=== PATIENT | female | born 1945 | race Caucasian/White ===

== ENCOUNTER 2022-08-30 04:02 | Inpatient (IN) | payer MEDICARE, OTHER ==
[~2022-08-30] VITALS: Ht 162 cm; Wt 100.2 kg
[2022-08-30] MEDS ORDERED: MELATONIN 3 MG TABLET PO PRN (12:30)
[2022-08-30] MEDS ORDERED: ALPRAZolam 0.25 MG (XANAX) TAB PO PRN (12:30)
[2022-08-30] MEDS ORDERED: FLEET ENEMA ADULT 1 EA BTL PR PRN (12:30)
[2022-08-30] MEDS ORDERED: DOCUSATE SODIUM 100 MG (COLACE) CAP PO PRN (12:30)
[2022-08-30] MEDS ORDERED: CALCIUM CARBONATE 500 MG (TUMS) TAB.CHEW PO PRN (12:30)
[2022-08-30] MEDS ORDERED: LOPERAMIDE 2 MG (IMODIUM) TABLET PO PRN (12:30)
[2022-08-30] MEDS ORDERED: LACTULOSE SYRUP 10GM/15ML (ENULOSE) 30ML UDC PO PRN (12:30)
[2022-08-30] MEDS ORDERED: diphenhydrAMINE 25 MG TAB (BENADRYL) PO PRN (12:30)
[2022-08-30] MEDS ORDERED: BISACODYL 10 MG SUPP (DULCOLAX) PR PRN (12:30)
[2022-08-30] MEDS ORDERED: ONDANSETRON 4 MG (ZOFRAN) ORAL DISSOLVE TAB PO PRN (12:30)
[2022-08-30] MEDS ORDERED: ACETAMINOPHEN 325 MG TABLET PO PRN (12:30)
--- NOTE | 2022-08-30 12:33 | PM&R Post Admission Assessment ---
PM&R HP Date of Visit: Aug 30, 2022 Time of Visit: 13:00 History of Present Illness Chief complaint: Catastrophic CVA HPI: This is a 77-year-old female who presented from [facility] following transfer from [place] for possible neurological interventional radiology procedure after she presented with right-sided weakness dysphagia and aphasia found to have left MCA stroke. Loop recorder was recommended due to echo revealing dilated atrium highly suspicious for paroxysmal atrial fibrillation. She remains with nasogastric tube for medications and nutrition due to aspiration risk. Difficult to communicate due to aphasia.Blood sugars will be monitored considering her hemoglobin A1c was 13. Past Gwdoedq-Isvsuq-Jjlowf Hx Past Med/Social Hx: Reviewed Nursing Past Med/Soc Hx, Reviewed and Corrections made Patient Social History Marrital Status: single Employed/Student: retired Alcohol Use: Denies Use Smoking Status: Never a Smoker Past Medical History Cardiac: High Cholesterol, Hypertension Neurological: Stroke Endocrine: Diabetes, Insulin dep PM&R Allergy/Meds/Data Review Allergies Coded Allergies: codeine (Verified Allergy, Unknown, 08/30/22) erythromycin base (Verified Allergy, Unknown, 08/30/22) gentamicin (Verified Allergy, Unknown, 08/30/22) latex (Verified Allergy, Unknown, 08/30/22) paroxetine (Verified Allergy, Unknown, 08/30/22) telmisartan (Verified Allergy, Unknown, 08/30/22) Home Medications Scheduled Aspirin (Aspirin EC), 325 MG NG DAILY, (Reported) Atorvastatin Calcium (Atorvastatin Calcium), 40 MG PO HS, (Reported) Cholecalciferol (Vitamin D3) (Vitamin D3), 125 MCG PO DAILY, (Reported) Clonidine (Catapres-TTS 1 Patch), 1 EACH TD Q7D, (Reported) Insulin Lispro (Humalog), 0-7 UNIT SQ Q4H, (Reported) Levothyroxine Sodium (Levothyroxine Sodium), 100 MCG PO DAILY, (Reported) [Lansoprazole Cmpd], 30 MG PO DAILY, (Reported) Scheduled PRN Acetaminophen (Acetaminophen), 650 MG PO Q6H PRN for PAIN-MILD (1-4), (Reported) Tizanidine HCl (Tizanidine HCl), 4 MG NG Q6H PRN for SPASMS, (Reported) Current Medications Current Medications Reviewed Review of Systems ROS-Unable to Obtain: Difficult to communicate due to aphasia Constitutional: see HPI Physical Exam Physical Exam Vital Signs Capillary Refill : Height, Weight, BMI Height: '" Weight: lbs. oz. kg; BMI Method: General Appearance: No Apparent Distress, WD/WN, Chronically ill, Obese Eyes: Bilateral Eye Normal Inspection, Bilateral Eye PERRL HEENT: PERRL/EOMI, Normal ENT Inspection, Pharynx Normal, Other (Nasogastric tube in place) Neck: Full Range of Motion, Normal Inspection, Non Tender, Supple, Carotid Bruit Respiratory: Chest Non Tender, Lungs Clear, Normal Breath Sounds, No Accessory Muscle Use, No Respiratory Distress Cardiovascular: Regular Rate, Rhythm, No Edema, No Gallop, No JVD, No Murmur, Normal Peripheral Pulses Gastrointestinal: Normal Bowel Sounds, No Organomegaly, No Pulsatile Mass, Non Tender, Soft Back: Normal Inspection, No CVA Tenderness, No Vertebral Tenderness Extremity: Normal Capillary Refill, Normal Inspection, Normal Range of Motion, Non Tender, No Calf Tenderness, No Pedal Edema Neurologic/Psychiatric: Alert, Aphasia, Depressed Affect, Motor Weakness (Right-sided placidity) Skin: Normal Color, Warm/Dry Lymphatic: No Adenopathy PM&R Medical Assessment & Plan REHAB/MEDICAL ASSESSMENT AND PLAN: REHAB IMPAIRMENT GROUP: CVA ETIOLOGIC DIAGNOSIS: CVA The comorbidities that impact the patients function and/or functional outcome by: Catastrophic deficit from CVA with right-sided placidity, aphasia, dysphagia, nasogastric tube in place, gao-ol-hpqmgsj diabetes REHAB PLAN: The patient is being admitted to our comprehensive inpatient rehabilitation faci lit and can tolerate the intensity of service consisting of at least: 180 minutes of therapy a day, 5 out of 7 days a week Rehab treatment will consist of: PT and OT will focus on regaining some function with use of assistive device in order to decrease caretaking burden to help increase independence in ADLs The patient/family has a good understanding of our discharge process and will benefit from an interdisciplinary inpatient rehabilitation program. The patient has potential to make improvement and is in need of at least two of the following multidisciplinary therapies including but not limited to physical, occupational, speech, and prosthetics and orthotics. Additionally the patient will need services from respiratory, nutritional services, wound care, psychology, etc. (Customize this to each patient). Given the patients complex condition and risk of further medical complications, rehabilitation services cannot be safely or effectively provided at a lower level of care such as a halfway facility. BARRIERS TO DISCHARGE: Catastrophic CVA with right-sided weakness and aphasia and dysphagia ESTIMATED LOS: 14 days DISPOSITION: Home with family RELEVANT CHANGES SINCE PREADMISSION SCREENING: I have compared the patients medical and functional status at the time of the preadmission screening and there are: No changes PROGNOSIS: Fair REHABILITATION GOALS: 1. PT and OT will focus on regaining some function with use of assistive device in order to decrease caretaking burden to help increase independence in ADLs All the above goals were reviewed with the patient and he/she is in agreement. By signing this document, I acknowledge that I have personally performed a full physical examination on this patient within 24 hours of admission to this inpatient rehabilitation facility and have determined the patient to be able to tolerate the above course of treatment at an intensive level for a reasonable period of time. I will be completing a detailed individualized Plan of Care for this patient by day #4 of the patients stay based upon the Preadmission Screen, the Post-Admission Evaluation, and the therapy evaluations. Admission Dx/Comorbidities: (1) CVA (cerebral vascular accident) ICD Codes: I63.9 - Cerebral infarction, unspecified Assessment/Plan Assessment and Plan Assess & Plan/Chief Complaint Assessment: 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 Aspiration risk needs modified barium swallow with speech therapy eval diabetes insulin-dependent hemoglobin A1c 13 Obesity Hypertension Hyperlipidemia Suspected cardiac source of CVA Plan: Aggressive PT and OT Speech therapy May need a PEG tube Monitor closely BETHANY HERMOSILLO DO Aug 30, 2022 12:33
[2022-08-30 12:45] VITALS: BP 180/93
[2022-08-30] MEDS ORDERED: CHOL500050 PO (13:07)
[2022-08-30] MEDS ORDERED: CLON1PAT TD (13:07)
[2022-08-30] MEDS ORDERED: ATOR40TA70 PO (13:07)
[2022-08-30] MEDS ORDERED: LEVO100T7 PO (13:07)
[2022-08-30] MEDS ORDERED: LANSOPRAZOLE PO (13:07)
[2022-08-30] MEDS ORDERED: ACET325O6 PO (13:07)
[2022-08-30] MEDS ORDERED: INSU100V SQ (13:07)
[2022-08-30] MEDS ORDERED: TIZA-186 NG (13:07)
[2022-08-30] MEDS ORDERED: ASPI325T32 NG (13:07)
--- NOTE | 2022-08-30 13:42 | Occupational Therapy Eval ---
OT Evaluation-General/PLF Medical Diagnosis Admission Date Aug 30, 2022 at 12:39 Medical Diagnosis: CVA Onset Date: August 25, 2022 Therapy Diagnosis Therapy Diagnosis: decreased ADL status, impaired functional use LUE Precautions Precautions/Isolations: Aspiration, Fall Prevention, Standard Precautions, Pressure Ulcer Referral Physician: Rupesh Crisostomo Reason: Evaluation/Treatment Medical History Additional Medical History diabetes, HTN, HLD Current History EMS to [facility] 08/25/22 with slurred speech and R side weakness. Transfer to [facility] same day with L MCA CVA and for possible endovascular intervention. 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 08/27/22 c/o abdominal pain. 08/28/22 found to have GB sludge with (+) Monteiro's sign. Pt transferred to [facility] 08/30/22 Social History Home: Single Level Current Living Status: Children (daughter) Steps Into Home: 1 Information provided by chart review from other hospital as pt is unable to answer questions at this time due to aphasia. ADL-Prior Level of Function SCALE: Activities may be completed with or without assistive devices. 5-Hmdvtwfyta-zdkbznc completes the activity by him/herself with no assistance from a helper. 5-Set-up or Clean-up Assistance-helper sets up or cleans up; patient completes activity. [place] assists only prior to or following the activity. 4-Supervision or Touching Assistance-helper provides verbal cues and/or touching/steadying and/or contact guard assistance as patient completes activity. Assistance may be provided throughout the activity or intermittently. 3-Partial/Moderate Assistance-helper does LESS THAN HALF the effort. [place] lifts, holds or supports trunk or limbs, but provides less than half the effort. 2-Substantial/Maximal Assistance-helper does MORE THAN HALF the effort. [place] lifts or holds trunk or limbs and provides more than half the effort. 7-Entiytifi-xuzybr does ALL the effort. Patient does none of the effort to complete the activity. Or, the assistance of 2 or more helpers is required for the patient to complete the activity. If activity was not attempted, code reason: 7-Patient Refused. 9-Not Applicable-not attempted and the patient did not perform the activity before the current illness, exacerbation or injury. 10-Not Attempted due to Environmental Limitations-(lack of equipment, weather restraints, etc.). 88-Not Attempted due to Medical Conditions or Safety Concerns. ADL PLOF Comments Chart review from OSH indicates pt was independent with ADLs and functional mobility at [facility]. She used a walker within the house and SPC in community. Pt has a tub/shower and SC with GBs. Pt lives with her daughter in [place], [place]. Another daughter lives close by and can assist PRN. Between the 2 daughters, 22/10 support is available. Pt unable to provide further information due to aphasia. Self Care: Independent Functional Cognition: Independent OT Current Status Subjective When asked if she is in pain, pt indicates yes. She indicates yes to burning and tingling along R side of body, agreeing to being in " a lot " of pain. Mental Status/Objective Patient Orientation: Person, Non-Verbal/Aphasic Current Glasses/Contacts: Yes Dentures/Partials: No Upper Extremity ROM LUE WFL, shoulder flexion to approx 150 degrees. RUE paresis, WFL PRO. Trace movement noted at shoulder and elbow with increased effort and concentration from pt. Upper Extremity Coordination decreased RUE Upper Extremity Sensation Decreased RUE Upper Extremity Strength LUE grossly 3+/5, RUE 1/5 ADL-Treatment Eating (QC): 88 (tube feeding) Oral Hygiene (QC): 3 (Min A with oral swab) Shower/Bathe Self (QC): 88 (Not safe to attempt on initial evaluation.) Upper Body Dressing (QC): 2 Lower Body Dressing (QC): 88 (Not safe to attempt on initial evaluation) On/Off Footwear (QC): 1 Toileting Hygiene (QC): 1 (total assist per RN report at bed level.) Other Treatments [id number] OT evaluation. Pt attempted to provide information about PLOF and home set up. Pt able to answer simple yes/no questions by nodding/shaking her head [phone] OT/PT cotreat due to skill of 2 clinicians required which a hemodialysis lab technician could not perform in order to coordinate UE/LEs, decrease fall risk, and due to pt's limitations in strength, mobility, transfers, R side hemiparesis, expressive aphasia. OT focused on UE placement, cues for sequencing and safety and ADLs, PT focused on LE placement, gross overall movement, transfers/mobility. Pt performed functional mobility including rolling in bed, transferring supine to sit EOB, SPT to w/c. Pt taken to therapy gym via w/c, stood in // x3 times, assist of 2-3 required for standing and RUE placement on b ar for weightbearing. Pt propelled w/c using LUE/LE around [facility] common area, encouragement required. During w/c mobility, pt started vomiting, basin given to pt and RN notified. Pt assisted the rest of the way back to her room via w/c, then SPT from w/c to EOB. Pt assisted supine and assisted to comfort. Pt completed face washing with SBA, and oral care using oral swab with min A using LUE. Post tx, pt in bed, call light in reach and all needs met. mod-max A x2 with mobility including supine to/from sit, sit to/from stand, SPT. Education OT Patient Education: Correct positioning, Energy conservation, Modified ADL techniques, Progress toward Goal/Update tx plan, Purpose of tx/functional activities, Rehab process, Safety issues, Transfer techniques Teaching Recipient: Patient Teaching Methods: Discussion Response to Teaching: Reinforcement Needed BIMS CAM BIMS Expression of Ideas and Wants: Frequently (expressive aphasia) Understanding Verbal Content: Usually Understands Brief Interview/Mental Status: Yes IRF INES BIMS: IRF INES BIMS Response (Comments) Value Repitition of Three Words None 0 Recalls Socks No, Could Not Recall 0 Recalls Blue No, Could Not Recall 0 Recalls Bed No, Could Not Recall 0 Year Missed by 5 Yrs/No Answer 0 Month Missed by 1 Mo/No Answer 0 Day Incorrect or No Answer 0 Total 0 [address] Asses[address] Mental St.: No CAM Mental Status Change/Baseline: 1 Inattention: 1 Disorganized thinkin Altered level of consciousness: 0 OT Short Term Goals Short Term Goals Time Frame: Sep 14, 2022 Shower/bathe self: 2 Upper body dressin Lower body dressin Putting on/taking off footwear: 2 OT Senior Care Goals Senior Care Goals Time Frame: Sep 28, 2022 Eating (QC): 5 (goal of set up assist if pt able to progress from tube feedings.) Oral Hygiene (QC): 5 Toileting Hygiene (QC): 3 Shower/Bathe Self (QC): 3 Upper Body Dressing (QC): 4 Lower Body Dressing (QC): 3 On/Off Footwear (QC): 3 Additional Goals: 1-Demonstrate ADL Tasks, 2-Verbalize Understanding, 3- ImproveStrength/Emil 1=Demonstrate adherence to instructed precautions during ADL tasks. 2=Patient will verbalize/demonstrate understanding of assistive devices/modifications for ADL. 3=Patient will improve strength/tolerance for activity to enable patient to perform ADL's. OT Education/Plan Problem List/Assessment Assessment: Decreased Activ Tolerance, Decreased Safety Aware, Decreased UE Strength, Dependent Transfers, Impaired Bed Mobility, Impaired Cognition, Impaired Coordination, Impaired Funct Balance, Impaired I ADL's, Impaired Self- Care Skills, Restricted Funct UE ROM Discharge Recommendations Plan/Recommendations: Continue POC Comment DME and AE recommendations to be determined based on pt's progress with therapy. Treatment Plan/Plan of Care Patient would benefit from OT for education, treatment and training to promote independence in ADL's, mobility, safety and/or upper extremity function for ADL's. Plan of Care: ADL Retraining, Functional Mobility, Group Exercise/Act as Ind, UE Funct Exercise/Act, UE Neuromus Re-Ed/Coord, W/C Management Training Treatment Duration: Sep 28, 2022 Frequency: At least 5 of 7 days/Wk (IRF) Estimated Hrs Per Day: 1.5 hours per day Agreement: Yes Rehab Potential: Fair Time Start Time: 13:15 ([id number] OT evaluation) Stop Time: 15:00 ([id number] Cotreat) DATE: Aug 30, 2022 Total Time Billed (hr/min): 90 Billed Treatment Time OT evaluation [id number], PT eval [id number] (not billed), Cotreat [id number] 1, EVH (15'), FA 4 (60'), ADL (15') JAMEY RAMOS OT Aug 30, 2022 13:42
[2022-08-30] MEDS ORDERED: MELATONIN 3 MG TABLET NG PRN (14:45)
[2022-08-30] MEDS ORDERED: LACTULOSE SYRUP 10GM/15ML (ENULOSE) 30ML UDC NG PRN (14:45)
[2022-08-30] MEDS ORDERED: CALCIUM CARBONATE 500 MG (TUMS) TAB.CHEW NG PRN (14:45)
[2022-08-30] MEDS ORDERED: LOPERAMIDE 2 MG (IMODIUM) TABLET NG PRN (14:45)
[2022-08-30] MEDS ORDERED: diphenhydrAMINE 12.5 MG/5 ML UDC (BENADRYL) NG PRN (15:30)
[2022-08-30] MEDS ORDERED: DOCUSATE SODIUM 10 MG/ML 10 ML UDC (COLACE) NG PRN (15:30)
--- NOTE | 2022-08-30 16:13 | Physical Therapy Evaluation ---
PT Evaluation-General Medical Diagnosis Admission Date Aug 30, 2022 at 12:39 Medical Diagnosis: CVA Onset Date: August 25, 2022 Therapy Diagnosis Therapy Diagnosis: Decreased functional mobility, decreased R LE strength Precautions Precautions/Isolations: Aspiration, Fall Prevention, Standard Precautions, Pressure Ulcer Weight Bear Status Right Lower Extremity: Right Full Weight Bearing Left Lower Extremity: Left Full Weight Bearing Referral Physician: Rupesh Reason for Referral: Evaluation/Treatment Medical History Additional Medical History DM, HTN, HLD Current History EMS to [facility] 08/25/22 with slurred speech and R side weakness. Transfer to [facility] same day with L MCA CVA and for possible endovascular intervention. 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 08/27/22 c/o abdominal pain. 08/28/22 found to have GB sludge with (+) Monteiro's sign. Pt transferred to [facility] 08/30/22 Reviewed History: Yes Social History Home: Single Level Current Living Status: Children (daughter) PT Steps Into Home: 1 Information provided by chart review from other hospital as pt is unable to answer questions at this time due to aphasia. Prior Prior Level of Function SCALE: Activities may be completed with or without assistive devices. 9-Asjkuvzzzv-xtvywny completes the activity by him/herself with no assistance from a helper. 5-Set-up or Clean-up Assistance-helper sets up or cleans up; patient completes activity. [place] assists only prior to or following the activity. 4-Supervision or Touching Assistance-helper provides verbal cues and/or to uching/steadying and/or contact guard assistance as patient completes activity. Assistance may be provided throughout the activity or intermittently. 3-Partial/Moderate Assistance-helper does LESS THAN HALF the effort. [place] lifts, holds or supports trunk or limbs, but provides less than half the effort. 2-Substantial/Maximal Assistance-helper does MORE THAN HALF the effort. [place] lifts or holds trunk or limbs and provides more than half the effort. 0-Ngcsgizel-vxgdli does ALL the effort. Patient does none of the effort to complete the activity. Or, the assistance of 2 or more helpers is required for the patient to complete the activity. If activity was not attempted, code reason: 7-Patient Refused. 9-Not Applicable-not attempted and the patient did not perform the activity before the current illness, exacerbation or injury. 10-Not Attempted due to Environmental Limitations-(lack of equipment, weather restraints, etc.). 88-Not Attempted due to Medical Conditions or Safety Concerns. Bed Mobility: 6 Transfers (B,C,W/C): 6 Gait: 6 Stairs: 6 Wheelchair Mobility: 9 Indoor Mobility (Ambulation): Independent Stairs: Independent Prior Devices Use: Walker Prior Device Use: FWW; SPC Chart review from OSH indicates pt was Ind with ADLs and functional mobility at [facility]. She used a FWW within the house and SPC in community. Pt has a tub/shower and SC with GBs. Pt lives with her daughter in [place], [place]. Another daughter lives close by and can assist PRN. Between the 2 daughters, 22/10 support is available. Pt unable to provide further information due to aphasia. PT Evaluation-Current Subjective Pt stated R sided pain, but was unable to rate. When asked if it was a little or a lot, the pt reported 'a lot'. Pain Section J - Health Conditions 1. Rarely or not at all 2. Occasionally 3. Frequently 4. Almost constantly 8. Unable to answer Pain Effect on Sleep: 3 Pain Interference with Therapy: 3 Pain Interference w/Day-to-Day: 3 Pt/Family Goals Return home with daughters who together, can provided 22/10 care Objective Patient Orientation: Person, Non-Verbal/Aphasic Attachments: NG Tube ROM/Strength ROM Upper Extremities L UE - WFL R UE - flaccid ROM Lower Extremities L LE - WFL R LE - decreased due to weakness Strength Upper Extremities L UE - WFL R UE - flaccid Strength Lower Extremities L LE MMT - 3+/5 grossly R LE MMT - 2+/5 grossly Integumentary/Posture Bowel Incontinence: Yes Bladder Incontinence: Yes Sensory Vision: Functional Hearing: Functional Hand Dominance: Left Sensation Right Upper Extremit: Impaired Sensation Left Upper Extremity: Intact Sensation Right Lower Extremit: Impaired Sensation Left Lower Extremity: Intact Transfers Roll Left & Right (QC): 1 (Mod/Max A x 2) Sit to Lying (QC): 1 (Mod/Max A x 2) Lying to Sitting/Side of Bed(Q: 1 (Mod/Max A x 2) Sit to Stand (QC): 1 (Mod/Max A x 2) Chair/Jkp-hw-Ufxgb Xfer(QC): 1 (Mod/Max A x 2) Toilet Transfer (QC): 88 Car Transfer (QC): 88 Gait Does the Patient Walk?: No and Walking Goal IS indicated Mode of Locomotion: Both Anticipated Mode of Locomotion: Wheelchair Walk 10 feet (QC): 88 Walk 50 ft with 2 Turns(QC): 88 Walk 150 ft (QC): 88 Walking 10ft/uneven surface-QC: 88 Wheelchair Training Does the Pt Use a Wheelchair?: Yes Distance: 5ft Wheel 50 ft with 2 turns (QC): 88 Wheel 150 ft (QC): 88 Type of Wheelchair: Manual Stairs 1 Step (curb) (QC): 88 4 Steps (QC): 88 12 Steps (QC): 88 Balance Sitting Static: Fair Sitting Dynamic: Fair Standing Static: Poor Standing Dynamic: Poor Picking up an Object (QC): 88 Special Test Comments KU sitting balance scale = 1+/5; Goal = 4/5 Treatment [id number] PT EVH [id number] PT/OT co-tx due to skill of 2 clinicians required which a director of cardiac rehabilitation could not perform in order to coordinate UE/LEs, decrease fall risk, and due to pt's limitations in strength, mobility, transfers, R side hemiparesis, and expressive aphasia. PT focused on LE placement, gross overall movement, transfers/mobility, LE strength, and standing. OT focused on UE placement, cues for sequencing and safety, and ADLs. Pt completed bed mobility tasks and functional transfers with Mod/Max A x 2. Pt taken to therapy gym via w/c with Dep. Pt stood in // bars x 3 with Mod/Max A and Dep for positioning R UE/LE. Pt propelled w/c using L UE/LE around [facility] common area, encouragement required for approximately 5-10ft with Min A. During w/c mobility, pt started vomiting, basin given to pt and RN notified. Pt pushed back to room in w/c. SPT completed from w/c to bed with Max A x 2. Pt completed sit to supine with Max A x 2. Pt completed face washing with SBA, and oral care using oral swab with Min A using L UE. Post tx, pt in bed, call light in reach, and all needs met. Assessment/Needs Pt tolerated PT well and showed good effort Rehab Potential: Fair Post Rehab Potential-Barriers: R hemiparesis Equipment Needs w/c PT Water Fabricator Operator Goals Water Fabricator Operator Goals PT Fdc Goals Time Frame: Sep 13, 2022 Roll Left to Right (QC): 3 (Pt will complete bed mobility with Min A. ) Sit to Lying (QC): 3 (Pt will complete bed mobility with Min A. ) Lying-Sitting on Side/Bed(QC): 3 (Pt will complete bed mobility with Min A. ) Sit to Stand (QC): 3 (Pt will complete transfer with Min/Mod A. ) Chair/Jes-bw-Pcmru Xfer(QC): 3 (Pt will complete transfer with Min/Mod A. ) Toilet/Commode Transfer (QC): 3 (Pt will complete transfer with Min/Mod A. ) Car Transfer (QC): 3 (Pt will complete transfer with Min/Mod A. ) Does the Patient Walk: No and Walking Goal IS indicated Walk 10 feet (QC): 3 (Min/Mod A for walking with the chau-walker ) Walk 10ft-Uneven Surface(QC): 88 Walk 50ft with 2 Turns (QC): 3 (Min/Mod A for walking with the chau-walker ) Walk 150 ft (QC): 88 Does the Pt use WC or Scooter?: Yes Wheel 50 feet with 2 turns (QC: 3 (Min A for w/c mobility ) Type: Manual Wheel 150 feet: 3 (Min A for w/c mobility ) Type: Manual 1 Step (curb) (QC): 3 (Min/Mod A for a curb/step ) 4 Steps (QC): 88 12 Steps (QC): 88 Picking up an Object (QC): 3 (Min A with cash manager ) KU standing goal = 4/5 PT Plan Problem List Problem List: Activity Tolerance, Functional Strength, Safety, Balance, Gait, Transfer, Bed Mobility, ROM Treatment/Plan Treatment Plan: Continue Plan of Care Treatment Plan: Bed Mobility, Concurrent Therapy, Education, Functional Activity Emil, Functional Strength, Group Therapy, Gait, Safety, Therapeutic Exercise, Transfers Treatment Duration: Sep 13, 2022 Frequency: At least 5 of 7 days/Wk (IRF) Estimated Hrs Per Day: 1.5 hours per day Patient and/or Family Agrees t: Yes Safety Risks/Education Patient Education: Transfer Techniques, Issued Written HEP, Correct Positioning, W/C Management, Safety Issues Teaching Recipient: Patient Teaching Methods: Demonstration, Discussion Response to Teaching: Unable to Return Demonstration, Return Demonstration, Unable to Comprehend, Reinforcement Needed Discharge Recommendations Therapy Discharge Recommendati: 24 Hour Supervision Equpiment Recommendations-D/C: Manual Wheelchair, Other, Please Explain (chau- walker ) Discharge Status/Home Program Cont per POC Barriers to Progress R sided weakness Target Placement home with her 2 daughters Time Time In: 1330 Time Out: 1500 DATE: Aug 30, 2022 Total Billed Treatment Time: 90 Total Billed Treatment 90 min [id number] PT [facility] [id number] co-tx EX x 1 FA x 4 KATELIN YAO PT Aug 30, 2022 16:13
[2022-08-30] MEDS: inSUlin ASPART (NovoLOG) 1 UNIT/0.01 ML (CHARGE PER UNIT) SC SCH ×2 (17:40→21:14)
[2022-08-30] MEDS: ACETAMINOPHEN 325 MG TABLET NG PRN (17:42)
[2022-08-30] MEDS ORDERED: ONDANSETRON 4 MG (ZOFRAN) ORAL DISSOLVE TAB SL PRN (18:30)
[2022-08-30 21:00] VITALS: BP 144/85
[2022-08-30] MEDS ORDERED: SENNA W/DOCUSATE (SENOKOT S) TABLET PO SCH (21:00)
[2022-08-30] MEDS ORDERED: DOCUSATE SODIUM 100 MG (COLACE) CAP PO SCH (21:00)
[2022-08-30] MEDS ORDERED: polyethylene glycoL POWDER 17 GM (MIRALAX) PACK PO SCH (21:00)
[2022-08-30] MEDS: DOCUSATE SODIUM 10 MG/ML 10 ML UDC (COLACE) NG SCH (21:10)
[2022-08-30] MEDS: polyethylene glycoL POWDER 17 GM (MIRALAX) PACK NG SCH (21:10)
[2022-08-30] MEDS: SENNA W/DOCUSATE (SENOKOT S) TABLET NG SCH (21:10)
[2022-08-30] MEDS: CATHETER FLUSH 10 ML SYR IVP SCH (22:15)
[2022-08-31] MEDS: inSUlin ASPART (NovoLOG) 1 UNIT/0.01 ML (CHARGE PER UNIT) SC SCH ×6 (00:34→20:12)
[2022-08-31] MEDS: LEVOTHYROXINE 100 MCG (LEVOTHROID) TAB PO SCH (05:48)
[2022-08-31] MEDS: CATHETER FLUSH 10 ML SYR IVP SCH ×3 (05:49→21:11)
[2022-08-31 05:50] LABS: BASOPHILS % (AUTO) 0 % (0-10); EOSINOPHILS # (AUTO) 0.3 10^3/uL (0.0-0.3); EOSINOPHILS % (AUTO) 2 % (0-10); HEMATOCRIT 40 % (35-52); HEMOGLOBIN 13.3 g/dL (11.5-16.0); LYMPHOCYTES # (AUTO) 1.7 10^3/uL (1.0-4.0); LYMPHOCYTES % (AUTO) 16 % (12-44); MEAN CORPUSCULAR HEMOGLOBIN 29 pg (25-34); MEAN CORPUSCULAR HGB CONC 33 g/dL (32-36); MEAN CORPUSCULAR VOLUME 88 fL (80-99); MEAN PLATELET VOLUME 9.3 fL (9.0-12.2); MONOCYTES % (AUTO) 9 % (0-12); NEUTROPHILS # (AUTO) 7.6 10^3/uL (1.8-7.8); NEUTROPHILS % (AUTO) 72 % (42-75); PLATELET COUNT 281 10^3/uL (130-400); WHITE BLOOD COUNT 10.6 10^3/uL (4.3-11.0)
[2022-08-31 06:08] LABS: ALBUMIN 3.5 GM/DL (3.2-4.5)
[2022-08-31 06:09] LABS: POTASSIUM 3.4 MMOL/L (3.6-5.0)
[2022-08-31 06:10] LABS: CALCIUM 9.6 MG/DL (8.5-10.1)
[2022-08-31 06:13] LABS: BILIRUBIN,TOTAL 0.4 MG/DL (0.1-1.0)
[2022-08-31 06:15] LABS: CREATININE SERUM 0.84 MG/DL (0.60-1.30)
[2022-08-31 07:02] VITALS: BP 145/72
[2022-08-31] MEDS: PANTOPRAZOLE 40 MG (PROTONIX) TAB PO SCH (08:40)
[2022-08-31] MEDS: VITAMIN D3 125 MCG (5,000 UNITS) CAPSULE PO SCH (08:40)
[2022-08-31] MEDS: ASPIRIN 325 MG (5 GR) TABLET NG SCH (08:40)
--- NOTE | 2022-08-31 08:49 | PM&R Progress Note ---
Subjective HPI/CC On Admission Date Seen by Provider: Aug 31, 2022 Time Seen by Provider: 12:00 Subjective/Events-last exam 08/31/2022: No major changes Ice chips are approved to consume slowly NGT is place No falls No pain Fall risk Severe deficits Sugars are good BP a bit elevated Review of Systems General: Fatigue, Malaise Objective Exam Vital Signs Vital Signs Date Time Temp Pulse Resp B/P (MAP) Pulse Ox O2 Delivery O2 Flow Rate FiO2 08/31/22 19:49 36.6 77 20 151/77 (101) 96 Room Air Capillary Refill : General Appearance: No Apparent Distress, WD/WN, Chronically ill, Obese HEENT: PERRL/EOMI, Normal ENT Inspection, Pharynx Normal, Other (Nasogastric tube in place) Neck: Full Range of Motion, Normal Inspection, Non Tender, Supple, Carotid Bruit Respiratory: Chest Non Tender, Lungs Clear, Normal Breath Sounds, No Accessory Muscle Use, No Respiratory Distress Cardiovascular: Regular Rate, Rhythm, No Edema, No Gallop, No JVD, No Murmur, Normal Peripheral Pulses Gastrointestinal: Normal Bowel Sounds, No Organomegaly, No Pulsatile Mass, Non Tender, Soft Back: Normal Inspection, No CVA Tenderness, No Vertebral Tenderness Extremity: Normal Capillary Refill, Normal Inspection, Normal Range of Motion, Non Tender, No Calf Tenderness, No Pedal Edema Neurologic/Psychiatric: Alert, Aphasia, Depressed Affect, Motor Weakness (Right-sided placidity) Skin: Normal Color, Warm/Dry Lymphatic: No Adenopathy Results/Procedures Lab Patient resulted labs reviewed. FIM Transfers Therapy Code Descriptions/Definitions Functional [place] Measure: 0=Not Assessed/NA 4=Minimal Assistance 1=Total Assistance 5=Supervision or Setup 2=Maximal Assistance 6=Modified [place] 3=Moderate Assistance 7=Complete IndependenceSCALE: Activities may be completed with or without assistive devices. 9-Pqkalajctq-pzxunwu completes the activity by him/herself with no assistance from a helper. 5-Set-up or Clean-up Assistance-helper sets up or cleans up; patient completes activity. [place] assists only prior to or following the activity. 4-Supervision or Touching Assistance-helper provides verbal cues and/or touching/steadying and/or contact guard assistance as patient completes activity. Assistance may be provided throughout the activity or intermittently. 3-Partial/Moderate Assistance-helper does LESS THAN HALF the effort. [place] lifts, holds or supports trunk or limbs, but provides less than half the effort. 2-Substantial/Maximal Assistance-helper does MORE THAN HALF the effort. [place] lifts or holds trunk or limbs and provides more than half the effort. 7-Augwqghzc-xasjdr does ALL the effort. Patient does none of the effort to complete the activity. Or, the assistance of 2 or more helpers is required for the patient to complete the activity. If activity was not attempted, code reason: 7-Patient Refused. 9-Not Applicable-not attempted and the patient did not perform the activity before the current illness, exacerbation or injury. 10-Not Attempted due to Environmental Limitations-(lack of equipment, weather restraints, etc.). 88-Not Attempted due to Medical Conditions or Safety Concerns. Roll Left to Right (QC): 1 (Mod/Max A x 2) Sit to Lying (QC): 1 (Mod/Max A x 2) Sit to Stand (QC): 1 (Mod/Max A x 2) Chair/Vvv-sx-Fckgh Xfer(QC): 1 (Mod/Max A x 2) Car Transfer (QC): 88 Gait Training Does the Patient Walk?: No and Walking Goal IS indicated Walk 10 feet (QC): 88 Walk 50 ft with 2 Turns(QC): 88 Walk 150 ft (QC): 88 Walking 10ft/uneven surface-QC: 88 Wheelchair Training Does the Pt Use a Wheelchair?: Yes Distance: 5ft Wheel 50 ft with 2 turns (QC): 88 Wheel 150 ft (QC): 88 Type of Wheelchair: Manual Stair Training 1 Step (curb) (QC): 88 4 Steps (QC): 88 12 Steps (QC): 88 Balance Picking up an Object (QC): 88 ADL-Treatment Eating (QC): 88 (tube feeding) Oral Hygiene (QC): 3 (Min A with oral swab) Shower/Bathe Self (QC): 88 (Not safe to attempt on initial evaluation.) Upper Body Dressing (QC): 2 Lower Body Dressing (QC): 88 (Not safe to attempt on initial evaluation) On/Off Footwear (QC): 1 Toileting Hygiene (QC): 1 (total assist per RN report at bed level.) Assessment/Plan Assessment and Plan Assess & Plan/Chief Complaint Assessment: 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
--- NOTE | 2022-08-31 08:49 | Individualized Plan of Care ---
Individualized Plan of Care Rehab Nursing IPOC Order Admission Date Aug 30, 2022 at 12:39 Current Orders Orders Admission Order(Inpt,Obs,Sdc) (08/30/22 12:29) Vital Signs: Per Unit Policy ( 08,16,00 (08/30/22 12:29) Beto Greenberg ,21 (08/30/22 12:29) Sequential Compression Device (08/30/22 12:29) Dial Buffer-Inpt Rehab Con (08/30/22 12:29) Rehab Nursing Orders-Ipoc (08/30/22 12:29) Physical Therapy Rehab Orders (08/30/22 12:29) Occupational Therapy Rehab Ord (08/30/22 12:29) Speech Therapy Rehab Orders (08/30/22 12:29) Cbc With Automated Diff (08/31/22 06:00) Comprehensive Metabolic Panel (08/31/22 06:00) Precautions (Aru) (08/30/22 12:29) Weekly Weight WEEK (08/30/22 12:29) Rehab-Intensity Of Therapy (08/30/22 12:29) Initiate Admission Nursing Pro .admission (08/30/22 12:29) Alprazolam Tablet (Xanax Tablet) (08/30/22 12:30) Calcium Carbonate Chew Tablet (Antacid C (08/30/22 12:30) Diphenhydramine Tablet (Benadryl Tablet) (08/30/22 12:30) Docusate Sodium Capsule (Colace Capsule) (08/30/22 21:00) Docusate Sodium Capsule (Colace Capsule) (08/30/22 12:30) Bisacodyl Suppository (Dulcolax Supposit (08/30/22 12:30) Lactulose Oral Solution (Enulose Oral So (08/30/22 12:30) Na Phos/Na Biphos Enema (Fleet Enema Reyes (08/30/22 12:30) Loperamide Tablet (Imodium Tablet) (08/30/22 12:30) Melatonin Tablet (Melatonin Tablet) (08/30/22 12:30) Polyethylene Glycol Powder Pkt (Miralax (08/30/22 21:00) Ondansetron Oral Dissolve Tab (Zofran (08/30/22 12:30) Senna S Tablet (Senokot S Tablet) (08/30/22 21:00) Acetaminophen Tablet/Caplet (Tylenol T (08/30/22 12:30) Code/Resuscitation (08/30/22 12:29) Initiate Admission Nursing Pro .admission (08/30/22 12:29) Admission Arrival Bed Request (08/30/22 12:39) Nothing By Mouth (08/30/22 Lunch) Accucheck Q4hr Q4HR (08/30/22 12:53) Insulin Aspart (Novolog) (Novolog (Charg (08/30/22 16:00) Insulin Determir (Per Unit) (Levemir (Pe (08/30/22 21:00) Tube Feeding (Diet) (08/30/22 13:14) Feeding Tube Connector Cleanin Q8H (08/30/22 13:14) Tube Feeding Assessment Q6H (08/30/22 13:14) Acetaminophen Tablet/Caplet (Tylenol T (08/30/22 18:30) Alprazolam Tablet (Xanax Tablet) (08/30/22 20:30) Calcium Carbonate Chew Tablet (Antacid C (08/30/22 14:45) Lactulose Oral Solution (Enulose Oral So (08/30/22 14:45) Loperamide Tablet (Imodium Tablet) (08/30/22 14:45) Melatonin Tablet (Melatonin Tablet) (08/30/22 14:45) Polyethylene Glycol Powder Pkt (Miralax (08/30/22 21:00) Senna S Tablet (Senokot S Tablet) (08/30/22 21:00) Docusate Sodium Oral Solution (Colace Or (08/30/22 21:00) Docusate Sodium Oral Solution (Colace Or (08/30/22 15:30) Diphenhydramine Oral Soln (Benadryl Oral (08/30/22 15:30) Ondansetron Oral Dissolve Tab (Zofran (08/30/22 18:30) Sodium Chloride Flush (Catheter Flush Sy (08/30/22 22:00) Atorvastatin Tablet (Lipitor Tablet) (08/30/22 21:00) Levothyroxine Tablet (Synthroid Tablet) (08/31/22 06:30) Tizanidine Tablet (Zanaflex Tablet) (08/30/22 16:45) Acetaminophen Tablet/Caplet (Tylenol T (08/30/22 17:00) Aspirin Tablet (Aspirin Tablet) (08/31/22 09:00) Cholecalciferol Capsule/Tablet (Vitamin (08/31/22 09:00) Pantoprazole Tablet (Protonix Tablet) (08/31/22 09:00) Clonidine Patch (Catapres Patch) (09/03/22 09:00) Patch Removal (Patch Removal) (09/03/22 08:59) Patient Visit (08/30/22 ) Pt Eval High Complexity (08/30/22 ) Exercise Therap, Ea 15 Min (08/30/22 ) Functional Activities, Ea 15 (08/30/22 ) Modified Barium Swallow (09/03/22 08:00) Potassium Bicarbonate/Cit Ac (Effer-K 20 (08/31/22 12:30) Patient Visit (08/31/22 ) Dysphagia Evaluation Std (08/31/22 ) Dysphagia Therapy (08/31/22 ) Patient Visit (08/31/22 ) Functional Activities, Ea 15 (08/31/22 ) Exercise Therap, Ea 15 Min (08/31/22 ) Oxycodone 5 Mg/5ml Oral Soln (Roxicodone (09/01/22 06:00) Amlodipine Tablet (Norvasc Tablet) (09/01/22 09:00) Rehab Nursing Orders: Ongoing Assess. of Cognitive Status, Ongoing Assess. of Function Status, Bladder Management, Bladder Scan, Bladder Training, Bowel Management, Bowel Training, Disease Management & Educaiton, DVT Prophylaxis, Fall Prevention, Fluid/Electrolyte/Nutrition Mgmt, Infection Prevention, Medication Management & Education, Management of Risks & Complications, Management of Skin Intergrity, Nutrition Management, Pain Management, Patient/Family Support, Safety Management, Swallow Precautions, Wound Management Intensity of Therapy to be met Patient to be seen: Min.3h per day/5 of 7d PT IPOC Problem List: Activity Tolerance, Functional Strength, Safety, Balance, Gait, Transfer, Bed Mobility, ROM Treatment Plan: Continue Plan of Care Bed Mobility, Concurrent Therapy, Education, Functional Activity Emil, Functional Strength, Group Therapy, Gait, Safety, Therapeutic Exercise, Transfers Treatment Duration: Sep 13, 2022 Frequency: At least 5 of 7 days/Wk (IRF) Estimated Hrs Per Day: 1.5 hours per day OT IPOC Problems: Decreased Activ Tolerance, Decreased Safety Aware, Decreased UE Strength, Dependent Transfers, Impaired Bed Mobility, Impaired Cognition, Impaired Coordination, Impaired Funct Balance, Impaired I ADL's, Impaired Self- Care Skills, Restricted Funct UE ROM OT Treatment, Training and Edu: Yes Plan of Care: ADL Retraining, Functional Mobility, Group Exercise/Act as Ind, UE Funct Exercise/Act, UE Neuromus Re-Ed/Coord, W/C Management Training Treatment Duration: Sep 28, 2022 Frequency: At least 5 of 7 days/Wk (IRF) Estimated Hrs Per Day: 1.[address] IPOC Speech Therapy Treatment Plan: Continue Plan of Care Treatment Duration: Aug 31, 2022 Frequency: Modified Program (IRF) Estimated Hrs Per Day: Other Dial Buffer/Case Mgmt Dial Buffer/Case Managemen: Discharge Planning Dietitian/Profiler Dietitian/Profiler to monitor nutritional status and make changes and/or recommendations as needed and work with speech pathology on dietary upgrades as the occur. Physician IPOC Medical Issues being managed closely and that require the 24 hour availability of a physician: Recent catastrophic CVA with severe deficits will require close monitoring of clinical status since high risk for decompensation including aspiration risk Medical Issues: Bowel/Bladder Function, DVT Prophylaxis, Falls Precautions, Fluid/Electrolyte/Nutrition Balance, Infection Protection, Pain Management, Swallowing Precautions Brief Synthesis of Preadmission Screen, Post-Admission Evaluation, and Therapy Evaluations: PT OT will focus on regaining function in order to return to home and decrease project engineer chemicals burden and improve quality of life with more independent ADL's Medical Prognosis: Fair Anticipated Length of Stay: 14 days BETHANY HERMOSILLO DO Aug 31, 2022 08:49
[2022-08-31] MEDS: ALPRAZolam 0.25 MG (XANAX) TAB NG PRN (09:36)
[2022-08-31] MEDS: ACETAMINOPHEN 325 MG TABLET NG PRN ×3 (09:36→21:04)
--- NOTE | 2022-08-31 09:47 | Occupational Ther Daily Note ---
OT Current Status-Daily Note Subjective Pt alert, lying in bed. Pt agrees to therapy. Pt has leg spasm throughout session which has increased pain, nrsg aware. Co-treat with PT [id number], skills of 2 clinicians require to decrease fall risk, increase awareness of R UE/LE during functional tasks/mobility, increase functional mobility. PT focusing on transfers, standing and B LE strengthening while OT focusing on functional mobility/transfers and R UE function. Mental Status/Objective Patient Orientation: Person, Place, Time, Situation Attachments: IV, NG Tube ADL-Treatment Pt declines completing bed bath stating that nrsg had completed prior to OT session. Pt washed face and hands, pt demonstrates ability to wash chest and abdomen then assist for all other areas. Supervision/set up for safety for oral care, pt needed mirror to place oral sponge in mouth, requested oral suction from nrsg. Max A for UBD. Dependent for lower body dressing and footwear. Therapy Code Descriptions/Definitions Functional [place] Measure: 0=Not Assessed/NA 4=Minimal Assistance 1=Total Assistance 5=Supervision or Setup 2=Maximal Assistance 6=Modified [place] 3=Moderate Assistance 7=Complete IndependenceSCALE: Activities may be completed with or without assistive devices. 6-Ewkivpfsls-ebsdrfe completes the activity by him/herself with no assistance from a helper. 5-Set-up or Clean-up Assistance-helper sets up or cleans up; patient completes activity. [place] assists only prior to or following the activity. 4-Supervision or Touching Assistance-helper provides verbal cues and/or touching/steadying and/or contact guard assistance as patient completes activity. Assistance may be provided throughout the activity or intermittently. 3-Partial/Moderate Assistance-helper does LESS THAN HALF the effort. [place] lif ts, holds or supports trunk or limbs, but provides less than half the effort. 2-Substantial/Maximal Assistance-helper does MORE THAN HALF the effort. [place] lifts or holds trunk or limbs and provides more than half the effort. 4-Cgnaydgkr-iqjwok does ALL the effort. Patient does none of the effort to complete the activity. Or, the assistance of 2 or more helpers is required for the patient to complete the activity. If activity was not attempted, code reason: 7-Patient Refused. 9-Not Applicable-not attempted and the patient did not perform the activity before the current illness, exacerbation or injury. 10-Not Attempted due to Environmental Limitations-(lack of equipment, weather restraints, etc.). 88-Not Attempted due to Medical Conditions or Safety Concerns. Oral Hygiene (QC): 4 Shower/Bathe Self (QC): 1 Upper Body Dressing (QC): 2 Lower Body Dressing (QC): 1 On/Off Footwear: 1 Toileting Hygiene (QC): 1 Other Treatment See PT notes for standing progress. Pt stood with Mod A to CGA from OT to boost while PT lift from front to work on standing, 5x's, rehabilitation caseworker placed and monitor R UE during standing for wt bearing. OT assessing R shldr, pt stated that it hurts around clavicle area and upper humerus. When asked if it had been x-rayed, pt stated us and said broke then touched area. Reported this to nrsg. Pt is max A x2 for SPT from surface to surface. After session, pt in bed which is placed in chair position. Call light/phone in reach. All needs met. OT Short Term Goals Short Term Goals Time Frame: Sep 14, 2022 Shower/bathe self: 2 Upper body dressin Lower body dressin Putting on/taking off footwear: 2 OT Construction Producer Goals Snf Goals Time Frame: Sep 28, 2022 Acute change in mental status: 1 Inattention: 1 Disorganized thinkin Altered level of consciousness: 0 Eating (QC): 5 (goal of set up assist if pt able to progress from tube feedings.) Oral Hygiene (QC): 5 Toileting Hygiene (QC): 3 Shower/Bathe Self (QC): 3 Upper Body Dressing (QC): 4 Lower Body Dressing (QC): 3 On/Off Footwear (QC): 3 Additional Goals: 1-Demonstrate ADL Tasks, 2-Verbalize Understanding, 3- ImproveStrength/Emil 1=Demonstrate adherence to instructed precautions during ADL tasks. 2=Patient will verbalize/demonstrate understanding of assistive devices/modifications for ADL. 3=Patient will improve strength/tolerance for activity to enable patient to perform ADL's. OT Education/Plan Problem List/Assessment Assessment: Decreased Activ Tolerance, Decreased UE Strength, Dependent Transfers, Impaired Bed Mobility, Impaired Coordination, Impaired Funct Balance, Impaired I ADL's, Impaired Self-Care Skills, Restricted Funct UE ROM (RUE), Visual-Perceptual Deficit Discharge Recommendations Plan/Recommendations: Continue POC Treatment Plan/Plan of Care Patient would benefit from OT for education, treatment and training to promote independence in ADL's, mobility, safety and/or upper extremity function for ADL's. Plan of Care: ADL Retraining, Functional Mobility, Group Exercise/Act as Ind, UE Funct Exercise/Act, UE Neuromus Re-Ed/Coord, W/C Management Training Treatment Duration: Sep 28, 2022 Frequency: At least 5 of 7 days/Wk (IRF) Estimated Hrs Per Day: 1.5 hours per day Agreement: Yes Rehab Potential: Fair Time Start Time: 07:45 Stop Time: 09:00 DATE: Aug 31, 2022 Total Time Billed (hr/min): 75 Billed Treatment Time 1 visit-ADL 2 (30 min) NM 3 (45 min) individual [id number], co-treat with PT [id number] NICHO GU Aug 31, 2022 09:47
--- NOTE | 2022-08-31 10:11 | Physical Therapy Daily Note ---
PT Daily Note-Current Subjective Pt is agreeable to PT. Reports 'lots' of pain on the R side. Unable to rate. Co-tx with OT [id number], skills of 2 clinicians required to decrease fall risk, increase awareness of R UE/LE during functional tasks/mobility, increase functional mobility. PT focusing on transfers, standing and B LE strengthening while OT focusing on functional mobility/transfers and R UE function. Pain Section J - Health Conditions 1. Rarely or not at all 2. Occasionally 3. Frequently 4. Almost constantly 8. Unable to answer Pain Effect on Sleep: 3 Pain Interference with Therapy: 3 Pain Interference w/Day-to-Day: 3 Mental Status Attachments: NG Tube Transfers SCALE: Activities may be completed with or without assistive devices. 4-Fraxfxeyoa-yozbaes completes the activity by him/herself with no assistance from a helper. 5-Set-up or Clean-up Assistance-helper sets up or cleans up; patient completes activity. [place] assists only prior to or following the activity. 4-Supervision or Touching Assistance-helper provides verbal cues and/or touching/steadying and/or contact guard assistance as patient completes activity. Assistance may be provided throughout the activity or intermittently. 3-Partial/Moderate Assistance-helper does LESS THAN HALF the effort. [place] lifts, holds or supports trunk or limbs, but provides less than half the effort. 2-Substantial/Maximal Assistance-helper does MORE THAN HALF the effort. [place] l ifts or holds trunk or limbs and provides more than half the effort. 9-Cgzljkcbo-pzlygg does ALL the effort. Patient does none of the effort to complete the activity. Or, the assistance of 2 or more helpers is required for the patient to complete the activity. If activity was not attempted, code reason: 7-Patient Refused. 9-Not Applicable-not attempted and the patient did not perform the activity before the current illness, exacerbation or injury. 10-Not Attempted due to Environmental Limitations-(lack of equipment, weather restraints, etc.). 88-Not Attempted due to Medical Conditions or Safety Concerns. Roll Left & Right (QC): 2 (Mod/Max A) Sit to Lying (QC): 2 (Max A) Lying to Sitting/Side of Bed(Q: 2 (Max A) Sit to Stand (QC): 1 (Mod/Max A x 2) Chair/Iqd-lw-Iaole Xfer(QC): 1 (Mod/Max A x 2) Weight Bearing Right Lower Extremity: Right Full Weight Bearing Left Lower Extremity: Left Full Weight Bearing Gait Training Does the Patient Walk?: No and Walking Goal IS indicated Wheelchair Training Does the Pt Use a Wheelchair?: Yes Wheel 50 ft with 2 turns (QC): 2 (Max A) Wheel 150 ft (QC): 2 (Max A) Treatments Co-tx with OT [id number], skills of 2 clinicians required to decrease fall risk, increase awareness of R UE/LE during functional tasks/mobility, increase functional mobility. PT focusing on transfers, standing and B LE strengthening while OT focusing on functional mobility/transfers and R UE function. Pt completed bed mobility tasks with Mod/Max A. SPT x 2 bed <> w/c with Max/Mod A x 2. Pt is Max A/Dep for w/c maintenance and mobility. Pt completed sit to stand x 5 in the // bars with Mod/Max A x 2 and aid assist for R UE on the // bar. Pt demo good effort with transfers. Pt completed supine and seated B LE T her Ex throughout treatment session. AAROM on the R LE. Assessment Current Status: Good Progress Pt tolerated PT well with good effort. PT Apparatus Engineering Technologist Goals Jail Goals PT Jail Goals Time Frame: Sep 13, 2022 Roll Left & Right (QC): 3 (Pt will complete bed mobility with Min A. ) Sit to Lying (QC): 3 (Pt will complete bed mobility with Min A. ) Lying-Sitting on Side/Bed(QC): 3 (Pt will complete bed mobility with Min A. ) Sit to Stand (QC): 3 (Pt will complete transfer with Min/Mod A. ) Chair/Csh-xe-Wledz Xfer(QC): 3 (Pt will complete transfer with Min/Mod A. ) Toilet Transfer (QC): 3 (Pt will complete transfer with Min/Mod A. ) Car Transfer (QC): 3 (Pt will complete transfer with Min/Mod A. ) Does the Patient Walk: No and Walking Goal IS indicated Walk 10 feet (QC): 3 (Min/Mod A for walking with the chau-walker ) Walk 50ft with 2 Turns (QC): 3 (Min/Mod A for walking with the chau-walker ) Walk 150 ft (QC): 88 Walking 10ft on Uneven Surface: 88 1 Step (curb) (QC): 3 (Min/Mod A for a curb/step ) 4 Steps (QC): 88 12 Steps (QC): 88 Picking up an Object (QC): 3 (Min A with president financial institution ) Does the Pt use WC or Scooter?: Yes Wheel 50 feet with 2 turns (QC: 3 (Min A for w/c mobility ) Type: Manual Wheel 150 feet: 3 (Min A for w/c mobility ) Type: Manual PT Plan Problem List Problem List: Activity Tolerance, Functional Strength, Safety, Balance, Gait, Transfer, Bed Mobility Treatment/Plan Treatment Plan: Continue Plan of Care Treatment Plan: Bed Mobility, Concurrent Therapy, Education, Functional Activity Emil, Functional Strength, Group Therapy, Gait, Safety, Therapeutic Exercise, Transfers Treatment Duration: Sep 13, 2022 Frequency: At least 5 of 7 days/Wk (IRF) Estimated Hrs Per Day: 1.5 hours per day Patient and/or Family Agrees t: Yes Safety Risks/Education Patient Education: Transfer Techniques, Correct Positioning, W/C Management, Safety Issues Teaching Recipient: Patient Teaching Methods: Demonstration, Discussion Response to Teaching: Reinforcement Needed Discharge Recommendations Therapy Discharge Recommendati: Home & Family Equpiment Recommendations-D/C: 3 in 1 Commode, Wheelchair Cushion, Front Wheeled Walker, Wheelchair Ramp, Railings, Shower Chair, Manual Wheelchair Discharge Status/Home Program Cont per POC Barriers to Progress R sided weakness Target Placement home with daughters Time Time In: 800 Time Out: 900 DATE: Aug 31, 2022 Total Billed Treatment Time: 60 Total Billed Treatment 60 min (co-tx for 60 min from [id number]) 1 visit EX x 1 FA x 3 KATELIN YAO PT Aug 31, 2022 10:11
--- NOTE | 2022-08-31 10:58 | ST Dysphagia Evaluation ---
Speech Evaluation-General Medical Diagnosis CVA Onset Date: August 25, 2022 Therapy Diagnosis Therapy Diagnosis: Moderate Oropharyngeal Dysphagia Precautions Precautions: Fall, Pressure Ulcer, Aspiration Precautions/Isolations: Aspiration, Fall Prevention, Standard Precautions, Pressure Ulcer Referral Referring Physician: Dr. Addie Goddard Reason for Referral: Evaluation/Treatment Medical History Reviewed History: Yes Social History Current Living Status: Children (daughter) Speech PLF/Current-Dysphagia Prior Level of Function Per chart review, the patient consumed a regular consistency diet with thin liquids prior to her recent stroke on 08/25/2022. 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 Subjective The patient was reclined in her bed, awake and alert, upon entrance to her room by the clinician. The patient recently completed physical therapy and occupational therapy and is experiencing severe leg cramps at this time. The p resence of the leg cramps cause the patient to scream out in pain and discomfort. The RN is present and provides medication as appropriate. The leg cramps do serve as a large barrier towards carrizales oropharyngeal swallowing assessment on this date. The patient was agreeable to participation in the oropharyngeal swallowing assessment and was seated upright in bed by the clinician for safe swallowing position. The patient has an NG tube present in the left nares. Cognitive Status Patient Orientation: Person, Place, Situation - Expressive aphasia, dysarthria, apraxia of speech. Oral Motor Skills Dentition: Natural (Sparse upper dentition. ) Ability to Follow Directions: Good Oral Expression Ability: Severe Impairment Voice Voice Phonatory-Based Quality: Normal Voice Pitch: Normal Voice Loudness: Normal Face Facial Symmetry: Asymmetrical (Right facial droop.) Oral-Facial Assessment Oral-Facial Dentition: Normal Labial Seal Description: Droops Right, Weak, Poor Coordination Smile: Reduced ROM, Droops Right, Poor Coordination Puff Cheeks: Reduced Strength (Right.) Lingual Protrusion: Abnormal (Right deviation upon protrusion.) Lingual ROM: Abnormal (Decreased bilateral range of motion (R>L)) Lingual Strength: Abnormal Volitional Dry Swallow: No Voluntary Cough: No Can Clear Throat Volitionally: No Productive Cough: Yes Productive Throat Clear: Yes Dysphagia Evaluation Consistencies Presented: Thin Liquid (Via ice chip, teaspoon, and straw.), Bier Thick Liquid (Mildly thick via teaspoon. ), Pureed (Four ounces of puree.) Oral Phase: Anterior Spillage (Right labial side.) The patient was able to appropriately and adequately draw bolus material from a teaspoon and straw from the left labial side. Minimal anterior spillage was present from the right labial side. Complete bolus formation and transfer was appreciated of all consistencies. Oral pocketing was not present. Laryngeal elevation was present to palpation. A slight delay was suspected of the pharyngeal swallow onset, as a rocking motion was observed. The patient is unable to complete a voluntary pharyngeal swallow, however, does display an appropriate pharyngeal swallow involuntarily to bolus stimuli. The patient does not display s/s of suspected aspiration with ice chips (five), 9/10 teaspoons of thin liquid, or four ounces of puree. The patient did display a delayed throat clear with 1/10 teaspoons of thin liquid, a small straw sip of thin liquid, and a teaspoon of mildly thick liquid. Dietary Recommendations: NPO Liquid Recommendations: NPO Recommendations: - The patient should remain N.P.O. with nutrition and hydration goals met through the present NG tube. - Frequent and excellent oral care to reduce the transfer of oral bacteria to the lungs should aspiration of secretions occur. - Following excellent oral care, ice chips trials (sparingly) to improve oral moisture, initiate rehabilitation practices, and reduce risks of disuse atrophy. - Crush medication and place in puree for administration. - Cease P.O. trials of ice chips or crushed medication if s/s of suspected aspiration are elicited. - The patient will complete a modified barium swallow on 09/03/2022 at 1015 (as appropriate). - Speech pathology to provide skilled dysphagia therapy five times per week, as appropriate. - Post acute ST therapy is recommended. The results, recommendations, and swallowing education were provided to the patient. The recommendations were placed on the patient's wall by the clinician and discussed with the RN. At this time, all questions were addressed within the clinician's scope of practice. Dysphagia Evaluation Summary The patient demonstrated moderate oropharyngeal dysphagia characterized by decreased right labial and lingual strength, range of motion, and coordination, a suspected delay in the pharyngeal swallow onset, and poor airway protection in the presence of bolus material. Speech Short Term Goals Short Term Goals Short Term Goals 1. The patient will participate in a modified barium swallow assessment to evaluate for the presence of aspiration and best guide therapeutic interventions. 2. The patient will display 80% accuracy with oral motor exercises with mild clinician verbal and visual cueing. 3. The patient will display 80% accuracy with dysphagia exercises with mild clinician verbal and visual cueing. Speech Nylon Operator Goals Skilled Nursing Goals 1. The patient will tolerate the least restrictive diet consistency without s/s of suspected aspiration. Time Frame: Three Weeks. Speech-Plan Treatment Plan Speech Therapy Treatment Plan: Continue Plan of Care Treatment Duration: Sep 21, 2022 Frequency: Modified Program (IRF) (Four to five times per week.) Estimated Hrs Per Day: Other (.5 to 1 hour per day.) Rehab Potential: Fair Pt/Family Agrees to Plan: Yes Safety Risks/Education Teaching Recipient: Patient Teaching Methods: Discussion Response to Teaching: Verbalize Understanding, Return Demonstration Education Topics Provided: Results, Plan of Care, Anatomy and Physiology of the Oropharyngeal Swallow Function, Safe Swallowing Precautions Time Speech Therapy Time In: 09:30 Speech Therapy Time Out: 10:20 DATE: Aug 31, 2022 Total Billed Time: 50 Billed Treatment Time 1, MOD, DELL ARAYA Aug 31, 2022 10:58
[2022-08-31] MEDS: polyethylene glycoL POWDER 17 GM (MIRALAX) PACK NG SCH ×2 (11:21→20:13)
[2022-08-31] MEDS: DOCUSATE SODIUM 10 MG/ML 10 ML UDC (COLACE) NG SCH ×2 (11:22→20:12)
[2022-08-31] MEDS: SENNA W/DOCUSATE (SENOKOT S) TABLET NG SCH ×2 (11:29→20:13)
--- NOTE | 2022-08-31 12:10 | ST Dysphagia Evaluation ---
Speech Evaluation-General Medical Diagnosis CVA Onset Date: August 25, 2022 Medical History Reviewed History: Yes Social History Current Living Status: Children (daughter) Speech PLF/Current-Dysphagia Oral Motor Skills Dentition: Natural Oral Expression Ability: Severe Impairment Speech-Plan Treatment Plan Treatment Duration: Sep 21, 2022 Frequency: Modified Program (IRF) (Four to five times per week.) Estimated Hrs Per Day: Other (.5 to 1 hour per day.) Rehab Potential: DELL Verdugo Aug 31, 2022 12:10
[2022-08-31] MEDS: POTASSIUM BICARB 20 MEQ (EFFER-K) TABLET PO SCH (14:06)
[2022-08-31 19:49] VITALS: BP 151/77
[2022-09-01] MEDS: inSUlin ASPART (NovoLOG) 1 UNIT/0.01 ML (CHARGE PER UNIT) SC SCH ×6 (00:44→20:25)
[2022-09-01] MEDS: ACETAMINOPHEN 325 MG TABLET NG PRN (03:45)
[2022-09-01] MEDS: oxyCODONE 5 MG/5 ML ORAL SOLN (roxiCODONE) 5 ML UDC NG PRN ×3 (06:25→20:09)
[2022-09-01] MEDS: CATHETER FLUSH 10 ML SYR IVP SCH ×3 (06:25→20:10)
[2022-09-01] MEDS: LEVOTHYROXINE 100 MCG (LEVOTHROID) TAB PO SCH (06:25)
[2022-09-01] MEDS: POTASSIUM BICARB 20 MEQ (EFFER-K) TABLET PO SCH (06:25)
--- NOTE | 2022-09-01 06:35 | PM&R Progress Note ---
Subjective HPI/CC On Admission Date Seen by Provider: Sep 01, 2022 Time Seen by Provider: 12:00 Subjective/Events-last exam 09/01/2022: Patient doing well Added pain pill NG tube maintained No falls 08/31/2022: No major changes Ice chips are approved to consume slowly NGT is place No falls No pain Fall risk Severe deficits Sugars are good BP a bit elevated Review of Systems General: Fatigue, Malaise Objective Exam Vital Signs Vital Signs Date Time Temp Pulse Resp B/P (MAP) Pulse Ox O2 Delivery O2 Flow Rate FiO2 09/01/22 13:01 68 154/67 (96) 09/01/22 07:38 36.3 18 95 Room Air Capillary Refill : General Appearance: No Apparent Distress, WD/WN, Chronically ill, Obese HEENT: PERRL/EOMI, Normal ENT Inspection, Pharynx Normal, Other (Nasogastric tube in place) Neck: Full Range of Motion, Normal Inspection, Non Tender, Supple, Carotid Bruit Respiratory: Chest Non Tender, Lungs Clear, Normal Breath Sounds, No Accessory Muscle Use, No Respiratory Distress Cardiovascular: Regular Rate, Rhythm, No Edema, No Gallop, No JVD, No Murmur, Normal Peripheral Pulses Gastrointestinal: Normal Bowel Sounds, No Organomegaly, No Pulsatile Mass, Non Tender, Soft Back: Normal Inspection, No CVA Tenderness, No Vertebral Tenderness Extremity: Normal Capillary Refill, Normal Inspection, Normal Range of Motion, Non Tender, No Calf Tenderness, No Pedal Edema Neurologic/Psychiatric: Alert, Aphasia, Depressed Affect, Motor Weakness (Right-sided placidity) Skin: Normal Color, Warm/Dry Lymphatic: No Adenopathy Results/Procedures Lab Patient resulted labs reviewed. FIM Transfers Therapy Code Descriptions/Definitions Functional [place] Measure: 0=Not Assessed/NA 4=Minimal Assistance 1=Total Assistance 5=Supervision or Setup 2=Maximal Assistance 6=Modified [place] 3=Moderate Assistance 7=Complete IndependenceSCALE: Activities may be completed with or without assistive devices. 0-Qogbbwbzlg-vejhwkm completes the activity by him/herself with no assistance from a helper. 5-Set-up or Clean-up Assistance-helper sets up or cleans up; patient completes activity. [place] assists only prior to or following the activity. 4-Supervision or Touching Assistance-helper provides verbal cues and/or touching/steadying and/or contact guard assistance as patient completes activity. Assistance may be provided throughout the activity or intermittently. 3-Partial/Moderate Assistance-helper does LESS THAN HALF the effort. [place] lifts, holds or supports trunk or limbs, but provides less than half the effort. 2-Substantial/Maximal Assistance-helper does MORE THAN HALF the effort. [place] lifts or holds trunk or limbs and provides more than half the effort. 0-Jvovnyepe-wvwgml does ALL the effort. Patient does none of the effort to complete the activity. Or, the assistance of 2 or more helpers is required for the patient to complete the activity. If activity was not attempted, code reason: 7-Patient Refused. 9-Not Applicable-not attempted and the patient did not perform the activity before the current illness, exacerbation or injury. 10-Not Attempted due to Environmental Limitations-(lack of equipment, weather restraints, etc.). 88-Not Attempted due to Medical Conditions or Safety Concerns. Roll Left to Right (QC): 2 (Mod/Max A) Sit to Lying (QC): 2 (Max A) Sit to Stand (QC): 1 (Mod/Max A x 2) Chair/Hor-yx-Koilr Xfer(QC): 1 (Mod/Max A x 2) Car Transfer (QC): 88 Gait Training Does the Patient Walk?: No and Walking Goal IS indicated Walk 10 feet (QC): 88 Walk 50 ft with 2 Turns(QC): 88 Walk 150 ft (QC): 88 Walking 10ft/uneven surface-QC: 88 Wheelchair Training Does the Pt Use a Wheelchair?: Yes Distance: 5ft Wheel 50 ft with 2 turns (QC): 2 (Max A) Wheel 150 ft (QC): 2 (Max A) Type of Wheelchair: Manual Stair Training 1 Step (curb) (QC): 88 4 Steps (QC): 88 12 Steps (QC): 88 Balance Picking up an Object (QC): 88 ADL-Treatment Eating (QC): 88 (tube feeding) Oral Hygiene (QC): 4 Shower/Bathe Self (QC): 1 Upper Body Dressing (QC): 2 Lower Body Dressing (QC): 1 On/Off Footwear (QC): 1 Toileting Hygiene (QC): 1 Assessment/Plan Assessment and Plan Assess & Plan/Chief Complaint Assessment: 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
[2022-09-01 07:38] VITALS: BP 142/79
[2022-09-01] MEDS: ENOXAPARIN 40 MG/0.4 ML (LOVENOX) SYR SC SCH (08:20)
[2022-09-01] MEDS: ASPIRIN 325 MG (5 GR) TABLET NG SCH (08:20)
[2022-09-01] MEDS: VITAMIN D3 125 MCG (5,000 UNITS) CAPSULE PO SCH (08:20)
[2022-09-01] MEDS: PANTOPRAZOLE 40 MG (PROTONIX) TAB PO SCH (08:20)
[2022-09-01] MEDS: amLODIPine 5 MG (NORVASC) TAB NG SCH (08:20)
[2022-09-01] MEDS: DOCUSATE SODIUM 10 MG/ML 10 ML UDC (COLACE) NG SCH ×2 (08:30→19:58)
[2022-09-01] MEDS: polyethylene glycoL POWDER 17 GM (MIRALAX) PACK NG SCH ×2 (08:30→19:58)
[2022-09-01] MEDS: SENNA W/DOCUSATE (SENOKOT S) TABLET NG SCH ×2 (08:30→19:58)
[2022-09-01 13:01] VITALS: BP 154/67
[2022-09-01 20:03] VITALS: BP_SYST 177; BP_SYST 98; BP_DIAS 58; BP_DIAS 86
[2022-09-01] MEDS: ALPRAZolam 0.25 MG (XANAX) TAB NG PRN (20:10)
[2022-09-02] MEDS: inSUlin ASPART (NovoLOG) 1 UNIT/0.01 ML (CHARGE PER UNIT) SC SCH ×6 (00:01→21:27)
[2022-09-02] MEDS: oxyCODONE 5 MG/5 ML ORAL SOLN (roxiCODONE) 5 ML UDC NG PRN ×4 (03:06→21:12)
[2022-09-02] MEDS: POTASSIUM BICARB 20 MEQ (EFFER-K) TABLET PO SCH (05:44)
[2022-09-02] MEDS: LEVOTHYROXINE 100 MCG (LEVOTHROID) TAB PO SCH (05:44)
[2022-09-02] MEDS: ACETAMINOPHEN 325 MG TABLET NG PRN ×2 (05:44→13:29)
[2022-09-02] MEDS: CATHETER FLUSH 10 ML SYR IVP SCH ×3 (05:45→21:27)
--- NOTE | 2022-09-02 06:20 | PM&R Progress Note ---
Subjective HPI/CC On Admission Date Seen by Provider: Sep 02, 2022 Time Seen by Provider: 12:00 Subjective/Events-last exam 09/02/2022: About the same Talking more and more each day MBS tomorrow and maintained on NGT in place 09/01/2022: Patient doing well Added pain pill NG tube maintained No falls 08/31/2022: No major changes Ice chips are approved to consume slowly NGT is place No falls No pain Fall risk Severe deficits Sugars are good BP a bit elevated Review of Systems General: Fatigue, Malaise Neurological: Weakness, Incoordination, Change in speech Objective Exam Vital Signs Vital Signs Date Time Temp Pulse Resp B/P (MAP) Pulse Ox O2 Delivery O2 Flow Rate FiO2 09/02/22 08:22 36.6 63 18 135/67 (89) 95 Room Air Capillary Refill : General Appearance: No Apparent Distress, WD/WN, Chronically ill, Obese HEENT: PERRL/EOMI, Normal ENT Inspection, Pharynx Normal, Other (Nasogastric tube in place) Neck: Full Range of Motion, Normal Inspection, Non Tender, Supple, Carotid Bruit Respiratory: Chest Non Tender, Lungs Clear, Normal Breath Sounds, No Accessory Muscle Use, No Respiratory Distress Cardiovascular: Regular Rate, Rhythm, No Edema, No Gallop, No JVD, No Murmur, Normal Peripheral Pulses Gastrointestinal: Normal Bowel Sounds, No Organomegaly, No Pulsatile Mass, Non Tender, Soft Back: Normal Inspection, No CVA Tenderness, No Vertebral Tenderness Extremity: Normal Capillary Refill, Normal Inspection, Normal Range of Motion, Non Tender, No Calf Tenderness, No Pedal Edema Neurologic/Psychiatric: Alert, Aphasia, Depressed Affect, Motor Weakness (Right-sided placidity) Skin: Normal Color, Warm/Dry Lymphatic: No Adenopathy Results/Procedures Lab Patient resulted labs reviewed. FIM Transfers Therapy Code Descriptions/Definitions Functional [place] Measure: 0=Not Assessed/NA 4=Minimal Assistance 1=Total Assistance 5=Supervision or Setup 2=Maximal Assistance 6=Modified [place] 3=Moderate Assistance 7=Complete IndependenceSCALE: Activities may be completed with or without assistive devices. 0-Ysqiishoqo-zruuvtq completes the activity by him/herself with no assistance from a helper. 5-Set-up or Clean-up Assistance-helper sets up or cleans up; patient completes activity. [place] assists only prior to or following the activity. 4-Supervision or Touching Assistance-helper provides verbal cues and/or touching/steadying and/or contact guard assistance as patient completes activity. Assistance may be provided throughout the activity or intermittently. 3-Partial/Moderate Assistance-helper does LESS THAN HALF the effort. [place] lifts, holds or supports trunk or limbs, but provides less than half the effort. 2-Substantial/Maximal Assistance-helper does MORE THAN HALF the effort. [place] lifts or holds trunk or limbs and provides more than half the effort. 0-Echmypmcp-bapyka does ALL the effort. Patient does none of the effort to complete the activity. Or, the assistance of 2 or more helpers is required for the patient to complete the activity. If activity was not attempted, code reason: 7-Patient Refused. 9-Not Applicable-not attempted and the patient did not perform the activity before the current illness, exacerbation or injury. 10-Not Attempted due to Environmental Limitations-(lack of equipment, weather restraints, etc.). 88-Not Attempted due to Medical Conditions or Safety Concerns. Roll Left to Right (QC): 2 (Mod/Max A) Sit to Lying (QC): 2 (Max A) Sit to Stand (QC): 1 (Mod/Max A x 2) Chair/Cpx-vn-Tkeif Xfer(QC): 1 (Mod/Max A x 2) Car Transfer (QC): 88 Gait Training Does the Patient Walk?: No and Walking Goal IS indicated Walk 10 feet (QC): 88 Walk 50 ft with 2 Turns(QC): 88 Walk 150 ft (QC): 88 Walking 10ft/uneven surface-QC: 88 Wheelchair Training Does the Pt Use a Wheelchair?: Yes Distance: 5ft Wheel 50 ft with 2 turns (QC): 2 (Max A) Wheel 150 ft (QC): 2 (Max A) Type of Wheelchair: Manual Stair Training 1 Step (curb) (QC): 88 4 Steps (QC): 88 12 Steps (QC): 88 Balance Picking up an Object (QC): 88 ADL-Treatment Eating (QC): 88 (tube feeding) Oral Hygiene (QC): 4 Shower/Bathe Self (QC): 1 Upper Body Dressing (QC): 2 Lower Body Dressing (QC): 1 On/Off Footwear (QC): 1 Toileting Hygiene (QC): 1 Assessment/Plan Assessment and Plan Assess & Plan/Chief Complaint Assessment: 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
[2022-09-02 08:22] VITALS: BP 135/67
[2022-09-02] MEDS: ENOXAPARIN 40 MG/0.4 ML (LOVENOX) SYR SC SCH (08:25)
[2022-09-02] MEDS: DOCUSATE SODIUM 10 MG/ML 10 ML UDC (COLACE) NG SCH ×2 (08:32→21:12)
[2022-09-02] MEDS: PANTOPRAZOLE 40 MG (PROTONIX) TAB PO SCH (08:32)
[2022-09-02] MEDS: amLODIPine 5 MG (NORVASC) TAB NG SCH (08:32)
[2022-09-02] MEDS: ASPIRIN 325 MG (5 GR) TABLET NG SCH (08:32)
[2022-09-02] MEDS: VITAMIN D3 125 MCG (5,000 UNITS) CAPSULE PO SCH (08:32)
[2022-09-02] MEDS: SENNA W/DOCUSATE (SENOKOT S) TABLET NG SCH ×2 (08:32→21:11)
[2022-09-02] MEDS: polyethylene glycoL POWDER 17 GM (MIRALAX) PACK NG SCH ×2 (08:46→19:40)
[2022-09-02 20:27] VITALS: BP 143/72
[2022-09-02] MEDS: ALPRAZolam 0.25 MG (XANAX) TAB NG PRN (21:11)
[2022-09-03] MEDS: ACETAMINOPHEN 325 MG TABLET NG PRN ×2 (00:31→06:34)
[2022-09-03] MEDS: inSUlin ASPART (NovoLOG) 1 UNIT/0.01 ML (CHARGE PER UNIT) SC SCH ×6 (00:31→21:25)
[2022-09-03] MEDS: oxyCODONE 5 MG/5 ML ORAL SOLN (roxiCODONE) 5 ML UDC NG PRN ×2 (03:43→10:00)
[2022-09-03] MEDS: CATHETER FLUSH 10 ML SYR IVP SCH ×3 (06:34→22:05)
[2022-09-03] MEDS: POTASSIUM BICARB 20 MEQ (EFFER-K) TABLET PO SCH (06:34)
[2022-09-03] MEDS: LEVOTHYROXINE 100 MCG (LEVOTHROID) TAB PO SCH (06:34)
--- NOTE | 2022-09-03 06:34 | PM&R Progress Note ---
Subjective HPI/CC On Admission Date Seen by Provider: Sep 03, 2022 Time Seen by Provider: 09:00 Subjective/Events-last exam 09/03/2022: Patient much improved Barium swallow enables her to eat and so we will discontinue the NG tube Blood pressure labile Blood sugars reviewed 09/02/2022: About the same Talking more and more each day MBS tomorrow and maintained on NGT in place 09/01/2022: Patient doing well Added pain pill NG tube maintained No falls 08/31/2022: No major changes Ice chips are approved to consume slowly NGT is place No falls No pain Fall risk Severe deficits Sugars are good BP a bit elevated Review of Systems General: Fatigue, Malaise Objective Exam Vital Signs Vital Signs Date Time Temp Pulse Resp B/P (MAP) Pulse Ox O2 Delivery O2 Flow Rate FiO2 09/03/22 13:15 63 18 158/72 (100) 98 Room Air 09/03/22 07:25 36.1 Capillary Refill : General Appearance: No Apparent Distress, WD/WN, Chronically ill, Obese HEENT: PERRL/EOMI, Normal ENT Inspection, Pharynx Normal, Other (Nasogastric tube in place) Neck: Full Range of Motion, Normal Inspection, Non Tender, Supple, Carotid Bruit Respiratory: Chest Non Tender, Lungs Clear, Normal Breath Sounds, No Accessory Muscle Use, No Respiratory Distress Cardiovascular: Regular Rate, Rhythm, No Edema, No Gallop, No JVD, No Murmur, Normal Peripheral Pulses Gastrointestinal: Normal Bowel Sounds, No Organomegaly, No Pulsatile Mass, Non Tender, Soft Back: Normal Inspection, No CVA Tenderness, No Vertebral Tenderness Extremity: Normal Capillary Refill, Normal Inspection, Normal Range of Motion, Non Tender, No Calf Tenderness, No Pedal Edema Neurologic/Psychiatric: Alert, Aphasia, Depressed Affect, Motor Weakness (Right-sided placidity) Skin: Normal Color, Warm/Dry Lymphatic: No Adenopathy Results/Procedures Lab Laboratory Tests 09/03/22 06:40 Patient resulted labs reviewed. FIM Transfers Therapy Code Descriptions/Definitions Functional [place] Measure: 0=Not Assessed/NA 4=Minimal Assistance 1=Total Assistance 5=Supervision or Setup 2=Maximal Assistance 6=Modified [place] 3=Moderate Assistance 7=Complete IndependenceSCALE: Activities may be completed with or without assistive devices. 4-Thrwalcuow-nhehoxe completes the activity by him/herself with no assistance from a helper. 5-Set-up or Clean-up Assistance-helper sets up or cleans up; patient completes activity. [place] assists only prior to or following the activity. 4-Supervision or Touching Assistance-helper provides verbal cues and/or touching/steadying and/or contact guard assistance as patient completes activity. Assistance may be provided throughout the activity or intermittently. 3-Partial/Moderate Assistance-helper does LESS THAN HALF the effort. [place] lifts, holds or supports trunk or limbs, but provides less than half the effort. 2-Substantial/Maximal Assistance-helper does MORE THAN HALF the effort. [place] lifts or holds trunk or limbs and provides more than half the effort. 7-Dfoquzspx-pgbtpc does ALL the effort. Patient does none of the effort to complete the activity. Or, the assistance of 2 or more helpers is required for the patient to complete the activity. If activity was not attempted, code reason: 7-Patient Refused. 9-Not Applicable-not attempted and the patient did not perform the activity before the current illness, exacerbation or injury. 10-Not Attempted due to Environmental Limitations-(lack of equipment, weather restraints, etc.). 88-Not Attempted due to Medical Conditions or Safety Concerns. Roll Left to Right (QC): 2 (Mod/Max A) Sit to Lying (QC): 2 (Max A) Sit to Stand (QC): 1 (Mod/Max A x 2) Chair/Ysd-uv-Ydlth Xfer(QC): 1 (Mod/Max A x 2) Car Transfer (QC): 88 Gait Training Does the Patient Walk?: No and Walking Goal IS indicated Walk 10 feet (QC): 88 Walk 50 ft with 2 Turns(QC): 88 Walk 150 ft (QC): 88 Walking 10ft/uneven surface-QC: 88 Wheelchair Training Does the Pt Use a Wheelchair?: Yes Distance: 5ft Wheel 50 ft with 2 turns (QC): 2 (Max A) Wheel 150 ft (QC): 2 (Max A) Type of Wheelchair: Manual Stair Training 1 Step (curb) (QC): 88 4 Steps (QC): 88 12 Steps (QC): 88 Balance Picking up an Object (QC): 88 ADL-Treatment Eating (QC): 88 (tube feeding) Oral Hygiene (QC): 4 Shower/Bathe Self (QC): 1 Upper Body Dressing (QC): 2 Lower Body Dressing (QC): 1 On/Off Footwear (QC): 1 Toileting Hygiene (QC): 1 Assessment/Plan Assessment and Plan Assess & Plan/Chief Complaint Assessment: 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
[2022-09-03 06:49] LABS: BASOPHILS % (AUTO) 1 % (0-10); EOSINOPHILS # (AUTO) 0.3 10^3/uL (0.0-0.3); EOSINOPHILS % (AUTO) 4 % (0-10); HEMATOCRIT 38 % (35-52); HEMOGLOBIN 12.4 g/dL (11.5-16.0); LYMPHOCYTES # (AUTO) 1.6 10^3/uL (1.0-4.0); LYMPHOCYTES % (AUTO) 18 % (12-44); MEAN CORPUSCULAR HEMOGLOBIN 30 pg (25-34); MEAN CORPUSCULAR HGB CONC 33 g/dL (32-36); MEAN CORPUSCULAR VOLUME 92 fL (80-99); MEAN PLATELET VOLUME 9.1 fL (9.0-12.2); MONOCYTES # (AUTO) 0.9 10^3/uL (0.0-1.0); MONOCYTES % (AUTO) 10 % (0-12); NEUTROPHILS # (AUTO) 5.9 10^3/uL (1.8-7.8); NEUTROPHILS % (AUTO) 67 % (42-75); PLATELET COUNT 266 10^3/uL (130-400); WHITE BLOOD COUNT 8.8 10^3/uL (4.3-11.0)
[2022-09-03 07:02] LABS: ALBUMIN 3.4 GM/DL (3.2-4.5); POTASSIUM 4.3 MMOL/L (3.6-5.0)
[2022-09-03 07:03] LABS: CALCIUM 9.7 MG/DL (8.5-10.1)
[2022-09-03 07:04] LABS: TOTAL PROTEIN 6.8 GM/DL (6.4-8.2)
[2022-09-03 07:06] LABS: BILIRUBIN,TOTAL 0.3 MG/DL (0.1-1.0)
[2022-09-03 07:08] LABS: CREATININE SERUM 0.91 MG/DL (0.60-1.30)
[2022-09-03 07:25] VITALS: BP 117/62
[2022-09-03 08:41] VITALS: BP 189/82
[2022-09-03] MEDS: PANTOPRAZOLE 40 MG (PROTONIX) TAB PO SCH (08:41)
[2022-09-03] MEDS: VITAMIN D3 125 MCG (5,000 UNITS) CAPSULE PO SCH (08:41)
[2022-09-03] MEDS: ASPIRIN 325 MG (5 GR) TABLET NG SCH (08:41)
[2022-09-03] MEDS: ENOXAPARIN 40 MG/0.4 ML (LOVENOX) SYR SC SCH (08:42)
[2022-09-03] MEDS: amLODIPine 5 MG (NORVASC) TAB NG SCH (09:48)
[2022-09-03] MEDS: cloNIDine 0.1 MG PATCH (CATAPRES TTS) TDSY TD SCH (10:06)
--- NOTE | 2022-09-03 10:56 | Occupational Ther Daily Note ---
OT Current Status-Daily Note Subjective Pt alert, lying in bed. Pt agrees to therapy. Pt has leg spasm throughout session which has increased pain, nrsg aware. Co-treat with PT [id number], skills of 2 clinicians require to decrease fall risk, increase awareness of R UE/LE during functional tasks/mobility, increase functional mobility. PT focusing on transfers and B LE strengthening while OT focusing on functional mobility/transfers and R UE function. Mental Status/Objective Patient Orientation: Person, Place, Non-Verbal/Aphasic, Time, Situation Attachments: IV, NG Tube ADL-Treatment Pt max A to dependent to complete bathing and LBD in supine, pt assist to roll side to side. Mod A with HOB raised to go from supine to sitting EOB. Assist for sitting balance while assist for UBD. Dependent for footwear. Assist x2 for SPT from surface to surface. Therapy Code Descriptions/Definitions Functional [place] Measure: 0=Not Assessed/NA 4=Minimal Assistance 1=Total Assistance 5=Supervision or Setup 2=Maximal Assistance 6=Modified [place] 3=Moderate Assistance 7=Complete IndependenceSCALE: Activities may be completed with or without assistive devices. 2-Wosbxqqmdx-xlginkb completes the activity by him/herself with no assistance from a helper. 5-Set-up or Clean-up Assistance-helper sets up or cleans up; patient completes activity. [place] assists only prior to or following the activity. 4-Supervision or Touching Assistance-helper provides verbal cues and/or touching/steadying and/or contact guard assistance as patient completes activity. Assistance may be provided throughout the activity or intermittently. 3-Partial/Moderate Assistance-helper does LESS THAN HALF the effort. [place] lifts, holds or supports trunk or limbs, but provides less than half the effort. 2-Substantial/Maximal Assistance-helper does MORE THAN HALF the effort. [place] lifts or holds trunk or limbs and provides more than half the effort. 9-Lwomtmlmd-eoicnz does ALL the effort. Patient does none of the effort to complete the activity. Or, the assistance of 2 or more helpers is required for the patient to complete the activity. If activity was not attempted, code reason: 7-Patient Refused. 9-Not Applicable-not attempted and the patient did not perform the activity before the current illness, exacerbation or injury. 10-Not Attempted due to Environmental Limitations-(lack of equipment, weather restraints, etc.). 88-Not Attempted due to Medical Conditions or Safety Concerns. Upper Body Dressing (QC): 1 Lower Body Dressing (QC): 1 On/Off Footwear: 1 Other Treatment Due to increased pain with R LE and nrsg reported that pain increased over weekend, working on pt's sitting balance and core strength for session. Pt is demonstrating less motivation with participation during therapy session. Pt working on holding upright posture without external support, 1 set 10 reps holding correct posture 3sec, requires physical cues to reach position. Working on core rotation for strengthening, pt required cues physical/verbal/visual. After therapy, pt lying in bed with call light/phone in reach. All needs met in room. OT Short Term Goals Short Term Goals Time Frame: Sep 14, 2022 Shower/bathe self: 2 Upper body dressin Lower body dressin Putting on/taking off footwear: 2 OT Assisted Goals Universal Winding Machine Operator Goals Time Frame: Sep 28, 2022 Acute change in mental status: 1 Inattention: 1 Disorganized thinkin Altered level of consciousness: 0 Eating (QC): 5 (goal of set up assist if pt able to progress from tube feedings.) Oral Hygiene (QC): 5 Toileting Hygiene (QC): 3 Shower/Bathe Self (QC): 3 Upper Body Dressing (QC): 4 Lower Body Dressing (QC): 3 On/Off Footwear (QC): 3 Additional Goals: 1-Demonstrate ADL Tasks, 2-Verbalize Understanding, 3- ImproveStrength/Emil 1=Demonstrate adherence to instructed precautions during ADL tasks. 2=Patient will verbalize/demonstrate understanding of assistive devices/modifications for ADL. 3=Patient will improve strength/tolerance for activity to enable patient to perform ADL's. OT Education/Plan Problem List/Assessment Assessment: Decreased Activ Tolerance, Decreased UE Strength, Dependent Transfers, Impaired Bed Mobility, Impaired Coordination, Impaired Funct Balance, Impaired Self-Care Skills, Restricted Funct UE ROM Discharge Recommendations Plan/Recommendations: Continue POC Treatment Plan/Plan of Care Patient would benefit from OT for education, treatment and training to promote independence in ADL's, mobility, safety and/or upper extremity function for ADL's. Plan of Care: ADL Retraining, Functional Mobility, Group Exercise/Act as Ind, UE Funct Exercise/Act, UE Neuromus Re-Ed/Coord, W/C Management Training Treatment Duration: Sep 28, 2022 Frequency: At least 5 of 7 days/Wk (IRF) Estimated Hrs Per Day: 1.5 hours per day Agreement: Yes Rehab Potential: Fair Time Start Time: 07:30 Stop Time: 09:00 DATE: Sep 03, 2022 Total Time Billed (hr/min): 90 Billed Treatment Time 1 visit-ADL 3 (45 min) NM 3 (45 min) co-treat with PT [id number], [id number] NICHO GU Sep 03, 2022 10:56
--- NOTE | 2022-09-03 11:13 | Diagnostic Imaging Report ---
INDICATION: Dysphagia. TECHNIQUE: Procedure was performed in conjunction with speech pathology. Videofluoroscopy was performed during the swallowing of barium in multiple consistencies. A total of 1.6 minutes of fluoroscopic time was utilized. FINDINGS: Patient ingested thin barium by spoon. There was immediate penetration and aspiration. There was also an episode of penetration during the swallowing of nectar consistency. Solid cracker consistency did show moderate amount of vallecular residue which did clear with washing with thin barium. Honey consistency is unremarkable. There is normal epiglottic tilt and laryngeal elevation. Patient did have a Dobbhoff catheter in place. There are postop changes of ACDF from the C5 through C7 levels. IMPRESSION: There was a single episode of penetration and aspiration during the swallowing of thin barium. There was also an episode of penetration during the swallowing of nectar consistency. Moderate residue was noted with solid consistencies, however this did appear to clear with washings. Dictated by: Dictated on workstation # [id number]
[2022-09-03] MEDS: CLONIDINE PATCH REMOVAL TP SCH (11:17)
[2022-09-03] MEDS: SENNA W/DOCUSATE (SENOKOT S) TABLET NG SCH ×2 (11:28→21:25)
[2022-09-03] MEDS: DOCUSATE SODIUM 10 MG/ML 10 ML UDC (COLACE) NG SCH ×2 (11:28→21:25)
[2022-09-03] MEDS: polyethylene glycoL POWDER 17 GM (MIRALAX) PACK NG SCH ×2 (11:29→21:25)
[2022-09-03 11:48] VITALS: BP 178/84
[2022-09-03] MEDS: ALPRAZolam 0.25 MG (XANAX) TAB NG PRN (12:26)
[2022-09-03 12:34] VITALS: BP 182/75
[2022-09-03 13:15] VITALS: BP 158/72
--- NOTE | 2022-09-03 13:18 | ST Mod Barium Swallow ---
Speech Evaluation-General Medical Diagnosis CVA Onset Date: August 25, 2022 Therapy Diagnosis Therapy Diagnosis: Moderate Oropharyngeal Dysphagia Precautions Precautions: Fall, Pressure Ulcer, Aspiration Precautions/Isolations: Aspiration, Fall Prevention, Standard Precautions, Pressure Ulcer Referral Referring Physician: Dr. Addie Goddard Reason for Referral: Evaluation/Treatment Medical History Reviewed History: Yes Social History Current Living Status: Children (daughter) Speech Mod Barium Swallow Prior Level of Function Please refer to the patient's prior clinical bedside swallowing evaluation (08/31/2022) and history/physical for prior level of function details and information. At this time, the patient is receiving total nutrition, hydration, and medication via NG tube. Oral Motor Skills Lingual Protrusion: Abnormal (Right sided deviation upon protrusion.) Lingual ROM: Abnormal Lingual Strength: Abnormal (R>L) Volitional Dry Swallow: No Voluntary Cough: No Can Clear Throat Volitionally: No Textures-Lateral View Lateral View Food Presentation: Thin Liquid via Spoon, [place] Liquid via Spoon, [place] Liquid via Straw (Mildly.), Honey Liquid via Spoon (Mildly.), Honey L iquid via Straw (Moderately.), Pureed Solids, Regular Solids Oral Phase Labial Closure: Mild Impairment (Right.) Bolus Formation Placement: Mild Impairment Mastication Rotary Chew: Mild Impairment A/P Lingual Propulsion: Mild Impairment Lingual Movement: Mild Impairment The patient displayed an appropriate ability to draw bolus material from a teaspoon and straw. Cup sips were not utilized due to the presence of the NG tube. Anterior spillage was not observed throughout the study with any consistency tested. Prolonged mastication of the solid consistency was appreciated, with a mashing-type behavior. Consistent premature spillage of all bolus consistency to the level of valleculae was visualized. Premature spillage of thin liquid (teaspoon) resulted in deep laryngeal penetration (to the level of the true vocal cords) prior to the swallow. Pharyngeal Phase Swallow Response: Mild Impairment Base of Tongue: Mild Impairment Epiglottic Movement: No Impairment (WFL) Laryngeal Elevation: No Impairment (WFL) Vallecular Residue: Moderate Pharyngeal Wall Residue: Mild Piriform Sinus Residue: Mild Laryngeal Penetration: Mild (mildly thick, moderately thick.) Aspiration Observations: Mild (Thin liquid.) The patient demonstrated a delayed onset of the pharyngeal swallow, with the bolus head reaching (and pooling) in the valleculae prior to the onset of the pharyngel trigger. Mildly decreased hyo-laryngeal excursion was visualized with adequate laryngeal elevation and complete epiglottic inversion. Trace silent aspiration was visualized with thin liquids during the swallow secondary to the premature spillage and laryngeal penetration prior to the swallow. Mild penetration of mildly thick liquids and trace penetration of moderately thick liquids occurred during the swallow and appeared secondary to the delayed onset of the swallow trigger. Intact pharyngeal contractions were observed, with mildly decreased base of tongue retraction visualized which resulted in vallecular residue of all consistencies tested. Vallecular residue increased as bolus viscosity increased. Timely and complete clearance of bolus material was visualized through the cricopharyngeal region. Summary/Impressions The patient demonstrated a moderately impaired oropharyngeal swallow function characterized by reduced lingual coordination (premature spillage), a delayed onset of the pharyngeal swallow, decreased hyo-laryngeal excursion, reduced laryngeal sensation in the presence of bolus material (silent aspiration), and decreased base of tongue retraction (vallecular residue). The impairments resulted in deep laryngeal penetration of thin liquid prior to the swallow, silent aspiration of thin liquids during the swallow, and laryngeal penetration of mildly thick (mild) and moderately-thick (trace) liquids during the swallow. Compensatory strategies were attempted (throat clearing or coughing following the swallow, verbal prompting to reduce bolus size), however, the patient was unable to consistently complete the strategies effectively. Recommendations: - MM5 with moderately thick (honey-thick) liquids, as tolerated. - Fully upright and alert for P.O. intake. - Small, single bites and sips, only. - Present food and liquid to the strong, left side. - Assess for pocketing during and following P.O. intake. - Crush medication and place in puree for administration. - Monitor for s/s of suspected aspiration with P.O. intake. If demonstrated, place the patient N.P.O. and contact speech pathology. The results, recommendations, and safe swallowing precautions were provided to the patient following completion of the study. The video swallow was shown and discussed in the patient's room and the patient was observed consuming the recommended diet consistency without the presence of s/s of suspected aspiration. The patient requested the RN contact her two daughters and provide an update on her progress. The clinician provided the PCT with the patient's request. The clinician answered all questions within speech pathology's scope of practice. Speech Short Term Goals Short Term Goals Short Term Goals 1. The patient will participate in a modified barium swallow assessment to evaluate for the presence of aspiration and best guide therapeutic interventions. MET 09/03/2022 2. The patient will display 80% accuracy with oral motor exercises with mild clinician verbal and visual cueing. 3. The patient will display 80% accuracy with dysphagia exercises with mild clinician verbal and visual cueing. Speech Half-Way Goals Half-Way Goals 1. The patient will tolerate the least restrictive diet consistency without s/s of suspected aspiration. Time Frame: Three Weeks. Speech-Plan Treatment Plan Speech Therapy Treatment Plan: Continue Plan of Care Treatment Duration: Sep 14, 2022 Frequency: Modified Program (IRF) Estimated Hrs Per Day: Other Rehab Potential: Fair Pt/Family Agrees to Plan: Yes Safety Risks/Education Teaching Recipient: Patient Teaching Methods: Discussion, Audiovisual Response to Teaching: Reinforcement Needed Education Topics Provided: Results, Recommendations, Plan of Care, Safe Swallowing Precautions Time Speech Therapy Time In: 10:00 Speech Therapy Time Out: 10:30 DATE: Sep 04, 2022 Total Billed Time: 45 Billed Treatment Time 1, MOD, DYST The above billed treatment time includes a dysphagia treatment session with the following times: 1300 to 1315 DELL PLATA Sep 03, 2022 13:18
--- NOTE | 2022-09-03 13:58 | Physical Therapy Daily Note ---
PT Daily Note-Current Subjective Pt sitting EOB upon arrival with PARK. Pt reports lots of pain in the R LE, but unable to rate. Co-tx with OT [id number], skills of 2 clinicians require to decrease fall risk, increase awareness of R UE/LE during functional tasks/mobility, increase functional mobility. PT focusing on transfers and B LE strengthening while OT focusing on functional mobility/transfers and R UE function. Pain Section J - Health Conditions 1. Rarely or not at all 2. Occasionally 3. Frequently 4. Almost constantly 8. Unable to answer Pain Effect on Sleep: 3 Pain Interference with Therapy: 3 Pain Interference w/Day-to-Day: 3 Transfers SCALE: Activities may be completed with or without assistive devices. 1-Napovipzzj-alxdezn completes the activity by him/herself with no assistance from a helper. 5-Set-up or Clean-up Assistance-helper sets up or cleans up; patient completes activity. [place] assists only prior to or following the activity. 4-Supervision or Touching Assistance-helper provides verbal cues and/or touching/steadying and/or contact guard assistance as patient completes ac tivity. Assistance may be provided throughout the activity or intermittently. 3-Partial/Moderate Assistance-helper does LESS THAN HALF the effort. [place] lifts, holds or supports trunk or limbs, but provides less than half the effort. 2-Substantial/Maximal Assistance-helper does MORE THAN HALF the effort. [place] lifts or holds trunk or limbs and provides more than half the effort. 1-Nshfhxbvo-edpiqz does ALL the effort. Patient does none of the effort to complete the activity. Or, the assistance of 2 or more helpers is required for the patient to complete the activity. If activity was not attempted, code reason: 7-Patient Refused. 9-Not Applicable-not attempted and the patient did not perform the activity before the current illness, exacerbation or injury. 10-Not Attempted due to Environmental Limitations-(lack of equipment, weather restraints, etc.). 88-Not Attempted due to Medical Conditions or Safety Concerns. Chair/Aau-tx-Bqsfd Xfer(QC): 1 (Max A x 2 for SBT) Weight Bearing Right Lower Extremity: Right Full Weight Bearing Left Lower Extremity: Left Full Weight Bearing Treatments Pt completed SPT x 2 with Max A x 2 and Mod v/c for assistance. Pt completed seated core strengthening exercises on this date, secondary to increased R LE pain. Pt completed postural exercises x 10 reps each with Mod v/c and Max encouragement on this date. Pt completed sit to supine with Mod-Max A x 2. Pt left in bed with all needs met. Assessment Current Status: Fair Progress Fair, secondary to increased R LE pain and lack of participation PT Assisted Goals Form Stripper Goals PT Form Stripper Goals Time Frame: Sep 13, 2022 Roll Left & Right (QC): 3 (Pt will complete bed mobility with Min A. ) Sit to Lying (QC): 3 (Pt will complete bed mobility with Min A. ) Lying-Sitting on Side/Bed(QC): 3 (Pt will complete bed mobility with Min A. ) Sit to Stand (QC): 3 (Pt will complete transfer with Min/Mod A. ) Chair/Hfy-jh-Teijo Xfer(QC): 3 (Pt will complete transfer with Min/Mod A. ) Toilet Transfer (QC): 3 (Pt will complete transfer with Min/Mod A. ) Car Transfer (QC): 3 (Pt will complete transfer with Min/Mod A. ) Does the Patient Walk: No and Walking Goal IS indicated Walk 10 feet (QC): 3 (Min/Mod A for walking with the chau-walker ) Walk 50ft with 2 Turns (QC): 3 (Min/Mod A for walking with the chau-walker ) Walk 150 ft (QC): 88 Walking 10ft on Uneven Surface: 88 1 Step (curb) (QC): 3 (Min/Mod A for a curb/step ) 4 Steps (QC): 88 12 Steps (QC): 88 Picking up an Object (QC): 3 (Min A with hair designer ) Does the Pt use WC or Scooter?: Yes Wheel 50 feet with 2 turns (QC: 3 (Min A for w/c mobility ) Type: Manual Wheel 150 feet: 3 (Min A for w/c mobility ) Type: Manual PT Plan Problem List Problem List: Activity Tolerance, Functional Strength, Safety, Balance, Gait, Transfer, Bed Mobility Treatment/Plan Treatment Plan: Continue Plan of Care Treatment Plan: Bed Mobility, Concurrent Therapy, Education, Functional Activity Emil, Functional Strength, Group Therapy, Gait, Safety, Therapeutic Exercise, Transfers Treatment Duration: Sep 13, 2022 Frequency: At least 5 of 7 days/Wk (IRF) Estimated Hrs Per Day: 1.5 hours per day Patient and/or Family Agrees t: Yes Safety Risks/Education Patient Education: Transfer Techniques Teaching Recipient: Patient Teaching Methods: Demonstration, Discussion Response to Teaching: Reinforcement Needed Discharge Recommendations Therapy Discharge Recommendati: 24 Hour Supervision Equpiment Recommendations-D/C: 3 in 1 Commode, Wheelchair Cushion, Front Wheeled Walker, Wheelchair Ramp, Railings, Shower Chair, Manual Wheelchair Discharge Status/Home Program cont POC Barriers to Progress R sided weakness; lack of motivation Target Placement SNF Time Time In: 800 Time Out: 900 DATE: Sep 03, 2022 Total Billed Treatment Time: 60 Total Billed Treatment 60 min (co-tx for 60 min from [id number]) 1 visit FA x 4 KATELIN YAO PT Sep 03, 2022 13:58
[2022-09-03] MEDS: ACETAMINOPHEN 325 MG TABLET PO PRN (14:20)
[2022-09-03 20:35] VITALS: BP 158/77
[2022-09-04] MEDS: inSUlin ASPART (NovoLOG) 1 UNIT/0.01 ML (CHARGE PER UNIT) SC SCH ×7 (00:10→23:58)
[2022-09-04] MEDS: ACETAMINOPHEN 325 MG TABLET NG PRN ×2 (00:24→15:52)
--- NOTE | 2022-09-04 05:49 | PM&R Progress Note ---
Subjective HPI/CC On Admission Date Seen by Provider: Sep 04, 2022 Time Seen by Provider: 09:30 Subjective/Events-last exam 09/04/2022: Patient much improved Slowly eating meals by mouth since NG tube removed Cardiology consulted medication modified 09/03/2022: Patient much improved Barium swallow enables her to eat and so we will discontinue the NG tube Blood pressure labile Blood sugars reviewed 09/02/2022: About the same Talking more and more each day MBS tomorrow and maintained on NGT in place 09/01/2022: Patient doing well Added pain pill NG tube maintained No falls 08/31/2022: No major changes Ice chips are approved to consume slowly NGT is place No falls No pain Fall risk Severe deficits Sugars are good BP a bit elevated Review of Systems General: Fatigue, Malaise Neurological: Weakness, Incoordination, Change in speech Objective Exam Vital Signs Vital Signs Date Time Temp Pulse Resp B/P (MAP) Pulse Ox O2 Delivery O2 Flow Rate FiO2 09/04/22 20:43 36.5 76 18 143/68 (93) 97 Room Air Capillary Refill : General Appearance: No Apparent Distress, WD/WN, Chronically ill, Obese HEENT: PERRL/EOMI, Normal ENT Inspection, Pharynx Normal, Other Neck: Full Range of Motion, Normal Inspection, Non Tender, Supple, Carotid Bruit Respiratory: Chest Non Tender, Lungs Clear, Normal Breath Sounds, No Accessory Muscle Use, No Respiratory Distress Cardiovascular: Regular Rate, Rhythm, No Edema, No Gallop, No JVD, No Murmur, Normal Peripheral Pulses Gastrointestinal: Normal Bowel Sounds, No Organomegaly, No Pulsatile Mass, Non Tender, Soft Back: Normal Inspection, No CVA Tenderness, No Vertebral Tenderness Extremity: Normal Capillary Refill, Normal Inspection, Normal Range of Motion, Non Tender, No Calf Tenderness, No Pedal Edema Neurologic/Psychiatric: Alert, Aphasia, Depressed Affect, Motor Weakness Skin: Normal Color, Warm/Dry Lymphatic: No Adenopathy Results/Procedures Lab Patient resulted labs reviewed. FIM Transfers Therapy Code Descriptions/Definitions Functional [place] Measure: 0=Not Assessed/NA 4=Minimal Assistance 1=Total Assistance 5=Supervision or Setup 2=Maximal Assistance 6=Modified [place] 3=Moderate Assistance 7=Complete IndependenceSCALE: Activities may be completed with or without assistive devices. 8-Rtcyljcvst-ikyqlma completes the activity by him/herself with no assistance from a helper. 5-Set-up or Clean-up Assistance-helper sets up or cleans up; patient completes activity. [place] assists only prior to or following the activity. 4-Supervision or Touching Assistance-helper provides verbal cues and/or touching/steadying and/or contact guard assistance as patient completes activity. Assistance may be provided throughout the activity or intermittently. 3-Partial/Moderate Assistance-helper does LESS THAN HALF the effort. [place] lifts, holds or supports trunk or limbs, but provides less than half the effort. 2-Substantial/Maximal Assistance-helper does MORE THAN HALF the effort. [place] lifts or holds trunk or limbs and provides more than half the effort. 5-Nqrrqrggg-xxkgmx does ALL the effort. Patient does none of the effort to complete the activity. Or, the assistance of 2 or more helpers is required for the patient to complete the activity. If activity was not attempted, code reason: 7-Patient Refused. 9-Not Applicable-not attempted and the patient did not perform the activity before the current illness, exacerbation or injury. 10-Not Attempted due to Environmental Limitations-(lack of equipment, weather restraints, etc.). 88-Not Attempted due to Medical Conditions or Safety Concerns. Roll Left to Right (QC): 2 (Mod/Max A) Sit to Lying (QC): 2 (Max A) Sit to Stand (QC): 1 (Mod/Max A x 2) Chair/Avi-kd-Micvw Xfer(QC): 1 (Max A x 2 for SBT) Car Transfer (QC): 88 Gait Training Does the Patient Walk?: No and Walking Goal IS indicated Walk 10 feet (QC): 88 Walk 50 ft with 2 Turns(QC): 88 Walk 150 ft (QC): 88 Walking 10ft/uneven surface-QC: 88 Wheelchair Training Does the Pt Use a Wheelchair?: Yes Distance: 5ft Wheel 50 ft with 2 turns (QC): 2 (Max A) Wheel 150 ft (QC): 2 (Max A) Type of Wheelchair: Manual Stair Training 1 Step (curb) (QC): 88 4 Steps (QC): 88 12 Steps (QC): 88 Balance Picking up an Object (QC): 88 ADL-Treatment Eating (QC): 88 (tube feeding) Oral Hygiene (QC): 4 Shower/Bathe Self (QC): 1 Upper Body Dressing (QC): 1 Lower Body Dressing (QC): 1 On/Off Footwear (QC): 1 Toileting Hygiene (QC): 1 Assessment/Plan Assessment and Plan Assess & Plan/Chief Complaint Assessment: 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
[2022-09-04] MEDS: CATHETER FLUSH 10 ML SYR IVP SCH ×3 (06:30→21:34)
[2022-09-04] MEDS: POTASSIUM BICARB 20 MEQ (EFFER-K) TABLET PO SCH (06:30)
[2022-09-04] MEDS: LEVOTHYROXINE 100 MCG (LEVOTHROID) TAB PO SCH (06:30)
[2022-09-04] MEDS: oxyCODONE 5 MG/5 ML ORAL SOLN (roxiCODONE) 5 ML UDC NG PRN ×3 (07:48→21:32)
[2022-09-04] MEDS: amLODIPine 5 MG (NORVASC) TAB NG SCH (07:57)
[2022-09-04] MEDS: VITAMIN D3 125 MCG (5,000 UNITS) CAPSULE PO SCH (07:57)
[2022-09-04] MEDS: DOCUSATE SODIUM 10 MG/ML 10 ML UDC (COLACE) NG SCH ×2 (07:57→21:32)
[2022-09-04] MEDS: ASPIRIN 325 MG (5 GR) TABLET NG SCH (07:57)
[2022-09-04] MEDS: PANTOPRAZOLE 40 MG (PROTONIX) TAB PO SCH (07:57)
[2022-09-04] MEDS: SENNA W/DOCUSATE (SENOKOT S) TABLET NG SCH ×2 (07:57→21:33)
[2022-09-04] MEDS: polyethylene glycoL POWDER 17 GM (MIRALAX) PACK NG SCH ×2 (07:58→21:35)
[2022-09-04] MEDS: ENOXAPARIN 40 MG/0.4 ML (LOVENOX) SYR SC SCH (07:58)
[2022-09-04 08:01] VITALS: BP 182/74
--- NOTE | 2022-09-04 08:37 | Consultation-Cardiology ---
HPI-Cardiology Cardiology Consultation Date of Consultation 09/04/22 Date of Admission Time Seen by Provider: 09:30 Indication: CVA HPI Patient is a 73 y/o female with history of HTN, DM, hypothyroidism. Presented to the ER on 08/25/22 with CVA with right sided weakness, aphagia, dysphagia. She was outside the window for TPA. W/u done showed occluded Left ICA/MCA, was transferred to [facility] and attempted mechanical thrombectomy with no change. Upon interviewing the patient she continues to have garbled speech and right sided placidity. Home Medications & Allergies Allergies: Coded Allergies: codeine (Verified Allergy, Unknown, 08/30/22) erythromycin base (Verified Allergy, Unknown, 08/30/22) gentamicin (Verified Allergy, Unknown, 08/30/22) latex (Verified Allergy, Unknown, 08/30/22) paroxetine (Verified Allergy, Unknown, 08/30/22) telmisartan (Verified Allergy, Unknown, 08/30/22) Home Medication List Reviewed: Yes SWH-Doqrmf-Tdijph Hx Patient Social History Marital Status: single Employed/Student: retired Smoking Status: Never a Smoker Have you traveled recently?: No Alcohol Use?: No Past Medical History HTN, DM, Obesity, hypothyroidism Review of Systems-General Review of Systems ROS-Unable to Obtain: Unable to obtain full ROS d/t patient with aphasia Constitutional: see HPI EENTM: see HPI Respiratory: see HPI; No dyspnea on exertion Cardiovascular: see HPI; No chest pain Reviewed Test Results Reviewed Test Results Lab Laboratory Tests 09/03/22 11:26: Glucometer 129H 09/03/22 17:13: Glucometer 176H 09/03/22 20:54: Glucometer 141H 09/04/22 00:16: Glucometer 118H 09/04/22 04:23: Glucometer 129H Physical Exam Physical Exam Vital Signs Vital Signs - First Documented 08/30/22 12:45 Temp 36.3 Pulse 90 Resp 20 B/P (MAP) 180/93 (122) Pulse Ox 96 O2 Delivery Room Air Capillary Refill : Height, Weight, BMI Height: '" Weight: lbs. oz. kg; 40.00 BMI Method: General Appearance: No Apparent Distress, WD/WN, Chronically ill, Obese Eyes: Bilateral Eye Normal Inspection, Bilateral Eye PERRL HEENT: PERRL/EOMI, Normal ENT Inspection, Pharynx Normal, Other Neck: Full Range of Motion, Normal Inspection, Non Tender, Supple, Carotid Bruit Respiratory: Chest Non Tender, Lungs Clear, Normal Breath Sounds, No Accessory Muscle Use, No Respiratory Distress Cardiovascular: Regular Rate, Rhythm, No Edema, No Gallop, No JVD, No Murmur, Normal Peripheral Pulses Gastrointestinal: Normal Bowel Sounds, No Organomegaly, No Pulsatile Mass, Non Tender, Soft Back: Normal Inspection, No CVA Tenderness, No Vertebral Tenderness Extremity: Normal Capillary Refill, Normal Inspection, Normal Range of Motion, Non Tender, No Calf Tenderness, No Pedal Edema Neurologic/Psychiatric: Alert, Aphasia, Depressed Affect, Motor Weakness Skin: Normal Color, Warm/Dry Lymphatic: No Adenopathy A/P-Cardiology Admission Diagnosis CVA Left ICA/MCA occlusion HTN HLP DM Assessment/Plan Acute CVA with right sided weakness, aphasia, dysphagia. CTA showed occlueded left ICA/MCA. Patient was transferred to [facility] where she underwent attempt at mechanical thrombectomy with no change. Currently maintained on ASA. 2D Echo done at [facility] on showed mild LVH, grade 2 diastolic dysfunction, mildly dilated LA. No PFO or ASD appreciated. Will place on telemetry and continue to monitor. Consider event monitor as outpatient. HTN, elevated today. Currently on Clonidine patch and amlodipine. Allergy to ARB. I will add hydralazine 25mg TID, continue to monitor. HLP, started on statin DM, management per PCP Hypothyroidism Obesity. Thank you for allowing us to participate in the management of Ms. Monreal. THis is Luiza Leal PA-C, for a scribe for Dr. Sherman. Patient was seen and evaluated with Luiza, I interviewed and examined the patient, discussed the management plan and agree with the current scribed note Patient is unable to provide full history due to the aphasia, history was obtained by reviewing her record and examining her Patient has dense hemiplegia and aphasia. Had occluded left ICA/MCA, has a thrombus noted with angiogram in [place] There was dilatation of the left atrium suggestive of possible cardiac source of embolization We will place patient on telemetry Starting hydralazine in addition to her amlodipine and clonidine Allergy to telmisartan Monitor lipids LUIZA AYALA Sep 04, 2022 08:37 VONDA SHERMAN MD Sep 04, 2022 08:46
[2022-09-04] MEDS: ALPRAZolam 0.25 MG (XANAX) TAB NG PRN ×2 (08:50→21:33)
[2022-09-04] MEDS: hydrALAZINE (APRESOLINE) 25 MG TAB PO SCH ×3 (08:51→21:33)
--- NOTE | 2022-09-04 09:00 | Occupational Ther Daily Note ---
OT Current Status-Daily Note Subjective Pt alert, lying in bed. Pt c/o pain head, neck and R LE then numbness at L cheek area(rate 9/10). Nrsg brought meds. Pt agrees to therapy and attempts to complete mobility tasks, pain increases with movement and pt requests to transfer back to bed. Pt extends body and thrashes side to side in pain while reaching with L UE to neck/face and grimacing/vocalizing in pain. Nrsg continues to monitor. PT/OT co-treat([id number]), skills of 2 clinicians required to decrease fall risk, increase mobility, monitor pt's pain and position pt to decrease pain as much as possible. PT focusing on transfers, bed mobility while OT focusing on ADLs, bed mobility and assisting with dependent transfers. Mental Status/Objective Patient Orientation: Person, Place, Time, Situation Attachments: IV ADL-Treatment Pt requested to change from regular clothing to hospital gown,max A. Assist x2 for LBD and cleansing after incontinence while in supine. Setup then supervision for eating, safety concerns for aspirations. Pt assisting with turning side to side using bed rails to assist with positioning, bathing and cleansing after voiding. Therapy Code Descriptions/Definitions Functional [place] Measure: 0=Not Assessed/NA 4=Minimal Assistance 1=Total Assistance 5=Supervision or Setup 2=Maximal Assistance 6=Modified [place] 3=Moderate Assistance 7=Complete IndependenceSCALE: Activities may be completed with or without assistive devices. 9-Dlutuqmqgh-qukigny completes the activity by him/herself with no assistance from a helper. 5-Set-up or Clean-up Assistance-helper sets up or cleans up; patient completes activity. [place] assists only prior to or following the activity. 4-Supervision or Touching Assistance-helper provides verbal cues and/or touching/steadying and/or contact guard assistance as patient completes activity. Assistance may be provided throughout the activity or intermittently. 3-Partial/Moderate Assistance-helper does LESS THAN HALF the effort. [place] lifts, holds or supports trunk or limbs, but provides less than half the effort. 2-Substantial/Maximal Assistance-helper does MORE THAN HALF the effort. [place] lifts or holds trunk or limbs and provides more than half the effort. 8-Dhpcznqkr-fhzenb does ALL the effort. Patient does none of the effort to complete the activity. Or, the assistance of 2 or more helpers is required for the patient to complete the activity. If activity was not attempted, code reason: 7-Patient Refused. 9-Not Applicable-not attempted and the patient did not perform the activity before the current illness, exacerbation or injury. 10-Not Attempted due to Environmental Limitations-(lack of equipment, weather restraints, etc.). 88-Not Attempted due to Medical Conditions or Safety Concerns. Eating (QC): 4 Upper Body Dressing (QC): 2 Lower Body Dressing (QC): 1 On/Off Footwear: 1 Toileting Hygiene (QC): 1 Other Treatment Mod A x2 for supine to EOB. Assist x1 for sitting EOB. Max A x2 for SPT from bed <--> w/c. Pt's pain more intense with sitting in w/c. Placed pt back in bed and adjusted position until pt was comfortable. See above note for details. After session, pt lying in bed with call light/phone in reach. All needs met in room. OT Short Term Goals Short Term Goals Time Frame: Sep 14, 2022 Shower/bathe self: 2 Upper body dressin Lower body dressin Putting on/taking off footwear: 2 OT Penitentiary Goals Penitentiary Goals Time Frame: Sep 28, 2022 Acute change in mental status: 1 Inattention: 1 Disorganized thinkin Altered level of consciousness: 0 Eating (QC): 5 (goal of set up assist if pt able to progress from tube feedings.) Oral Hygiene (QC): 5 Toileting Hygiene (QC): 3 Shower/Bathe Self (QC): 3 Upper Body Dressing (QC): 4 Lower Body Dressing (QC): 3 On/Off Footwear (QC): 3 Additional Goals: 1-Demonstrate ADL Tasks, 2-Verbalize Understanding, 3- ImproveStrength/Emil 1=Demonstrate adherence to instructed precautions during ADL tasks. 2=Patient will verbalize/demonstrate understanding of assistive devices/modifications for ADL. 3=Patient will improve strength/tolerance for activity to enable patient to perform ADL's. OT Education/Plan Problem List/Assessment Assessment: Decreased Activ Tolerance, Decreased UE Strength, Dependent Transfers, Impaired Bed Mobility, Impaired I ADL's, Impaired Self-Care Skills, Restricted Funct UE ROM Discharge Recommendations Plan/Recommendations: Continue POC Treatment Plan/Plan of Care Patient would benefit from OT for education, treatment and training to promote independence in ADL's, mobility, safety and/or upper extremity function for ADL's. Plan of Care: ADL Retraining, Functional Mobility, Group Exercise/Act as Ind, UE Funct Exercise/Act, UE Neuromus Re-Ed/Coord, W/C Management Training Treatment Duration: Sep 28, 2022 Frequency: At least 5 of 7 days/Wk (IRF) Estimated Hrs Per Day: 1.5 hours per day Agreement: Yes Rehab Potential: Fair Time Start Time: 07:00 Stop Time: 09:00 DATE: Sep 04, 2022 Total Time Billed (hr/min): 120 Billed Treatment Time 1 visit-ADL 4 (60 min) FA 3 (50 min) NM 1 (10 min) co-treat with PT 0800- 0900, individual [id number] NICHO GU Sep 04, 2022 09:00
--- NOTE | 2022-09-04 10:27 | ST Cognitive Linguistic Eval ---
Speech Evaluation-General Medical Diagnosis CVA Onset Date: August 25, 2022 Therapy Diagnosis Therapy Diagnosis: Aphasia/Dysarthria Precautions Precautions: Fall, Aspiration Precautions/Isolations: Aspiration, Fall Prevention, Standard Precautions, Pressure Ulcer Referral Referring Physician: Dr. Goddard Medical History Pertinent Medical History: DM, HTN DM, HTN, HLD Current History Pt transferred to [facility] by EMS on 08/25/22 with slurred speech and right sided weakness. Pt was then transferred to [facility] in [place] same day with left MCA-CVA and possible endovascular intervention. Pt was found to have total L ICA occlusion. On 08/27/22 c/o abdominal pain. 08/28/22 pt found to have GB sludge with (+) Monteiro's sign. Pt was transferred to [facility] on 08/30/22. Reviewed History: Yes Social History Home: Single Level Current Living Status: Children (daughter) Speech PLF-Current Status Prior Level of Function Pt was living at home with daughter. Subjective Pt laying in bed when therapist enters her room. Pt is grabbing the back of her head/neck. When asked if she has a headache, pt shakes her head yes. Pt also shakes her head yes, when asked if nursing staff is aware and if she has been given medication. Pt is able to communicate with MACHINE SHORTHAND TEACHER, medication was given approximately an hour ago. Nurse enters into room during session and is notified of ongoing headache. Nurse brings pt muscle relaxer at the end of the session. Pain Numeric Pain Scale: 9 Location Body Site: Head (Pt having headache, also grabbing back of neck, and reports R arm pain during session. Pt uses a number line to identify level of pain.) Language Eval: Auditory Comprehends Simple Yes/No Ques: Functional Indent/Objects Multiple Huff: Severe Ident/Pics in Multiple Huff: Mild Follows 1-Step Commands: Mild Follows Complex Directions: Severe Follows General Conversations: Severe Pt is unintelligible majority of the time, making it difficult to know when she is able to correctly identify objects or answer questions. Language Eval: Verbal Language Completes Spontaneous Greeting: Mild Produces Auto, Serial Info: Mild Imitates Simple Words/Phrases: Moderate Requests Basic Needs: Moderate States Basic Personal Info: Moderate Expresses Complex Ideas: Severe Pt is able to wave high to greet. She demonstrated ability to complete rote tasks of counting to 5 and stating the days of the week, however without context, MACHINE SHORTHAND TEACHER would not have known she was stating the days of the week. Pt able to repeat simple 1 and 2 syllable words. She was able to follow basic one step directions. Once the directions became more complex, pt was unable to follow the directions and would just say "yes" and would wave her hand when asked to show the therapist. Language Evaluation: Reading Comprehends Single Nouns: Mild Comprehends Multiple Sentences: Severe Pt able to point to basic common pictures when they are stated by the MACHINE SHORTHAND TEACHER, however she does occasionally demonstrate errors. Pt has difficulty comprehending more complex information - such as asked what she would sit on if tired - pt was unable to point to the chair. Objective Formal/Standardized Tests Western Aphasia Battery - Bedside Results Pt receives a Bedside Aphasia Score of 40.8. Per this screen, pt demonstrates Broca's aphasia Oral Motor/Speech Production Pt demonstrates slurred speech potentially from weakness. This is likely significantly impacting intelligibility. It was noted, the more the patient tried to consecutively verbalize information, the less intelligible her speech became. She did well with repeating and stating some basic one syllable words. Impression Pt presents with SEVERE Broca's aphasia and SEVERE dystharia secondary to MCA- CVA. Pt demonstrates significant difficulty with her expressive communication and her ability to communicate with hospital staff wants and needs. Pt primarily uses gestures to help with communicating thoughts. Pt demonstrates high accuracy with answering yes/no questions. Pt's speech is often unintelligible except for occasional basic one syllable words such as "no" or "bed". Pt was able to repeat basic words such as "bed" and "window" and then began demonstrating phonemic errors on longer words/utterances. Pt was able to complete rote naming tasks of counting to 5 and stating the days of the week. Pt is able to follow basic directions, but has difficulty with following more complex directions. At this time, Pt would benefit from yes/no questions, using visuals of pictures to help answer questions, basic one step direction, basic questions/statements when conversing. Speech Short Term Goals Short Term Goals Short Term Goals 1. The patient will participate in a modified barium swallow assessment to evaluate for the presence of aspiration and best guide therapeutic interventions. MET 09/03/2022 2. The patient will display 80% accuracy with oral motor exercises with mild clinician verbal and visual cueing. 3. The patient will display 80% accuracy with dysphagia exercises with mild clinician verbal and visual cueing. Language: 1. Pt will complete verbal imitation of basic one syllable words with 80% accuracy with min clinician verbal and visual cuing. 2. Pt will expressively and receptively identify common everyday objects with 80% accuracy with min clinician verbal and visual cuing. 3. Pt will follow basic 1 step and 2 step directions with 80% accuracy with min clinician verbal and visual cuing. Speech Scheduling Assistant Goals Scheduling Assistant Goals 1. The patient will tolerate the least restrictive diet consistency without s/s of suspected aspiration. Language: 1. Pt will communicate basic wants/needs with staff or family members either verbally or with use of pictures in 4/5 opportunities. Time Frame: Three Weeks. Speech-Plan Patient/Family Goals Patient/Family Goals: Pending progress in ARU Treatment Plan Speech Therapy Treatment Plan: Continue Plan of Care Treatment Duration: Sep 14, 2022 Frequency: Modified Program (IRF) Estimated Hrs Per Day: .5 hour per day Rehab Potential: Fair Pt/Family Agrees to Plan: Yes Safety Risks/Education Teaching Recipient: Patient Teaching Methods: Discussion Response to Teaching: Verbalize Understanding Education Topics Provided: Pt educated on role of MACHINE SHORTHAND TEACHER, purpose of evaluation, results, and recommendations including therapy plan. Time Speech Therapy Time In: 09:45 Speech Therapy Time Out: 10:17 DATE: Sep 04, 2022 Total Billed Time: 32 Billed Treatment Time Sebas/Sebas Callahan 32 mins Kaleigh Nelson Speech Therapy Sep 04, 2022 10:27
--- NOTE | 2022-09-04 11:07 | Physical Therapy Daily Note ---
PT Daily Note-Current Subjective Pt lying in bed with PARK present, upon arrival. Pt c/o pain in her head, neck and R LE then numbness at L cheek area(rated 9/10). Nursing brought meds. Pain Numeric Pain Scale: 9 Location: Left Location Body Site: Neck Section J - Health Conditions 1. Rarely or not at all 2. Occasionally 3. Frequently 4. Almost constantly 8. Unable to answer Pain Effect on Sleep: 3 Pain Interference with Therapy: 3 Pain Interference w/Day-to-Day: 3 Transfers SCALE: Activities may be completed with or without assistive devices. 1-Ferbedkciz-njeqvda completes the activity by him/herself with no assistance from a helper. 5-Set-up or Clean-up Assistance-helper sets up or cleans up; patient completes activity. Skipwith assists only prior to or following the activity. 4-Supervision or Touching Assistance-helper provides verbal cues and/or touching/steadying and/or contact guard assistance as patient completes activity. Assistance may be provided throughout the activity or intermittently. 3-Partial/Moderate Assistance-helper does LESS THAN HALF the effort. Skipwith lifts, holds or supports trunk or limbs, but provides less than half the effort. 2-Substantial/Maximal Assistance-helper does MORE THAN HALF the effort. Skipwith lifts or holds trunk or limbs and provides more than half the effort. 1-Ntezwxniz-hxwwym does ALL the effort. Patient does none of the effort to complete the activity. Or, the assistance of 2 or more helpers is required for the patient to complete the activity. If activity was not attempted, code reason: 7-Patient Refused. 9-Not Applicable-not attempted and the patient did not perform the activity before the current illness, exacerbation or injury. 10-Not Attempted due to Environmental Limitations-(lack of equipment, weather restraints, etc.). 88-Not Attempted due to Medical Conditions or Safety Concerns. Roll Left & Right (QC): 2 Sit to Lying (QC): 2 Lying to Sitting/Side of Bed(Q: 2 Chair/Hmy-rq-Nnbvh Xfer(QC): 1 Weight Bearing Right Lower Extremity: Right Full Weight Bearing Left Lower Extremity: Left Full Weight Bearing Treatments Pt agrees to therapy and attempts to complete mobility tasks, pain increases with movement and pt requests to transfer back to bed. Pt extends body and thrashes side to side in pain while reaching with L UE to neck/face and grimacing/vocalizing in pain. Nursing continues to monitor. PT/OT co-treat ([id number]), skills of 2 clinicians required to decrease fall risk, increase mobility, monitor pt's pain and position pt to decrease pain as much as possible. PT focusing on transfers, bed mobility while OT focusing on ADLs, bed mobility and assisting with dependent transfers. Pt completed B rolling with Max A for cleaning up and positioning. Pt completed supine > sit EOB with Mod A. Pt completed SPT x 2 with Max A x 2 (bed <> w/c). Pt unable to tolerate sitting up in the w/c, secondary to increased pain and spasms. Pt transferred back to bed. Sit > supine with Max A x 2. Pt left in bed as comfortable as could be with pillows, call light, and all needs met. Nursing and rehab staff notified. Assessment Poor tolerance, secondary to increased pain and inability to stay sitting up in the w/c. PT Surgical Oncologist Goals Surgical Oncologist Goals PT Shelter Goals Time Frame: Sep 13, 2022 Roll Left & Right (QC): 3 (Pt will complete bed mobility with Min A. ) Sit to Lying (QC): 3 (Pt will complete bed mobility with Min A. ) Lying-Sitting on Side/Bed(QC): 3 (Pt will complete bed mobility with Min A. ) Sit to Stand (QC): 3 (Pt will complete transfer with Min/Mod A. ) Chair/Zxg-kt-Lizyz Xfer(QC): 3 (Pt will complete transfer with Min/Mod A. ) Toilet Transfer (QC): 3 (Pt will complete transfer with Min/Mod A. ) Car Transfer (QC): 3 (Pt will complete transfer with Min/Mod A. ) Does the Patient Walk: No and Walking Goal IS indicated Walk 10 feet (QC): 3 (Min/Mod A for walking with the chau-walker ) Walk 50ft with 2 Turns (QC): 3 (Min/Mod A for walking with the chau-walker ) Walk 150 ft (QC): 88 Walking 10ft on Uneven Surface: 88 1 Step (curb) (QC): 3 (Min/Mod A for a curb/step ) 4 Steps (QC): 88 12 Steps (QC): 88 Picking up an Object (QC): 3 (Min A with pond scaler ) Does the Pt use WC or Scooter?: Yes Wheel 50 feet with 2 turns (QC: 3 (Min A for w/c mobility ) Type: Manual Wheel 150 feet: 3 (Min A for w/c mobility ) Type: Manual PT Plan Problem List Problem List: Activity Tolerance, Functional Strength, Safety, Balance, Gait, Transfer, Bed Mobility, ROM Treatment/Plan Treatment Plan: Continue Plan of Care Treatment Plan: Bed Mobility, Concurrent Therapy, Education, Functional A ctivity Emil, Functional Strength, Group Therapy, Gait, Safety, Therapeutic Exercise, Transfers Treatment Duration: Sep 13, 2022 Frequency: At least 5 of 7 days/Wk (IRF) Estimated Hrs Per Day: 1.5 hours per day Patient and/or Family Agrees t: Yes Safety Risks/Education Patient Education: Transfer Techniques, Safety Issues Teaching Recipient: Patient Teaching Methods: Demonstration, Discussion Response to Teaching: Reinforcement Needed Discharge Recommendations Therapy Discharge Recommendati: 24 Hour Supervision Discharge Status/Home Program Cont per POC Barriers to Progress pain; R hemiparesis Target Placement SNF vs home with family Time Time In: 800 Time Out: 900 DATE: Sep 04, 2022 Total Billed Treatment Time: 60 Total Billed Treatment 60 Min co-tx from [id number] 1 FA x 4 KATELIN YAO PT Sep 04, 2022 11:07
[2022-09-04 11:55] VITALS: BP 132/65
[2022-09-04] MEDS: DICLOFENAC 1% GEL 100 GM (VOLTAREN) TUBE TOP SCH ×3 (13:12→21:34)
--- NOTE | 2022-09-04 14:05 | Speech Therapy Daily Note ---
Speech Daily Progress Note Subjective Date Seen by Provider: Sep 04, 2022 Time Seen by Provider: 13:30 Pt laying in bed when SEPTIC CLEANER arrives. Pt tries to communicate wants/needs throughout session. Pt contiues to report headache. Nursing staff notified and stated they just used voltaren gel but she has had all the meds she can have at this time. Pt frequently closes eyes between tasks, SEPTIC CLEANER is unsure if she was falling asleep. Pain Numeric Pain Scale: 9 Location Body Site: Head Objective Pt completes basic swallowing exercises: Pucker: x10 - slight decrease right ROM Smile: x10 - decrease right ROM Effortful swallow: x4 Tongue protrusion: x10 Assessment Pt maintains at this time. Pt demonstrates difficulty with completing exercises, often requiring verbal cues, model, and visual cues (including the ability to see herself in a mirror). Pt does demonstrate right side facial movement on the smile and pucker exercises. Pt demonstrates decreased ROM with the smile compared to the right. Pt with increased difficulty following directions for tongue protrusion, but is able to complete the repetitions. Pt completes effortful swallow without drinks of liquid this date. Pt demonstrates increased frustration throughout session and says "everyone out". After 25 minutes, pt refused to continue therapy at this time. Treatment Plan Continue Plan of Care Speech Short Term Goals Short Term Goals Short Term Goals 1. The patient will participate in a modified barium swallow assessment to evaluate for the presence of aspiration and best guide therapeutic interventions. MET 09/03/2022 2. The patient will display 80% accuracy with oral motor exercises with mild clinician verbal and visual cueing. 3. The patient will display 80% accuracy with dysphagia exercises with mild clinician verbal and visual cueing. Language: 1. Pt will complete verbal imitation of basic one syllable words with 80% accuracy with min clinician verbal and visual cuing. 2. Pt will expressively and receptively identify common everyday objects with 80% accuracy with min clinician verbal and visual cuing. 3. Pt will follow basic 1 step and 2 step directions with 80% accuracy with min clinician verbal and visual cuing. Speech Shelter Goals Shelter Goals 1. The patient will tolerate the least restrictive diet consistency without s/s of suspected aspiration. Language: 1. Pt will communicate basic wants/needs with staff or family members either verbally or with use of pictures in 4/5 opportunities. Time Frame: Three Weeks. Speech-Plan Patient/Family Goals Patient/Family Goals: Pending per progress Treatment Plan Speech Therapy Treatment Plan: Continue Plan of Care Treatment Duration: Sep 14, 2022 Frequency: Modified Program (IRF) Estimated Hrs Per Day: .5 hour per day Rehab Potential: Fair Barriers to Learning: Difficulty with following directions for swallowing exercises, endurance to complete multiple/repetitive exercises Pt/Family Agrees to Plan: Yes Safety Risks/Education Teaching Recipient: Patient Teaching Methods: Discussion Response to Teaching: Reinforcement Needed Education Topics Provided: Pt educated on swallowing exercises and purpose of exercises. Pt nods head in agreement but will likely need continued education. Time Speech Therapy Time In: 13:30 Speech Therapy Time Out: 13:55 DATE: Sep 04, 2022 Total Billed Time: 25 Billed Treatment Time DYSPHAGIA THERAPY Kaleigh Nelson Speech Therapy Sep 04, 2022 14:05
[2022-09-04 15:38] VITALS: BP 138/72
[2022-09-04 20:43] VITALS: BP 143/68
[2022-09-05] MEDS: ACETAMINOPHEN 325 MG TABLET PO PRN (01:48)
[2022-09-05] MEDS: inSUlin ASPART (NovoLOG) 1 UNIT/0.01 ML (CHARGE PER UNIT) SC SCH ×5 (04:55→20:40)
--- NOTE | 2022-09-05 05:38 | PM&R Progress Note ---
Subjective HPI/CC On Admission Date Seen by Provider: Sep 05, 2022 Time Seen by Provider: 12:00 Subjective/Events-last exam 09/05/2022: Much improved Dysphagia is improved Slow recovery Participation is good 09/04/2022: Patient much improved Slowly eating meals by mouth since NG tube removed Cardiology consulted medication modified 09/03/2022: Patient much improved Barium swallow enables her to eat and so we will discontinue the NG tube Blood pressure labile Blood sugars reviewed 09/02/2022: About the same Talking more and more each day MBS tomorrow and maintained on NGT in place 09/01/2022: Patient doing well Added pain pill NG tube maintained No falls 08/31/2022: No major changes Ice chips are approved to consume slowly NGT is place No falls No pain Fall risk Severe deficits Sugars are good BP a bit elevated Review of Systems General: Fatigue, Malaise Objective Exam Vital Signs Vital Signs Date Time Temp Pulse Resp B/P (MAP) Pulse Ox O2 Delivery O2 Flow Rate FiO2 09/06/22 01:00 63 09/05/22 20:40 Room Air 09/05/22 19:57 144/64 (90) 09/05/22 19:14 36.7 16 96 Capillary Refill : General Appearance: No Apparent Distress, WD/WN, Chronically ill, Obese HEENT: PERRL/EOMI, Normal ENT Inspection, Pharynx Normal, Other Neck: Full Range of Motion, Normal Inspection, Non Tender, Supple, Carotid Bruit Respiratory: Chest Non Tender, Lungs Clear, Normal Breath Sounds, No Accessory Muscle Use, No Respiratory Distress Cardiovascular: Regular Rate, Rhythm, No Edema, No Gallop, No JVD, No Murmur, Normal Peripheral Pulses Gastrointestinal: Normal Bowel Sounds, No Organomegaly, No Pulsatile Mass, Non Tender, Soft Back: Normal Inspection, No CVA Tenderness, No Vertebral Tenderness Extremity: Normal Capillary Refill, Normal Inspection, Normal Range of Motion, Non Tender, No Calf Tenderness, No Pedal Edema Neurologic/Psychiatric: Alert, Aphasia, Depressed Affect, Motor Weakness Skin: Normal Color, Warm/Dry Lymphatic: No Adenopathy Results/Procedures Lab Patient resulted labs reviewed. FIM Transfers Therapy Code Descriptions/Definitions Functional [place] Measure: 0=Not Assessed/NA 4=Minimal Assistance 1=Total Assistance 5=Supervision or Setup 2=Maximal Assistance 6=Modified [place] 3=Moderate Assistance 7=Complete IndependenceSCALE: Activities may be completed with or without assistive devices. 3-Uaqncuwpit-pgsmmgb completes the activity by him/herself with no assistance from a helper. 5-Set-up or Clean-up Assistance-helper sets up or cleans up; patient completes activity. [place] assists only prior to or following the activity. 4-Supervision or Touching Assistance-helper provides verbal cues and/or touching/steadying and/or contact guard assistance as patient completes activit y. Assistance may be provided throughout the activity or intermittently. 3-Partial/Moderate Assistance-helper does LESS THAN HALF the effort. [place] lifts, holds or supports trunk or limbs, but provides less than half the effort. 2-Substantial/Maximal Assistance-helper does MORE THAN HALF the effort. [place] lifts or holds trunk or limbs and provides more than half the effort. 8-Upjmnwocw-mqvpnp does ALL the effort. Patient does none of the effort to complete the activity. Or, the assistance of 2 or more helpers is required for the patient to complete the activity. If activity was not attempted, code reason: 7-Patient Refused. 9-Not Applicable-not attempted and the patient did not perform the activity before the current illness, exacerbation or injury. 10-Not Attempted due to Environmental Limitations-(lack of equipment, weather restraints, etc.). 88-Not Attempted due to Medical Conditions or Safety Concerns. Roll Left to Right (QC): 2 Sit to Lying (QC): 2 Sit to Stand (QC): 1 (Mod/Max A x 2) Chair/Xzd-xr-Zzdes Xfer(QC): 1 Car Transfer (QC): 88 Gait Training Does the Patient Walk?: No and Walking Goal IS indicated Walk 10 feet (QC): 88 Walk 50 ft with 2 Turns(QC): 88 Walk 150 ft (QC): 88 Walking 10ft/uneven surface-QC: 88 Wheelchair Training Does the Pt Use a Wheelchair?: Yes Distance: 5ft Wheel 50 ft with 2 turns (QC): 2 (Max A) Wheel 150 ft (QC): 2 (Max A) Type of Wheelchair: Manual Stair Training 1 Step (curb) (QC): 88 4 Steps (QC): 88 12 Steps (QC): 88 Balance Picking up an Object (QC): 88 ADL-Treatment Eating (QC): 4 Oral Hygiene (QC): 4 Shower/Bathe Self (QC): 1 Upper Body Dressing (QC): 2 Lower Body Dressing (QC): 1 On/Off Footwear (QC): 1 Toileting Hygiene (QC): 1 Assessment/Plan Assessment and Plan Assess & Plan/Chief Complaint Assessment: 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 Aspiration risk needs modified barium swallow with speech therapy eval diabetes insulin-dependent hemoglobin A1c 13 Obesity Hypertension Hyperlipidemia Suspected cardiac source of CVA DM insulin dependent since hga1c 13 Plan: Aggressive PT and OT Speech therapy May need a PEG tube Monitor closely 08/31/2022: Sugars reviewed Add BP med 09/01/2022: Supportive care Monitor closely 09/02/2022: MBS tomorrow Continue therapy 09/03/2022: Supportive care Advance diet Discontinue NG tube 09/04/2022: Advance diet 09/05/2022: Supportive care (1) CVA (cerebral vascular accident) BETHANY HERMOSILLO DO Sep 05, 2022 05:38
[2022-09-05 06:10] VITALS: BP 140/66
[2022-09-05] MEDS: LEVOTHYROXINE 100 MCG (LEVOTHROID) TAB PO SCH (06:12)
[2022-09-05] MEDS: POTASSIUM BICARB 20 MEQ (EFFER-K) TABLET PO SCH (06:12)
[2022-09-05] MEDS: hydrALAZINE (APRESOLINE) 25 MG TAB PO SCH ×3 (06:12→21:58)
[2022-09-05] MEDS: CATHETER FLUSH 10 ML SYR IVP SCH ×3 (06:12→21:58)
[2022-09-05] MEDS: oxyCODONE 5 MG/5 ML ORAL SOLN (roxiCODONE) 5 ML UDC NG PRN (06:22)
--- NOTE | 2022-09-05 07:15 | Occupational Ther Daily Note ---
OT Current Status-Daily Note Subjective Pt alert, lying in bed. Pt makes known she feel much better than yesterday. Pt agrees to therapy. Mental Status/Objective Patient Orientation: Person, Place, Time, Situation Attachments: IV, Telemetry ADL-Treatment Assist to position for safe eating and swallowing. Set up for meal, pt able to point to where she wants items to place and items that she wants used. Supervision only for safety with swallow precautions and if pt is unable to reach wanted items. Pt would take one bite place utensil down to safely swallow. Pt did not have any coughing episodes during breakfast. Pt utilized straw with tea then wanted to take small sips of milk. Pt has difficulties seeing items on R side and feeling food or liquid at R corner of mouth. Nrsg took over care of pt while eating due to pt taking increased time to complete task for safe eating/swallowing. All needs met in room. Therapy Code Descriptions/Definitions Functional [place] Measure: 0=Not Assessed/NA 4=Minimal Assistance 1=Total Assistance 5=Supervision or Setup 2=Maximal Assistance 6=Modified [place] 3=Moderate Assistance 7=Complete IndependenceSCALE: Activities may be completed with or without assistive devices. 4-Jrneuftxcz-kvgwlvj completes the activity by him/herself with no assistance from a helper. 5-Set-up or Clean-up Assistance-helper sets up or cleans up; patient completes activity. [place] assists only prior to or following the activity. 4-Supervision or Touching Assistance-helper provides verbal cues and/or touching/steadying and/or contact guard assistance as patient completes activity. Assistance may be provided throughout the activity or intermittently. 3-Partial/Moderate Assistance-helper does LESS THAN HALF the effort. [place] lifts, holds or supports trunk or limbs, but provides less than half the effort. 2-Substantial/Maximal Assistance-helper does MORE THAN HALF the effort. [place] lifts or holds trunk or limbs and provides more than half the effort. 7-Ozajdtomw-rsjuww does ALL the effort. Patient does none of the effort to complete the activity. Or, the assistance of 2 or more helpers is required for the patient to complete the activity. If activity was not attempted, code reason: 7-Patient Refused. 9-Not Applicable-not attempted and the patient did not perform the activity before the current illness, exacerbation or injury. 10-Not Attempted due to Environmental Limitations-(lack of equipment, weather restraints, etc.). 88-Not Attempted due to Medical Conditions or Safety Concerns. Eating (QC): 4 OT Short Term Goals Short Term Goals Time Frame: Sep 14, 2022 Shower/bathe self: 2 Upper body dressin Lower body dressin Putting on/taking off footwear: 2 OT Slab Inspector Goals Fdc Goals Time Frame: Sep 28, 2022 Acute change in mental status: 1 Inattention: 1 Disorganized thinkin Altered level of consciousness: 0 Eating (QC): 5 (goal of set up assist if pt able to progress from tube feedings.) Oral Hygiene (QC): 5 Toileting Hygiene (QC): 3 Shower/Bathe Self (QC): 3 Upper Body Dressing (QC): 4 Lower Body Dressing (QC): 3 On/Off Footwear (QC): 3 Additional Goals: 1-Demonstrate ADL Tasks, 2-Verbalize Understanding, 3- ImproveStrength/Emil 1=Demonstrate adherence to instructed precautions during ADL tasks. 2=Patient will verbalize/demonstrate understanding of assistive devices/modifications for ADL. 3=Patient will improve strength/tolerance for activity to enable patient to perform ADL's. OT Education/Plan Problem List/Assessment Assessment: Decreased Activ Tolerance, Decreased UE Strength, Dependent Transfers, Impaired Bed Mobility, Impaired Self-Care Skills, Restricted Funct UE ROM (R UE), Visual-Perceptual Deficit (R side) Discharge Recommendations Plan/Recommendations: Continue POC Treatment Plan/Plan of Care Patient would benefit from OT for education, treatment and training to promote independence in ADL's, mobility, safety and/or upper extremity function for ADL's. Plan of Care: ADL Retraining, Functional Mobility, Group Exercise/Act as Ind, UE Funct Exercise/Act, UE Neuromus Re-Ed/Coord, W/C Management Training Treatment Duration: Sep 28, 2022 Frequency: At least 5 of 7 days/Wk (IRF) Estimated Hrs Per Day: 1.5 hours per day Agreement: Yes Rehab Potential: Fair Time Start Time: 07:00 Stop Time: 07:30 DATE: Sep 05, 2022 Total Time Billed (hr/min): 30 Billed Treatment Time 1 visit-ADL 2 (30 min) NICHO GU Sep 05, 2022 07:15
[2022-09-05] MEDS: amLODIPine 5 MG (NORVASC) TAB NG SCH (07:52)
[2022-09-05] MEDS: ENOXAPARIN 40 MG/0.4 ML (LOVENOX) SYR SC SCH (07:52)
[2022-09-05] MEDS: VITAMIN D3 125 MCG (5,000 UNITS) CAPSULE PO SCH (07:52)
[2022-09-05] MEDS: ASPIRIN 325 MG (5 GR) TABLET NG SCH (07:52)
[2022-09-05] MEDS: PANTOPRAZOLE 40 MG (PROTONIX) TAB PO SCH (07:52)
[2022-09-05] MEDS: SENNA W/DOCUSATE (SENOKOT S) TABLET NG SCH ×2 (07:52→20:40)
[2022-09-05] MEDS: DICLOFENAC 1% GEL 100 GM (VOLTAREN) TUBE TOP SCH ×4 (07:53→20:41)
[2022-09-05 07:54] VITALS: BP 132/60
[2022-09-05] MEDS: DOCUSATE SODIUM 10 MG/ML 10 ML UDC (COLACE) NG SCH ×2 (07:57→20:02)
[2022-09-05] MEDS: polyethylene glycoL POWDER 17 GM (MIRALAX) PACK NG SCH ×2 (07:57→20:00)
--- NOTE | 2022-09-05 09:13 | Cardiology Progress Note ---
Subjective Date Seen by Provider: Sep 05, 2022 Time Seen by Provider: 09:11 Subjective/Events-last exam Patient was seen at bedside, sitting up, no new complaint Objective-Cardiology Exam Last Set of Vital Signs Vital Signs 09/05/22 09/05/22 07:54 08:48 Temp 36.1 Pulse 60 Resp 16 B/P (MAP) 132/60 (84) Pulse Ox 97 O2 Delivery Room Air I&O Intake and Output 09/05/22 00:00 Intake Total 980 ml Balance 980 ml Intake Oral 980 ml # Voids 5 # Urine Diapers 5 General: Alert, Cooperative HEENT: Atraumatic Neck: Supple, No JVD, No Thyromegaly Lungs: Clear to Auscultation, Normal Air Movement Heart: Regular Rate, Normal S1, Normal S2, No Murmurs Abdomen: Normal Bowel Sounds, Soft, No Tenderness, No Hepatosplenomegaly, No Masses Extremities: No Clubbing, No Cyanosis, No Edema, Normal Pulses, No Tenderness/Swelling Skin: No Rashes, No Breakdown, No Significant Lesion Neuro: Other (Aphasia and hemiaplasia) Psych/Mental Status: Mood NL Results Lab Laboratory Tests Test 09/04/22 11:50 09/04/22 15:47 09/04/22 20:45 09/04/22 23:27 Range/Units Glucometer 163 H 103 182 H 105 70-110 MG/DL Test 09/05/22 04:56 09/05/22 07:48 Range/Units Glucometer 121 H 140 H 70-110 MG/DL A/P-Cardiology Admission Diagnosis CVA Left ICA/MCA occlusion HTN HLP DM Assessment/Plan Acute CVA with right sided weakness, aphasia, dysphagia. CTA showed occlueded left ICA/MCA. Patient was transferred to [facility] where she underwent attempt at mechanical thrombectomy with no change. Currently maintained on ASA. Continue to monitor telemetry. 2D Echo done at [facility] on showed mild LVH, grade 2 diastolic dy sfunction, mildly dilated LA. No PFO or ASD appreciated. Hypertension, better control at this time. Maintained on clonidine patch and amlodipine, hydralazine was added on September 04, 2022. Continue to monitor Intolerance/allergy to angiotensin receptor vazquez Hyperlipidemia, maintained on statin, monitor lipids Diabetes mellitus, managed by primary care physician Hypothyroidism, managed by primary care physician. Obesity. VONDA TOMAS MD Sep 05, 2022 09:13
[2022-09-05] MEDS: ACETAMINOPHEN 325 MG TABLET NG PRN (10:23)
--- NOTE | 2022-09-05 10:38 | Occupational Ther Daily Note ---
OT Current Status-Daily Note Subjective Pt alert, lying in bed. Pt agrees to therapy. Pt c/o pain, did not rate and continued to participate in skilled therapy. OT/PT co-treat ([id number]), skills of 2 clinicians required to decrease fall risk, increase mobility with transfer/standing, working on R UE/LE to regain movement while completing wt bearing tasks. PT focusing on transfers, B LE strengthening and OT focusing on ADLs, functional mobility and B UE strengthening. Mental Status/Objective Patient Orientation: Person, Place, Non-Verbal/Aphasic, Time, Situation Attachments: IV, Telemetry ADL-Treatment Pt dependent for footwear and LBD while in supine. Max A for UBD while sitting EOB. Therapy Code Descriptions/Definitions Functional [place] Measure: 0=Not Assessed/NA 4=Minimal Assistance 1=Total Assistance 5=Supervision or Setup 2=Maximal Assistance 6=Modified [place] 3=Moderate Assistance 7=Complete IndependenceSCALE: Activities may be completed with or without assistive devices. 6-Imnszzidhh-uytcsvq completes the activity by him/herself with no assistance from a helper. 5-Set-up or Clean-up Assistance-helper sets up or cleans up; patient completes activity. [place] assists only prior to or following the activity. 4-Supervision or Touching Assistance-helper provides verbal cues and/or touching/steadying and/or contact guard assistance as patient completes activity. Assistance may be provided throughout the activity or intermittently. 3-Partial/Moderate Assistance-helper does LESS THAN HALF the effort. [place] lifts, holds or supports trunk or limbs, but provides less than half the effort. 2-Substantial/Maximal Assistance-helper does MORE THAN HALF the effort. [place] lifts or holds trunk or limbs and provides more than half the effort. 5-Nioidohmf-uhzfmy does ALL the effort. Patient does none of the effort to complete the activity. Or, the assistance of 2 or more helpers is required for the patient to complete the activity. If activity was not attempted, code reason: 7-Patient Refused. 9-Not Applicable-not attempted and the patient did not perform the activity before the current illness, exacerbation or injury. 10-Not Attempted due to Environmental Limitations-(lack of equipment, weather restraints, etc.). 88-Not Attempted due to Medical Conditions or Safety Concerns. Other Treatment Pt completed B rolling with Mod/Max A. Pt completed supine > sit with Mod A and sit > supine with Max A for B LE. SPT x 2 from bed <> w/c with Max A x 2. Sit to financial planning adviser the // bars x 5 with Mod/Max A x 2 (blocking R knee). Pt stood for approximately 30 sec with each financial planning adviser the // bars with Mod/Max A. Pt completed 10 sit up to strengthen core while sitting in adjustable back w/c, encouragement required. After session, pt sitting up in bed with call light/phone in reach. All needs met in room. OT Short Term Goals Short Term Goals Time Frame: Sep 14, 2022 Shower/bathe self: 2 Upper body dressin Lower body dressin Putting on/taking off footwear: 2 OT Fpc Goals Rewinder Operator Helper Goals Time Frame: Sep 28, 2022 Acute change in mental status: 1 Inattention: 1 Disorganized thinkin Altered level of consciousness: 0 Eating (QC): 5 (goal of set up assist if pt able to progress from tube feedings.) Oral Hygiene (QC): 5 Toileting Hygiene (QC): 3 Shower/Bathe Self (QC): 3 Upper Body Dressing (QC): 4 Lower Body Dressing (QC): 3 On/Off Footwear (QC): 3 Additional Goals: 1-Demonstrate ADL Tasks, 2-Verbalize Understanding, 3- ImproveStrength/Emil 1=Demonstrate adherence to instructed precautions during ADL tasks. 2=Patient will verbalize/demonstrate understanding of assistive devices/modifications for ADL. 3=Patient will improve strength/tolerance for activity to enable patient to perform ADL's. OT Education/Plan Problem List/Assessment Assessment: Decreased Activ Tolerance, Decreased UE Strength, Dependent Transfers, Impaired Bed Mobility, Impaired Coordination, Impaired Funct Balance, Impaired Self-Care Skills, Restricted Funct UE ROM, Visual-Perceptual Deficit (R visual field cut) Discharge Recommendations Plan/Recommendations: Continue POC Treatment Plan/Plan of Care Patient would benefit from OT for education, treatment and training to promote independence in ADL's, mobility, safety and/or upper extremity function for ADL's. Plan of Care: ADL Retraining, Functional Mobility, Group Exercise/Act as Ind, UE Funct Exercise/Act, UE Neuromus Re-Ed/Coord, W/C Management Training Treatment Duration: Sep 28, 2022 Frequency: At least 5 of 7 days/Wk (IRF) Estimated Hrs Per Day: 1.5 hours per day Agreement: Yes Rehab Potential: Fair Time Start Time: 09:00 Stop Time: 10:00 DATE: Sep 05, 2022 Total Time Billed (hr/min): 60 Billed Treatment Time 1 visit-ADL 1 (20 min) NM 3 (40 min) co-treat with PT [id number] NICHO GU Sep 05, 2022 10:38
--- NOTE | 2022-09-05 10:57 | Physical Therapy Daily Note ---
PT Daily Note-Current Subjective Pt in bed upon arrival. Pt reports pain is much better, but unable to rate. Pt is agreeable to therapy. PT/OT co-tx ([id number]), skills of 2 clinicians required to decrease fall risk, increase mobility with transfers/standing, working on R UE/LE to regain movement while completing wt bearing tasks. PT focusing on bed mobility, transfers, B LE/core strengthening and OT focusing on ADLs, functional mobility and B UE strengthening. Pain Section J - Health Conditions 1. Rarely or not at all 2. Occasionally 3. Frequently 4. Almost constantly 8. Unable to answer Pain Effect on Sleep: 3 Pain Interference with Therapy: 3 Pain Interference w/Day-to-Day: 3 Transfers SCALE: Activities may be completed with or without assistive devices. 4-Tlmquhsnbw-lnrofhm completes the activity by him/herself with no assistance from a helper. 5-Set-up or Clean-up Assistance-helper sets up or cleans up; patient completes activity. [place] assists only prior to or following the activity. 4-Supervision or Touching Assistance-helper provides verbal cues and/or touching/steadying and/or contact guard assistance as patient completes activity. Assistance may be provided throughout the activity or intermittently. 3-Partial/Moderate Assistance-helper does LESS THAN HALF the effort. [place] lifts, holds or supports trunk or limbs, but provides less than half the effort. 2-Substantial/Maximal Assistance-helper does MORE THAN HALF the effort. [place] lifts or holds trunk or limbs and provides more than half the effort. 4-Stnyuemgb-xfltog does ALL the effort. Patient does none of the effort to complete the activity. Or, the assistance of 2 or more helpers is required for the patient to complete the activity. If activity was not attempted, code reason: 7-Patient Refused. 9-Not Applicable-not attempted and the patient did not perform the activity before the current illness, exacerbation or injury. 10-Not Attempted due to Environmental Limitations-(lack of equipment, weather restraints, etc.). 88-Not Attempted due to Medical Conditions or Safety Concerns. Roll Left & Right (QC): 2 Sit to Lying (QC): 2 Lying to Sitting/Side of Bed(Q: 2 Sit to Stand (QC): 2 Chair/Twm-cs-Mqyxh Xfer(QC): 2 Weight Bearing Right Lower Extremity: Right Full Weight Bearing Left Lower Extremity: Left Full Weight Bearing Gait Training Does the Patient Walk?: No and Walking Goal IS indicated Wheelchair Training Does the Pt Use a Wheelchair?: Yes Wheel 50 ft with 2 turns (QC): 2 Wheel 150 ft (QC): 2 Type of Wheelchair: Manual Treatments PT/OT co-tx ([id number]), skills of 2 clinicians required to decrease fall risk, increase mobility with transfers/standing, working on R UE/LE to regain movement while completing wt bearing tasks. PT focusing on bed mobility, transfers, B LE/core strengthening and OT focusing on ADLs, functional mobility and B UE strengthening. Pt completed B rolling with Mod/Max A. Pt completed supine > sit with Mod A and sit > supine with Max A for B LE. SPT x 2 from bed <> w/c with Max A x 2. Sit to adhesive bandage making operator the // bars x 5 with Mod/Max A x 2 (blocking R knee). Pt stood for approximately 30 sec with each adhesive bandage making operator the // bars with Mod/Max A. Pt left in bed with all needs met and call light in reach. Assessment Current Status: Fair Progress Pt tolerated PT well with good effort PT Camera Repairer Goals Halfway Goals PT Camera Repairer Goals Time Frame: Sep 13, 2022 Roll Left & Right (QC): 3 (Pt will complete bed mobility with Min A. ) Sit to Lying (QC): 3 (Pt will complete bed mobility with Min A. ) Lying-Sitting on Side/Bed(QC): 3 (Pt will complete bed mobility with Min A. ) Sit to Stand (QC): 3 (Pt will complete transfer with Min/Mod A. ) Chair/Ovt-ll-Lwvce Xfer(QC): 3 (Pt will complete transfer with Min/Mod A. ) Toilet Transfer (QC): 3 (Pt will complete transfer with Min/Mod A. ) Car Transfer (QC): 3 (Pt will complete transfer with Min/Mod A. ) Does the Patient Walk: No and Walking Goal IS indicated Walk 10 feet (QC): 3 (Min/Mod A for walking with the chau-walker ) Walk 50ft with 2 Turns (QC): 3 (Min/Mod A for walking with the chau-walker ) Walk 150 ft (QC): 88 Walking 10ft on Uneven Surface: 88 1 Step (curb) (QC): 3 (Min/Mod A for a curb/step ) 4 Steps (QC): 88 12 Steps (QC): 88 Picking up an Object (QC): 3 (Min A with supervisor continuous weld pipe mill ) Does the Pt use WC or Scooter?: Yes Wheel 50 feet with 2 turns (QC: 3 (Min A for w/c mobility ) Type: Manual Wheel 150 feet: 3 (Min A for w/c mobility ) Type: Manual PT Plan Problem List Problem List: Activity Tolerance, Functional Strength, Safety, Balance, Gait, Transfer, Bed Mobility, ROM Treatment/Plan Treatment Plan: Continue Plan of Care Treatment Plan: Bed Mobility, Concurrent Therapy, Education, Functional Activity Emil, Functional Strength, Group Therapy, Gait, Safety, Therapeutic Exercise, Transfers Treatment Duration: Sep 13, 2022 Frequency: At least 5 of 7 days/Wk (IRF) Estimated Hrs Per Day: 1.5 hours per day Patient and/or Family Agrees t: Yes Safety Risks/Education Patient Education: Transfer Techniques, Correct Positioning, W/C Management, Safety Issues Teaching Recipient: Patient Teaching Methods: Demonstration, Discussion Response to Teaching: Reinforcement Needed Discharge Recommendations Therapy Discharge Recommendati: 24 Hour Supervision Discharge Status/Home Program cont per POC Barriers to Progress R sided weakness Target Placement SNF Time Time In: 900 Time Out: 1000 DATE: Sep 05, 2022 Total Billed Treatment Time: 60 Total Billed Treatment 60 min (co-tx from [id number]) 1 visit FA x 4 KATELIN YAO PT Sep 05, 2022 10:57
--- NOTE | 2022-09-05 11:15 | Speech Therapy Daily Note ---
Speech Daily Progress Note Subjective Date Seen by Provider: Sep 05, 2022 Time Seen by Provider: 10:00 The patient was seated upright in bed, awake, upon entrance to her room by the clinician. The patient does appear fatigued, closing her eyes frequently, however is agreeable to participation in the skilled treatment session. Objective Due to a prior report of pain, the patient was provided medication crushed and in applesauce by her RN. Overt s/s of suspected aspiration were not displayed with the two teaspoons of applesauce. Following the swallow, the patient completed a digital sweep of the buccal cavities, independently. The patient denied s/s of suspected aspiration with her current P.O intake and safe swallowing precautions were discussed and reviewed by the clinician. Oral motor exercises were introduced by the clinician on this date. Labial retraction and protrusion were demonstrated with a direct model and use of a mirror. The patient was able to complete each exercise with 40% accuracy, displaying the inability to consistently perform the oral exercise. The clinician is suspects a possible oral apraxia component, as groping was displayed in attempts to complete bilabial phonemes during repetition of single words. Images of common items and needs/wants were provided to the patient to utilize for improved communication. The patient identified the accurate image with 80% accuracy and moderate clinician verbal cueing. The patient does display right neglect, requiring increased verbal cueing and direct modeling to identify images in the right visual field. The images were left in the patient's room for use and practice outside of skilled therapy time. The patient does require consistent verbal encouragement for continued participation, displaying appropriate frustration during periods of reduced intelligibility. Assessment Assessment Current Status: Fair Progress Treatment Plan Continue Plan of Care Speech Short Term Goals Short Term Goals Short Term Goals 1. The patient will participate in a modified barium swallow assessment to evaluate for the presence of aspiration and best guide therapeutic interventions. MET 09/03/2022 2. The patient will display 80% accuracy with oral motor exercises with mild clinician verbal and visual cueing. 3. The patient will display 80% accuracy with dysphagia exercises with mild clinician verbal and visual cueing. Language: 1. Pt will complete verbal imitation of basic one syllable words with 80% accuracy with min clinician verbal and visual cuing. 2. Pt will expressively and receptively identify common everyday objects with 80% accuracy with min clinician verbal and visual cuing. 3. Pt will follow basic 1 step and 2 step directions with 80% accuracy with min clinician verbal and visual cuing. Speech Tank Car Repairer Goals Assisted Goals 1. The patient will tolerate the least restrictive diet consistency without s/s of suspected aspiration. Language: 1. Pt will communicate basic wants/needs with staff or family members either verbally or with use of pictures in 4/5 opportunities. Time Frame: Three Weeks. Speech-Plan Treatment Plan Speech Therapy Treatment Plan: Continue Plan of Care Treatment Duration: Sep 14, 2022 Frequency: Modified Program (IRF) Estimated Hrs Per Day: .5 hour per day Rehab Potential: Fair Safety Risks/Education Teaching Recipient: Patient Teaching Methods: Demonstration, Handout, Discussion Response to Teaching: Return Demonstration, Reinforcement Needed Education Topics Provided: Oral Motor Exercises, Communication Images, Safe Swallowing Strategies Time Speech Therapy Time In: 10:00 Speech Therapy Time Out: 10:30 DATE: Sep 05, 2022 Total Billed Time: 30 Billed Treatment Time 1, RAULITO GALINDO [facility] Sep 05, 2022 11:15
[2022-09-05 13:17] VITALS: BP 142/67
[2022-09-05 19:14] VITALS: BP 192/84
[2022-09-05 19:57] VITALS: BP 144/64
[2022-09-06] MEDS: ACETAMINOPHEN 325 MG TABLET NG PRN ×2 (00:24→20:39)
[2022-09-06] MEDS: hydrALAZINE (APRESOLINE) 25 MG TAB PO SCH ×3 (05:22→20:38)
[2022-09-06] MEDS: LEVOTHYROXINE 100 MCG (LEVOTHROID) TAB PO SCH (05:22)
[2022-09-06] MEDS: POTASSIUM BICARB 20 MEQ (EFFER-K) TABLET PO SCH (05:22)
[2022-09-06] MEDS: CATHETER FLUSH 10 ML SYR IVP SCH ×3 (05:23→20:40)
--- NOTE | 2022-09-06 05:32 | PM&R Progress Note ---
Subjective HPI/CC On Admission Date Seen by Provider: Sep 06, 2022 Time Seen by Provider: 12:00 Subjective/Events-last exam 09/06/2022: Patient doing much better Eating better Duration at this point Reviewed blood pressure trend 09/05/2022: Much improved Dysphagia is improved Slow recovery Participation is good 09/04/2022: Patient much improved Slowly eating meals by mouth since NG tube removed Cardiology consulted medication modified 09/03/2022: Patient much improved Barium swallow enables her to eat and so we will discontinue the NG tube Blood pressure labile Blood sugars reviewed 09/02/2022: About the same Talking more and more each day MBS tomorrow and maintained on NGT in place 09/01/2022: Patient doing well Added pain pill NG tube maintained No falls 08/31/2022: No major changes Ice chips are approved to consume slowly NGT is place No falls No pain Fall risk Severe deficits Sugars are good BP a bit elevated Review of Systems General: Fatigue, Malaise Objective Exam Vital Signs Vital Signs Date Time Temp Pulse Resp B/P (MAP) Pulse Ox O2 Delivery O2 Flow Rate FiO2 09/07/22 01:00 60 09/06/22 20:40 94 Room Air 09/06/22 19:52 36.4 20 168/80 (109) Capillary Refill : General Appearance: No Apparent Distress, WD/WN, Chronically ill, Obese HEENT: PERRL/EOMI, Normal ENT Inspection, Pharynx Normal, Other Neck: Full Range of Motion, Normal Inspection, Non Tender, Supple, Carotid B ruit Respiratory: Chest Non Tender, Lungs Clear, Normal Breath Sounds, No Accessory Muscle Use, No Respiratory Distress Cardiovascular: Regular Rate, Rhythm, No Edema, No Gallop, No JVD, No Murmur, Normal Peripheral Pulses Gastrointestinal: Normal Bowel Sounds, No Organomegaly, No Pulsatile Mass, Non Tender, Soft Back: Normal Inspection, No CVA Tenderness, No Vertebral Tenderness Extremity: Normal Capillary Refill, Normal Inspection, Normal Range of Motion, Non Tender, No Calf Tenderness, No Pedal Edema Neurologic/Psychiatric: Alert, Aphasia, Depressed Affect, Motor Weakness Skin: Normal Color, Warm/Dry Lymphatic: No Adenopathy Results/Procedures Lab Patient resulted labs reviewed. FIM Transfers Therapy Code Descriptions/Definitions Functional [place] Measure: 0=Not Assessed/NA 4=Minimal Assistance 1=Total Assistance 5=Supervision or Setup 2=Maximal Assistance 6=Modified [place] 3=Moderate Assistance 7=Complete IndependenceSCALE: Activities may be completed with or without assistive devices. 7-Hichjxoztc-jcytphx completes the activity by him/herself with no assistance from a helper. 5-Set-up or Clean-up Assistance-helper sets up or cleans up; patient completes activity. [place] assists only prior to or following the activity. 4-Supervision or Touching Assistance-helper provides verbal cues and/or touching/steadying and/or contact guard assistance as patient completes activity. Assistance may be provided throughout the activity or intermittently. 3-Partial/Moderate Assistance-helper does LESS THAN HALF the effort. [place] lifts, holds or supports trunk or limbs, but provides less than half the effort. 2-Substantial/Maximal Assistance-helper does MORE THAN HALF the effort. [place] lifts or holds trunk or limbs and provides more than half the effort. 8-Higyrrngg-ykkrqt does ALL the effort. Patient does none of the effort to complete the activity. Or, the assistance of 2 or more helpers is required for the patient to complete the activity. If activity was not attempted, code reason: 7-Patient Refused. 9-Not Applicable-not attempted and the patient did not perform the activity before the current illness, exacerbation or injury. 10-Not Attempted due to Environmental Limitations-(lack of equipment, weather restraints, etc.). 88-Not Attempted due to Medical Conditions or Safety Concerns. Roll Left to Right (QC): 2 Sit to Lying (QC): 2 Sit to Stand (QC): 2 Chair/Yrl-sl-Whhyn Xfer(QC): 2 Car Transfer (QC): 88 Gait Training Does the Patient Walk?: No and Walking Goal IS indicated Walk 10 feet (QC): 88 Walk 50 ft with 2 Turns(QC): 88 Walk 150 ft (QC): 88 Walking 10ft/uneven surface-QC: 88 Wheelchair Training Does the Pt Use a Wheelchair?: Yes Distance: 5ft Wheel 50 ft with 2 turns (QC): 2 Wheel 150 ft (QC): 2 Type of Wheelchair: Manual Stair Training 1 Step (curb) (QC): 88 4 Steps (QC): 88 12 Steps (QC): 88 Balance Picking up an Object (QC): 88 ADL-Treatment Eating (QC): 4 Oral Hygiene (QC): 4 Shower/Bathe Self (QC): 1 Upper Body Dressing (QC): 2 Lower Body Dressing (QC): 1 On/Off Footwear (QC): 1 Toileting Hygiene (QC): 1 Assessment/Plan Assessment and Plan Assess & Plan/Chief Complaint Assessment: 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 Aspiration risk needs modified barium swallow with speech therapy eval diabetes insulin-dependent hemoglobin A1c 13 Obesity Hypertension Hyperlipidemia Suspected cardiac source of CVA DM insulin dependent since hga1c 13 Plan: Aggressive PT and OT Speech therapy May need a PEG tube Monitor closely 08/31/2022: Sugars reviewed Add BP med 09/01/2022: Supportive care Monitor closely 09/02/2022: MBS tomorrow Continue therapy 09/03/2022: Supportive care Advance diet Discontinue NG tube 09/04/2022: Advance diet 09/05/2022: Supportive care 09/06/2022: Supportive care Slow recovery (1) CVA (cerebral vascular accident) BETHANY HERMOSILLO DO Sep 06, 2022 05:32
[2022-09-06] MEDS: inSUlin ASPART (NovoLOG) 1 UNIT/0.01 ML (CHARGE PER UNIT) SC SCH ×4 (05:33→20:19)
[2022-09-06 07:39] VITALS: BP 180/75
[2022-09-06 07:46] VITALS: BP 144/73
--- NOTE | 2022-09-06 08:01 | Speech Therapy Daily Note ---
Speech Daily Progress Note Subjective Date Seen by Provider: Sep 06, 2022 Time Seen by Provider: 07:10 Pt was sitting up in bed, breakfast had just been delivered. Pt was awake and attempted communicating with INVENTORY CONTROL ASSISTANT. When vitals were taken, she reported a pain level of 10 in her right leg. She was pleasant and cooperative throughout the session. Pain Numeric Pain Scale: 10-Worst Possible Pain Location: Right Comment: Pain in right leg Objective Pt was observed eating breakfast this morning. Pt's eggs were more small and bite size than minced and moist. No overt s/sx of aspiration were noted. It was noted occasional minimal oral residue, cleared with liquid wash. Pt was doing well with honey thick liquids. [place] thick liquids via spoon, cup, and straw were trialed. Pt demonstrated no overt s/sx of aspiration, voice quality remai shawn clear following trials. During lunch, a small and bite size tray with nectar thick liquids will be trialed. Assessment Assessment Current Status: Fair Progress Treatment Plan Continue Plan of Care Trial small bite size diet consisenty with nectar thick liquids during lunch this date. Speech Short Term Goals Short Term Goals Short Term Goals 1. The patient will participate in a modified barium swallow assessment to evaluate for the presence of aspiration and best guide therapeutic interventions. MET 09/03/2022 2. The patient will display 80% accuracy with oral motor exercises with mild clinician verbal and visual cueing. 3. The patient will display 80% accuracy with dysphagia exercises with mild clinician verbal and visual cueing. Language: 1. Pt will complete verbal imitation of basic one syllable words with 80% accuracy with min clinician verbal and visual cuing. 2. Pt will expressively and receptively identify common everyday objects with 80% accuracy with min clinician verbal and visual cuing. 3. Pt will follow basic 1 step and 2 step directions with 80% accuracy with min clinician verbal and visual cuing. Speech Clinical Quality Analyst Goals Clinical Quality Analyst Goals 1. The patient will tolerate the least restrictive diet consistency without s/s of suspected aspiration. Language: 1. Pt will communicate basic wants/needs with staff or family members either verbally or with use of pictures in 4/5 opportunities. Time Frame: Three Weeks. Speech-Plan Treatment Plan Speech Therapy Treatment Plan: Continue Plan of Care Treatment Duration: Sep 14, 2022 Frequency: Modified Program (IRF) Estimated Hrs Per Day: .5 hour per day Rehab Potential: Fair Pt/Family Agrees to Plan: Yes Safety Risks/Education Teaching Recipient: Patient Teaching Methods: Discussion Response to Teaching: Verbalize Understanding Education Topics Provided: Pt was educated on diet consistencies and the plan to trial a least restrictive diet over lunch this date. Time Speech Therapy Time In: 07:10 Speech Therapy Time Out: 07:40 DATE: Sep 06, 2022 Total Billed Time: 30 Billed Treatment Time [facility] [place] Kaleigh Nelson Speech Therapy Sep 06, 2022 08:01
[2022-09-06] MEDS: SENNA W/DOCUSATE (SENOKOT S) TABLET NG SCH ×2 (08:06→20:39)
[2022-09-06] MEDS: amLODIPine 5 MG (NORVASC) TAB NG SCH (08:06)
[2022-09-06] MEDS: VITAMIN D3 125 MCG (5,000 UNITS) CAPSULE PO SCH (08:06)
[2022-09-06] MEDS: PANTOPRAZOLE 40 MG (PROTONIX) TAB PO SCH (08:06)
[2022-09-06] MEDS: ASPIRIN 325 MG (5 GR) TABLET NG SCH (08:06)
[2022-09-06] MEDS: polyethylene glycoL POWDER 17 GM (MIRALAX) PACK NG SCH ×2 (08:06→20:39)
[2022-09-06] MEDS: ENOXAPARIN 40 MG/0.4 ML (LOVENOX) SYR SC SCH (08:07)
[2022-09-06] MEDS: DOCUSATE SODIUM 10 MG/ML 10 ML UDC (COLACE) NG SCH ×2 (08:13→20:39)
[2022-09-06] MEDS: DICLOFENAC 1% GEL 100 GM (VOLTAREN) TUBE TOP SCH ×4 (08:14→20:40)
--- NOTE | 2022-09-06 09:24 | Cardiology Progress Note ---
Subjective Date Seen by Provider: Sep 06, 2022 Time Seen by Provider: 08:15 Subjective/Events-last exam Patient in bed, no new complaints. Speech appears slightly improved. Denies any chest pain Objective-Cardiology Exam Last Set of Vital Signs Vital Signs 09/06/22 09/06/22 07:39 07:46 Temp 36.3 Pulse 78 Resp 14 B/P (MAP) 144/73 (96) Pulse Ox 90 O2 Delivery Room Air I&O Intake and Output 09/06/22 00:00 Intake Total 1370 ml Output Total 250 ml Balance 1120 ml Intake Oral 1370 ml Output Urine Total 250 ml # Urine Diapers 5 # Bowel Movements 1 General: Alert, Cooperative HEENT: Atraumatic Neck: Supple, No JVD, No Thyromegaly Lungs: Clear to Auscultation, Normal Air Movement Heart: Regular Rate, Normal S1, Normal S2, No Murmurs Abdomen: Normal Bowel Sounds, Soft, No Tenderness, No Hepatosplenomegaly, No Masses Extremities: No Clubbing, No Cyanosis, No Edema, Normal Pulses, No Tend erness/Swelling Skin: No Rashes, No Breakdown, No Significant Lesion Neuro: Other (Aphasia and hemiaplasia) Psych/Mental Status: Mood NL A/P-Cardiology Admission Diagnosis CVA Left ICA/MCA occlusion HTN HLP DM Assessment/Plan Acute CVA with right sided weakness, aphasia, dysphagia. CTA showed occlueded left ICA/MCA. Patient was transferred to [facility] where she underwent attempt at mechanical thrombectomy with no change. Currently maintained on ASA. Continue to monitor telemetry. 2D Echo done at [facility] on showed mild LVH, grade 2 diastolic dysfunction, mildly dilated LA. No PFO or ASD appreciated. Hypertension, better control at this time. Maintained on clonidine patch and amlodipine, hydralazine was added on September 04, 2022. Continue to monitor Intolerance/allergy to angiotensin receptor vazquez Hyperlipidemia, maintained on statin, monitor lipids Diabetes mellitus, managed by primary care physician Hypothyroidism, managed by primary care physician. Obesity. Supervisory-Addendum Brief Supervisory Addendum Participated in pt care: history, MDM, physical Personally performed: exam, history, MDM Care discussed with: ATA Results interpretation: Verified all documentation Notes: Patient was seen and evaluated with Luiza, examination performed, management plan was discussed, agree with the current scribed note, I made few changes to the note using Italic font Patient was seen at bedside, laying down comfortably. No new complaint. No change from cardiology standpoint, continue to monitor LUIZA AYALA Sep 06, 2022 09:24 VONDA TOMAS MD Sep 06, 2022 09:58
--- NOTE | 2022-09-06 10:25 | Occupational Ther Daily Note ---
OT Current Status-Daily Note Subjective Pt alert, lying in bed. Pt agrees to therapy. Pt c/o pain, did not rate and continued to participate in skilled therapy. OT/PT co-treat ([id number]), skills of 2 clinicians required to decrease fall risk, increase mobility with transfer/standing, working on R UE/LE to regain movement while completing wt bearing tasks. PT focusing on transfers, B LE strengthening and OT focusing on ADLs, functional mobility and B UE strengthening. Mental Status/Objective Patient Orientation: Person, Place, Time, Situation Attachments: IV, Telemetry ADL-Treatment Dependent for LBD and max A for UBD. Therapy Code Descriptions/Definitions Functional [place] Measure: 0=Not Assessed/NA 4=Minimal Assistance 1=Total Assistance 5=Supervision or Setup 2=Maximal Assistance 6=Modified [place] 3=Moderate Assistance 7=Complete IndependenceSCALE: Activities may be completed with or without assistive devices. 1-Tyfydzarmv-daejkic completes the activity by him/herself with no assistance from a helper. 5-Set-up or Clean-up Assistance-helper sets up or cleans up; patient completes activity. [place] assists only prior to or following the activity. 4-Supervision or Touching Assistance-helper provides verbal cues and/or touching/steadying and/or contact guard assistance as patient completes activity. Assistance may be provided throughout the activity or intermittently. 3-Partial/Moderate Assistance-helper does LESS THAN HALF the effort. [place] lifts, holds or supports trunk or limbs, but provides less than half the effort. 2-Substantial/Maximal Assistance-helper does MORE THAN HALF the effort. [place] lifts or holds trunk or limbs and provides more than half the effort. 2-Bnqrvnpzt-uxcqxw does ALL the effort. Patient does none of the effort to complete the activity. Or, the assistance of 2 or more helpers is required for the patient to complete the activity. If activity was not attempted, code reason: 7-Patient Refused. 9-Not Applicable-not attempted and the patient did not perform the activity before the current illness, exacerbation or injury. 10-Not Attempted due to Environmental Limitations-(lack of equipment, weather restraints, etc.). 88-Not Attempted due to Medical Conditions or Safety Concerns. Other Treatment Pt able to propel w/c ~14' with L hand and assist for steering. Pt stood in parallel bars 5x's. Pt is progressing with R LE muscle activation during exercises and standing. See PT notes for amount of assistance required for standing. R LE demonstrated trace movement 2x's for shldr elevation. After therapy, pt lying in bed with call light/phone in reach. All needs met in room. OT Short Term Goals Short Term Goals Time Frame: Sep 14, 2022 Shower/bathe self: 2 Upper body dressin Lower body dressin Putting on/taking off footwear: 2 OT [employer] Experience Strategy Goals [employer] Experience Strategy Goals Time Frame: Sep 28, 2022 Acute change in mental status: 1 Inattention: 1 Disorganized thinkin Altered level of consciousness: 0 Eating (QC): 5 (goal of set up assist if pt able to progress from tube feedings.) Oral Hygiene (QC): 5 Toileting Hygiene (QC): 3 Shower/Bathe Self (QC): 3 Upper Body Dressing (QC): 4 Lower Body Dressing (QC): 3 On/Off Footwear (QC): 3 Additional Goals: 1-Demonstrate ADL Tasks, 2-Verbalize Understanding, 3- ImproveStrength/Emil 1=Demonstrate adherence to instructed precautions during ADL tasks. 2=Patient will verbalize/demonstrate understanding of assistive devices/modifications for ADL. 3=Patient will improve strength/tolerance for activity to enable patient to perform ADL's. OT Education/Plan Problem List/Assessment Assessment: Decreased Activ Tolerance, Decreased UE Strength, Impaired Bed Mobility, Impaired Coordination, Impaired Funct Balance, Impaired Self-Care Skills, Restricted Funct UE ROM, Visual-Perceptual Deficit (R visual field cut) Discharge Recommendations Plan/Recommendations: Continue POC Treatment Plan/Plan of Care Patient would benefit from OT for education, treatment and training to promote independence in ADL's, mobility, safety and/or upper extremity function for ADL's. Plan of Care: ADL Retraining, Functional Mobility, Group Exercise/Act as Ind, UE Funct Exercise/Act, UE Neuromus Re-Ed/Coord, W/C Management Training Treatment Duration: Sep 28, 2022 Frequency: At least 5 of 7 days/Wk (IRF) Estimated Hrs Per Day: 1.5 hours per day Agreement: Yes Rehab Potential: Fair Time Start Time: 09:00 Stop Time: 10:00 DATE: Sep 06, 2022 Total Time Billed (hr/min): 60 Billed Treatment Time 1 visit-ADL 2 (30 min) NM 2 (30 min) co-treat with PT [id number] NICHO GU Sep 06, 2022 10:25
--- NOTE | 2022-09-06 10:55 | Speech Therapy Daily Note ---
Speech Daily Progress Note Subjective Date Seen by Provider: Sep 06, 2022 Time Seen by Provider: 10:00 Pt laying in bed when INFORMATION SECURITY CONSULTANT arrives. Pt pleasant and cooperative throughout session. She reports reduced pain. Pt appears tired and easily frustrated throughout the session. Pain Numeric Pain Scale: 3 Comment: Pt never identifies location of pain - she hits "leg" on the AAC. Objective Pt works on speech during session. INFORMATION SECURITY CONSULTANT has pt try to imitate single syllable basic words. Pt demonstrates significant difficulty with this. INFORMATION SECURITY CONSULTANT runs pt through lingual ROM. Pt is unable to put her tongue tip up on command. Pt was able to say "bed" once - however, pt demonstrates inconsistencies in her productions of the same word. An AAC option is introduced on an iPad ([employer]). Pt is shown some basic navigation and hits buttons. It is noted, she demonstrates difficulty with some of the fine motor aspects when trying to select buttons - this could potentially be due to her positioning in bed. Pt also states she is seeing double and appears exhausted after approximately 20 seconds of working on the iPad. She takes multiple short breaks during the session. When asked if she would be open to using a communication device to help her communicate, pt said yes. Pt answered basic questions with 80% accuracy. She was intelligible approximately 10% of verbalizations this session. Assessment Assessment Current Status: Poor Progress Treatment Plan Continue Plan of Care Continue to explore AAC options to increase ability to effectively and efficiently communicate. Speech Short Term Goals Short Term Goals Short Term Goals 1. The patient will participate in a modified barium swallow assessment to evaluate for the presence of aspiration and best guide therapeutic interventions. MET 09/03/2022 2. The patient will display 80% accuracy with oral motor exercises with mild clinician verbal and visual cueing. 3. The patient will display 80% accuracy with dysphagia exercises with mild clinician verbal and visual cueing. Language: 1. Pt will complete verbal imitation of basic one syllable words with 80% accuracy with min clinician verbal and visual cuing. 2. Pt will expressively and receptively identify common everyday objects with 80% accuracy with min clinician verbal and visual cuing. 3. Pt will follow basic 1 step and 2 step directions with 80% accuracy with min clinician verbal and visual cuing. Speech Jail Goals Power Regulator Goals 1. The patient will tolerate the least restrictive diet consistency without s/s of suspected aspiration. Language: 1. Pt will communicate basic wants/needs with staff or family members either verbally or with use of pictures in 4/5 opportunities. Time Frame: Three Weeks. 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 Treatment Plan Speech Therapy Treatment Plan: Continue Plan of Care Treatment Duration: Sep 14, 2022 Frequency: Modified Program (IRF) Estimated Hrs Per Day: .5 hour per day Rehab Potential: Fair Pt/Family Agrees to Plan: Yes Safety Risks/Education Teaching Recipient: Patient Teaching Methods: Demonstration, Discussion Response to Teaching: Verbalize Understanding, Reinforcement Needed Education Topics Provided: Pt educated on possibility of an AAC device to help her communicate and was allowed to explore TD Snap Lite on the therapist's iPad. Pt receptive to this idea. Time Speech Therapy Time In: 10:00 Speech Therapy Time Out: 10:30 DATE: Sep 06, 2022 Total Billed Time: 30 Billed Treatment Time Speech/Language Kaleigh Monaco Speech Therapy Sep 06, 2022 10:55
--- NOTE | 2022-09-06 11:50 | Occupational Ther Daily Note ---
OT Current Status-Daily Note Subjective Pt alert, lying in bed. Pt agrees to therapy. Pt c/o abdominal pain, nrsg aware. Mental Status/Objective Patient Orientation: Person, Place, Non-Verbal/Aphasic, Time, Situation Attachments: IV, Telemetry ADL-Treatment Therapy Code Descriptions/Definitions Functional [place] Measure: 0=Not Assessed/NA 4=Minimal Assistance 1=Total Assistance 5=Supervision or Setup 2=Maximal Assistance 6=Modified [place] 3=Moderate Assistance 7=Complete IndependenceSCALE: Activities may be completed with or without assistive devices. 6-Ffwslqeyuo-jsatvvq completes the activity by him/herself with no assistance from a helper. 5-Set-up or Clean-up Assistance-helper sets up or cleans up; patient completes activity. [place] assists only prior to or following the activity. 4-Supervision or Touching Assistance-helper provides verbal cues and/or touching/steadying and/or contact guard assistance as patient completes activity. Assistance may be provided throughout the activity or intermittently. 3-Partial/Moderate Assistance-helper does LESS THAN HALF the effort. [place] lifts, holds or supports trunk or limbs, but provides less than half the effort. 2-Substantial/Maximal Assistance-helper does MORE THAN HALF the effort. [place] lifts or holds trunk or limbs and provides more than half the effort. 1-Vwbauitfv-oeynbx does ALL the effort. Patient does none of the effort to complete the activity. Or, the assistance of 2 or more helpers is required for the patient to complete the activity. If activity was not attempted, code reason: 7-Patient Refused. 9-Not Applicable-not attempted and the patient did not perform the activity before the current illness, exacerbation or injury. 10-Not Attempted due to Environmental Limitations-(lack of equipment, weather restraints, etc.). 88-Not Attempted due to Medical Conditions or Safety Concerns. Other Treatment E-stim, manual muscle facilitation and stretch to promote awareness and active muscle movement for R UE. When pads placed on forearm to active wrist flex and finger extension, 4 hernandez to activate muscle contraction. Pt tolerated this well. Tapping muscle facilitation to R bicep activated muscle contraction for bicep flexion. Pt has spontaneous muscle contraction with shldr elevation. After session, pt lying in bed with call light/phone in reach. All needs met in room. OT Short Term Goals Short Term Goals Time Frame: Sep 14, 2022 Shower/bathe self: 2 Upper body dressin Lower body dressin Putting on/taking off footwear: 2 OT Halfway Goals Catering Manager Goals Time Frame: Sep 28, 2022 Acute change in mental status: 1 Inattention: 1 Disorganized thinkin Altered level of consciousness: 0 Eating (QC): 5 (goal of set up assist if pt able to progress from tube feedings.) Oral Hygiene (QC): 5 Toileting Hygiene (QC): 3 Shower/Bathe Self (QC): 3 Upper Body Dressing (QC): 4 Lower Body Dressing (QC): 3 On/Off Footwear (QC): 3 Additional Goals: 1-Demonstrate ADL Tasks, 2-Verbalize Understanding, 3-ImproveStrength/Emil 1=Demonstrate adherence to instructed precautions during ADL tasks. 2=Patient will verbalize/demonstrate understanding of assistive devices/modifications for ADL. 3=Patient will improve strength/tolerance for activity to enable patient to perform ADL's. OT Education/Plan Problem List/Assessment Assessment: Decreased Activ Tolerance, Decreased UE Strength, Restricted Funct UE ROM, Visual-Perceptual Deficit (R visual field cut) Discharge Recommendations Plan/Recommendations: Continue POC Treatment Plan/Plan of Care Patient would benefit from OT for education, treatment and training to promote independence in ADL's, mobility, safety and/or upper extremity function for ADL's. Plan of Care: ADL Retraining, Functional Mobility, Group Exercise/Act as Ind, UE Funct Exercise/Act, UE Neuromus Re-Ed/Coord, W/C Management Training Treatment Duration: Sep 28, 2022 Frequency: At least 5 of 7 days/Wk (IRF) Estimated Hrs Per Day: 1.5 hours per day Agreement: Yes Rehab Potential: Fair Time Start Time: 10:45 Stop Time: 11:30 DATE: Sep 06, 2022 Total Time Billed (hr/min): 45 Billed Treatment Time 1 visit-NM 3 (45 min) NICHO GU Sep 06, 2022 11:50
--- NOTE | 2022-09-06 12:38 | Speech Therapy Daily Note ---
Speech Daily Progress Note Subjective Date Seen by Provider: Sep 06, 2022 Time Seen by Provider: 12:05 Pt laying in bed when FIELD SERVICE CONSULTANT arrives. FIELD SERVICE CONSULTANT observing over lunch this date as pt was trialing a more advanced diet consistency. Pt was pleasant and cooperative throughout the session. Pain Comment: Nurse came in to administer medication. Pt stated pain was better. Objective Pt trialing soft and bite size consistency with nectar thick liquids during lunch this date. Pt does not demonstrate any overt s/sx of aspiration on 10 bites and 3 drinks via straw. Pt is reminded to take smaller bites and that it is okay to take breaks during the meal. Pt is also reminded to make sure she completely clears her mouth directly after the meal. Nursing staff asked to seema quently check in on pt for the remainder of lunch and dinner. Assessment Assessment Current Status: Good Progress Treatment Plan Continue Plan of Care Will continue with the soft and bite size consistency and nectar thick liquids with frequent observation/check-in by staff. Speech Short Term Goals Short Term Goals Short Term Goals 1. The patient will participate in a modified barium swallow assessment to kacie luate for the presence of aspiration and best guide therapeutic interventions. MET 09/03/2022 2. The patient will display 80% accuracy with oral motor exercises with mild clinician verbal and visual cueing. 3. The patient will display 80% accuracy with dysphagia exercises with mild clinician verbal and visual cueing. Language: 1. Pt will complete verbal imitation of basic one syllable words with 80% accuracy with min clinician verbal and visual cuing. 2. Pt will expressively and receptively identify common everyday objects with 80% accuracy with min clinician verbal and visual cuing. 3. Pt will follow basic 1 step and 2 step directions with 80% accuracy with min clinician verbal and visual cuing. Speech Automobiles Salesperson Goals Automobiles Salesperson Goals 1. The patient will tolerate the least restrictive diet consistency without s/s of suspected aspiration. Language: 1. Pt will communicate basic wants/needs with staff or family members either verbally or with use of pictures in 4/5 opportunities. Time Frame: Three Weeks. Speech-Plan Patient/Family Goals Patient/Family Goals: Pt's family goal is for pt to return home with assistance. Treatment Plan Speech Therapy Treatment Plan: Continue Plan of Care Treatment Duration: Sep 14, 2022 Frequency: Modified Program (IRF) Estimated Hrs Per Day: .5 hour per day Rehab Potential: Fair Pt/Family Agrees to Plan: Yes Safety Risks/Education Teaching Recipient: Patient Teaching Methods: Discussion Response to Teaching: Verbalize Understanding, Reinforcement Needed Education Topics Provided: Discussed the change in diet consistencies and reinforced safe swallow strategies. Pt nodded her head yes to demonstrate understanding. Time Speech Therapy Time In: 12:05 Speech Therapy Time Out: 12:20 DATE: Sep 06, 2022 Total Billed Time: 15 Billed Treatment Time Kaleigh Gallegos Speech Therapy Sep 06, 2022 12:38
--- NOTE | 2022-09-06 13:33 | Physical Therapy Daily Note ---
PT Daily Note-Current Subjective Pt alert, lying in bed. Pt agrees to therapy. Pt c/o pain, did not rate and continued to participate in skilled therapy. PT/OT co-tx ([id number]), skills of 2 clinicians required to decrease fall risk, increase mobility with transfer/standing, working on R LE/UE to regain movement while completing wt bearing tasks. PT focusing on bed mobility, transfers, B LE strengthening, standing, and w/c mobility, and OT focusing on ADLs, functional mobility and B UE strengthening. Pain Section J - Health Conditions 1. Rarely or not at all 2. Occasionally 3. Frequently 4. Almost constantly 8. Unable to answer Pain Effect on Sleep: 3 Pain Interference with Therapy: 3 Pain Interference w/Day-to-Day: 3 Transfers SCALE: Activities may be completed with or without assistive devices. 5-Acmmeqpvgr-plswhfn completes the activity by him/herself with no assistance from a helper. 5-Set-up or Clean-up Assistance-helper sets up or cleans up; patient completes activity. [place] assists only prior to or following the activity. 4-Supervision or Touching Assistance-helper provides verbal cues and/or touching/steadying and/or contact guard assistance as patient completes activity. Assistance may be provided throughout the activity or intermittently. 3-Partial/Moderate Assistance-helper does LESS THAN HALF the effort. [place] lifts, holds or supports trunk or limbs, but provides less than half the effort. 2-Substantial/Maximal Assistance-helper does MORE THAN HALF the effort. [place] lifts or holds trunk or limbs and provides more than half the effort. 1-Sslpuwuqa-qxptnr does ALL the effort. Patient does none of the effort to complete the activity. Or, the assistance of 2 or more helpers is required for the patient to complete the activity. If activity was not attempted, code reason: 7-Patient Refused. 9-Not Applicable-not attempted and the patient did not perform the activity before the current illness, exacerbation or injury. 10-Not Attempted due to Environmental Limitations-(lack of equipment, weather restraints, etc.). 88-Not Attempted due to Medical Conditions or Safety Concerns. Roll Left & Right (QC): 2 Sit to Lying (QC): 2 Lying to Sitting/Side of Bed(Q: 2 Sit to Stand (QC): 2 Chair/Ufr-qy-Zlxoi Xfer(QC): 2 Weight Bearing Right Lower Extremity: Right Full Weight Bearing Left Lower Extremity: Left Full Weight Bearing Wheelchair Training Does the Pt Use a Wheelchair?: Yes Type of Wheelchair: Manual Treatments Pt completed B rolling and supine <> sit with Mod/Max A. Pt completed SPT x 2 with Mod/Max A x 2. Pt completed sit to stand x 5 in the // bars with Mod/Max A x 2. Pt stood for 30 sec - 1 min in the // bars with each stand with Mod A and Mod v/c for erect posture, B hip ext, and R TKE. Pt was able to actively complete a partial LAQ on the R LE. Pt completed 3x10 reps on the R. Pt completed several R TKE when standing, after v/c. Pt able to propel w/c ~14' with L hand and assist for steering (Mod A). After therapy, pt lying in bed with call light/phone in reach. All needs met in room. Assessment Current Status: Good Progress Pt tolerated well with good effort. Pt is making progress PT Halfway Goals Halfway Goals PT Child Caregiver Private Home Goals Time Frame: Sep 13, 2022 Roll Left & Right (QC): 3 (Pt will complete bed mobility with Min A. ) Sit to Lying (QC): 3 (Pt will complete bed mobility with Min A. ) Lying-Sitting on Side/Bed(QC): 3 (Pt will complete bed mobility with Min A. ) Sit to Stand (QC): 3 (Pt will complete transfer with Min/Mod A. ) Chair/Kzj-qw-Cbsre Xfer(QC): 3 (Pt will complete transfer with Min/Mod A. ) Toilet Transfer (QC): 3 (Pt will complete transfer with Min/Mod A. ) Car Transfer (QC): 3 (Pt will complete transfer with Min/Mod A. ) Does the Patient Walk: No and Walking Goal IS indicated Walk 10 feet (QC): 3 (Min/Mod A for walking with the chau-walker ) Walk 50ft with 2 Turns (QC): 3 (Min/Mod A for walking with the chau-walker ) Walk 150 ft (QC): 88 Walking 10ft on Uneven Surface: 88 1 Step (curb) (QC): 3 (Min/Mod A for a curb/step ) 4 Steps (QC): 88 12 Steps (QC): 88 Picking up an Object (QC): 3 (Min A with rehabilitation specialist ) Does the Pt use WC or Scooter?: Yes Wheel 50 feet with 2 turns (QC: 3 (Min A for w/c mobility ) Type: Manual Wheel 150 feet: 3 (Min A for w/c mobility ) Type: Manual PT Plan Problem List Problem List: Activity Tolerance, Functional Strength, Safety, Balance, Gait, Transfer, Bed Mobility, ROM Treatment/Plan Treatment Plan: Continue Plan of Care Treatment Plan: Bed Mobility, Concurrent Therapy, Education, Functional Activity Emil, Functional Strength, Group Therapy, Gait, Safety, Therapeutic Exercise, Transfers Treatment Duration: Sep 13, 2022 Frequency: At least 5 of 7 days/Wk (IRF) Estimated Hrs Per Day: 1.5 hours per day Patient and/or Family Agrees t: Yes Safety Risks/Education Patient Education: Transfer Techniques, W/C Management, Safety Issues Teaching Recipient: Patient Teaching Methods: Demonstration, Discussion Response to Teaching: Verbalize Understanding, Return Demonstration, Reinforcement Needed Discharge Recommendations Therapy Discharge Recommendati: 24 Hour Supervision Discharge Status/Home Program cont per POC Barriers to Progress R sided weakness Target Placement SNF Time Time In: 900 Time Out: 1000 DATE: Sep 06, 2022 Total Billed Treatment Time: 60 Total Billed Treatment 60 min (co-tx from [id number]) 1 visit FA x 4 KATELIN YAO PT Sep 06, 2022 13:33
[2022-09-06] MEDS ORDERED: PROP40TA5 PO (16:03)
[2022-09-06] MEDS ORDERED: VALS1TAB79 PO (16:03)
[2022-09-06] MEDS ORDERED: OXYB-52 PO (16:03)
[2022-09-06] MEDS ORDERED: BUTA1TAB52 PO (16:03)
[2022-09-06] MEDS ORDERED: MELO15TA39 PO (16:03)
[2022-09-06] MEDS ORDERED: ALPR0.5T7 PO (16:03)
[2022-09-06] MEDS ORDERED: LEVO125T6 PO (16:03)
[2022-09-06] MEDS ORDERED: FLUO20CA48 PO (16:03)
[2022-09-06] MEDS ORDERED: DILT180C71 PO (16:03)
[2022-09-06 19:52] VITALS: BP 168/80
[2022-09-07] MEDS: ACETAMINOPHEN 325 MG TABLET NG PRN ×3 (02:30→16:32)
[2022-09-07] MEDS: inSUlin ASPART (NovoLOG) 1 UNIT/0.01 ML (CHARGE PER UNIT) SC SCH ×4 (05:11→20:16)
--- NOTE | 2022-09-07 05:38 | PM&R Progress Note ---
Subjective HPI/CC On Admission Date Seen by Provider: Sep 07, 2022 Time Seen by Provider: 12:00 Subjective/Events-last exam 09/07/2022: Patient just had shower Daughter at the bedside No pain is reported currently Eating and drinking better No aspiration at this point Participation is good 09/06/2022: Patient doing much better Eating better Duration at this point Reviewed blood pressure trend 09/05/2022: Much improved Dysphagia is improved Slow recovery Participation is good 09/04/2022: Patient much improved Slowly eating meals by mouth since NG tube removed Cardiology consulted medication modified 09/03/2022: Patient much improved Barium swallow enables her to eat and so we will discontinue the NG tube Blood pressure labile Blood sugars reviewed 09/02/2022: About the same Talking more and more each day MBS tomorrow and maintained on NGT in place 09/01/2022: Patient doing well Added pain pill NG tube maintained No falls 08/31/2022: No major changes Ice chips are approved to consume slowly NGT is place No falls No pain Fall risk Severe deficits Sugars are good BP a bit elevated Review of Systems General: Fatigue, Malaise Objective Exam Vital Signs Vital Signs Date Time Temp Pulse Resp B/P (MAP) Pulse Ox O2 Delivery O2 Flow Rate FiO2 09/08/22 01:00 63 09/07/22 20:28 Room Air 09/07/22 20:14 36.7 20 151/96 (114) 96 Capillary Refill : General Appearance: No Apparent Distress, WD/WN, Chronically ill, Obese HEENT: PERRL/EOMI, Normal ENT Inspection, Pharynx Normal, Other Neck: Full Range of Motion, Normal Inspection, Non Tender, Supple, Carotid Bruit Respiratory: Chest Non Tender, Lungs Clear, Normal Breath Sounds, No Accessory Muscle Use, No Respiratory Distress Cardiovascular: Regular Rate, Rhythm, No Edema, No Gallop, No JVD, No Murmur, Normal Peripheral Pulses Gastrointestinal: Normal Bowel Sounds, No Organomegaly, No Pulsatile Mass, Non Tender, Soft Back: Normal Inspection, No CVA Tenderness, No Vertebral Tenderness Extremity: Normal Capillary Refill, Normal Inspection, Normal Range of Motion, Non Tender, No Calf Tenderness, No Pedal Edema Neurologic/Psychiatric: Alert, Aphasia, Depressed Affect, Motor Weakness Skin: Normal Color, Warm/Dry Lymphatic: No Adenopathy Results/Procedures Lab Patient resulted labs reviewed. FIM Transfers Therapy Code Descriptions/Definitions Functional [place] Measure: 0=Not Assessed/NA 4=Minimal Assistance 1=Total Assistance 5=Supervision or Setup 2=Maximal Assistance 6=Modified [place] 3=Moderate Assistance 7=Complete IndependenceSCALE: Activities may be completed with or without assistive devices. 4-Azviryahvq-snvubpt completes the activity by him/herself with no assistance from a helper. 5-Set-up or Clean-up Assistance-helper sets up or cleans up; patient completes activity. [place] assists only prior to or following the activity. 4-Supervision or Touching Assistance-helper provides verbal cues and/or touching/steadying and/or contact guard assistance as patient completes activity. Assistance may be provided throughout the activity or intermittently. 3-Partial/Moderate Assistance-helper does LESS THAN HALF the effort. [place] lifts, holds or supports trunk or limbs, but provides less than half the effort. 2-Substantial/Maximal Assistance-helper does MORE THAN HALF the effort. [place] lifts or holds trunk or limbs and provides more than half the effort. 2-Kpoooejha-rudmlp does ALL the effort. Patient does none of the effort to complete the activity. Or, the assistance of 2 or more helpers is required for the patient to complete the activity. If activity was not attempted, code reason: 7-Patient Refused. 9-Not Applicable-not attempted and the patient did not perform the activity before the current illness, exacerbation or injury. 10-Not Attempted due to Environmental Limitations-(lack of equipment, weather restraints, etc.). 88-Not Attempted due to Medical Conditions or Safety Concerns. Roll Left to Right (QC): 2 Sit to Lying (QC): 2 Sit to Stand (QC): 2 Chair/Zfm-cm-Uncic Xfer(QC): 2 Car Transfer (QC): 88 Gait Training Does the Patient Walk?: No and Walking Goal IS indicated Walk 10 feet (QC): 88 Walk 50 ft with 2 Turns(QC): 88 Walk 150 ft (QC): 88 Walking 10ft/uneven surface-QC: 88 Wheelchair Training Does the Pt Use a Wheelchair?: Yes Distance: 5ft Wheel 50 ft with 2 turns (QC): 2 Wheel 150 ft (QC): 2 Type of Wheelchair: Manual Stair Training 1 Step (curb) (QC): 88 4 Steps (QC): 88 12 Steps (QC): 88 Balance Picking up an Object (QC): 88 ADL-Treatment Eating (QC): 4 Oral Hygiene (QC): 4 Shower/Bathe Self (QC): 1 Upper Body Dressing (QC): 2 Lower Body Dressing (QC): 1 On/Off Footwear (QC): 1 Toileting Hygiene (QC): 1 Assessment/Plan Assessment and Plan Assess & Plan/Chief Complaint Assessment: 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 Aspiration risk needs modified barium swallow with speech therapy eval diabetes insulin-dependent hemoglobin A1c 13 Obesity Hypertension Hyperlipidemia Suspected cardiac source of CVA DM insulin dependent since hga1c 13 Plan: Aggressive PT and OT Speech therapy May need a PEG tube Monitor closely 08/31/2022: Sugars reviewed Add BP med 09/01/2022: Supportive care Monitor closely 09/02/2022: MBS tomorrow Continue therapy 09/03/2022: Supportive care Advance diet Discontinue NG tube 09/04/2022: Advance diet 09/05/2022: Supportive care 09/06/2022: Supportive care Slow recovery 09/07/2022: Monitor sugar (1) CVA (cerebral vascular accident) BETHANY HERMOSILLO DO Sep 07, 2022 05:38
[2022-09-07 06:23] VITALS: BP 151/67
[2022-09-07] MEDS: POTASSIUM BICARB 20 MEQ (EFFER-K) TABLET PO SCH (06:30)
[2022-09-07] MEDS: hydrALAZINE (APRESOLINE) 25 MG TAB PO SCH ×3 (06:31→21:15)
[2022-09-07] MEDS: LEVOTHYROXINE 100 MCG (LEVOTHROID) TAB PO SCH (06:31)
[2022-09-07] MEDS: CATHETER FLUSH 10 ML SYR IVP SCH ×3 (06:31→19:29)
[2022-09-07 07:11] VITALS: BP 149/70
[2022-09-07] MEDS: SENNA W/DOCUSATE (SENOKOT S) TABLET NG SCH ×2 (07:41→19:26)
[2022-09-07] MEDS: polyethylene glycoL POWDER 17 GM (MIRALAX) PACK NG SCH ×2 (07:41→19:26)
[2022-09-07] MEDS: DOCUSATE SODIUM 10 MG/ML 10 ML UDC (COLACE) NG SCH ×2 (07:41→19:26)
[2022-09-07] MEDS: VITAMIN D3 125 MCG (5,000 UNITS) CAPSULE PO SCH (07:41)
[2022-09-07] MEDS: PANTOPRAZOLE 40 MG (PROTONIX) TAB PO SCH (07:41)
[2022-09-07] MEDS: amLODIPine 5 MG (NORVASC) TAB NG SCH (07:41)
[2022-09-07] MEDS: ASPIRIN 325 MG (5 GR) TABLET NG SCH (07:41)
[2022-09-07] MEDS: DICLOFENAC 1% GEL 100 GM (VOLTAREN) TUBE TOP SCH ×4 (07:42→19:29)
[2022-09-07] MEDS: ENOXAPARIN 40 MG/0.4 ML (LOVENOX) SYR SC SCH (08:02)
--- NOTE | 2022-09-07 08:03 | Speech Therapy Daily Note ---
Speech Daily Progress Note Subjective Date Seen by Provider: Sep 07, 2022 Time Seen by Provider: 07:10 Pt laying in bed when PAPER CONE DRYING MACHINE OPERATOR enters room. Pt says she is not ready and does not want breakfast. Breakfast is delivered and pt is then willing to eat breakfast. Pt pleasant and cooperative throughout session. Pain Numeric Pain Scale: 5-Moderate Pain Location: Right Comment: Pt states pain in right arm and leg Objective PAPER [employer] DRYING MACHINE OPERATOR and staff are able to get pt positioned and sat up in bed for breakfast this date. Pt continues with soft and bite size consistency and nectar thick liquids. Pt demonstrates one overt s/sx of aspiration during breakfast, coughing after a bite of scrambled egg. Pt coughs for a while. Pt shakes head in agreement when asked if the eggs "went down the wrong pipe". No other overt s/sx of aspiration noted. Pt continues to do well with nectar thick liquids. Intermittent supervision by staff to be continued to continue to reinforce safe swallowing strategies such as small bites. Assessment Assessment Current Status: Fair Progress Treatment Plan Continue Plan of Care Speech Short Term Goals Short Term Goals Short Term Goals 1. The patient will participate in a modified barium swallow assessment to evaluate for the presence of aspiration and best guide therapeutic interventions. MET 09/03/2022 2. The patient will display 80% accuracy with oral motor exercises with mild clinician verbal and visual cueing. 3. The patient will display 80% accuracy with dysphagia exercises with mild clinician verbal and visual cueing. Language: 1. Pt will complete verbal imitation of basic one syllable words with 80% ac curacy with min clinician verbal and visual cuing. 2. Pt will expressively and receptively identify common everyday objects with 80% accuracy with min clinician verbal and visual cuing. 3. Pt will follow basic 1 step and 2 step directions with 80% accuracy with min clinician verbal and visual cuing. Speech [facility] Goals Director Motion Picture Goals 1. The patient will tolerate the least restrictive diet consistency without s/s of suspected aspiration. Language: 1. Pt will communicate basic wants/needs with staff or family members either verbally or with use of pictures in 4/5 opportunities. Time Frame: Three Weeks. Speech-Plan Patient/Family Goals Patient/Family Goals: Family's goal at this time is for pt to return home with 24/7 assistance. Treatment Plan Speech Therapy Treatment Plan: Continue Plan of Care Treatment Duration: Sep 14, 2022 Frequency: Modified Program (IRF) Estimated Hrs Per Day: .5 hour per day Rehab Potential: Fair Pt/Family Agrees to Plan: Yes Safety Risks/Education Teaching Recipient: Patient Teaching Methods: Discussion Response to Teaching: Verbalize Understanding, Reinforcement Needed Education Topics Provided: Pt continues to require education on safe swallow strategies such as making sure she is sitting up and taking smaller bites. Pt receptive and nods head to show understanding. Time Speech Therapy Time In: 07:10 Speech Therapy Time Out: 07:45 DATE: Sep 07, 2022 Total Billed Time: 35 Billed Treatment Time Kaleigh Gallegos Speech Therapy Sep 07, 2022 08:03
--- NOTE | 2022-09-07 10:21 | Occupational Ther Daily Note ---
OT Current Status-Daily Note Subjective Pt agreeable to therapy tx, rates pain 6/10 by pointing on visual pain scale. ADL-Treatment Therapy Code Descriptions/Definitions Functional [place] Measure: 0=Not Assessed/NA 4=Minimal Assistance 1=Total Assistance 5=Supervision or Setup 2=Maximal Assistance 6=Modified [place] 3=Moderate Assistance 7=Complete IndependenceSCALE: Activities may be completed with or without assistive devices. 9-Cyfqaqjnki-rttwjjt completes the activity by him/herself with no assistance from a helper. 5-Set-up or Clean-up Assistance-helper sets up or cleans up; patient completes activity. [place] assists only prior to or following the activity. 4-Supervision or Touching Assistance-helper provides verbal cues and/or touching/steadying and/or contact guard assistance as patient completes activity. Assistance may be provided throughout the activity or intermittently. 3-Partial/Moderate Assistance-helper does LESS THAN HALF the effort. [place] lifts, holds or supports trunk or limbs, but provides less than half the effort. 2-Substantial/Maximal Assistance-helper does MORE THAN HALF the effort. [place] lifts or holds trunk or limbs and provides more than half the effort. 5-Roflrrgbl-stwzwr does ALL the effort. Patient does none of the effort to complete the activity. Or, the assistance of 2 or more helpers is required for the patient to complete the activity. If activity was not attempted, code reason: 7-Patient Refused. 9-Not Applicable-not attempted and the patient did not perform the activity before the current illness, exacerbation or injury. 10-Not Attempted due to Environmental Limitations-(lack of equipment, weather restraints, etc.). 88-Not Attempted due to Medical Conditions or Safety Concerns. Lower Body Dressing (QC): 1 (bed level) On/Off Footwear: 1 (bed level) Other Treatment OT/PT cotreat due to skill of 2 clinicians required which a wire technician could not perform in order to coordinate UE/LEs, decrease fall risk, and due to pt's limitations in strength, activity tolerance, mobility, R side hemiparesis. OT focused on UE placement, ADLs, cues for sequencing and safety and PT focused on LE placement, gross overall movement, transfers/mobility. Pt transferred supine to sit EOB, then transferred to w/c via SPT. Pt propelled w/c to therapy gym using LUE, 50' with mod A. Pt stood in parallel bars 5x's (15sec, 40 sec, [id number], 40sec, 1min). See PT note for amount of assistance required for standing. Pt taken back to her room via w/c, transferring to EOB and supine. Post tx, pt in bed, call light in reach and all needs met. Education OT Patient Education: Correct positioning, Energy conservation, Modified ADL techniques, Progress toward Goal/Update tx plan, Purpose of tx/functional activities, Rehab process Teaching Recipient: Patient Teaching Methods: Discussion Response to Teaching: Verbalize Understanding OT Short Term Goals Short Term Goals Time Frame: Sep 14, 2022 Shower/bathe self: 2 Upper body dressin Lower body dressin Putting on/taking off footwear: 2 OT [facility]ci Goals Fci Goals Time Frame: Sep 28, 2022 Acute change in mental status: 1 Inattention: 1 Disorganized thinkin Altered level of consciousness: 0 Eating (QC): 5 (goal of set up assist if pt able to progress from tube feedings.) Oral Hygiene (QC): 5 Toileting Hygiene (QC): 3 Shower/Bathe Self (QC): 3 Upper Body Dressing (QC): 4 Lower Body Dressing (QC): 3 On/Off Footwear (QC): 3 Additional Goals: 1-Demonstrate ADL Tasks, 2-Verbalize Understanding, 3- ImproveStrength/Emil 1=Demonstrate adherence to instructed precautions during ADL tasks. 2=Patient will verbalize/demonstrate understanding of assistive devices/modifications for ADL. 3=Patient will improve strength/tolerance for activity to enable patient to perform ADL's. OT Education/Plan Problem List/Assessment Assessment: Decreased Activ Tolerance, Decreased UE Strength, Dependent T ransfers, Impaired Bed Mobility, Impaired Coordination, Impaired Funct Balance, Impaired I ADL's, Impaired Self-Care Skills, Restricted Funct UE ROM Discharge Recommendations Plan/Recommendations: Continue POC Treatment Plan/Plan of Care Patient would benefit from OT for education, treatment and training to promote independence in ADL's, mobility, safety and/or upper extremity function for ADL's. Plan of Care: ADL Retraining, Functional Mobility, Group Exercise/Act as Ind, UE Funct Exercise/Act, UE Neuromus Re-Ed/Coord, W/C Management Training Treatment Duration: Sep 28, 2022 Frequency: At least 5 of 7 days/Wk (IRF) Estimated Hrs Per Day: 1.5 hours per day Agreement: Yes Rehab Potential: Fair Time Start Time: 08:55 Stop Time: 10:00 DATE: Sep 07, 2022 Total Time Billed (hr/min): 65 Billed Treatment Time 1, FA 4 JAMEY RAMOS OT Sep 07, 2022 10:21
--- NOTE | 2022-09-07 10:41 | Speech Therapy Daily Note ---
Speech Daily Progress Note Subjective Date Seen by Provider: Sep 07, 2022 Time Seen by Provider: 10:00 Pt laying in bed when KINDERGARTEN ASSISTANT enters room. Pt appears fatigued and reports she stood with physical and occupational therapy earlier this morning. Nurse is present and administers pain medication during session. Pt is pleasant and cooperative throughout session. Pain Numeric Pain Scale: 5-Moderate Pain Location: Right Comment: R arm and leg Objective Imitation of sounds is targeted again this date. Pt is unable to imitate pa-pa-pa with verbal and visual cues. AAC is used. The alexander WheresTheBuse is used as a trial on an iPad. The settings are changed so the swipe feature does not work and instead an up and down arrow have to be used to scroll between pages. Pt is able to navigate icons to select correct item, therapist describes with 60% accuracy with mod assist. Pt participates in basic social greeting with nurse, saying "hi" and "how are you?". Pt is also able to state tell nurse her pain level using AAC. Pt continues to want to push and hold on the buttons instead of tapping them, resulting in slight frustration when her selections are not accepted the first time. Assessment Assessment Current Status: Fair Progress Continue to work on using AAC to become more familiar with page sets. Treatment Plan Continue Plan of Care Speech Short Term Goals Short Term Goals Short Term Goals 1. The patient will participate in a modified barium swallow assessment to evaluate for the presence of aspiration and best guide therapeutic interventions. MET 09/03/2022 2. The patient will display 80% accuracy with oral motor exercises with mild clinician verbal and visual cueing. 3. The patient will display 80% accuracy with dysphagia exercises with mild clin ician verbal and visual cueing. Language: 1. Pt will complete verbal imitation of basic one syllable words with 80% accuracy with min clinician verbal and visual cuing. 2. Pt will expressively and receptively identify common everyday objects with 80% accuracy with min clinician verbal and visual cuing. 3. Pt will follow basic 1 step and 2 step directions with 80% accuracy with min clinician verbal and visual cuing. Speech Hotel Administrative Assistant Goals [facility] Goals 1. The patient will tolerate the least restrictive diet consistency without s/s of suspected aspiration. Language: 1. Pt will communicate basic wants/needs with staff or family members either verbally or with use of pictures in 4/5 opportunities. Time Frame: Three Weeks. Speech-Plan Patient/Family Goals Patient/Family Goals: Family's goal is for patient to return home with 24/7 care. Treatment Plan Speech Therapy Treatment Plan: Continue Plan of Care Treatment Duration: Sep 14, 2022 Frequency: Modified Program (IRF) Estimated Hrs Per Day: .5 hour per day Rehab Potential: Fair Pt/Family Agrees to Plan: Yes Safety Risks/Education Teaching Recipient: Patient Teaching Methods: Discussion Response to Teaching: Verbalize Understanding, Reinforcement Needed Education Topics Provided: Pt educated on using AAC and navigation. Patient encouraged during some down time to get on and just explore the different pages. Pt nodded her head to demonstrate understanding. Reinforcement of using AAC will continue to be needed. Time Speech Therapy Time In: 10:00 Speech Therapy Time Out: 10:30 DATE: Sep 07, 2022 Total Billed Time: 30 Billed Treatment Time Kaleigh Tapia Speech Therapy Sep 07, 2022 10:41
[2022-09-07] MEDS ORDERED: BISACODYL 10 MG SUPP (DULCOLAX) PR PRN (11:15)
[2022-09-07] MEDS ORDERED: BISACODYL 10 MG SUPP (DULCOLAX) PR NR (11:30)
[2022-09-07] MEDS: GABAPENTIN 100 MG (NEURONTIN) CAP PO SCH ×3 (12:25→19:26)
--- NOTE | 2022-09-07 14:11 | Physical Therapy Daily Note ---
PT Daily Note-Current Subjective Pt is agreeable to PT on this date. Pt rates R LE pain at 6/10 by pointing on visual pain scale. Pain Numeric Pain Scale: 6 Location: Right Location Body Site: Knee Section J - Health Conditions 1. Rarely or not at all 2. Occasionally 3. Frequently 4. Almost constantly 8. Unable to answer Pain Effect on Sleep: 3 Pain Interference with Therapy: 3 Pain Interference w/Day-to-Day: 3 Transfers SCALE: Activities may be completed with or without assistive devices. 0-Arztrlihdh-hszivpi completes the activity by him/herself with no assistance from a helper. 5-Set-up or Clean-up Assistance-helper sets up or cleans up; patient completes activity. [place] assists only prior to or following the activity. 4-Supervision or Touching Assistance-helper provides verbal cues and/or touching/steadying and/or contact guard assistance as patient completes activity. Assistance may be provided throughout the activity or intermittently. 3-Partial/Moderate Assistance-helper does LESS THAN HALF the effort. [place] l ifts, holds or supports trunk or limbs, but provides less than half the effort. 2-Substantial/Maximal Assistance-helper does MORE THAN HALF the effort. [place] lifts or holds trunk or limbs and provides more than half the effort. 1-Ufyrepeqs-ydvhcw does ALL the effort. Patient does none of the effort to complete the activity. Or, the assistance of 2 or more helpers is required for t he patient to complete the activity. If activity was not attempted, code reason: 7-Patient Refused. 9-Not Applicable-not attempted and the patient did not perform the activity before the current illness, exacerbation or injury. 10-Not Attempted due to Environmental Limitations-(lack of equipment, weather restraints, etc.). 88-Not Attempted due to Medical Conditions or Safety Concerns. Roll Left & Right (QC): 3 Sit to Lying (QC): 2 Lying to Sitting/Side of Bed(Q: 3 Sit to Stand (QC): 2 Chair/Otd-un-Bfmgh Xfer(QC): 2 Weight Bearing Right Lower Extremity: Right Full Weight Bearing Left Lower Extremity: Left Full Weight Bearing Gait Training Does the Patient Walk?: No and Walking Goal IS indicated Wheelchair Training Does the Pt Use a Wheelchair?: Yes Wheel 50 ft with 2 turns (QC): 2 Wheel 150 ft (QC): 88 Type of Wheelchair: Manual Treatments PT/OT co-tx from [id number] due to skill of 2 clinicians required which a rehabilitation technician could not perform in order to coordinate LE/UEs, decrease fall risk, and due to pt's limitations in strength, activity tolerance, mobility, R side hemiparesis. PT focused on LE placement, gross overall movement, R LE strength, bed mobility, transfers/mobility, standing, and w/c mobility. OT focused on UE placement, ADLs, cues for sequencing and safety. Pt completed R rolling in bed with Min A and L rolling with Mod/Max A. Pt completed supine > sit with Min/Mod A and sit > supine with Mod/Max A x 2. SPT completed x 2 from bed <> w/c with Mod/Max A x 2. Pt completed w/c mobility x 50ft with Mod A. Pt completed 5 sit to stand transfers in the // bars varying from Mod to Max A x 2. Pt stood for 15", 40", 1' 15", 40", and 1' with Mod/Max A to stand. Pt demo increased R LE pain on this date. Nurse notified. Pt required increased rest breaks throughout stands. Pt completed partial R LAQ 2 x 10 reps, as well as R heel slides and QS, while in bed. Pt was lying in bed, positioned with pillows, with call light in reach and all needs met after tx session. Assessment Pt tolerated well with good effort, but demo increased pain on this date PT Hospitalist Goals Hospitalist Goals PT [facility] Goals Time Frame: Sep 13, 2022 Roll Left & Right (QC): 3 (Pt will complete bed mobility with Min A. ) Sit to Lying (QC): 3 (Pt will complete bed mobility with Min A. ) Lying-Sitting on Side/Bed(QC): 3 (Pt will complete bed mobility with Min A. ) Sit to Stand (QC): 3 (Pt will complete transfer with Min/Mod A. ) Chair/Ffx-ov-Xxpio Xfer(QC): 3 (Pt will complete transfer with Min/Mod A. ) Toilet Transfer (QC): 3 (Pt will complete transfer with Min/Mod A. ) Car Transfer (QC): 3 (Pt will complete transfer with Min/Mod A. ) Does the Patient Walk: No and Walking Goal IS indicated Walk 10 feet (QC): 3 (Min/Mod A for walking with the chau-walker ) Walk 50ft with 2 Turns (QC): 3 (Min/Mod A for walking with the cahu-walker ) Walk 150 ft (QC): 88 Walking 10ft on Uneven Surface: 88 1 Step (curb) (QC): 3 (Min/Mod A for a curb/step ) 4 Steps (QC): 88 12 Steps (QC): 88 Picking up an Object (QC): 3 (Min A with clinical pharmacy coordinator ) Does the Pt use WC or Scooter?: Yes Wheel 50 feet with 2 turns (QC: 3 (Min A for w/c mobility ) Type: Manual Wheel 150 feet: 3 (Min A for w/c mobility ) Type: Manual PT Plan Problem List Problem List: Activity Tolerance, Functional Strength, Safety, Balance, Gait, Transfer, Bed Mobility, ROM Treatment/Plan Treatment Plan: Continue Plan of Care Treatment Plan: Bed Mobility, Concurrent Therapy, Education, Functional Activity Emil, Functional Strength, Group Therapy, Gait, Safety, Therapeutic Exercise, Transfers Treatment Duration: Sep 13, 2022 Frequency: At least 5 of 7 days/Wk (IRF) Estimated Hrs Per Day: 1.5 hours per day Patient and/or Family Agrees t: Yes Safety Risks/Education Patient Education: Transfer Techniques, Correct Positioning, W/C Management, Safety Issues Teaching Recipient: Patient Teaching Methods: Demonstration, Discussion Response to Teaching: Verbalize Understanding, Return Demonstration, Reinforcement Needed Discharge Recommendations Therapy Discharge Recommendati: 24 Hour Supervision Discharge Status/Home Program Cont per POC Barriers to Progress R sided weakness Target Placement SNF vs home with daughters Time Time In: 855 Time Out: 1000 DATE: Sep 07, 2022 Total Billed Treatment Time: 65 Total Billed Treatment 65 min co-tx from [id number] 1 visit FA x 4 KATELIN YAO PT Sep 07, 2022 14:11
[2022-09-07 14:40] VITALS: BP 181/80
[2022-09-07 20:14] VITALS: BP 151/96
[2022-09-08] MEDS: POTASSIUM BICARB 20 MEQ (EFFER-K) TABLET PO SCH (05:33)
[2022-09-08] MEDS: hydrALAZINE (APRESOLINE) 25 MG TAB PO SCH ×3 (05:33→22:12)
[2022-09-08] MEDS: LEVOTHYROXINE 100 MCG (LEVOTHROID) TAB PO SCH (05:33)
[2022-09-08] MEDS: CATHETER FLUSH 10 ML SYR IVP SCH ×3 (05:36→22:13)
[2022-09-08] MEDS: inSUlin ASPART (NovoLOG) 1 UNIT/0.01 ML (CHARGE PER UNIT) SC SCH ×5 (07:03→20:35)
--- NOTE | 2022-09-08 07:21 | PM&R Progress Note ---
Subjective HPI/CC On Admission Date Seen by Provider: Sep 08, 2022 Time Seen by Provider: 12:30 Subjective/Events-last exam 09/08/2022: Patient doing really well Talking more Tolerating eating mechanical soft diet 09/07/2022: Patient just had shower Daughter at the bedside No pain is reported currently Eating and drinking better No aspiration at this point Participation is good 09/06/2022: Patient doing much better Eating better Duration at this point Reviewed blood pressure trend 09/05/2022: Much improved Dysphagia is improved Slow recovery Participation is good 09/04/2022: Patient much improved Slowly eating meals by mouth since NG tube removed Cardiology consulted medication modified 09/03/2022: Patient much improved Barium swallow enables her to eat and so we will discontinue the NG tube Blood pressure labile Blood sugars reviewed 09/02/2022: About the same Talking more and more each day MBS tomorrow and maintained on NGT in place 09/01/2022: Patient doing well Added pain pill NG tube maintained No falls 08/31/2022: No major changes Ice chips are approved to consume slowly NGT is place No falls No pain Fall risk Severe deficits Sugars are good BP a bit elevated Review of Systems General: Fatigue, Malaise Objective Exam Vital Signs Vital Signs Date Time Temp Pulse Resp B/P (MAP) Pulse Ox O2 Delivery O2 Flow Rate FiO2 09/08/22 13:00 86 09/08/22 09:01 Room Air 09/08/22 07:33 36.4 20 112/71 (85) 93 Capillary Refill : General Appearance: No Apparent Distress, WD/WN, Chronically ill, Obese HEENT: PERRL/EOMI, Normal ENT Inspection, Pharynx Normal, Other Neck: Full Range of Motion, Normal Inspection, Non Tender, Supple, Carotid Bruit Respiratory: Chest Non Tender, Lungs Clear, Normal Breath Sounds, No Accessory Muscle Use, No Respiratory Distress Cardiovascular: Regular Rate, Rhythm, No Edema, No Gallop, No JVD, No Murmur, Normal Peripheral Pulses Gastrointestinal: Normal Bowel Sounds, No Organomegaly, No Pulsatile Mass, Non Tender, Soft Back: Normal Inspection, No CVA Tenderness, No Vertebral Tenderness Extremity: Normal Capillary Refill, Normal Inspection, Normal Range of Motion, Non Tender, No Calf Tenderness, No Pedal Edema Neurologic/Psychiatric: Alert, Aphasia, Depressed Affect, Motor Weakness Skin: Normal Color, Warm/Dry Lymphatic: No Adenopathy Results/Procedures Lab Patient resulted labs reviewed. FIM Transfers Therapy Code Descriptions/Definitions Functional [place] Measure: 0=Not Assessed/NA 4=Minimal Assistance 1=Total Assistance 5=Supervision or Setup 2=Maximal Assistance 6=Modified [place] 3=Moderate Assistance 7=Complete IndependenceSCALE: Activities may be completed with or without assistive devices. 0-Eivaalaijc-iuozqcq completes the activity by him/herself with no assistance from a helper. 5-Set-up or Clean-up Assistance-helper sets up or cleans up; patient completes activity. [place] assists only prior to or following the activity. 4-Supervision or Touching Assistance-helper provides verbal cues and/or touching/steadying and/or contact guard assistance as patient completes activity. Assistance may be provided throughout the activity or intermittently. 3-Partial/Moderate Assistance-helper does LESS THAN HALF the effort. [place] lifts, holds or supports trunk or limbs, but provides less than half the effort. 2-Substantial/Maximal Assistance-helper does MORE THAN HALF the effort. [place] lifts or holds trunk or limbs and provides more than half the effort. 2-Gajuotvwp-rokqnh does ALL the effort. Patient does none of the effort to complete the activity. Or, the assistance of 2 or more helpers is required for the patient to complete the activity. If activity was not attempted, code reason: 7-Patient Refused. 9-Not Applicable-not attempted and the patient did not perform the activity before the current illness, exacerbation or injury. 10-Not Attempted due to Environmental Limitations-(lack of equipment, weather restraints, etc.). 88-Not Attempted due to Medical Conditions or Safety Concerns. Roll Left to Right (QC): 3 Sit to Lying (QC): 2 Sit to Stand (QC): 2 Chair/Pxc-ev-Ccjja Xfer(QC): 2 Car Transfer (QC): 88 Gait Training Does the Patient Walk?: No and Walking Goal IS indicated Walk 10 feet (QC): 88 Walk 50 ft with 2 Turns(QC): 88 Walk 150 ft (QC): 88 Walking 10ft/uneven surface-QC: 88 Wheelchair Training Does the Pt Use a Wheelchair?: Yes Distance: 5ft Wheel 50 ft with 2 turns (QC): 2 Wheel 150 ft (QC): 88 Type of Wheelchair: Manual Stair Training 1 Step (curb) (QC): 88 4 Steps (QC): 88 12 Steps (QC): 88 Balance Picking up an Object (QC): 88 ADL-Treatment Eating (QC): 4 Oral Hygiene (QC): 4 Shower/Bathe Self (QC): 1 Upper Body Dressing (QC): 2 Lower Body Dressing (QC): 1 On/Off Footwear (QC): 1 Toileting Hygiene (QC): 1 Assessment/Plan Assessment and Plan Assess & Plan/Chief Complaint Assessment: 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 Aspiration risk needs modified barium swallow with speech therapy eval diabetes insulin-dependent hemoglobin A1c 13 Obesity Hypertension Hyperlipidemia Suspected cardiac source of CVA DM insulin dependent since hga1c 13 Plan: Aggressive PT and OT Speech therapy May need a PEG tube Monitor closely 08/31/2022: Sugars reviewed Add BP med 09/01/2022: Supportive care Monitor closely 09/02/2022: MBS tomorrow Continue therapy 09/03/2022: Supportive care Advance diet Discontinue NG tube 09/04/2022: Advance diet 09/05/2022: Supportive care 09/06/2022: Supportive care Slow recovery 09/07/2022: Monitor sugar 09/08/2022: Supportive care (1) CVA (cerebral vascular accident) BETHANY HERMOSILLO DO Sep 08, 2022 07:21
[2022-09-08 07:33] VITALS: BP 112/71
[2022-09-08] MEDS: ENOXAPARIN 40 MG/0.4 ML (LOVENOX) SYR SC SCH (09:12)
[2022-09-08] MEDS: DOCUSATE SODIUM 10 MG/ML 10 ML UDC (COLACE) NG SCH ×2 (09:12→20:33)
[2022-09-08] MEDS: DICLOFENAC 1% GEL 100 GM (VOLTAREN) TUBE TOP SCH ×4 (09:12→20:35)
[2022-09-08] MEDS: polyethylene glycoL POWDER 17 GM (MIRALAX) PACK NG SCH ×2 (09:12→20:35)
[2022-09-08] MEDS: VITAMIN D3 125 MCG (5,000 UNITS) CAPSULE PO SCH (09:12)
[2022-09-08] MEDS: ASPIRIN 325 MG (5 GR) TABLET NG SCH (09:12)
[2022-09-08] MEDS: GABAPENTIN 100 MG (NEURONTIN) CAP PO SCH ×3 (09:12→20:34)
[2022-09-08] MEDS: SENNA W/DOCUSATE (SENOKOT S) TABLET NG SCH ×2 (09:13→20:34)
[2022-09-08] MEDS: amLODIPine 5 MG (NORVASC) TAB NG SCH (09:13)
[2022-09-08] MEDS: PANTOPRAZOLE 40 MG (PROTONIX) TAB PO SCH (09:13)
--- NOTE | 2022-09-08 09:52 | Cardiology Progress Note ---
Subjective Date Seen by Provider: Sep 08, 2022 Time Seen by Provider: 09:51 Subjective/Events-last exam Patient was seen at bedside, laying down comfortably, no new complaint. Objective-Cardiology Exam Last Set of Vital Signs Vital Signs 09/08/22 09/08/22 07:33 09:01 Temp 36.4 Pulse 72 Resp 20 B/P (MAP) 112/71 (85) Pulse Ox 93 O2 Delivery Room Air I&O Intake and Output 09/08/22 00:00 Intake Total 850 ml Output Total 225 ml Balance 625 ml Intake Oral 850 ml Output Urine Total 225 ml # Voids 3 # Urine Diapers 2 # Bowel Movements 1 General: Alert, Cooperative HEENT: Atraumatic Neck: Supple, No JVD, No Thyromegaly Lungs: Clear to Auscultation, Normal Air Movement Heart: Regular Rate, Normal S1, Normal S2, No Murmurs Abdomen: Normal Bowel Sounds, Soft, No Tenderness, No Hepatosplenomegaly, No Masses Extremities: No Clubbing, No Cyanosis, No Edema, Normal Pulses, No Tenderness /Swelling Skin: No Rashes, No Breakdown, No Significant Lesion Neuro: Other (Aphasia and hemiaplasia) Psych/Mental Status: Mood NL A/P-Cardiology Admission Diagnosis CVA Left ICA/MCA occlusion HTN HLP DM Assessment/Plan Acute CVA with right sided weakness, aphasia, dysphagia. CTA showed occlueded left ICA/MCA. Patient was transferred to [facility] where she underwent attempt at mechanical thrombectomy with no change. Currently maintained on ASA. Continue to monitor telemetry. 2D Echo done at [facility] on showed mild LVH, grade 2 diastolic dysfunction, mildly dilated LA. No PFO or ASD appreciated. Hypertension, better control at this time. Maintained on clonidine patch and amlodipine, hydralazine was added on September 04, 2022. Continue to monitor Intolerance/allergy to angiotensin receptor vazquez Hyperlipidemia, maintained on statin, monitor lipids Diabetes mellitus, managed by primary care physician Hypothyroidism, managed by primary care physician. Obesity. VONDA TOMAS MD Sep 08, 2022 09:52
[2022-09-08] MEDS: ACETAMINOPHEN 325 MG TABLET NG PRN (10:19)
[2022-09-08 19:15] VITALS: BP 139/69
--- NOTE | 2022-09-09 06:20 | PM&R Progress Note ---
Subjective HPI/CC On Admission Date Seen by Provider: Sep 09, 2022 Time Seen by Provider: 09:00 Subjective/Events-last exam 09/09/2022: Patient doing well Has no specific new concerns Talking better Swallowing well 09/08/2022: Patient doing really well Talking more Tolerating eating mechanical soft diet 09/07/2022: Patient just had shower Daughter at the bedside No pain is reported currently Eating and drinking better No aspiration at this point Participation is good 09/06/2022: Patient doing much better Eating better Duration at this point Reviewed blood pressure trend 09/05/2022: Much improved Dysphagia is improved Slow recovery Participation is good 09/04/2022: Patient much improved Slowly eating meals by mouth since NG tube removed Cardiology consulted medication modified 09/03/2022: Patient much improved Barium swallow enables her to eat and so we will discontinue the NG tube Blood pressure labile Blood sugars reviewed 09/02/2022: About the same Talking more and more each day MBS tomorrow and maintained on NGT in place 09/01/2022: Patient doing well Added pain pill NG tube maintained No falls 08/31/2022: No major changes Ice chips are approved to consume slowly NGT is place No falls No pain Fall risk Severe deficits Sugars are good BP a bit elevated Review of Systems General: Fatigue, Malaise Objective Exam Vital Signs Vital Signs Date Time Temp Pulse Resp B/P (MAP) Pulse Ox O2 Delivery O2 Flow Rate FiO2 09/09/22 12:36 82 09/09/22 11:34 Room Air 09/09/22 08:20 36.8 18 173/76 (108) 95 Capillary Refill : General Appearance: No Apparent Distress, WD/WN, Chronically ill, Obese HEENT: PERRL/EOMI, Normal ENT Inspection, Pharynx Normal, Other Neck: Full Range of Motion, Normal Inspection, Non Tender, Supple, Carotid Bruit Respiratory: Chest Non Tender, Lungs Clear, Normal Breath Sounds, No Accessory Muscle Use, No Respiratory Distress Cardiovascular: Regular Rate, Rhythm, No Edema, No Gallop, No JVD, No Murmur, Normal Peripheral Pulses Gastrointestinal: Normal Bowel Sounds, No Organomegaly, No Pulsatile Mass, Non Tender, Soft Back: Normal Inspection, No CVA Tenderness, No Vertebral Tenderness Extremity: Normal Capillary Refill, Normal Inspection, Normal Range of Motion, Non Tender, No Calf Tenderness, No Pedal Edema Neurologic/Psychiatric: Alert, Aphasia, Depressed Affect, Motor Weakness Skin: Normal Color, Warm/Dry Lymphatic: No Adenopathy Results/Procedures Lab Patient resulted labs reviewed. FIM Transfers Therapy Code Descriptions/Definitions Functional [place] Measure: 0=Not Assessed/NA 4=Minimal Assistance 1=Total Assistance 5=Supervision or Setup 2=Maximal Assistance 6=Modified [place] 3=Moderate Assistance 7=Complete IndependenceSCALE: Activities may be completed with or without assistive devices. 0-Oyvstsvhtb-judmihs completes the activity by him/herself with no assistance from a helper. 5-Set-up or Clean-up Assistance-helper sets up or cleans up; patient completes activity. [place] assists only prior to or following the activity. 4-Supervision or Touching Assistance-helper provides verbal cues and/or touching/steadying and/or contact guard assistance as patient completes activity. Assistance may be provided throughout the activity or intermittently. 3-Partial/Moderate Assistance-helper does LESS THAN HALF the effort. [place] lifts, holds or supports trunk or limbs, but provides less than half the effort. 2-Substantial/Maximal Assistance-helper does MORE THAN HALF the effort. [place] lifts or holds trunk or limbs and provides more than half the effort. 6-Ejbygmpqw-njhwcp does ALL the effort. Patient does none of the effort to complete the activity. Or, the assistance of 2 or more helpers is required for the patient to complete the activity. If activity was not attempted, code reason: 7-Patient Refused. 9-Not Applicable-not attempted and the patient did not perform the activity before the current illness, exacerbation or injury. 10-Not Attempted due to Environmental Limitations-(lack of equipment, weather restraints, etc.). 88-Not Attempted due to Medical Conditions or Safety Concerns. Roll Left to Right (QC): 3 Sit to Lying (QC): 2 Sit to Stand (QC): 2 Chair/Haw-qx-Hmiox Xfer(QC): 2 Car Transfer (QC): 88 Gait Training Does the Patient Walk?: No and Walking Goal IS indicated Walk 10 feet (QC): 88 Walk 50 ft with 2 Turns(QC): 88 Walk 150 ft (QC): 88 Walking 10ft/uneven surface-QC: 88 Wheelchair Training Does the Pt Use a Wheelchair?: Yes Distance: 5ft Wheel 50 ft with 2 turns (QC): 2 Wheel 150 ft (QC): 88 Type of Wheelchair: Manual Stair Training 1 Step (curb) (QC): 88 4 Steps (QC): 88 12 Steps (QC): 88 Balance Picking up an Object (QC): 88 ADL-Treatment Eating (QC): 4 Oral Hygiene (QC): 4 Shower/Bathe Self (QC): 1 Upper Body Dressing (QC): 2 Lower Body Dressing (QC): 1 On/Off Footwear (QC): 1 Toileting Hygiene (QC): 1 Assessment/Plan Assessment and Plan Assess & Plan/Chief Complaint Assessment: 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 Aspiration risk needs modified barium swallow with speech therapy eval diabetes insulin-dependent hemoglobin A1c 13 Obesity Hypertension Hyperlipidemia Suspected cardiac source of CVA DM insulin dependent since hga1c 13 Plan: Aggressive PT and OT Speech therapy May need a PEG tube Monitor closely 08/31/2022: Sugars reviewed Add BP med 09/01/2022: Supportive care Monitor closely 09/02/2022: MBS tomorrow Continue therapy 09/03/2022: Supportive care Advance diet Discontinue NG tube 09/04/2022: Advance diet 09/05/2022: Supportive care 09/06/2022: Supportive care Slow recovery 09/07/2022: Monitor sugar 09/08/2022: Supportive care 09/09/2022: Monitor aspiration risk (1) CVA (cerebral vascular accident) BETHANY HERMOSILLO DO Sep 09, 2022 06:20
[2022-09-09] MEDS: POTASSIUM BICARB 20 MEQ (EFFER-K) TABLET PO SCH (06:36)
[2022-09-09] MEDS: LEVOTHYROXINE 100 MCG (LEVOTHROID) TAB PO SCH (06:36)
[2022-09-09] MEDS: hydrALAZINE (APRESOLINE) 25 MG TAB PO SCH ×3 (06:36→20:48)
[2022-09-09] MEDS: CATHETER FLUSH 10 ML SYR IVP SCH ×3 (06:36→20:06)
[2022-09-09] MEDS: inSUlin ASPART (NovoLOG) 1 UNIT/0.01 ML (CHARGE PER UNIT) SC SCH ×4 (06:37→20:05)
[2022-09-09 08:20] VITALS: BP 173/76
[2022-09-09] MEDS: PANTOPRAZOLE 40 MG (PROTONIX) TAB PO SCH (08:24)
[2022-09-09] MEDS: GABAPENTIN 100 MG (NEURONTIN) CAP PO SCH ×3 (08:24→20:02)
[2022-09-09] MEDS: ASPIRIN 325 MG (5 GR) TABLET NG SCH (08:24)
[2022-09-09] MEDS: VITAMIN D3 125 MCG (5,000 UNITS) CAPSULE PO SCH (08:24)
[2022-09-09] MEDS: amLODIPine 5 MG (NORVASC) TAB NG SCH (08:24)
[2022-09-09] MEDS: DOCUSATE SODIUM 10 MG/ML 10 ML UDC (COLACE) NG SCH ×2 (08:24→20:06)
[2022-09-09] MEDS: SENNA W/DOCUSATE (SENOKOT S) TABLET NG SCH ×2 (08:24→20:02)
[2022-09-09] MEDS: ENOXAPARIN 40 MG/0.4 ML (LOVENOX) SYR SC SCH (08:25)
[2022-09-09] MEDS: polyethylene glycoL POWDER 17 GM (MIRALAX) PACK NG SCH ×3 (08:28→20:02)
--- NOTE | 2022-09-09 10:43 | Cardiology Progress Note ---
Subjective Date Seen by Provider: Sep 09, 2022 Time Seen by Provider: 10:42 Subjective/Events-last exam Patient was seen at bedside, laying down comfortably. No new complain Objective-Cardiology Exam Last Set of Vital Signs Vital Signs 09/09/22 08:20 Temp 36.8 Pulse 82 Resp 18 B/P (MAP) 173/76 (108) Pulse Ox 95 O2 Delivery Room Air I&O Intake and Output 09/09/22 00:00 Intake Total 950 ml Output Total 725 ml Balance 225 ml Intake Oral 950 ml Output Urine Total 725 ml General: Alert, Cooperative HEENT: Atraumatic Neck: Supple, No JVD, No Thyromegaly Lungs: Clear to Auscultation, Normal Air Movement Heart: Regular Rate, Normal S1, Normal S2, No Murmurs Abdomen: Normal Bowel Sounds, Soft, No Tenderness, No Hepatosplenomegaly, No Masses Extremities: No Clubbing, No Cyanosis, No Edema, Normal Pulses, No Tenderness/Swelling Skin: No Rashes, No Breakdown, No Significant Lesion Neuro: Other (Aphasia and hemiaplasia) Psych/Mental Status: Mood NL A/P-Cardiology Admission Diagnosis CVA Left ICA/MCA occlusion HTN HLP DM Assessment/Plan Acute CVA with right sided weakness, aphasia, dysphagia. CTA showed occlueded left ICA/MCA. Patient was transferred to [facility] where she underwent attempt at mechanical thrombectomy with no change. Currently maintained on ASA. Continue to monitor telemetry. 2D Echo done at [facility] on showed mild LVH, grade 2 diastolic dysfunction, mildly dilated LA. No PFO or ASD appreciated. Hypertension, better control at this time. Maintained on clonidine patch and amlodipine, hydralazine was added on September 04, 2022. Continue to monitor Intolerance/allergy to angiotensin receptor vazquez Hyperlipidemia, maintained on statin, monitor lipids Diabetes mellitus, managed by primary care physician Hypothyroidism, managed by primary care physician. Obesity. VONDA TOMAS MD Sep 09, 2022 10:43
[2022-09-09] MEDS: DICLOFENAC 1% GEL 100 GM (VOLTAREN) TUBE TOP SCH ×4 (11:32→20:06)
[2022-09-09 19:44] VITALS: BP 163/72
[2022-09-09] MEDS: ACETAMINOPHEN 325 MG TABLET NG PRN (20:02)
[2022-09-09] MEDS: ALPRAZolam 0.25 MG (XANAX) TAB NG PRN (20:02)
--- NOTE | 2022-09-10 05:58 | PM&R Progress Note ---
Subjective HPI/CC On Admission Date Seen by Provider: Sep 10, 2022 Time Seen by Provider: 10:00 Subjective/Events-last exam 09/10/2022: No major issues Sensation of throat noted so change of diet is indicated No pain reported 09/09/2022: Patient doing well Has no specific new concerns Talking better Swallowing well 09/08/2022: Patient doing really well Talking more Tolerating eating mechanical soft diet 09/07/2022: Patient just had shower Daughter at the bedside No pain is reported currently Eating and drinking better No aspiration at this point Participation is good 09/06/2022: Patient doing much better Eating better Duration at this point Reviewed blood pressure trend 09/05/2022: Much improved Dysphagia is improved Slow recovery Participation is good 09/04/2022: Patient much improved Slowly eating meals by mouth since NG tube removed Cardiology consulted medication modified 09/03/2022: Patient much improved Barium swallow enables her to eat and so we will discontinue the NG tube Blood pressure labile Blood sugars reviewed 09/02/2022: About the same Talking more and more each day MBS tomorrow and maintained on NGT in place 09/01/2022: Patient doing well Added pain pill NG tube maintained No falls 08/31/2022: No major changes Ice chips are approved to consume slowly NGT is place No falls No pain Fall risk Severe deficits Sugars are good BP a bit elevated Review of Systems General: Fatigue, Malaise Objective Exam Vital Signs Vital Signs Date Time Temp Pulse Resp B/P (MAP) Pulse Ox O2 Delivery O2 Flow Rate FiO2 09/10/22 09:20 Room Air 09/10/22 07:27 36.3 70 18 146/68 (94) 93 Capillary Refill : General Appearance: No Apparent Distress, WD/WN, Chronically ill, Obese HEENT: PERRL/EOMI, Normal ENT Inspection, Pharynx Normal, Other Neck: Full Range of Motion, Normal Inspection, Non Tender, Supple, Carotid Bruit Respiratory: Chest Non Tender, Lungs Clear, Normal Breath Sounds, No Accessory Muscle Use, No Respiratory Distress Cardiovascular: Regular Rate, Rhythm, No Edema, No Gallop, No JVD, No Murmur, Normal Peripheral Pulses Gastrointestinal: Normal Bowel Sounds, No Organomegaly, No Pulsatile Mass, Non Tender, Soft Back: Normal Inspection, No CVA Tenderness, No Vertebral Tenderness Extremity: Normal Capillary Refill, Normal Inspection, Normal Range of Motion, Non Tender, No Calf Tenderness, No Pedal Edema Neurologic/Psychiatric: Alert, Aphasia, Depressed Affect, Motor Weakness Skin: Normal Color, Warm/Dry Lymphatic: No Adenopathy Results/Procedures Lab Laboratory Tests 09/10/22 06:00 Patient resulted labs reviewed. FIM Transfers Therapy Code Descriptions/Definitions Functional [place] Measure: 0=Not Assessed/NA 4=Minimal Assistance 1=Total Assistance 5=Supervision or Setup 2=Maximal Assistance 6=Modified [place] 3=Moderate Assistance 7=Complete IndependenceSCALE: Activities may be completed with or without assistive devices. 3-Gbhoyhmqrs-jfzzgbz completes the activity by him/herself with no assistance from a helper. 5-Set-up or Clean-up Assistance-helper sets up or cleans up; patient completes activity. [place] assists only prior to or following the activity. 4-Supervision or Touching Assistance-helper provides verbal cues and/or touching/steadying and/or contact guard assistance as patient completes activity. Assistance may be provided throughout the activity or intermittently. 3-Partial/Moderate Assistance-helper does LESS THAN HALF the effort. [place] lifts, holds or supports trunk or limbs, but provides less than half the effort. 2-Substantial/Maximal Assistance-helper does MORE THAN HALF the effort. [place] lifts or holds trunk or limbs and provides more than half the effort. 5-Woznowjcq-gendbw does ALL the effort. Patient does none of the effort to complete the activity. Or, the assistance of 2 or more helpers is required for the patient to complete the activity. If activity was not attempted, code reason: 7-Patient Refused. 9-Not Applicable-not attempted and the patient did not perform the activity before the current illness, exacerbation or injury. 10-Not Attempted due to Environmental Limitations-(lack of equipment, weather restraints, etc.). 88-Not Attempted due to Medical Conditions or Safety Concerns. Roll Left to Right (QC): 3 Sit to Lying (QC): 2 Sit to Stand (QC): 2 Chair/Tbk-qo-Yebip Xfer(QC): 2 Car Transfer (QC): 88 Gait Training Does the Patient Walk?: No and Walking Goal IS indicated Walk 10 feet (QC): 88 Walk 50 ft with 2 Turns(QC): 88 Walk 150 ft (QC): 88 Walking 10ft/uneven surface-QC: 88 Wheelchair Training Does the Pt Use a Wheelchair?: Yes Distance: 5ft Wheel 50 ft with 2 turns (QC): 2 Wheel 150 ft (QC): 88 Type of Wheelchair: Manual Stair Training 1 Step (curb) (QC): 88 4 Steps (QC): 88 12 Steps (QC): 88 Balance Picking up an Object (QC): 88 ADL-Treatment Eating (QC): 4 Oral Hygiene (QC): 4 Shower/Bathe Self (QC): 1 Upper Body Dressing (QC): 2 Lower Body Dressing (QC): 1 On/Off Footwear (QC): 1 Toileting Hygiene (QC): 1 Assessment/Plan Assessment and Plan Assess & Plan/Chief Complaint Assessment: 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 Aspiration risk s/p modified barium swallow with speech therapy eval Diabetes insulin-dependent hemoglobin A1c 13 Obesity Hypertension Hyperlipidemia Suspected cardiac source of CVA DM insulin dependent since hga1c 13 Thrush treating empirically Plan: Aggressive PT and OT Speech therapy May need a PEG tube Monitor closely 08/31/2022: Sugars reviewed Add BP med 09/01/2022: Supportive care Monitor closely 09/02/2022: MBS tomorrow Continue therapy 09/03/2022: Supportive care Advance diet Discontinue NG tube 09/04/2022: Advance diet 09/05/2022: Supportive care 09/06/2022: Supportive care Slow recovery 09/07/2022: Monitor sugar 09/08/2022: Supportive care 09/09/2022: Monitor aspiration risk 09/10/2022: Thrush treatment Change diet (1) CVA (cerebral vascular accident) BETHANY HERMOSILLO DO Sep 10, 2022 05:58
[2022-09-10 06:23] LABS: BASOPHILS % (AUTO) 0 % (0-10); EOSINOPHILS # (AUTO) 0.3 10^3/uL (0.0-0.3); EOSINOPHILS % (AUTO) 3 % (0-10); HEMATOCRIT 39 % (35-52); HEMOGLOBIN 12.8 g/dL (11.5-16.0); LYMPHOCYTES # (AUTO) 2.2 10^3/uL (1.0-4.0); LYMPHOCYTES % (AUTO) 24 % (12-44); MEAN CORPUSCULAR HEMOGLOBIN 30 pg (25-34); MEAN CORPUSCULAR HGB CONC 33 g/dL (32-36); MEAN CORPUSCULAR VOLUME 90 fL (80-99); MEAN PLATELET VOLUME 9.1 fL (9.0-12.2); MONOCYTES # (AUTO) 0.8 10^3/uL (0.0-1.0); MONOCYTES % (AUTO) 8 % (0-12); NEUTROPHILS # (AUTO) 5.7 10^3/uL (1.8-7.8); NEUTROPHILS % (AUTO) 64 % (42-75); PLATELET COUNT 302 10^3/uL (130-400)
[2022-09-10] MEDS: hydrALAZINE (APRESOLINE) 25 MG TAB PO SCH ×3 (06:28→20:39)
[2022-09-10] MEDS: CATHETER FLUSH 10 ML SYR IVP SCH ×3 (06:28→20:40)
[2022-09-10] MEDS: POTASSIUM BICARB 20 MEQ (EFFER-K) TABLET PO SCH (06:28)
[2022-09-10] MEDS: LEVOTHYROXINE 100 MCG (LEVOTHROID) TAB PO SCH (06:28)
[2022-09-10 06:45] LABS: ALBUMIN 3.5 GM/DL (3.2-4.5); BILIRUBIN,TOTAL 0.5 MG/DL (0.1-1.0); CALCIUM 9.9 MG/DL (8.5-10.1); CREATININE SERUM 1.07 MG/DL (0.60-1.30); POTASSIUM 4.2 MMOL/L (3.6-5.0)
[2022-09-10] MEDS: inSUlin ASPART (NovoLOG) 1 UNIT/0.01 ML (CHARGE PER UNIT) SC SCH ×4 (06:46→20:40)
[2022-09-10 07:17] VITALS: BP 146/68
[2022-09-10] MEDS: VITAMIN D3 125 MCG (5,000 UNITS) CAPSULE PO SCH (07:25)
[2022-09-10] MEDS: DOCUSATE SODIUM 10 MG/ML 10 ML UDC (COLACE) NG SCH ×2 (07:25→19:28)
[2022-09-10 07:27] VITALS: BP 146/68
[2022-09-10] MEDS: ASPIRIN 325 MG (5 GR) TABLET NG SCH (07:27)
[2022-09-10] MEDS: SENNA W/DOCUSATE (SENOKOT S) TABLET NG SCH ×2 (07:27→20:39)
[2022-09-10] MEDS: amLODIPine 5 MG (NORVASC) TAB NG SCH (07:27)
[2022-09-10] MEDS: PANTOPRAZOLE 40 MG (PROTONIX) TAB PO SCH (07:27)
[2022-09-10] MEDS: GABAPENTIN 100 MG (NEURONTIN) CAP PO SCH ×3 (07:27→20:39)
[2022-09-10] MEDS: polyethylene glycoL POWDER 17 GM (MIRALAX) PACK NG SCH ×2 (07:28→19:28)
[2022-09-10] MEDS: CLONIDINE PATCH REMOVAL TP SCH (07:35)
[2022-09-10] MEDS: cloNIDine 0.1 MG PATCH (CATAPRES TTS) TDSY TD SCH (07:35)
[2022-09-10] MEDS: DICLOFENAC 1% GEL 100 GM (VOLTAREN) TUBE TOP SCH ×4 (07:36→20:40)
--- NOTE | 2022-09-10 08:08 | Speech Therapy Daily Note ---
Speech Daily Progress Note Subjective Date Seen by Provider: Sep 10, 2022 Time Seen by Provider: 07:25 Pt sitting up in bed eating breakfast when COATER arrives. When asked about her swallowing, pt said she had difficulty over the week. Pt also reports mouth pain. Pt's speech appears to be more clear this date and she is more intelligible. Nurse is present at bedside administering medications. Pt is pleasant and cooperative. Pain Numeric Pain Scale: 5-Moderate Pain Location: Right Comment: arm and leg Objective Pt is eating soft and bite solids this date. No overt s/sx of aspiration noted, however pt states she has mouth pain making chewing the foods difficult and she stated she feels like the food is not going down well. Pt wants to transition back to pureed consistencies at this time. Pt continues to tolerate nectar thick liquids with no overt s/sx of aspiration. Pureed consistencies will be trialled again at lunch this date. Assessment Assessment Current Status: Poor Progress Maintains liquids, but returning to pureed diet consistency Treatment Plan Continue Plan of Care Speech Short Term Goals Short Term Goals Short Term Goals 1. The patient will participate in a modified barium swallow assessment to evaluate for the presence of aspiration and best guide therapeutic interventions. MET 09/03/2022 2. The patient will display 80% accuracy with oral motor exercises with mild clinician verbal and visual cueing. 3. The patient will display 80% accuracy with dysphagia exercises with mild clinician verbal and visual cueing. Language: 1. Pt will complete verbal imitation of basic one syllable words with 80% accu racy with min clinician verbal and visual cuing. 2. Pt will expressively and receptively identify common everyday objects with 80% accuracy with min clinician verbal and visual cuing. 3. Pt will follow basic 1 step and 2 step directions with 80% accuracy with min clinician verbal and visual cuing. Speech Utilization Review Coordinator Goals Utilization Review Coordinator Goals 1. The patient will tolerate the least restrictive diet consistency without s/s of suspected aspiration. Language: 1. Pt will communicate basic wants/needs with staff or family members either verbally or with use of pictures in 4/5 opportunities. Time Frame: Three Weeks. Speech-Plan Patient/Family Goals Patient/Family Goals: Pt's family goal is for pt to return home with 24/7 care. Treatment Plan Speech Therapy Treatment Plan: Continue Plan of Care Treatment Duration: Sep 14, 2022 Frequency: Modified Program (IRF) Estimated Hrs Per Day: .5 hour per day Rehab Potential: Fair Pt/Family Agrees to Plan: Yes Safety Risks/Education Teaching Recipient: Patient Teaching Methods: Discussion Response to Teaching: Verbalize Understanding Education Topics Provided: Pt educatd on diet consistency changes, pt verbalizes agreement with this plan. Time Speech Therapy Time In: 07:25 Speech Therapy Time Out: 07:55 DATE: Sep 10, 2022 Total Billed Time: 30 Billed Treatment Time Kaleigh Gallegos Speech Therapy Sep 10, 2022 08:08
[2022-09-10] MEDS: ENOXAPARIN 40 MG/0.4 ML (LOVENOX) SYR SC SCH (08:39)
[2022-09-10] MEDS: ACETAMINOPHEN 325 MG TABLET NG PRN (08:41)
--- NOTE | 2022-09-10 08:56 | Cardiology Progress Note ---
Subjective Date Seen by Provider: Sep 10, 2022 Time Seen by Provider: 08:20 Subjective/Events-last exam No new complaints, denies any chest pain Objective-Cardiology Exam Last Set of Vital Signs Vital Signs 09/10/22 07:27 Temp 36.3 Pulse 70 Resp 18 B/P (MAP) 146/68 (94) Pulse Ox 93 O2 Delivery Room Air I&O Intake and Output 09/10/22 00:00 Intake Total 620 ml Output Total 500 ml Balance 120 ml Intake Oral 620 ml Output Urine Total 500 ml # Urine Diapers 1 General: Alert, Cooperative HEENT: Atraumatic Neck: Supple, No JVD, No Thyromegaly Lungs: Clear to Auscultation, Normal Air Movement Heart: Regular Rate, Normal S1, Normal S2, No Murmurs Abdomen: Normal Bowel Sounds, Soft, No Tenderness, No Hepatosplenomegaly, No Masses Extremities: No Clubbing, No Cyanosis, No Edema, Normal Pulses, No Tenderness/Swelling Skin: No Rashes, No Breakdown, No Significant Lesion Neuro: Other (Aphasia and hemiaplasia) Psych/Mental Status: Mood NL Results Lab Laboratory Tests 09/10/22 06:00 A/P-Cardiology Admission Diagnosis CVA Left ICA/MCA occlusion HTN HLP DM Assessment/Plan Acute CVA with right sided weakness, aphasia, dysphagia. CTA showed occluded left ICA/MCA. Patient was transferred to [facility] where she underwent attempt at mechanical thrombectomy with no change. Currently maintained on ASA. Continue to monitor telemetry. 2D Echo done at [facility] on showed mild LVH, grade 2 diastolic dysfunction, mildly dilated LA. No PFO or ASD appreciated. Hypertension, better control at this time. Maintained on clonidine patch and amlodipine, hydralazine was added on September 04, 2022. Continue to monitor Intolerance/allergy to angiotensin receptor vazquez Hyperlipidemia, maintained on statin, monitor lipids Diabetes mellitus, managed by primary care physician Hypothyroidism, managed by primary care physician. Obesity. Supervisory-Addendum Brief Supervisory Addendum Participated in pt care: history, MDM, physical Personally performed: exam, history, MDM Care discussed with: ATA Results interpretation: Verified all documentation Notes: Patient was seen and evaluated with Luiza, examination performed, management plan was discussed, agree with the current scribed note, I made few changes to the note using Italic font Patient was seen at bedside, sitting in a wheelchair Feeling better. No new complaint. Improving slowly Continue to monitor LUIZA AYALA Sep 10, 2022 08:56 VONDA TOMAS MD Sep 10, 2022 09:36
--- NOTE | 2022-09-10 09:58 | Physical Therapy Daily Note ---
PT Daily Note-Current Subjective Pt in bed upon arrival and agreeable to treatment. Pt rates R UE/LE pain at 6/10 by pointing on visual pain scale. Pain Numeric Pain Scale: 6 Location: Right Location Body Site: Knee Section J - Health Conditions 1. Rarely or not at all 2. Occasionally 3. Frequently 4. Almost constantly 8. Unable to answer Pain Effect on Sleep: 3 Pain Interference with Therapy: 3 Pain Interference w/Day-to-Day: 3 Transfers SCALE: Activities may be completed with or without assistive devices. 4-Xuwxwmplva-jrejrkv completes the activity by him/herself with no assistance from a helper. 5-Set-up or Clean-up Assistance-helper sets up or cleans up; patient completes activity. [place] assists only prior to or following the activity. 4-Supervision or Touching Assistance-helper provides verbal cues and/or touching/steadying and/or contact guard assistance as patient completes activity . Assistance may be provided throughout the activity or intermittently. 3-Partial/Moderate Assistance-helper does LESS THAN HALF the effort. [place] lifts, holds or supports trunk or limbs, but provides less than half the effort. 2-Substantial/Maximal Assistance-helper does MORE THAN HALF the effort. [place] lifts or holds trunk or limbs and provides more than half the effort. 5-Wcdohdbll-inkukl does ALL the effort. Patient does none of the effort to complete the activity. Or, the assistance of 2 or more helpers is required for the patient to complete the activity. If activity was not attempted, code reason: 7-Patient Refused. 9-Not Applicable-not attempted and the patient did not perform the activity before the current illness, exacerbation or injury. 10-Not Attempted due to Environmental Limitations-(lack of equipment, weather restraints, etc.). 88-Not Attempted due to Medical Conditions or Safety Concerns. Roll Left & Right (QC): 3 Sit to Lying (QC): 2 Lying to Sitting/Side of Bed(Q: 3 Sit to Stand (QC): 2 Chair/Lcz-mj-[place] Xfer(QC): 2 Weight Bearing Right Lower Extremity: Right Full Weight Bearing Left Lower Extremity: Left Full Weight Bearing Gait Training Does the Patient Walk?: No and Walking Goal IS indicated Wheelchair Training Does the Pt Use a Wheelchair?: Yes Wheel 50 ft with 2 turns (QC): 2 Wheel 150 ft (QC): 88 Type of Wheelchair: Manual Treatments PT/OT co-tx from [id number] due to skill of 2 clinicians required which a wildlife rehabilitator could not perform in order to coordinate LE/UEs, decrease fall risk, and due to pt's limitations in strength, activity tolerance, mobility, and R side hemiparesis. PT focused on LE placement, gross overall movement, R LE strength, bed mobility, transfers, standing, and w/c mobility. OT focused on UE placement, ADLs, cues for sequencing and safety. Pt completed R rolling in bed with Min A and L rolling with Mod/Max A. Pt completed supine > sit with Min/Mod A and sit > supine with Mod/Max A x 2. SPT completed x 2 from bed <> w/c with Mod/Max A x 2. Pt completed w/c mobility x 50ft with Mod A and Mod v/c to participate. Pt completed 5 sit to stand transfers in the // bars with Mod/Max A x 2. Pt stood for approximately 15", 1', 1' 15", 1' 30", and 1' 30" with Mod/Max A to stand. Pt required Mod v/c and t/c for R TKE during standing. Pt required Mod/Max v/c for erect posture, as well as B hip ext, during stands. Pt completed partial R LAQ 2 x 10 reps, as well as R heel slides and QS x 10 each, while supine in bed. Pt tolerated PT well and was left with PARK. Assessment Current Status: Fair Progress Pt tolerated PT well with good effort PT Front Desk Team Member Goals Retirement Goals PT Front Desk Team Member Goals Time Frame: Sep 13, 2022 Roll Left & Right (QC): 3 (Pt will complete bed mobility with Min A. ) Sit to Lying (QC): 3 (Pt will complete bed mobility with Min A. ) Lying-Sitting on Side/Bed(QC): 3 (Pt will complete bed mobility with Min A. ) Sit to Stand (QC): 3 (Pt will complete transfer with Min/Mod A. ) Chair/Gwl-mw-Pxjeq Xfer(QC): 3 (Pt will complete transfer with Min/Mod A. ) Toilet Transfer (QC): 3 (Pt will complete transfer with Min/Mod A. ) Car Transfer (QC): 3 (Pt will complete transfer with Min/Mod A. ) Does the Patient Walk: No and Walking Goal IS indicated Walk 10 feet (QC): 3 (Min/Mod A for walking with the chau-walker ) Walk 50ft with 2 Turns (QC): 3 (Min/Mod A for walking with the chau-walker ) Walk 150 ft (QC): 88 Walking 10ft on Uneven Surface: 88 1 Step (curb) (QC): 3 (Min/Mod A for a curb/step ) 4 Steps (QC): 88 12 Steps (QC): 88 Picking up an Object (QC): 3 (Min A with child protective services specialist ) Does the Pt use WC or Scooter?: Yes Wheel 50 feet with 2 turns (QC: 3 (Min A for w/c mobility ) Type: Manual Wheel 150 feet: 3 (Min A for w/c mobility ) Type: Manual PT Plan Problem List Problem List: Activity Tolerance, Functional Strength, Safety, Balance, Gait, Transfer, Bed Mobility, ROM Treatment/Plan Treatment Plan: Continue Plan of Care Treatment Plan: Bed Mobility, Concurrent Therapy, Education, Functional Activity Emil, Functional Strength, Group Therapy, Gait, Safety, Therapeutic Exercise, Transfers Treatment Duration: Sep 13, 2022 Frequency: At least 5 of 7 days/Wk (IRF) Estimated Hrs Per Day: 1.5 hours per day Patient and/or Family Agrees t: Yes Safety Risks/Education Patient Education: Transfer Techniques, W/C Management, Safety Issues Teaching Recipient: Patient Teaching Methods: Demonstration, Discussion Response to Teaching: Return Demonstration, Reinforcement Needed Discharge Recommendations Therapy Discharge Recommendati: 24 Hour Supervision Discharge Status/Home Program Cont per POC Barriers to Progress R sided weakness Target Placement SNF vs home with daughters Time Time In: 830 Time Out: 930 DATE: Sep 10, 2022 Total Billed Treatment Time: 60 Total Billed Treatment 60 min co-tx from [id number] 1 visit FA x 3 EX x 1 KATELIN YAO PT Sep 10, 2022 09:58
--- NOTE | 2022-09-10 10:49 | Occupational Ther Daily Note ---
OT Current Status-Daily Note Subjective Pt lying in bed upon arrival, agreed to therapy. PT/OT co-treat (). Pt rated pain 6/10 by pointing to pain scale. ADL-Treatment OT/PT co-treat (), due to skills of 2 clinicians required which a rehab therapist could not perform to decrease fall risk, to coordinate LE/UEs, increase mobility with transfer/standing, working on R UE/LE to regain movement. Pt dependent for footwear and lower body dressing while lying supine in bed. Max A required for upper body dressing while sitting EOB. PT focusing on transfers, B LE strengthening. OT focusing on ADLs, UE placement, cues for sequencing, safety, functional mobility. Pt completed R rolling in bed with Min A and L rolling with Mod/Max A. Pt completed supine to sit with Min/Mod A and sit to supine with Mod/Max A x 2. SPT completed x 2 from bed <> w/c with Mod/Max A x 2. Pt completed w/c mobility approximately 50ft with Mod A and Mod verbal cues to participate. Pt completed 5 sit to stand transfers in the // bars with Mod/Max A x 2. Pt stood for approximately 15", 1', 1' 15", 1' 30", and 1' 30" with Mod/Max A to stand. Pt required Mod verbal cues and tactile cues for R TKE during standing. Pt required Mod/Max verbal cues for erect posture, as well as B hip ext, during stands. Pt was taken back to room via wheelchair. Pt transferred to EOB requiring Mod/Max A x2 to complete SPT. Therapy Code Descriptions/Definitions Functional Lander Measure: 0=Not Assessed/NA 4=Minimal Assistance 1=Total Assistance 5=Supervision or Setup 2=Maximal Assistance 6=Modified Lander 3=Moderate Assistance 7=Complete IndependenceSCALE: Activities may be completed with or without assistive devices. 2-Xdxwnfccdr-fczfvok completes the activity by him/herself with no assistance from a helper. 5-Set-up or Clean-up Assistance-helper sets up or cleans up; patient completes activity. [place] assists only prior to or following the activity. 4-Supervision or Touching Assistance-helper provides verbal cues and/or touching/steadying and/or contact guard assistance as patient completes activity. Assistance may be provided throughout the activity or intermittently. 3-Partial/Moderate Assistance-helper does LESS THAN HALF the effort. [place] lifts, holds or supports trunk or limbs, but provides less than half the effort. 2-Substantial/Maximal Assistance-helper does MORE THAN HALF the effort. [place] lifts or holds trunk or limbs and provides more than half the effort. 7-Mrzlrxvce-nyyutz does ALL the effort. Patient does none of the effort to complete the activity. Or, the assistance of 2 or more helpers is required for the patient to complete the activity. If activity was not attempted, code reason: 7-Patient Refused. 9-Not Applicable-not attempted and the patient did not perform the activity before the current illness, exacerbation or injury. 10-Not Attempted due to Environmental Limitations-(lack of equipment, weather restraints, etc.). 88-Not Attempted due to Medical Conditions or Safety Concerns. Upper Body Dressing (QC): 1 Lower Body Dressing (QC): 1 On/Off Footwear: 1 Other Treatment Pt worked on UE exercises L only due to R side hemiparesis. Pt completed 8 reps x2 sets with 1 lb wt. Increase time due to fatigue, being at the end of a cotx. Pt rated pain still at 6/10 at the end of session. These exercises worked on strengthening of L UE. Pt was left in room lying in bed with call light and phone within reach, all needs met. Education OT Patient Education: Correct positioning, Energy conservation, Modified ADL techniques, Purpose of tx/functional activities, Safety issues, Transfer techniques Teaching Recipient: Patient Teaching Methods: Demonstration Response to Teaching: Verbalize Understanding OT Short Term Goals Short Term Goals Time Frame: Sep 14, 2022 Shower/bathe self: 2 Upper body dressin Lower body dressin Putting on/taking off footwear: 2 OT Occupational Therapist Home Based Goals Skilled Nursing Goals Time Frame: Sep 28, 2022 Acute change in mental status: 1 Inattention: 1 Disorganized thinkin Altered level of consciousness: 0 Eating (QC): 5 (goal of set up assist if pt able to progress from tube feedings.) Oral Hygiene (QC): 5 Toileting Hygiene (QC): 3 Shower/Bathe Self (QC): 3 Upper Body Dressing (QC): 4 Lower Body Dressing (QC): 3 On/Off Footwear (QC): 3 Additional Goals: 1-Demonstrate ADL Tasks, 2-Verbalize Understanding, 3- ImproveStrength/Emil 1=Demonstrate adherence to instructed precautions during ADL tasks. 2=Patient will verbalize/demonstrate understanding of assistive devices/modifications for ADL. 3=Patient will improve strength/tolerance for activity to enable patient to perform ADL's. OT Education/Plan Problem List/Assessment Assessment: Decreased Activ Tolerance, Decreased Safety Aware, Decreased UE Strength, Dependent Transfers Discharge Recommendations Plan/Recommendations: Continue POC Treatment Plan/Plan of Care Patient would benefit from OT for education, treatment and training to promote independence in ADL's, mobility, safety and/or upper extremity function for ADL's. Plan of Care: ADL Retraining, Functional Mobility, Group Exercise/Act as Ind, UE Funct Exercise/Act, UE Neuromus Re-Ed/Coord, W/C Management Training Treatment Duration: Sep 28, 2022 Frequency: At least 5 of 7 days/Wk (IRF) Estimated Hrs Per Day: 1.5 hours per day Agreement: Yes Rehab Potential: Fair Time Start Time: 08:30 Stop Time: 09:45 DATE: Sep 10, 2022 Total Time Billed (hr/min): 75 Billed Treatment Time Co-treat PT/OT ([id number]) 1 visit ADL (20min) FA (40 min) Individual time Ex (15 min) Noelle Carroll COTA Sep 10, 2022 10:49
--- NOTE | 2022-09-10 11:15 | Speech Therapy Daily Note ---
Speech Daily Progress Note Subjective Date Seen by Provider: Sep 10, 2022 Time Seen by Provider: 10:26 Pt laying in bed watching TV when MARKET RESEARCH MANAGER enters. Pt appears fatigued but says she is ready to do therapy. Pt pleasant and cooperative throughout session. Pt does report globus sensation in throat, stating it is constant and points at the level of the superior sternum. Pt has a coughing episode during the session. MARKET RESEARCH MANAGER gets staff to boost pt up in bed so she is sitting more upright. Pain Numeric Pain Scale: 4 Location: Right Comment: leg Objective Pt is able to complete phrases intelligibly with 60% accuracy. She completes opposites with 75% accuracy. She follows 1 step directions with 88% accuracy. Pt continues to demonstrate difficulty with imitating words/sounds. After one or two words her utterances decrease in intelligibility. Pt appears to lack awareness when her utterances are unintelligible. Assessment Assessment Current Status: Good Progress Speech Short Term Goals Short Term Goals Short Term Goals 1. The patient will participate in a modified barium swallow assessment to evaluate for the presence of aspiration and best guide therapeutic interventions. MET 09/03/2022 2. The patient will display 80% accuracy with oral motor exercises with mild cli nician verbal and visual cueing. 3. The patient will display 80% accuracy with dysphagia exercises with mild clinician verbal and visual cueing. Language: 1. Pt will complete verbal imitation of basic one syllable words with 80% accuracy with min clinician verbal and visual cuing. 2. Pt will expressively and receptively identify common everyday objects with 80% accuracy with min clinician verbal and visual cuing. 3. Pt will follow basic 1 step and 2 step directions with 80% accuracy with min clinician verbal and visual cuing. Speech Automotive Alignment Specialist Goals Nursing Home Goals 1. The patient will tolerate the least restrictive diet consistency without s/s of suspected aspiration. Language: 1. Pt will communicate basic wants/needs with staff or family members either verbally or with use of pictures in 4/5 opportunities. Time Frame: Three Weeks. Speech-Plan Patient/Family Goals Patient/Family Goals: Pt's family's goal is for pt to return home with 24/7 care. Treatment Plan Speech Therapy Treatment Plan: Continue Plan of Care Treatment Duration: Sep 14, 2022 Frequency: Modified Program (IRF) Estimated Hrs Per Day: .5 hour per day Rehab Potential: Fair Safety Risks/Education Teaching Recipient: Patient Teaching Methods: Discussion Response to Teaching: Verbalize Understanding Education Topics Provided: Pt educated on the importance of practicing her speech as much as possible and using strategies such as slowing down and over emphasizing. The phrase completion page and opposites page were left in pt's room and added to her home program folder. Time Speech Therapy Time In: 10:26 Speech Therapy Time Out: 10:56 DATE: Sep 10, 2022 Total Billed Time: 30 Billed Treatment Time Kaleigh Tapia Speech Therapy Sep 10, 2022 11:15
[2022-09-10] MEDS: NYSTATIN ORAL SUSP 5 ML UDC PO SCH ×4 (11:28→20:39)
[2022-09-10] MEDS: ALPRAZolam 0.25 MG (XANAX) TAB NG PRN ×2 (11:30→20:39)
--- NOTE | 2022-09-10 11:33 | Occupational Ther Daily Note ---
OT Current Status-Daily Note Subjective Pt found lying supine in bed. Pt requested to change into hospital gown. ADL-Treatment Therapist assisted nursing in changing pts clothes, max A x2. Nurse and joey cerrato completed deonna care and changed pts brief max A x2. Therapist assisted in positioning for correct technique while cleaning pt up and changing clothes. Pt was left lying supine in bed with call light within reach, all needs met in room. Therapy Code Descriptions/Definitions Functional [place] Measure: 0=Not Assessed/NA 4=Minimal Assistance 1=Total Assistance 5=Supervision or Setup 2=Maximal Assistance 6=Modified [place] 3=Moderate Assistance 7=Complete IndependenceSCALE: Activities may be completed with or without assistive devices. 8-Tqxmqjlxxq-etfkssa completes the activity by him/herself with no assistance from a helper. 5-Set-up or Clean-up Assistance-helper sets up or cleans up; patient completes activity. [place] assists only prior to or following the activity. 4-Supervision or Touching Assistance-helper provides verbal cues and/or touching/steadying and/or contact guard assistance as patient completes activity. Assistance may be provided throughout the activity or intermittently. 3-Partial/Moderate Assistance-helper does LESS THAN HALF the effort. [place] lifts, holds or supports trunk or limbs, but provides less than half the effort. 2-Substantial/Maximal Assistance-helper does MORE THAN HALF the effort. [place] lifts or holds trunk or limbs and provides more than half the effort. 3-Mqooaongv-opmzgr does ALL the effort. Patient does none of the effort to complete the activity. Or, the assistance of 2 or more helpers is required for the patient to complete the activity. If activity was not attempted, code reason: 7-Patient Refused. 9-Not Applicable-not attempted and the patient did not perform the activity before the current illness, exacerbation or injury. 10-Not Attempted due to Environmental Limitations-(lack of equipment, weather restraints, etc.). 88-Not Attempted due to Medical Conditions or Safety Concerns. Toileting Hygiene (QC): 1 Education OT Patient Education: Correct positioning Teaching Recipient: Patient OT Short Term Goals Short Term Goals Time Frame: Sep 14, 2022 Shower/bathe self: 2 Upper body dressin Lower body dressin Putting on/taking off footwear: 2 OT Intermediate Goals Intermediate Goals Time Frame: Sep 28, 2022 Acute change in mental status: 1 Inattention: 1 Disorganized thinkin Altered level of consciousness: 0 Eating (QC): 5 (goal of set up assist if pt able to progress from tube feedings.) Oral Hygiene (QC): 5 Toileting Hygiene (QC): 3 Shower/Bathe Self (QC): 3 Upper Body Dressing (QC): 4 Lower Body Dressing (QC): 3 On/Off Footwear (QC): 3 Additional Goals: 1-Demonstrate ADL Tasks, 2-Verbalize Understanding, 3- ImproveStrength/Emil 1=Demonstrate adherence to instructed precautions during ADL tasks. 2=Patient will verbalize/demonstrate understanding of assistive devices/modifications for ADL. 3=Patient will improve strength/tolerance for activity to enable patient to perform ADL's. OT Education/Plan Problem List/Assessment Assessment: Decreased Safety Aware, Dependent Transfers Discharge Recommendations Plan/Recommendations: Continue POC Treatment Plan/Plan of Care Patient would benefit from OT for education, treatment and training to promote independence in ADL's, mobility, safety and/or upper extremity function for ADL's. Plan of Care: ADL Retraining, Functional Mobility, Group Exercise/Act as Ind, UE Funct Exercise/Act, UE Neuromus Re-Ed/Coord, W/C Management Training Treatment Duration: Sep 28, 2022 Frequency: At least 5 of 7 days/Wk (IRF) Estimated Hrs Per Day: 1.5 hours per day Agreement: Yes Rehab Potential: Fair Time Start Time: 10:05 Stop Time: 10:20 DATE: Sep 10, 2022 Total Time Billed (hr/min): 15 Billed Treatment Time 1 visit ADL 1 Noelle Carroll COTA Sep 10, 2022 11:33
[2022-09-10 13:35] VITALS: BP 141/65
[2022-09-10 20:30] VITALS: BP 149/68
[2022-09-11] MEDS: ACETAMINOPHEN 325 MG TABLET NG PRN (03:55)
--- NOTE | 2022-09-11 05:59 | PM&R Progress Note ---
Subjective HPI/CC On Admission Date Seen by Provider: Sep 11, 2022 Time Seen by Provider: 12:00 Subjective/Events-last exam 09/11/2022: Patient not doing as well today Patient coughing quite a bit and changed diet back to softer and less apt to aspirate Awaiting chest x-ray Dr. Sherman ordered 09/10/2022: No major issues Sensation of throat noted so change of diet is indicated No pain reported 09/09/2022: Patient doing well Has no specific new concerns Talking better Swallowing well 09/08/2022: Patient doing really well Talking more Tolerating eating mechanical soft diet 09/07/2022: Patient just had shower Daughter at the bedside No pain is reported currently Eating and drinking better No aspiration at this point Participation is good 09/06/2022: Patient doing much better Eating better Duration at this point Reviewed blood pressure trend 09/05/2022: Much improved Dysphagia is improved Slow recovery Participation is good 09/04/2022: Patient much improved Slowly eating meals by mouth since NG tube removed Cardiology consulted medication modified 09/03/2022: Patient much improved Barium swallow enables her to eat and so we will discontinue the NG tube Blood pressure labile Blood sugars reviewed 09/02/2022: About the same Talking more and more each day MBS tomorrow and maintained on NGT in place 09/01/2022: Patient doing well Added pain pill NG tube maintained No falls 08/31/2022: No major changes Ice chips are approved to consume slowly NGT is place No falls No pain Fall risk Severe deficits Sugars are good BP a bit elevated Review of Systems General: Fatigue, Malaise Pulmonary: Cough Neurological: Weakness, Incoordination Objective Exam Vital Signs Vital Signs Date Time Temp Pulse Resp B/P (MAP) Pulse Ox O2 Delivery O2 Flow Rate FiO2 09/11/22 13:37 94 Room Air 09/11/22 13:00 87 09/11/22 07:10 36.1 18 128/80 (96) Capillary Refill : General Appearance: No Apparent Distress, WD/WN, Chronically ill, Obese HEENT: PERRL/EOMI, Normal ENT Inspection, Pharynx Normal, Other Neck: Full Range of Motion, Normal Inspection, Non Tender, Supple, Carotid Bruit Respiratory: Chest Non Tender, Normal Breath Sounds, No Accessory Muscle Use, No Respiratory Distress, Crackles Cardiovascular: Regular Rate, Rhythm, No Edema, No Gallop, No JVD, No Murmur, Normal Peripheral Pulses Gastrointestinal: Normal Bowel Sounds, No Organomegaly, No Pulsatile Mass, Non Tender, Soft Back: Normal Inspection, No CVA Tenderness, No Vertebral Tenderness Extremity: Normal Capillary Refill, Normal Inspection, Normal Range of Motion, Non Tender, No Calf Tenderness, No Pedal Edema Neurologic/Psychiatric: Alert, Aphasia, Depressed Affect, Motor Weakness Skin: Normal Color, Warm/Dry Lymphatic: No Adenopathy Results/Procedures Lab Patient resulted labs reviewed. FIM Transfers Therapy Code Descriptions/Definitions Functional [place] Measure: 0=Not Assessed/NA 4=Minimal Assistance 1=Total Assistance 5=Supervision or Setup 2=Maximal Assistance 6=Modified [place] 3=Moderate Assistance 7=Complete IndependenceSCALE: Activities may be completed with or without assistive devices. 6-Jxhkopuset-nghnsyb completes the activity by him/herself with no assistance from a helper. 5-Set-up or Clean-up Assistance-helper sets up or cleans up; patient completes activity. [place] assists only prior to or following the activity. 4-Supervision or Touching Assistance-helper provides verbal cues and/or touching/steadying and/or contact guard assistance as patient completes activity. Assistance may be provided throughout the activity or intermittently. 3-Partial/Moderate Assistance-helper does LESS THAN HALF the effort. [place] lifts, holds or supports trunk or limbs, but provides less than half the effort. 2-Substantial/Maximal Assistance-helper does MORE THAN HALF the effort. [place] lifts or holds trunk or limbs and provides more than half the effort. 8-Ogiskjudt-ewslkv does ALL the effort. Patient does none of the effort to complete the activity. Or, the assistance of 2 or more helpers is required for the patient to complete the activity. If activity was not attempted, code reason: 7-Patient Refused. 9-Not Applicable-not attempted and the patient did not perform the activity before the current illness, exacerbation or injury. 10-Not Attempted due to Environmental Limitations-(lack of equipment, weather restraints, etc.). 88-Not Attempted due to Medical Conditions or Safety Concerns. Roll Left to Right (QC): 3 Sit to Lying (QC): 2 Sit to Stand (QC): 2 Chair/Crw-wz-Cxhwx Xfer(QC): 2 Car Transfer (QC): 88 Gait Training Does the Patient Walk?: No and Walking Goal IS indicated Walk 10 feet (QC): 88 Walk 50 ft with 2 Turns(QC): 88 Walk 150 ft (QC): 88 Walking 10ft/uneven surface-QC: 88 Wheelchair Training Does the Pt Use a Wheelchair?: Yes Distance: 5ft Wheel 50 ft with 2 turns (QC): 2 Wheel 150 ft (QC): 88 Type of Wheelchair: Manual Stair Training 1 Step (curb) (QC): 88 4 Steps (QC): 88 12 Steps (QC): 88 Balance Picking up an Object (QC): 88 ADL-Treatment Eating (QC): 4 Oral Hygiene (QC): 4 Shower/Bathe Self (QC): 1 Upper Body Dressing (QC): 1 Lower Body Dressing (QC): 1 On/Off Footwear (QC): 1 Toileting Hygiene (QC): 1 Assessment/Plan Assessment and Plan Assess & Plan/Chief Complaint Assessment: 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 Aspiration risk s/p modified barium swallow with speech therapy eval Diabetes insulin-dependent hemoglobin A1c 13 Obesity Hypertension Hyperlipidemia Suspected cardiac source of CVA DM insulin dependent since hga1c 13 Thrush treating empirically Cough suspicious for aspiration on 09/11/2022 checking chest x-ray ordered nebs Plan: Aggressive PT and OT Speech therapy May need a PEG tube Monitor closely 08/31/2022: Sugars reviewed Add BP med 09/01/2022: Supportive care Monitor closely 09/02/2022: MBS tomorrow Continue therapy 09/03/2022: Supportive care Advance diet Discontinue NG tube 09/04/2022: Advance diet 09/05/2022: Supportive care 09/06/2022: Supportive care Slow recovery 09/07/2022: Monitor sugar 09/08/2022: Supportive care 09/09/2022: Monitor aspiration risk 09/10/2022: Thrush treatment Change diet 09/11/2022: Change diet to less aspiration Check chest x-ray Nebulizers Incentive spirometer (1) CVA (cerebral vascular accident) BETHNAY HERMOSILLO DO Sep 11, 2022 05:58
[2022-09-11] MEDS: hydrALAZINE (APRESOLINE) 25 MG TAB PO SCH ×3 (06:08→20:35)
[2022-09-11] MEDS: CATHETER FLUSH 10 ML SYR IVP SCH ×4 (06:08→20:53)
[2022-09-11] MEDS: POTASSIUM BICARB 20 MEQ (EFFER-K) TABLET PO SCH (06:08)
[2022-09-11] MEDS: LEVOTHYROXINE 100 MCG (LEVOTHROID) TAB PO SCH (06:08)
[2022-09-11] MEDS: inSUlin ASPART (NovoLOG) 1 UNIT/0.01 ML (CHARGE PER UNIT) SC SCH ×4 (06:41→20:36)
[2022-09-11 07:10] VITALS: BP 128/80
[2022-09-11] MEDS: GABAPENTIN 100 MG (NEURONTIN) CAP PO SCH ×3 (08:10→20:35)
[2022-09-11] MEDS: DOCUSATE SODIUM 10 MG/ML 10 ML UDC (COLACE) NG SCH ×2 (08:10→19:38)
[2022-09-11] MEDS: amLODIPine 5 MG (NORVASC) TAB NG SCH (08:10)
[2022-09-11] MEDS: VITAMIN D3 125 MCG (5,000 UNITS) CAPSULE PO SCH (08:10)
[2022-09-11] MEDS: ENOXAPARIN 40 MG/0.4 ML (LOVENOX) SYR SC SCH (08:10)
[2022-09-11] MEDS: ASPIRIN 325 MG (5 GR) TABLET NG SCH (08:10)
[2022-09-11] MEDS: PANTOPRAZOLE 40 MG (PROTONIX) TAB PO SCH (08:10)
[2022-09-11] MEDS: NYSTATIN ORAL SUSP 5 ML UDC PO SCH ×4 (08:10→20:35)
[2022-09-11] MEDS: DICLOFENAC 1% GEL 100 GM (VOLTAREN) TUBE TOP SCH ×4 (08:11→20:51)
[2022-09-11] MEDS: SENNA W/DOCUSATE (SENOKOT S) TABLET NG SCH ×2 (08:15→20:35)
[2022-09-11] MEDS: polyethylene glycoL POWDER 17 GM (MIRALAX) PACK NG SCH ×2 (08:15→19:38)
--- NOTE | 2022-09-11 09:09 | Cardiology Progress Note ---
Subjective Date Seen by Provider: Sep 11, 2022 Time Seen by Provider: 08:05 Subjective/Events-last exam Patient sitting up in bed, complaining of sore throat and cough Objective-Cardiology Exam Last Set of Vital Signs Vital Signs 09/11/22 09/11/22 07:10 09:00 Temp 36.1 Pulse 66 Resp 18 B/P (MAP) 128/80 (96) Pulse Ox 96 O2 Delivery Room Air I&O Intake and Output 09/11/22 00:00 Intake Total 860 ml Output Total 350 ml Balance 510 ml Intake Oral 860 ml Output Urine Total 350 ml # Voids 5 # Bowel Movements 1 General: Alert, Cooperative HEENT: Atraumatic Neck: Supple, No JVD, No Thyromegaly Lungs: Clear to Auscultation, Normal Air Movement Heart: Regular Rate, Normal S1, Normal S2, No Murmurs Abdomen: Normal Bowel Sounds, Soft, No Tenderness, No Hepatosplenomegaly, No Masses Extremities: No Clubbing, No Cyanosis, No Edema, Normal Pulses, No Tenderness/Swelling Skin: No Rashes, No Breakdown, No Significant Lesion Neuro: Other (Aphasia and hemiaplasia) Psych/Mental Status: Mood NL A/P-Cardiology Admission Diagnosis CVA Left ICA/MCA occlusion HTN HLP DM Assessment/Plan Acute CVA with right sided weakness, aphasia, dysphagia. CTA showed occluded left ICA/MCA. Patient was transferred to [facility] where she underwent attempt at mechanical thrombectomy with no change. Currently maintained on ASA. Continue to monitor telemetry. 2D Echo done at [facility] on showed mild LVH, grade 2 diastolic dysfunction, mildly dilated LA. No PFO or ASD appreciated. Nonproductive cough, I will evaluate CXR Hypertension, better control at this time. Maintained on clonidine patch and amlodipine, hydralazine was added on September 04, 2022. Continue to monitor Intolerance/allergy to angiotensin receptor vazquez Hyperlipidemia, maintained on statin, monitor lipids Diabetes mellitus, managed by primary care physician Hypothyroidism, managed by primary care physician. Obesity. Supervisory-Addendum Brief Supervisory Addendum Participated in pt care: history, MDM, physical Personally performed: exam, history, MDM Care discussed with: ATA Results interpretation: Verified all documentation Notes: Patient was seen and evaluated with Luiza, examination performed, management plan was discussed, agree with the current scribed note, I made few changes to the note using Italic font Patient was seen at bedside, complained of sore throat. Mild rhonchi, no chest pain Plan to evaluate chest x-ray Monitor blood pressure Continue current medication LUIZA AYALA Sep 11, 2022 09:08 VONDA TOMAS MD Sep 11, 2022 12:40
--- NOTE | 2022-09-11 09:50 | Speech Therapy Daily Note ---
Speech Daily Progress Note Subjective Date Seen by Provider: Sep 11, 2022 Time Seen by Provider: 07:40 Pt sitting up in bed eating breakfast when POLICY CHANGE CLERK arrives. Nursing staff, pt coughed frequently last night and are concerned it is due to the nectar thick liquids. Pt appears fatigued during breakfast. Often taking a bite and then laying her head back against the pillow. Pt takes over an hour to complete her breakfast this morning. Pain Numeric Pain Scale: 3 Location: Right Comment: leg, right face Objective Pt continues to report globus sensation at superior sternum. Pt continues to grab at right side of her face/jaw. Pt also stretching her head as she feels like she has something stuck at her superior sternum. When asked if she feels like food/liquid is "going down the wrong pipe" pt says no and continues to report a constant globus sensation. Pt observed eating minced and moist and drinking nectar thick liquids this morning during breakfast. While POLICY CHANGE CLERK was observing, no s/sx of aspiration noted. After the session, POLICY CHANGE CLERK was at nurses station and pt started to cough. POLICY CHANGE CLERK stopped in and nurse said she was giving meds and pt tilted her head back with a drink and started coughing. Nurse reports pt is going down for a chest x-ray later this morning. Assessment Assessment Current Status: Poor Progress Treatment Plan Continue Plan of Care Depending results of chest x-ray, potentially repeat MBSS to assess swallow function and to check for aspiration. Speech Short Term Goals Short Term Goals Short Term Goals 1. The patient will participate in a modified barium swallow assessment to evaluate for the presence of aspiration and best guide therapeutic interventions. MET 09/03/2022 2. The patient will display 80% accuracy with oral motor exercises with mild clinician verbal and visual cueing. 3. The patient will display 80% accuracy with dysphagia exercises with mild cli nician verbal and visual cueing. Language: 1. Pt will complete verbal imitation of basic one syllable words with 80% accuracy with min clinician verbal and visual cuing. 2. Pt will expressively and receptively identify common everyday objects with 80% accuracy with min clinician verbal and visual cuing. 3. Pt will follow basic 1 step and 2 step directions with 80% accuracy with min clinician verbal and visual cuing. Speech Usp Goals Usp Goals 1. The patient will tolerate the least restrictive diet consistency without s/s of suspected aspiration. Language: 1. Pt will communicate basic wants/needs with staff or family members either verbally or with use of pictures in 4/5 opportunities. Time Frame: Three Weeks. Speech-Plan Patient/Family Goals Patient/Family Goals: Pt's family is unsure of whether pt will go home or go to a SNF. Treatment Plan Speech Therapy Treatment Plan: Continue Plan of Care Treatment Duration: Sep 14, 2022 Frequency: Modified Program (IRF) Estimated Hrs Per Day: .5 hour per day Rehab Potential: Fair Safety Risks/Education Teaching Recipient: Patient Teaching Methods: Discussion Response to Teaching: Verbalize Understanding, Reinforcement Needed Education Topics Provided: Pt reminded of safe swallow strategies and to make sure she does not tilt her head back when eating or drinking. Pt nods head to demonstrate understanding, but will likely continue to need reminders/reinforcement for strategies. Time Speech Therapy Time In: 07:40 Speech Therapy Time Out: 07:55 DATE: Sep 11, 2022 Total Billed Time: 15 Billed Treatment Time Kaleigh Gallegos Speech Therapy Sep 11, 2022 09:50
--- NOTE | 2022-09-11 10:21 | Physical Therapy Daily Note ---
PT Daily Note-Current Subjective Pt in bed upon arrival and agreeable to treatment. Pt rates R UE/LE pain at 6/10 by pointing on visual pain scale. Pt also reports increased throat pain on this date, secondary to coughing a lot throughout the night. Pt is scheduled for a chest x-ray later in the day. Pain Numeric Pain Scale: 6 Location: Right Location Body Site: Knee Section J - Health Conditions 1. Rarely or not at all 2. Occasionally 3. Frequently 4. Almost constantly 8. Unable to answer Pain Effect on Sleep: 3 Pain Interference with Therapy: 3 Pain Interference w/Day-to-Day: 3 Transfers SCALE: Activities may be completed with or without assistive devices. 7-Nrvbtwzhsm-bohijxs completes the activity by him/herself with no assistance from a helper. 5-Set-up or Clean-up Assistance-helper sets up or cleans up; patient completes activity. [place] assists only prior to or following the activity. 4-Supervision or Touching Assistance-helper provides verbal cues and/or touching/steadying and/or contact guard assistance as patient completes activity. Assistance may be provided throughout the activity or intermittently. 3-Partial/Moderate Assistance-helper does LESS THAN HALF the effort. [place] lifts, holds or supports trunk or limbs, but provides less than half the effort. 2-Substantial/Maximal Assistance-helper does MORE THAN HALF the effort. [place] lifts or holds trunk or limbs and provides more than half the effort. 6-Bycopcvnl-vmlqex does ALL the effort. Patient does none of the effort to complete the activity. Or, the assistance of 2 or more helpers is required for the patient to complete the activity. If activity was not attempted, code reason: 7-Patient Refused. 9-Not Applicable-not attempted and the patient did not perform the activity before the current illness, exacerbation or injury. 10-Not Attempted due to Environmental Limitations-(lack of equipment, weather restraints, etc.). 88-Not Attempted due to Medical Conditions or Safety Concerns. Roll Left & Right (QC): 3 Lying to Sitting/Side of Bed(Q: 3 Sit to Stand (QC): 2 Chair/Wmm-qs-Nndlw Xfer(QC): 2 Weight Bearing Right Lower Extremity: Right Full Weight Bearing Left Lower Extremity: Left Full Weight Bearing Gait Training Does the Patient Walk?: No and Walking Goal IS indicated Wheelchair Training Does the Pt Use a Wheelchair?: Yes Wheel 50 ft with 2 turns (QC): 3 Wheel 150 ft (QC): 88 Type of Wheelchair: Manual Treatments PT/OT co-tx from [id number] due to skill of 2 clinicians required which a air quality technician could not perform in order to coordinate LE/UEs, decrease fall risk, and due to pt's limitations in strength, activity tolerance, mobility, and R side hemiparesis. PT focused on LE placement, gross overall movement, R LE strength, bed mobility, transfers, standing, and w/c mobility. OT focused on UE placement, ADLs, cues for sequencing and safety. Pt completed R rolling in bed with Min A and L rolling with Mod A. Pt completed supine > sit with Min A. SPT completed from bed > w/c with Mod/Max A x 2. Pt completed w/c mobility x 50ft with Mod A and Mod v/c to participate. Pt completed 2 sit to stand transfers in the // bars with Mod/Max A x 2. Pt stood for approximately 15" for each stand with Mod/Max A to stand. Pt required Mod v/c and t/c for R TKE during standing. Pt required Mod/Max v/c for erect posture, as well as B hip ext, during stands. Pt completed supine B ankle pumps, QS, and GS x 10 reps each. Pt completed seated R LAQ 2x10 and modified wall squat in the w/c x 10 reps with the R LE. Pt left sitting up in w/c in room with nurse present. Assessment Current Status: Fair Progress Pt tolerated well with fair effort on this date, secondary to being tired from coughing all night. PT Fci Goals Fci Goals PT Firer Locomotive Crane Goals Time Frame: Sep 13, 2022 Roll Left & Right (QC): 3 (Pt will complete bed mobility with Min A. ) Sit to Lying (QC): 3 (Pt will complete bed mobility with Min A. ) Lying-Sitting on Side/Bed(QC): 3 (Pt will complete bed mobility with Min A. ) Sit to Stand (QC): 3 (Pt will complete transfer with Min/Mod A. ) Chair/Phz-fq-Uzuoh Xfer(QC): 3 (Pt will complete transfer with Min/Mod A. ) Toilet Transfer (QC): 3 (Pt will complete transfer with Min/Mod A. ) Car Transfer (QC): 3 (Pt will complete transfer with Min/Mod A. ) Does the Patient Walk: No and Walking Goal IS indicated Walk 10 feet (QC): 3 (Min/Mod A for walking with the chau-walker ) Walk 50ft with 2 Turns (QC): 3 (Min/Mod A for walking with the chau-walker ) Walk 150 ft (QC): 88 Walking 10ft on Uneven Surface: 88 1 Step (curb) (QC): 3 (Min/Mod A for a curb/step ) 4 Steps (QC): 88 12 Steps (QC): 88 Picking up an Object (QC): 3 (Min A with pulp plant supervisor ) Does the Pt use WC or Scooter?: Yes Wheel 50 feet with 2 turns (QC: 3 (Min A for w/c mobility ) Type: Manual Wheel 150 feet: 3 (Min A for w/c mobility ) Type: Manual PT Plan Problem List Problem List: Activity Tolerance, Functional Strength, Safety, Balance, Gait, Transfer, Bed Mobility, ROM Treatment/Plan Treatment Plan: Continue Plan of Care Treatment Plan: Bed Mobility, Concurrent Therapy, Education, Functional Activity Emil, Functional Strength, Group Therapy, Gait, Safety, Therapeutic Exercise, Transfers Treatment Duration: Sep 13, 2022 Frequency: At least 5 of 7 days/Wk (IRF) Estimated Hrs Per Day: 1.5 hours per day Patient and/or Family Agrees t: Yes Safety Risks/Education Patient Education: Transfer Techniques, Correct Positioning, W/C Management, Safety Issues Teaching Recipient: Patient Teaching Methods: Demonstration, Discussion Response to Teaching: Reinforcement Needed Discharge Recommendations Therapy Discharge Recommendati: 24 Hour Supervision Discharge Status/Home Program Cont per POC Barriers to Progress R sided weakness Target Placement SNF vs home with daughters Time Time In: 900 Time Out: 1000 DATE: Sep 11, 2022 Total Billed Treatment Time: 60 Total Billed Treatment 60 min co-tx from [id number] 1 visit FA x 3 EX x 1 KATELIN YAO PT Sep 11, 2022 10:21
--- NOTE | 2022-09-11 10:40 | Occupational Ther Daily Note ---
OT Current Status-Daily Note Subjective Pt alert, lying in bed. Pt agrees to therapy after encouragement. Pt c/o pain, did not rate and continued to participate in skilled therapy. OT/PT co-treat ([id number]), skills of 2 clinicians required to decrease fall risk, increase mobility with transfer/standing, working on R UE/LE to regain movement while completing wt bearing tasks. PT focusing on transfers, B LE strengthening and OT focusing on ADLs, functional mobility and B UE strengthening. Mental Status/Objective Patient Orientation: Person, Place, Non-Verbal/Aphasic, Time, Situation Attachments: IV, Telemetry ADL-Treatment Pt incontinent of bowel. Pt assisted with rolling side to side, pc to roll toward right and min A to roll toward left then was able to maintain sidelying using bed rail. Dependent with toileting. Dependent with LBD and footwear. Max A for UBD. Pt is progressing on sitting EOB with min A to CGA. Min A x1 to go from supine to EOB, pt able to move R LE to EOB by self. Max A x2 for sit to stand and transfer to w/c. Therapy Code Descriptions/Definitions Functional [place] Measure: 0=Not Assessed/NA 4=Minimal Assistance 1=Total Assistance 5=Supervision or Setup 2=Maximal Assistance 6=Modified [place] 3=Moderate Assistance 7=Complete IndependenceSCALE: Activities may be completed with or without assistive devices. 9-Aanegajege-ogmpeal completes the activity by him/herself with no assistance from a helper. 5-Set-up or Clean-up Assistance-helper sets up or cleans up; patient completes activity. [place] assists only prior to or following the activity. 4-Supervision or Touching Assistance-helper provides verbal cues and/or touching/steadying and/or contact guard assistance as patient completes activity. Assistance may be provided throughout the activity or intermittently. 3-Partial/Moderate Assistance-helper does LESS THAN HALF the effort. [place] lifts, holds or supports trunk or limbs, but provides less than half the effort. 2-Substantial/Maximal Assistance-helper does MORE THAN HALF the effort. [place] lifts or holds trunk or limbs and provides more than half the effort. 5-Gsexxkcty-evwsjy does ALL the effort. Patient does none of the effort to complete the activity. Or, the assistance of 2 or more helpers is required for the patient to complete the activity. If activity was not attempted, code reason: 7-Patient Refused. 9-Not Applicable-not attempted and the patient did not perform the activity before the current illness, exacerbation or injury. 10-Not Attempted due to Environmental Limitations-(lack of equipment, weather restraints, etc.). 88-Not Attempted due to Medical Conditions or Safety Concerns. Eating (QC): 4 (supervision) Upper Body Dressing (QC): 2 Lower Body Dressing (QC): 1 On/Off Footwear: 1 Toileting Hygiene (QC): 1 Other Treatment Pt attempted to stand at //bars 2x's then declined anymore attempts due to fatigue. Pt unable to maintain standing for longer that 15 seconds. Max A x2 for sit to stand and standing. Pt then completed B LE strengthening with PT while OT working on shldr elevation. R shldr subluxation is increasing. Pt then completed sitting squats in w/c, 2 sets 10 reps with resistance provided by PT. Pt able to propel w/c using L UE with assist to steer ~ 50' After session, pt sitting in w/c with call light in reach. Nrsg present in room. All needs met. OT Short Term Goals Short Term Goals Time Frame: Sep 14, 2022 Shower/bathe self: 2 Upper body dressin Lower body dressin Putting on/taking off footwear: 2 OT Carpet Installation Specialist Goals [facility] Goals Time Frame: Sep 28, 2022 Acute change in mental status: 1 Inattention: 1 Disorganized thinkin Altered level of consciousness: 0 Eating (QC): 5 (goal of set up assist if pt able to progress from tube feedings.) Oral Hygiene (QC): 5 Toileting Hygiene (QC): 3 Shower/Bathe Self (QC): 3 Upper Body Dressing (QC): 4 Lower Body Dressing (QC): 3 On/Off Footwear (QC): 3 Additional Goals: 1-Demonstrate ADL Tasks, 2-Verbalize Understanding, 3- ImproveStrength/Emil 1=Demonstrate adherence to instructed precautions during ADL tasks. 2=Patient will verbalize/demonstrate understanding of assistive devices/modifications for ADL. 3=Patient will improve strength/tolerance for activity to enable patient to perform ADL's. OT Education/Plan Problem List/Assessment Assessment: Decreased Activ Tolerance, Decreased Safety Aware, Decreased UE Strength, Dependent Transfers, Impaired Bed Mobility, Impaired Coordination, Impaired Funct Balance, Impaired I ADL's, Impaired Self-Care Skills, Restricted Funct UE ROM, Visual-Perceptual Deficit Discharge Recommendations Plan/Recommendations: Continue POC Treatment Plan/Plan of Care Patient would benefit from OT for education, treatment and training to promote independence in ADL's, mobility, safety and/or upper extremity function for ADL 's. Plan of Care: ADL Retraining, Functional Mobility, Group Exercise/Act as Ind, UE Funct Exercise/Act, UE Neuromus Re-Ed/Coord, W/C Management Training Treatment Duration: Sep 28, 2022 Frequency: At least 5 of 7 days/Wk (IRF) Estimated Hrs Per Day: 1.5 hours per day Agreement: Yes Rehab Potential: Fair Time Start Time: 09:00 Stop Time: 10:00 DATE: Sep 11, 2022 Total Time Billed (hr/min): 60 Billed Treatment Time 1 visit-ADL 1 (20 min) NM 3 (40 min) co-treat with PT [id number] NICHO GU Sep 11, 2022 10:39
--- NOTE | 2022-09-11 12:52 | Speech Therapy Daily Note ---
Speech Daily Progress Note Subjective Date Seen by Provider: Sep 11, 2022 Time Seen by Provider: 11:20 Pt reclined in bed. No new report from patient. Pt continues to demonstrate coughing episodes throughout session without liquid or food intake. Pt pleasant and cooperative during the session. Pain Numeric Pain Scale: 3 Location: Right Comment: arm, leg, jaw/oral Objective Pt completes a variety of language tasks. Pt counts to 10 4x with mod cues. Pt demonstrates difficulty with perseveration throughout the session. She would often get to six or seven and then go back to four and start counting again. When asked if she was aware she was going back to four, pt said no. Pt did the same with the days of the week. Pt was unable to say the alphabet this date, she would start counting after letter "d". Pt demonstrated increased perseveration this date compared to previous sessions. Pt completed phrases intelligibly and appropriately with 40% accuracy this date. She was able to state opposites of provided words with 80% accuracy. She demonstrated recall of opposites she missed yesterday. Oral motor exercises were targeted this date. Pt completed 10 repetitions of lip retraction and lip protrusion. Pt had difficulty completing these tasks as she would often start counting or saying the days of the week. She had to be redirected multiple times back to the oral motor exercise. Head of nursing was notified of concerns with cognitive changes in patient. Assessment Assessment Current Status: Regressing Treatment Plan Continue Plan of Care Speech Short Term Goals Short Term Goals Short Term Goals 1. The patient will participate in a modified barium swallow assessment to evaluate for the presence of aspiration and best guide therapeutic inter ventions. MET 09/03/2022 2. The patient will display 80% accuracy with oral motor exercises with mild clinician verbal and visual cueing. 3. The patient will display 80% accuracy with dysphagia exercises with mild clinician verbal and visual cueing. Language: 1. Pt will complete verbal imitation of basic one syllable words with 80% accuracy with min clinician verbal and visual cuing. 2. Pt will expressively and receptively identify common everyday objects with 80% accuracy with min clinician verbal and visual cuing. 3. Pt will follow basic 1 step and 2 step directions with 80% accuracy with min clinician verbal and visual cuing. Speech Chcf Goals Chcf Goals 1. The patient will tolerate the least restrictive diet consistency without s/s of suspected aspiration. Language: 1. Pt will communicate basic wants/needs with staff or family members either verbally or with use of pictures in 4/5 opportunities. Time Frame: Three Weeks. Speech-Plan Patient/Family Goals Patient/Family Goals: Family plans to either take pt home or to go to SNF. Treatment Plan Speech Therapy Treatment Plan: Continue Plan of Care Treatment Duration: Sep 14, 2022 Frequency: Modified Program (IRF) Estimated Hrs Per Day: .5 hour per day Rehab Potential: Fair Safety Risks/Education Teaching Recipient: Patient Teaching Methods: Discussion Response to Teaching: Verbalize Understanding, Reinforcement Needed Education Topics Provided: Pt educated on purpose of therapy tasks and the importance of continuing to work on speech and oral motor movements outside of therapy. Pt nodded head to demonstrate understanding but will continue to require reinforcement. Time Speech Therapy Time In: 11:20 Speech Therapy Time Out: 11:55 DATE: Sep 11, 2022 Total Billed Time: 35 Billed Treatment Time 25 SLTX, 10 DYST Kaleigh Nelson Speech Therapy Sep 11, 2022 12:52
--- NOTE | 2022-09-11 13:26 | Occupational Ther Daily Note ---
OT Current Status-Daily Note Subjective Pt alert, lying in bed. Nrsg and PARK to complete bathing with pt this date. Pt agrees to therapy. No c/o pain. Mental Status/Objective Patient Orientation: Person, Place, Time, Situation Attachments: IV, Telemetry ADL-Treatment Nrsg and PARK completed sponge/bed bath this date. Pt able to wash face and neck then required assistance x2 to complete rest of body. Pt does assist with rolling side to side and is able to maintain sidelying. Pt has trace muscle in shldr and overlapping muscle contractions with yawning or coughing. Dependent with donning/doffing brief. After therapy, pt lying in bed with call light/phone in reach. All needs met in room. Therapy Code Descriptions/Definitions Functional [place] Measure: 0=Not Assessed/NA 4=Minimal Assistance 1=Total Assistance 5=Supervision or Setup 2=Maximal Assistance 6=Modified [place] 3=Moderate Assistance 7=Complete IndependenceSCALE: Activities may be completed with or without assistive devices. 3-Hpeklqpjpq-ykiphao completes the activity by him/herself with no assistance from a helper. 5-Set-up or Clean-up Assistance-helper sets up or cleans up; patient completes activity. [place] assists only prior to or following the activity. 4-Supervision or Touching Assistance-helper provides verbal cues and/or touching/steadying and/or contact guard assistance as patient completes activity. Assistance may be provided throughout the activity or intermittently. 3-Partial/Moderate Assistance-helper does LESS THAN HALF the effort. [place] lifts, holds or supports trunk or limbs, but provides less than half the effort. 2-Substantial/Maximal Assistance-helper does MORE THAN HALF the effort. Calvin lifts or holds trunk or limbs and provides more than half the effort. 0-Lveyvlxag-xlfxsm does ALL the effort. Patient does none of the effort to complete the activity. Or, the assistance of 2 or more helpers is required for the patient to complete the activity. If activity was not attempted, code reason: 7-Patient Refused. 9-Not Applicable-not attempted and the patient did not perform the activity before the current illness, exacerbation or injury. 10-Not Attempted due to Environmental Limitations-(lack of equipment, weather restraints, etc.). 88-Not Attempted due to Medical Conditions or Safety Concerns. Shower/Bathe Self (QC): 1 Lower Body Dressing (QC): 1 OT Short Term Goals Short Term Goals Time Frame: Sep 14, 2022 Shower/bathe self: 2 Upper body dressin Lower body dressin Putting on/taking off footwear: 2 OT Detention Goals Yarn Wrapper Goals Time Frame: Sep 28, 2022 Acute change in mental status: 1 Inattention: 1 Disorganized thinkin Altered level of consciousness: 0 Eating (QC): 5 (goal of set up assist if pt able to progress from tube feedings.) Oral Hygiene (QC): 5 Toileting Hygiene (QC): 3 Shower/Bathe Self (QC): 3 Upper Body Dressing (QC): 4 Lower Body Dressing (QC): 3 On/Off Footwear (QC): 3 Additional Goals: 1-Demonstrate ADL Tasks, 2-Verbalize Understanding, 3- ImproveStrength/Emil 1=Demonstrate adherence to instructed precautions during ADL tasks. 2=Patient will verbalize/demonstrate understanding of assistive devices/modifications for ADL. 3=Patient will improve strength/tolerance for activity to enable patient to perform ADL's. OT Education/Plan Problem List/Assessment Assessment: Decreased Activ Tolerance, Decreased UE Strength, Impaired Bed Mobility, Impaired Self-Care Skills, Restricted Funct UE ROM, Visual-Perceptual Deficit Discharge Recommendations Plan/Recommendations: Continue POC Treatment Plan/Plan of Care Patient would benefit from OT for education, treatment and training to promote independence in ADL's, mobility, safety and/or upper extremity function for ADL's. Plan of Care: ADL Retraining, Functional Mobility, Group Exercise/Act as Ind, UE Funct Exercise/Act, UE Neuromus Re-Ed/Coord, W/C Management Training Treatment Duration: Sep 28, 2022 Frequency: At least 5 of 7 days/Wk (IRF) Estimated Hrs Per Day: 1.5 hours per day Agreement: Yes Rehab Potential: Fair Time Start Time: 12:45 Stop Time: 13:30 DATE: Sep 11, 2022 Total Time Billed (hr/min): 45 Billed Treatment Time 1 visit-ADL 3 (45 min) NICHO GU Sep 11, 2022 13:26
--- NOTE | 2022-09-11 13:29 | Diagnostic Imaging Report ---
INDICATION: Cough COMPARISON: None FINDINGS: Frontal and lateral views of the chest demonstrate normal heart size and pulmonary vascularity. The lungs are clear. There are no signs of infiltrate, pleural effusions or pneumothoraces. The visualized osseous structures show no acute abnormalities. IMPRESSION: 1. No acute process. No signs of infiltrates, effusions or pneumothoraces. Dictated by: Dictated on workstation # [id number]
[2022-09-11] MEDS: RT-ALBUTEROL SULF 2.5 MG/3 ML PRE-MIX VIAL INH SCH ×2 (13:37→20:08)
[2022-09-11 20:24] VITALS: BP 139/63
[2022-09-11] MEDS: ALPRAZolam 0.25 MG (XANAX) TAB NG PRN (20:35)
--- NOTE | 2022-09-12 05:56 | PM&R Progress Note ---
Subjective HPI/CC On Admission Date Seen by Provider: Sep 12, 2022 Time Seen by Provider: 11:00 Subjective/Events-last exam 09/12/2022: Still complaining of neck pain She had cervical spine surgery 20 years ago She reports the pain is similar but very difficult to ascertain 09/11/2022: Patient not doing as well today Patient coughing quite a bit and changed diet back to softer and less apt to aspirate Awaiting chest x-ray Dr. Sherman ordered 09/10/2022: No major issues Sensation of throat noted so change of diet is indicated No pain reported 09/09/2022: Patient doing well Has no specific new concerns Talking better Swallowing well 09/08/2022: Patient doing really well Talking more Tolerating eating mechanical soft diet 09/07/2022: Patient just had shower Daughter at the bedside No pain is reported currently Eating and drinking better No aspiration at this point Participation is good 09/06/2022: Patient doing much better Eating better Duration at this point Reviewed blood pressure trend 09/05/2022: Much improved Dysphagia is improved Slow recovery Participation is good 09/04/2022: Patient much improved Slowly eating meals by mouth since NG tube removed Cardiology consulted medication modified 09/03/2022: Patient much improved Barium swallow enables her to eat and so we will discontinue the NG tube Blood pressure labile Blood sugars reviewed 09/02/2022: About the same Talking more and more each day MBS tomorrow and maintained on NGT in place 09/01/2022: Patient doing well Added pain pill NG tube maintained No falls 08/31/2022: No major changes Ice chips are approved to consume slowly NGT is place No falls No pain Fall risk Severe deficits Sugars are good BP a bit elevated Review of Systems General: Fatigue, Malaise Objective Exam Vital Signs Vital Signs Date Time Temp Pulse Resp B/P (MAP) Pulse Ox O2 Delivery O2 Flow Rate FiO2 09/12/22 20:19 37.0 82 20 121/57 (78) 94 Room Air Capillary Refill : General Appearance: No Apparent Distress, WD/WN, Chronically ill, Obese HEENT: PERRL/EOMI, Normal ENT Inspection, Pharynx Normal, Other Neck: Full Range of Motion, Normal Inspection, Non Tender, Supple, Carotid Bruit Respiratory: Chest Non Tender, Normal Breath Sounds, No Accessory Muscle Use, No Respiratory Distress, Crackles Cardiovascular: Regular Rate, Rhythm, No Edema, No Gallop, No JVD, No Murmur, Normal Peripheral Pulses Gastrointestinal: Normal Bowel Sounds, No Organomegaly, No Pulsatile Mass, Non Tender, Soft Back: Normal Inspection, No CVA Tenderness, No Vertebral Tenderness Extremity: Normal Capillary Refill, Normal Inspection, Normal Range of Motion, Non Tender, No Calf Tenderness, No Pedal Edema Neurologic/Psychiatric: Alert, Aphasia, Depressed Affect, Motor Weakness Skin: Normal Color, Warm/Dry Lymphatic: No Adenopathy Results/Procedures Lab Patient resulted labs reviewed. FIM Transfers Therapy Code Descriptions/Definitions Functional [place] Measure: 0=Not Assessed/NA 4=Minimal Assistance 1=Total Assistance 5=Supervision or Setup 2=Maximal Assistance 6=Modified [place] 3=Moderate Assistance 7=Complete IndependenceSCALE: Activities may be completed with or without assistive devices. 8-Dstwispbmf-bcvwvmz completes the activity by him/herself with no assistance from a helper. 5-Set-up or Clean-up Assistance-helper sets up or cleans up; patient completes activity. [place] assists only prior to or following the activity. 4-Supervision or Touching Assistance-helper provides verbal cues and/or touching/steadying and/or contact guard assistance as patient completes activity. Assistance may be provided throughout the activity or intermittently. 3-Partial/Moderate Assistance-helper does LESS THAN HALF the effort. [place] lifts, holds or supports trunk or limbs, but provides less than half the effort. 2-Substantial/Maximal Assistance-helper does MORE THAN HALF the effort. [place] lifts or holds trunk or limbs and provides more than half the effort. 1-Klxjfxilb-wvcaxq does ALL the effort. Patient does none of the effort to complete the activity. Or, the assistance of 2 or more helpers is required for the patient to complete the activity. If activity was not attempted, code reason: 7-Patient Refused. 9-Not Applicable-not attempted and the patient did not perform the activity bef ore the current illness, exacerbation or injury. 10-Not Attempted due to Environmental Limitations-(lack of equipment, weather r estraints, etc.). 88-Not Attempted due to Medical Conditions or Safety Concerns. Roll Left to Right (QC): 3 Sit to Lying (QC): 2 Sit to Stand (QC): 2 Chair/Hnk-wk-Wpogr Xfer(QC): 2 Car Transfer (QC): 88 Gait Training Does the Patient Walk?: No and Walking Goal IS indicated Walk 10 feet (QC): 88 Walk 50 ft with 2 Turns(QC): 88 Walk 150 ft (QC): 88 Walking 10ft/uneven surface-QC: 88 Wheelchair Training Does the Pt Use a Wheelchair?: Yes Distance: 5ft Wheel 50 ft with 2 turns (QC): 3 Wheel 150 ft (QC): 88 Type of Wheelchair: Manual Stair Training 1 Step (curb) (QC): 88 4 Steps (QC): 88 12 Steps (QC): 88 Balance Picking up an Object (QC): 88 ADL-Treatment Eating (QC): 4 (supervision) Oral Hygiene (QC): 4 Shower/Bathe Self (QC): 1 Upper Body Dressing (QC): 2 Lower Body Dressing (QC): 1 On/Off Footwear (QC): 1 Toileting Hygiene (QC): 1 Assessment/Plan Assessment and Plan Assess & Plan/Chief Complaint Assessment: 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 Aspiration risk s/p modified barium swallow with speech therapy eval Diabetes insulin-dependent hemoglobin A1c 13 Obesity Hypertension Hyperlipidemia Suspected cardiac source of CVA DM insulin dependent since hga1c 13 Thrush treating empirically Cough suspicious for aspiration on 09/11/2022 checking chest x-ray ordered nebs Neck pain acute on chronic previous cervical spine surgery 20 years ago per patient Plan: Aggressive PT and OT Speech therapy May need a PEG tube Monitor closely 08/31/2022: Sugars reviewed Add BP med 09/01/2022: Supportive care Monitor closely 09/02/2022: MBS tomorrow Continue therapy 09/03/2022: Supportive care Advance diet Discontinue NG tube 09/04/2022: Advance diet 09/05/2022: Supportive care 09/06/2022: Supportive care Slow recovery 09/07/2022: Monitor sugar 09/08/2022: Supportive care 09/09/2022: Monitor aspiration risk 09/10/2022: Thrush treatment Change diet 09/11/2022: Change diet to less aspiration Check chest x-ray Nebulizers Incentive spirometer 09/12/2022: Monitor neck pain (1) CVA (cerebral vascular accident) BETHANY HERMOSILLO DO Sep 12, 2022 05:56
[2022-09-12] MEDS: POTASSIUM BICARB 20 MEQ (EFFER-K) TABLET PO SCH (06:30)
[2022-09-12] MEDS: hydrALAZINE (APRESOLINE) 25 MG TAB PO SCH (06:30)
[2022-09-12] MEDS: LEVOTHYROXINE 100 MCG (LEVOTHROID) TAB PO SCH (06:30)
[2022-09-12] MEDS: ACETAMINOPHEN 325 MG TABLET NG PRN ×2 (06:31→13:07)
[2022-09-12] MEDS: RT-ALBUTEROL SULF 2.5 MG/3 ML PRE-MIX VIAL INH SCH ×3 (06:44→20:06)
[2022-09-12] MEDS: inSUlin ASPART (NovoLOG) 1 UNIT/0.01 ML (CHARGE PER UNIT) SC SCH ×4 (07:13→20:07)
[2022-09-12 08:00] VITALS: BP 88/47
[2022-09-12 08:23] VITALS: BP 114/58
[2022-09-12 09:36] VITALS: BP 123/57
--- NOTE | 2022-09-12 09:51 | Occupational Ther Daily Note ---
OT Current Status-Daily Note Subjective Pt alert, lying in bed. Pt agrees to therapy after encouragement. Pt c/o pain on R side of neck and intermittent pain in R UE/LE and head, did not rate and continued to participate in skilled therapy. OT/PT co-treat ([id number]), skills of 2 clinicians required to decrease fall risk, increase dynamic sitting balance, working on R UE/LE to regain movement while completing wt bearing tasks. PT focusing on transfers, B LE strengthening and OT focusing on ADLs, functional mobility and B UE strengthening. Mental Status/Objective Patient Orientation: Person, Place, Time, Situation Attachments: Telemetry ADL-Treatment Pt incontinent of urine. Pt requires assistance to initiate roll toward L side with min A and rolls toward L side with cues. Assist x2 for cleansing and clothing manipulation. Dependent for footwear and LBD. Therapy Code Descriptions/Definitions Functional Dickens Measure: 0=Not Assessed/NA 4=Minimal Assistance 1=Total Assistance 5=Supervision or Setup 2=Maximal Assistance 6=Modified Dickens 3=Moderate Assistance 7=Complete IndependenceSCALE: Activities may be completed with or without assistive devices. 1-Keoelajtpp-ankjewk completes the activity by him/herself with no assistance from a helper. 5-Set-up or Clean-up Assistance-helper sets up or cleans up; patient completes activity. Donovan assists only prior to or following the activity. 4-Supervision or Touching Assistance-helper provides verbal cues and/or touching/steadying and/or contact guard assistance as patient completes activity . Assistance may be provided throughout the activity or intermittently. 3-Partial/Moderate Assistance-helper does LESS THAN HALF the effort. Donovan lifts, holds or supports trunk or limbs, but provides less than half the effort. 2-Substantial/Maximal Assistance-helper does MORE THAN HALF the effort. Donovan lifts or holds trunk or limbs and provides more than half the effort. 5-Anfkjhvvn-cxfkgd does ALL the effort. Patient does none of the effort to complete the activity. Or, the assistance of 2 or more helpers is required for the patient to complete the activity. If activity was not attempted, code reason: 7-Patient Refused. 9-Not Applicable-not attempted and the patient did not perform the activity before the current illness, exacerbation or injury. 10-Not Attempted due to Environmental Limitations-(lack of equipment, weather restraints, etc.). 88-Not Attempted due to Medical Conditions or Safety Concerns. Lower Body Dressing (QC): 1 On/Off Footwear: 1 Toileting Hygiene (QC): 1 Toilet Transfer (QC): 1 Other Treatment Cues to roll toward L side for R UE placement and to activate movement of L LE to move B LE's to EOB. Mod A for supine to EOB. Mod A to CGA depending on fatigue level while sitting on EOB. Wt bearing through R UE with max A while sitting upright on EOB. Pt working on balance, core strengthening while sitting activating core to maintain upright posture. Sitting EOB for 15 min. After pt laid back down and was positioned in bed, pt demonstrated increased muscle activation for bicep and tricep movements. After session, pt lying in bed with call light/phone in reach. All needs met in room. OT Short Term Goals Short Term Goals Time Frame: Sep 14, 2022 Shower/bathe self: 2 Upper body dressin Lower body dressin Putting on/taking off footwear: 2 OT Mcc Goals Floor Renovator Goals Time Frame: Sep 28, 2022 Acute change in mental status: 1 Inattention: 1 Disorganized thinkin Altered level of consciousness: 0 Eating (QC): 5 (goal of set up assist if pt able to progress from tube feedings.) Oral Hygiene (QC): 5 Toileting Hygiene (QC): 3 Shower/Bathe Self (QC): 3 Upper Body Dressing (QC): 4 Lower Body Dressing (QC): 3 On/Off Footwear (QC): 3 Additional Goals: 1-Demonstrate ADL Tasks, 2-Verbalize Understanding, 3- ImproveStrength/Emil 1=Demonstrate adherence to instructed precautions during ADL tasks. 2=Patient will verbalize/demonstrate understanding of assistive devices/modifications for ADL. 3=Patient will improve strength/tolerance for activity to enable patient to perform ADL's. OT Education/Plan Problem List/Assessment Assessment: Decreased Activ Tolerance, Decreased UE Strength, Dependent Transfers, Impaired Bed Mobility, Impaired Funct Balance, Impaired Self-Care Skills, Restricted Funct UE ROM, Visual-Perceptual Deficit Discharge Recommendations Plan/Recommendations: Continue POC Treatment Plan/Plan of Care Patient would benefit from OT for education, treatment and training to promote independence in ADL's, mobility, safety and/or upper extremity function for AD L's. Plan of Care: ADL Retraining, Functional Mobility, Group Exercise/Act as Ind, UE Funct Exercise/Act, UE Neuromus Re-Ed/Coord, W/C Management Training Treatment Duration: Sep 28, 2022 Frequency: At least 5 of 7 days/Wk (IRF) Estimated Hrs Per Day: 1.5 hours per day Agreement: Yes Rehab Potential: Fair Time Start Time: 08:30 Stop Time: 09:30 DATE: Sep 12, 2022 Total Time Billed (hr/min): 60 Billed Treatment Time 1 visit-ADL 2 (30 min) NM 2 (30 min) co-treat with PT [id number] NICHO GU Sep 12, 2022 09:51
--- NOTE | 2022-09-12 10:10 | Cardiology Progress Note ---
Subjective Date Seen by Provider: Sep 12, 2022 Time Seen by Provider: 08:30 Subjective/Events-last exam Patient in bed, reports sore throat and fatigue today. Denies any chest pain or dyspnea. Objective-Cardiology Exam Last Set of Vital Signs Vital Signs 09/12/22 09/12/22 09/12/22 08:23 09:36 09:59 Temp 36.3 Pulse 81 Resp 18 B/P (MAP) 123/57 (79) Pulse Ox 96 O2 Delivery Room Air I&O Intake and Output 09/12/22 00:00 Intake Total 550 ml Output Total 450 ml Balance 100 ml Intake Oral 550 ml Output Urine Total 450 ml # Voids 3 # Bowel Movements 1 General: Alert, Cooperative HEENT: Atraumatic Neck: Supple, No JVD, No Thyromegaly Lungs: Clear to Auscultation, Normal Air Movement Heart: Regular Rate, Normal S1, Normal S2, No Murmurs Abdomen: Normal Bowel Sounds, Soft, No Tenderness, No Hepatosplenomegaly, No Masses Extremities: No Clubbing, No Cyanosis, No Edema, Normal Pulses, No Tenderness/Swelling Skin: No Rashes, No Breakdown, No Significant Lesion Neuro: Other (Aphasia and hemiaplasia) Psych/Mental Status: Mood NL A/P-Cardiology Admission Diagnosis CVA Left ICA/MCA occlusion HTN HLP DM Assessment/Plan Acute CVA with right sided weakness, aphasia, dysphagia. CTA showed occluded left ICA/MCA. Patient was transferred to [facility] where she underwent attempt at mechanical thrombectomy with no change. Currently maintained on ASA. Continue to monitor telemetry. 2D Echo done at [facility] on showed mild LVH, grade 2 diastolic dysfunction, mildly dilated LA. No PFO or ASD appreciated. Nonproductive cough, CXR done showing no acute process Sore throat and increased generalized fatigue and malaise. Management per medical services. Hypertension, patient had hypotensive episode this morning Maintained on clonidine patch, amlodipine, hydralazine 25mg TID. Will d/c hydralazine and continue to monitor. Continue to monitor Intolerance/allergy to angiotensin receptor vazquez Hyperlipidemia, maintained on statin, monitor lipids Diabetes mellitus, managed by primary care physician Hypothyroidism, managed by primary care physician. Obesity. Supervisory-Addendum Brief Supervisory Addendum Participated in pt care: history, MDM, physical Personally performed: exam, history, MDM Care discussed with: ATA Results interpretation: Verified all documentation Notes: Patient was seen and evaluated with Luiza, examination performed, management plan was discussed, agree with the current scribed note, I made few changes to the note using Italic font Patient was seen at bedside, still having neck pain Blood pressure is stable Continue on physical therapy and continue to monitor LUIZA AYALA Sep 12, 2022 10:10 VONDA TOMAS MD Sep 12, 2022 12:04
--- NOTE | 2022-09-12 10:11 | Physical Therapy Daily Note ---
PT Daily Note-Current Subjective Pt is not doing well today and reports being tired and having increased pain. Pt is agreeable to complete bed activities and sit EOB for a while. Pt reported neck pain at 8/10 and R UE/LE pain at 5/10 with a visual pain scale. Pain Numeric Pain Scale: 8 Location: Right Location Body Site: Neck Section J - Health Conditions 1. Rarely or not at all 2. Occasionally 3. Frequently 4. Almost constantly 8. Unable to answer Pain Effect on Sleep: 2 Pain Interference with Therapy: 4 Pain Interference w/Day-to-Day: 3 Transfers SCALE: Activities may be completed with or without assistive devices. 0-Dmlnwvlpbc-clgczqw completes the activity by him/herself with no assistance from a helper. 5-Set-up or Clean-up Assistance-helper sets up or cleans up; patient completes activity. Trail assists only prior to or following the activity. 4-Supervision or Touching Assistance-helper provides verbal cues and/or touching/steadying and/or contact guard assistance as patient completes activity. Assistance may be provided throughout the activity or intermittently. 3-Partial/Moderate Assistance-helper does LESS THAN HALF the effort. Trail l ifts, holds or supports trunk or limbs, but provides less than half the effort. 2-Substantial/Maximal Assistance-helper does MORE THAN HALF the effort. Trail lifts or holds trunk or limbs and provides more than half the effort. 8-Swpdoylri-rywqkb does ALL the effort. Patient does none of the effort to complete the activity. Or, the assistance of 2 or more helpers is required for t he patient to complete the activity. If activity was not attempted, code reason: 7-Patient Refused. 9-Not Applicable-not attempted and the patient did not perform the activity before the current illness, exacerbation or injury. 10-Not Attempted due to Environmental Limitations-(lack of equipment, weather restraints, etc.). 88-Not Attempted due to Medical Conditions or Safety Concerns. Roll Left & Right (QC): 3 (Min A) Sit to Lying (QC): 3 (Min A x 2 or Mod A x 1) Lying to Sitting/Side of Bed(Q: 3 (Min A) Weight Bearing Right Lower Extremity: Right Full Weight Bearing Left Lower Extremity: Left Full Weight Bearing Gait Training Does the Patient Walk?: No and Walking Goal IS indicated Wheelchair Training Does the Pt Use a Wheelchair?: Yes Treatments PT/OT co-tx from [id number] due to skill of 2 clinicians required which a vocational rehabilitation consultant could not perform in order to coordinate LE/UEs, decrease fall risk, and due to pt's limitations in strength, activity tolerance, mobility, and R side hemiparesis. PT focused on LE placement, gross overall movement, R LE strength, bed mobility, and core strength/sitting tolerance. OT focused on UE placement, ADLs, and cues for sequencing/safety. Pt completed R rolling in bed with Min A and L rolling with Min/Mod A. Pt completed supine R LE AROM x 10 reps each: QS, GS, heel slides, and a single SLR. Pt completed supine > sit with Min A. Pt completed seated partial LAQ x 10 reps. Pt sat EOB for ~15 min with Min A - CGA. PT worked on R LE activation, core strength, and erect posture, while OT worked on R UE activation and WBing. Pt completed sit > supine with Min/Mod A x 2. Pt cleaned up and positioned in bed with Max A. Pt left in bed with call light in reach and all needs met. Assessment Current Status: Fair Progress Pt tolerated PT/OT fairly, with good effort, but was unable to transfer/stand on this date. PT Senior Care Goals Senior Care Goals PT Newspaper Stuffer Goals Time Frame: Sep 13, 2022 Roll Left & Right (QC): 3 (Pt will complete bed mobility with Min A. ) Sit to Lying (QC): 3 (Pt will complete bed mobility with Min A. ) Lying-Sitting on Side/Bed(QC): 3 (Pt will complete bed mobility with Min A. ) Sit to Stand (QC): 3 (Pt will complete transfer with Min/Mod A. ) Chair/Dxz-cr-Izfha Xfer(QC): 3 (Pt will complete transfer with Min/Mod A. ) Toilet Transfer (QC): 3 (Pt will complete transfer with Min/Mod A. ) Car Transfer (QC): 3 (Pt will complete transfer with Min/Mod A. ) Does the Patient Walk: No and Walking Goal IS indicated Walk 10 feet (QC): 3 (Min/Mod A for walking with the chau-walker ) Walk 50ft with 2 Turns (QC): 3 (Min/Mod A for walking with the chau-walker ) Walk 150 ft (QC): 88 Walking 10ft on Uneven Surface: 88 1 Step (curb) (QC): 3 (Min/Mod A for a curb/step ) 4 Steps (QC): 88 12 Steps (QC): 88 Picking up an Object (QC): 3 (Min A with denier control operator ) Does the Pt use WC or Scooter?: Yes Wheel 50 feet with 2 turns (QC: 3 (Min A for w/c mobility ) Type: Manual Wheel 150 feet: 3 (Min A for w/c mobility ) Type: Manual PT Plan Problem List Problem List: Activity Tolerance, Functional Strength, Safety, Balance, Gait, Transfer, Bed Mobility Treatment/Plan Treatment Plan: Continue Plan of Care Treatment Plan: Bed Mobility, Concurrent Therapy, Education, Functional Activity Emil, Functional Strength, Group Therapy, Gait, Safety, Therapeutic Exercise, Transfers Treatment Duration: Sep 13, 2022 Frequency: At least 5 of 7 days/Wk (IRF) Estimated Hrs Per Day: 1.5 hours per day Patient and/or Family Agrees t: Yes Safety Risks/Education Patient Education: Correct Positioning, Safety Issues Teaching Recipient: Patient Teaching Methods: Demonstration, Discussion Response to Teaching: Verbalize Understanding, Return Demonstration, Reinforcement Needed Discharge Recommendations Therapy Discharge Recommendati: 24 Hour Supervision Discharge Status/Home Program Cont per POC Barriers to Progress R sided weakness; pain levels Target Placement SNF vs home with daughters Time Time In: 830 Time Out: 930 DATE: Sep 12, 2022 Total Billed Treatment Time: 60 Total Billed Treatment 60 min co-tx from 1 visit FA x 3 EX x 1 KATELIN YAO PT Sep 12, 2022 10:10
[2022-09-12] MEDS: NYSTATIN ORAL SUSP 5 ML UDC PO SCH ×4 (10:20→20:06)
[2022-09-12] MEDS: DICLOFENAC 1% GEL 100 GM (VOLTAREN) TUBE TOP SCH ×4 (10:20→20:07)
[2022-09-12] MEDS: ENOXAPARIN 40 MG/0.4 ML (LOVENOX) SYR SC SCH (10:20)
[2022-09-12] MEDS: ASPIRIN 325 MG (5 GR) TABLET NG SCH (10:21)
[2022-09-12] MEDS: amLODIPine 5 MG (NORVASC) TAB NG SCH (10:21)
[2022-09-12] MEDS: VITAMIN D3 125 MCG (5,000 UNITS) CAPSULE PO SCH (10:22)
[2022-09-12] MEDS: SENNA W/DOCUSATE (SENOKOT S) TABLET NG SCH ×2 (10:23→20:06)
[2022-09-12] MEDS: PANTOPRAZOLE 40 MG (PROTONIX) TAB PO SCH (10:23)
[2022-09-12] MEDS: polyethylene glycoL POWDER 17 GM (MIRALAX) PACK NG SCH ×2 (10:23→19:27)
[2022-09-12] MEDS: DOCUSATE SODIUM 10 MG/ML 10 ML UDC (COLACE) NG SCH ×2 (10:23→19:27)
[2022-09-12] MEDS: GABAPENTIN 100 MG (NEURONTIN) CAP PO SCH ×3 (10:24→20:07)
[2022-09-12] MEDS: CATHETER FLUSH 10 ML SYR IVP SCH ×3 (13:02→20:10)
--- NOTE | 2022-09-12 13:43 | ST Mod Barium Swallow ---
Speech Evaluation-General Medical Diagnosis CVA Onset Date: August 25, 2022 Therapy Diagnosis Therapy Diagnosis: Dysphagia Precautions Precautions: Fall, Aspiration Precautions/Isolations: Aspiration, Fall Prevention, Standard Precautions Referral Referring Physician: Dr. Goddard Reason for Referral: Evaluation/Treatment (Videoswallow) Medical History Pertinent Medical History: DM, HTN Please refer to initial speech evaluation for medical history. Current History S/p Left MCA-CVA Reviewed History: Yes Social History Home: Single Level Current Living Status: Children (daughter) Speech Mod Barium Swallow Prior Level of Function Prior to stroke, pt with no swallowing deficits. At time of this videoswallow, pt on nectar thick liquids and mince and moist diet consistency. Oral Motor Skills Lingual Protrusion: Normal Lingual Protrusion Comments: Tongue deviates right Lingual ROM: Abnormal Lingual ROM Comments: Difficult with elevating tip of tongue Volitional Dry Swallow: Yes Gag Reflex: Yes Voluntary Cough: Yes Textures-Lateral View Lateral View Food Presentation: Thin Liquid via Cup, Thin Liquid via Straw, [place] Liquid via Straw, Pureed Solids, Mechanial Soft Solids, Regular Solids Oral Phase Labial Closure: No Impairment (WFL) Bolus Formation Pooling L/R: No Impairment (WFL) Bolus Formation Placement: No Impairment (WFL) Mastication Rotary Chew: No Impairment (WFL) A/P Lingual Propulsion: No Impairment (WFL) Lingual Movement: Mild Impairment Pt demonstrates adequate labial closure with no anterior spillage. She demonstrates the ability to maintain the bolus betwee the tongue and roof of mouth, with no evidence of the bolus escaping to the floor of the oral cavity. She demonstrates adequate mastication with a rotary chewing motion. Pt is able to move the bolus to the posterior oral cavity to initiate the swallow. She does demonstrate slower lingual movements when initiating the swallow. Oral Phase Residue: Mild Impairment Pt demonstrates moderate oral residue following trial of hard solid. Pharyngeal Phase Swallow Response: Moderate Impairment Base of Tongue: Moderate Impairment Epiglottic Movement: No Impairment (WFL) Laryngeal Elevation: Mild Impairment Vallecular Residue: Mild Pharyngeal Wall Residue: Mild Piriform Sinus Residue: No Impairment (WFL) Laryngeal Penetration: Mild Aspiration Observations: Mild Other Pharyngeal Observations: Pt demonstrates a slowed swallow response. She demonstrates potential base of tongue weakness evident by premature spillage and not maintaining the bolus in the oral cavity until initiating the swallow. Most trials spill to the valleculae before the swallow is initiated. Pt does not make complete contact with the base of tongue and posterior pharyngeal. She demonstrates good epiglottic inversion. Pt with incomplete laryngeal closure. Pt with penetration to level of the vocal folds on thin liquids via cup with no noted residue. Penetration is cleared with completion of the swallow. Pt demonstrates aspiration on thin liquids via straw, pt immediately coughs following swallow. Pt demonstrates residue on the base of tongue following most trials. Residue is min-mild. Pt with adequate pharyngeal stripping wave, typically clearing the pharynx. She does demonstrate valleculae residue on mechanical soft and hard solid consistencies and minimal residue on the posterior pharyngeal wall directly above the piriform sinuses on hard solids. Pt was able to clear the residue on hard solids with a second dry swallow. Esophageal Phase Lateral esophageal phase - no retention noted Performed-A/P View Not Applicable/Performed Summary/Impressions Oral Phase Impression: Mild Impairment Overall, pt presents with MILD-MODERATE oropharyngeal dysphagia as characterized oral and pharyngeal residue and penetration and aspiration on thin liquids as n oted above. Speech Short Term Goals Short Term Goals Short Term Goals 1. The patient will participate in a modified barium swallow assessment to evaluate for the presence of aspiration and best guide therapeutic interventions. MET 09/03/2022 2. The patient will display 80% accuracy with oral motor exercises with mild clinician verbal and visual cueing. 3. The patient will display 80% accuracy with dysphagia exercises with mild clinician verbal and visual cueing. Language: 1. Pt will complete verbal imitation of basic one syllable words with 80% accuracy with min clinician verbal and visual cuing. 2. Pt will expressively and receptively identify common everyday objects with 80% accuracy with min clinician verbal and visual cuing. 3. Pt will follow basic 1 step and 2 step directions with 80% accuracy with min clinician verbal and visual cuing. Speech Jail Goals Jail Goals 1. The patient will tolerate the least restrictive diet consistency without s/s of suspected aspiration. Language: 1. Pt will communicate basic wants/needs with staff or family members either verbally or with use of pictures in 4/5 opportunities. Time Frame: Three Weeks. Speech-Plan Patient/Family Goals Patient/Family Goals: Pending progress in IRU Treatment Plan Speech Therapy Treatment Plan: Continue Plan of Care Treatment Duration: Sep 14, 2022 Frequency: Modified Program (IRF) Estimated Hrs Per Day: .5 hour per day Rehab Potential: Fair Pt/Family Agrees to Plan: Yes Safety Risks/Education Teaching Recipient: Patient Teaching Methods: Discussion Response to Teaching: Verbalize Understanding Education Topics Provided: Purpose of the VFSS, results, and recommendations discussed with the patient this date. Pt receptive and verbalized understanding. Pt requests to stay on mince and moist consistency due to oral pain. Time Speech Therapy Time In: 10:30 Speech Therapy Time Out: 11:20 DATE: Sep 12, 2022 Total Billed Time: 50 Billed Treatment Time MBSS Including actual MBSS time and education regarding results and recommendations of the MBSS Kaleigh Nelson Speech Therapy Sep 12, 2022 13:43
--- NOTE | 2022-09-12 14:00 | Speech Therapy Daily Note ---
Speech Daily Progress Note Subjective Date Seen by Provider: Sep 12, 2022 Time Seen by Provider: 10:00 Pt reclined in bed when EXCELLENCE LEADER enters room. Pt appears more tired this date than previous therapy days. Pt is pleasant and cooperative throughout session. Pain Numeric Pain Scale: 5-Moderate Pain Location Body Site: Jaw Comment: R ant. neck, L pos. neck, R arm/leg Objective Pt is communicating with EXCELLENCE LEADER and nurse during this session. Pt's speech is alexander roximately 50% intelligible at this time. Pt is demonstrates increased strategies such as trying to communicate her thoughts in different ways when not understood. Assessment Assessment Current Status: Poor Progress Treatment Plan Continue Plan of Care Speech Short Term Goals Short Term Goals Short Term Goals 1. The patient will participate in a modified barium swallow assessment to evaluate for the presence of aspiration and best guide therapeutic interventions. MET 09/03/2022 2. The patient will display 80% accuracy with oral motor exercises with mild clinician verbal and visual cueing. 3. The patient will display 80% accuracy with dysphagia exercises with mild clinician verbal and visual cueing. Language: 1. Pt will complete verbal imitation of basic one syllable words with 80% ac curacy with min clinician verbal and visual cuing. 2. Pt will expressively and receptively identify common everyday objects with 80% accuracy with min clinician verbal and visual cuing. 3. Pt will follow basic 1 step and 2 step directions with 80% accuracy with min clinician verbal and visual cuing. Speech Alf Goals Alf Goals 1. The patient will tolerate the least restrictive diet consistency without s/s of suspected aspiration. Language: 1. Pt will communicate basic wants/needs with staff or family members either verbally or with use of pictures in 4/5 opportunities. Time Frame: Three Weeks. Speech-Plan Patient/Family Goals Patient/Family Goals: Pending progress in IRU Treatment Plan Speech Therapy Treatment Plan: Continue Plan of Care Treatment Duration: Sep 14, 2022 Frequency: Modified Program (IRF) Estimated Hrs Per Day: .5 hour per day Rehab Potential: Fair Pt/Family Agrees to Plan: Yes Safety Risks/Education Teaching Recipient: Patient Teaching Methods: Discussion Response to Teaching: Verbalize Understanding Education Topics Provided: Pt continues to be educated on purpose of speech therapy and strategies to help her communicate more effectively and efficiently. Pt receptive and verbalizes understanding. Time Speech Therapy Time In: 10:00 Speech Therapy Time Out: 10:30 DATE: Sep 12, 2022 Total Billed Time: 30 Billed Treatment Time S/L Kaleigh Monaco Speech Therapy Sep 12, 2022 14:00
--- NOTE | 2022-09-12 15:26 | Diagnostic Imaging Report ---
INDICATION: Dysphagia. Procedure was performed in conjunction with Speech Therapy. Video fluoroscopy was performed during the swallowing of barium in multiple consistencies. A total of 97 seconds of fluoroscopic time was utilized. FINDINGS: Patient ingested thin barium as well as nectar, honey, puree, as well as mechanical soft and cracker consistency. Oral phase is unremarkable. There was an episode of penetration with aspiration during the swallowing of thin barium with a straw. All other consistencies were unremarkable. No significant vallecular or piriform sinus residue was seen. IMPRESSION: Essentially unremarkable modified barium swallow apart from a single episode of aspiration of thin barium through a straw. Dictated by: Dictated on workstation # [id number]
[2022-09-12] MEDS: ALPRAZolam 0.25 MG (XANAX) TAB NG PRN (20:06)
[2022-09-12 20:19] VITALS: BP 121/57
[2022-09-13] MEDS: ACETAMINOPHEN 325 MG TABLET NG PRN (01:56)
[2022-09-13] MEDS: POTASSIUM BICARB 20 MEQ (EFFER-K) TABLET PO SCH (04:59)
[2022-09-13] MEDS: LEVOTHYROXINE 100 MCG (LEVOTHROID) TAB PO SCH (04:59)
[2022-09-13] MEDS: inSUlin ASPART (NovoLOG) 1 UNIT/0.01 ML (CHARGE PER UNIT) SC SCH ×4 (06:46→20:06)
[2022-09-13] MEDS: RT-ALBUTEROL SULF 2.5 MG/3 ML PRE-MIX VIAL INH SCH (06:53)
[2022-09-13 07:28] VITALS: BP 150/67
--- NOTE | 2022-09-13 07:28 | Occupational Ther Daily Note ---
OT Current Status-Daily Note Subjective Pt alert, lying in bed. Pt agrees to therapy. No c/o pain at this time. Pt appears and verbalizes she feels better today. Mental Status/Objective Patient Orientation: Person, Place, Non-Verbal/Aphasic, Time, Situation Attachments: Telemetry ADL-Treatment Assist x2 for scooting to HOB and positioning for eating breakfast. Pt has demonstrated ability to assist x1 for scooting up in bed if bed is placed in Trendelenberg position. Pt set up for eating then pt is able to complete rest on own. Pt scans to R side without prompts on tray. After session, pt sitting up in bed eating breakfast. Call light/phone in reach. All needs met in room. Therapy Code Descriptions/Definitions Functional [place] Measure: 0=Not Assessed/NA 4=Minimal Assistance 1=Total Assistance 5=Supervision or Setup 2=Maximal Assistance 6=Modified [place] 3=Moderate Assistance 7=Complete IndependenceSCALE: Activities may be completed with or without assistive devices. 0-Bqolpqnqcg-mzywiuy completes the activity by him/herself with no assistance from a helper. 5-Set-up or Clean-up Assistance-helper sets up or cleans up; patient completes activity. [place] assists only prior to or following the activity. 4-Supervision or Touching Assistance-helper provides verbal cues and/or touchin g/steadying and/or contact guard assistance as patient completes activity. Assistance may be provided throughout the activity or intermittently. 3-Partial/Moderate Assistance-helper does LESS THAN HALF the effort. [place] lifts, holds or supports trunk or limbs, but provides less than half the effort. 2-Substantial/Maximal Assistance-helper does MORE THAN HALF the effort. [place] lifts or holds trunk or limbs and provides more than half the effort. 6-Dqjferzjf-jqnqdt does ALL the effort. Patient does none of the effort to complete the activity. Or, the assistance of 2 or more helpers is required for the patient to complete the activity. If activity was not attempted, code reason: 7-Patient Refused. 9-Not Applicable-not attempted and the patient did not perform the activity before the current illness, exacerbation or injury. 10-Not Attempted due to Environmental Limitations-(lack of equipment, weather restraints, etc.). 88-Not Attempted due to Medical Conditions or Safety Concerns. Eating (QC): 5 OT Short Term Goals Short Term Goals Time Frame: Sep 14, 2022 Shower/bathe self: 2 Upper body dressin Lower body dressin Putting on/taking off footwear: 2 OT Book Retailer Goals Shelter Goals Time Frame: Sep 28, 2022 Acute change in mental status: 1 Inattention: 1 Disorganized thinkin Altered level of consciousness: 0 Eating (QC): 5 (goal of set up assist if pt able to progress from tube feedings.) Oral Hygiene (QC): 5 Toileting Hygiene (QC): 3 Shower/Bathe Self (QC): 3 Upper Body Dressing (QC): 4 Lower Body Dressing (QC): 3 On/Off Footwear (QC): 3 Additional Goals: 1-Demonstrate ADL Tasks, 2-Verbalize Understanding, 3- ImproveStrength/Emil 1=Demonstrate adherence to instructed precautions during ADL tasks. 2=Patient will verbalize/demonstrate understanding of assistive devices/modifications for ADL. 3=Patient will improve strength/tolerance for activity to enable patient to perform ADL's. OT Education/Plan Problem List/Assessment Assessment: Decreased Activ Tolerance, Decreased UE Strength, Dependent Transfers, Impaired Bed Mobility, Impaired Self-Care Skills Discharge Recommendations Plan/Recommendations: Continue POC Treatment Plan/Plan of Care Patient would benefit from OT for education, treatment and training to promote independence in ADL's, mobility, safety and/or upper extremity function for ADL's. Plan of Care: ADL Retraining, Functional Mobility, Group Exercise/Act as Ind, UE Funct Exercise/Act, UE Neuromus Re-Ed/Coord, W/C Management Training Treatment Duration: Sep 28, 2022 Frequency: At least 5 of 7 days/Wk (IRF) Estimated Hrs Per Day: 1.5 hours per day Agreement: Yes Rehab Potential: Fair Time Start Time: 07:10 Stop Time: 07:25 DATE: Sep 13, 2022 Total Time Billed (hr/min): 15 Billed Treatment Time 1 visit-ADL 1 (15 min) NICHO GU Sep 13, 2022 07:28
--- NOTE | 2022-09-13 08:10 | PM&R Progress Note ---
Subjective HPI/CC On Admission Date Seen by Provider: Sep 13, 2022 Time Seen by Provider: 11:00 Subjective/Events-last exam 09/13/2022: Talking a lot better No other concerns No pain currently Bowels are moving 09/12/2022: Still complaining of neck pain She had cervical spine surgery 20 years ago She reports the pain is similar but very difficult to ascertain 09/11/2022: Patient not doing as well today Patient coughing quite a bit and changed diet back to softer and less apt to aspirate Awaiting chest x-ray Dr. Sherman ordered 09/10/2022: No major issues Sensation of throat noted so change of diet is indicated No pain reported 09/09/2022: Patient doing well Has no specific new concerns Talking better Swallowing well 09/08/2022: Patient doing really well Talking more Tolerating eating mechanical soft diet 09/07/2022: Patient just had shower Daughter at the bedside No pain is reported currently Eating and drinking better No aspiration at this point Participation is good 09/06/2022: Patient doing much better Eating better Duration at this point Reviewed blood pressure trend 09/05/2022: Much improved Dysphagia is improved Slow recovery Participation is good 09/04/2022: Patient much improved Slowly eating meals by mouth since NG tube removed Cardiology consulted medication modified 09/03/2022: Patient much improved Barium swallow enables her to eat and so we will discontinue the NG tube Blood pressure labile Blood sugars reviewed 09/02/2022: About the same Talking more and more each day MBS tomorrow and maintained on NGT in place 09/01/2022: Patient doing well Added pain pill NG tube maintained No falls 08/31/2022: No major changes Ice chips are approved to consume slowly NGT is place No falls No pain Fall risk Severe deficits Sugars are good BP a bit elevated Review of Systems General: Fatigue, Malaise Objective Exam Vital Signs Vital Signs Date Time Temp Pulse Resp B/P (MAP) Pulse Ox O2 Delivery O2 Flow Rate FiO2 09/13/22 20:52 Room Air 09/13/22 19:50 36.2 87 20 145/67 (93) 95 09/13/22 14:44 21 Capillary Refill : General Appearance: No Apparent Distress, WD/WN, Chronically ill, Obese HEENT: PERRL/EOMI, Normal ENT Inspection, Pharynx Normal, Other Neck: Full Range of Motion, Normal Inspection, Non Tender, Supple, Carotid Bruit Respiratory: Chest Non Tender, Normal Breath Sounds, No Accessory Muscle Use, No Respiratory Distress, Crackles Cardiovascular: Regular Rate, Rhythm, No Edema, No Gallop, No JVD, No Murmur, Normal Peripheral Pulses Gastrointestinal: Normal Bowel Sounds, No Organomegaly, No Pulsatile Mass, Non Tender, Soft Back: Normal Inspection, No CVA Tenderness, No Vertebral Tenderness Extremity: Normal Capillary Refill, Normal Inspection, Normal Range of Motion, Non Tender, No Calf Tenderness, No Pedal Edema Neurologic/Psychiatric: Alert, Aphasia, Depressed Affect, Motor Weakness Skin: Normal Color, Warm/Dry Lymphatic: No Adenopathy Results/Procedures Lab Patient resulted labs reviewed. FIM Transfers Therapy Code Descriptions/Definitions Functional [place] Measure: 0=Not Assessed/NA 4=Minimal Assistance 1=Total Assistance 5=Supervision or Setup 2=Maximal Assistance 6=Modified [place] 3=Moderate Assistance 7=Complete IndependenceSCALE: Activities may be completed with or without assistive devices. 2-Bxftjxmkgb-ynopuca completes the activity by him/herself with no assistance from a helper. 5-Set-up or Clean-up Assistance-helper sets up or cleans up; patient completes activity. [place] assists only prior to or following the activity. 4-Supervision or Touching Assistance-helper provides verbal cues and/or touching/steadying and/or contact guard assistance as patient completes activity. Assistance may be provided throughout the activity or intermittently. 3-Partial/Moderate Assistance-helper does LESS THAN HALF the effort. [place] lifts, holds or supports trunk or limbs, but provides less than half the effort. 2-Substantial/Maximal Assistance-helper does MORE THAN HALF the effort. [place] lifts or holds trunk or limbs and provides more than half the effort. 8-Wjlzntjmh-fzxsxk does ALL the effort. Patient does none of the effort to complete the activity. Or, the assistance of 2 or more helpers is required for the patient to complete the activity. If activity was not attempted, code reason: 7-Patient Refused. 9-Not Applicable-not attempted and the patient did not perform the activity before the current illness, exacerbation or injury. 10-Not Attempted due to Environmental Limitations-(lack of equipment, weather restraints, etc.). 88-Not Attempted due to Medical Conditions or Safety Concerns. Roll Left to Right (QC): 3 (Min A) Sit to Lying (QC): 3 (Min A x 2 or Mod A x 1) Sit to Stand (QC): 2 Chair/Xoo-ag-Wdhdr Xfer(QC): 2 Car Transfer (QC): 88 Gait Training Does the Patient Walk?: No and Walking Goal IS indicated Walk 10 feet (QC): 88 Walk 50 ft with 2 Turns(QC): 88 Walk 150 ft (QC): 88 Walking 10ft/uneven surface-QC: 88 Wheelchair Training Does the Pt Use a Wheelchair?: Yes Distance: 5ft Wheel 50 ft with 2 turns (QC): 3 Wheel 150 ft (QC): 88 Type of Wheelchair: Manual Stair Training 1 Step (curb) (QC): 88 4 Steps (QC): 88 12 Steps (QC): 88 Balance Picking up an Object (QC): 88 ADL-Treatment Eating (QC): 5 Oral Hygiene (QC): 4 Shower/Bathe Self (QC): 1 Upper Body Dressing (QC): 2 Lower Body Dressing (QC): 1 On/Off Footwear (QC): 1 Toileting Hygiene (QC): 1 Toilet Transfer (QC): 1 Assessment/Plan Assessment and Plan Assess & Plan/Chief Complaint Assessment: 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 Aspiration risk s/p modified barium swallow with speech therapy eval Diabetes insulin-dependent hemoglobin A1c 13 Obesity Hypertension Hyperlipidemia Suspected cardiac source of CVA DM insulin dependent since hga1c 13 Thrush treating empirically Cough suspicious for aspiration on 09/11/2022 checking chest x-ray ordered nebs Neck pain acute on chronic previous cervical spine surgery 20 years ago per patient Plan: Aggressive PT and OT Speech therapy May need a PEG tube Monitor closely 08/31/2022: Sugars reviewed Add BP med 09/01/2022: Supportive care Monitor closely 09/02/2022: MBS tomorrow Continue therapy 09/03/2022: Supportive care Advance diet Discontinue NG tube 09/04/2022: Advance diet 09/05/2022: Supportive care 09/06/2022: Supportive care Slow recovery 09/07/2022: Monitor sugar 09/08/2022: Supportive care 09/09/2022: Monitor aspiration risk 09/10/2022: Thrush treatment Change diet 09/11/2022: Change diet to less aspiration Check chest x-ray Nebulizers Incentive spirometer 09/12/2022: Monitor neck pain 09/13/2022: Continue heating pad For neck pain. (1) CVA (cerebral vascular accident) BETHANY HERMOSILLO 15, 2023 08:10
[2022-09-13] MEDS: amLODIPine 5 MG (NORVASC) TAB NG SCH (08:24)
[2022-09-13] MEDS: SENNA W/DOCUSATE (SENOKOT S) TABLET NG SCH ×2 (08:24→19:47)
[2022-09-13] MEDS: ENOXAPARIN 40 MG/0.4 ML (LOVENOX) SYR SC SCH (08:24)
[2022-09-13] MEDS: VITAMIN D3 125 MCG (5,000 UNITS) CAPSULE PO SCH (08:24)
[2022-09-13] MEDS: DOCUSATE SODIUM 10 MG/ML 10 ML UDC (COLACE) NG SCH ×2 (08:24→19:19)
[2022-09-13] MEDS: NYSTATIN ORAL SUSP 5 ML UDC PO SCH ×4 (08:24→19:47)
[2022-09-13] MEDS: PANTOPRAZOLE 40 MG (PROTONIX) TAB PO SCH (08:24)
[2022-09-13] MEDS: ASPIRIN 325 MG (5 GR) TABLET NG SCH (08:24)
[2022-09-13] MEDS: GABAPENTIN 100 MG (NEURONTIN) CAP PO SCH ×3 (08:24→19:47)
[2022-09-13] MEDS: DICLOFENAC 1% GEL 100 GM (VOLTAREN) TUBE TOP SCH ×4 (08:25→19:49)
[2022-09-13] MEDS: polyethylene glycoL POWDER 17 GM (MIRALAX) PACK NG SCH ×2 (08:25→19:19)
--- NOTE | 2022-09-13 08:40 | Cardiology Progress Note ---
Subjective Date Seen by Provider: Sep 13, 2022 Time Seen by Provider: 08:40 Subjective/Events-last exam Patient was seen at bedside, laying down comfortably. Still having pain in his feet Objective-Cardiology Exam Last Set of Vital Signs Vital Signs 09/13/22 07:28 Temp 36.4 Pulse 65 Resp 18 B/P (MAP) 150/67 (94) Pulse Ox 95 O2 Delivery Room Air I&O Intake and Output 09/13/22 00:00 Intake Total 920 ml Output Total 150 ml Balance 770 ml Intake Oral 920 ml Output Urine Total 150 ml # Urine Diapers 3 General: Alert, Cooperative HEENT: Atraumatic Neck: Supple, No JVD, No Thyromegaly Lungs: Clear to Auscultation, Normal Air Movement Heart: Regular Rate, Normal S1, Normal S2, No Murmurs Abdomen: Normal Bowel Sounds, Soft, No Tenderness, No Hepatosplenomegaly, No Masses Extremities: No Clubbing, No Cyanosis, No Edema, Normal Pulses, No Tenderness/Swelling Skin: No Rashes, No Breakdown, No Significant Lesion Neuro: Other (Aphasia and hemiaplasia) Psych/Mental Status: Mood NL Results Lab Laboratory Tests Test 09/12/22 15:26 09/12/22 19:54 09/13/22 04:54 Range/Units Glucometer 108 135 H 120 H 70-110 MG/DL A/P-Cardiology Admission Diagnosis CVA Left ICA/MCA occlusion HTN HLP DM Assessment/Plan Acute CVA with right sided weakness, aphasia, dysphagia. CTA showed occluded left ICA/MCA. Patient was transferred to [facility] where she underwent attempt at mechanical thrombectomy with no change. Currently maintained on ASA. Continue to monitor telemetry. 2D Echo done at [facility] on showed mild LVH, grade 2 diastolic dysfunction, mildly dilated LA. No PFO or ASD appreciated. Nonproductive cough, CXR done showing no acute process Sore throat and increased generalized fatigue and malaise. Management per m edical services. Hypertension, patient had hypotensive episode this morning Maintained on clonidine patch, amlodipine, hydralazine 25mg TID. Will d/c hydralazine and continue to monitor. Continue to monitor Intolerance/allergy to angiotensin receptor vazquez Hyperlipidemia, maintained on statin, monitor lipids Diabetes mellitus, managed by primary care physician Hypothyroidism, managed by primary care physician. Obesity. Dr. Llamas is covering starting September 14, 2022 VONDA TOMAS MD Sep 13, 2022 08:40
--- NOTE | 2022-09-13 10:12 | Occupational Ther Daily Note ---
OT Current Status-Daily Note Subjective Pt alert, lying in bed. Pt agrees to therapy. Pt appears to feel better today. OT/PT co-treat ([id number]), skills of 2 clinicians required to decrease fall risk, increase dynamic sitting balance, working on R UE/LE to regain movement while completing wt bearing tasks. PT focusing on transfers, B LE strengthening and OT focusing on ADLs, functional mobility and B UE strengthening. Mental Status/Objective Patient Orientation: Person, Place, Non-Verbal/Aphasic, Time, Situation Attachments: Telemetry ADL-Treatment Max A for lower body dressing in supine. Pt rolls side to side while assist to pull up pants then pt able to pull pants over abdomen. Rolling to R side min A to SBA using bed rail. Mod A to go from sidelying to sitting EOB. Assist to stabilize sitting EOB initially then pt able to sit with close SBA for safety. Mod A x2 for SPT from EOB to w/c. Pt then completed oral care sitting at sink by self after set up. Therapy Code Descriptions/Definitions Functional [place] Measure: 0=Not Assessed/NA 4=Minimal Assistance 1=Total Assistance 5=Supervision or Setup 2=Maximal Assistance 6=Modified [place] 3=Moderate Assistance 7=Complete IndependenceSCALE: Activities may be completed with or without assistive devices. 1-Ylzflmhmgs-botbcqg completes the activity by him/herself with no assistance from a helper. 5-Set-up or Clean-up Assistance-helper sets up or cleans up; patient completes activity. [place] assists only prior to or following the activity. 4-Supervision or Touching Assistance-helper provides verbal cues and/or touching/steadying and/or contact guard assistance as patient completes activity. Assistance may be provided throughout the activity or intermittently. 3-Partial/Moderate Assistance-helper does LESS THAN HALF the effort. [place] lifts, holds or supports trunk or limbs, but provides less than half the effort. 2-Substantial/Maximal Assistance-helper does MORE THAN HALF the effort. [place] lifts or holds trunk or limbs and provides more than half the effort. 8-Amujhlgkc-vmfdwf does ALL the effort. Patient does none of the effort to complete the activity. Or, the assistance of 2 or more helpers is required for the patient to complete the activity. If activity was not attempted, code reason: 7-Patient Refused. 9-Not Applicable-not attempted and the patient did not perform the activity before the current illness, exacerbation or injury. 10-Not Attempted due to Environmental Limitations-(lack of equipment, weather restraints, etc.). 88-Not Attempted due to Medical Conditions or Safety Concerns. Oral Hygiene (QC): 5 Lower Body Dressing (QC): 2 Other Treatment Pt stood 4x's at //bars for ~1'15" each, see PT notes for progress. Pt started with mod A with PARK boosting pt from back while PT in front(see PT note for assist level) then by last stand pt was min A for PARK assist in back. PARK sta bilized R shldr and UE on //bars for wt bearing while PT stabilized pt and R LE. Pt demonstrating minimal R shldr elevation when alternating L/R shldr movement. Pt agrees to sit up in w/c while completing SERVER. Left in care of SERVER. All needs met. OT Short Term Goals Short Term Goals Time Frame: Sep 14, 2022 Shower/bathe self: 2 Upper body dressin Lower body dressin Putting on/taking off footwear: 2 OT Center Line Cutter Operator Goals Usp Goals Time Frame: Sep 28, 2022 Acute change in mental status: 1 Inattention: 1 Disorganized thinkin Altered level of consciousness: 0 Eating (QC): 5 (goal of set up assist if pt able to progress from tube feedings.) Oral Hygiene (QC): 5 Toileting Hygiene (QC): 3 Shower/Bathe Self (QC): 3 Upper Body Dressing (QC): 4 Lower Body Dressing (QC): 3 On/Off Footwear (QC): 3 Additional Goals: 1-Demonstrate ADL Tasks, 2-Verbalize Understanding, 3- ImproveStrength/Emil 1=Demonstrate adherence to instructed precautions during ADL tasks. 2=Patient will verbalize/demonstrate understanding of assistive devices/modifications for ADL. 3=Patient will improve strength/tolerance for activity to enable patient to perform ADL's. OT Education/Plan Problem List/Assessment Assessment: Decreased Activ Tolerance, Decreased UE Strength, Dependent Transfers, Impaired Bed Mobility, Impaired Coordination, Impaired Funct Balance, Impaired Self-Care Skills, Restricted Funct UE ROM, Visual-Perceptual Deficit Discharge Recommendations Plan/Recommendations: Continue POC Treatment Plan/Plan of Care Patient would benefit from OT for education, treatment and training to promote independence in ADL's, mobility, safety and/or upper extremity function for ADL's. Plan of Care: ADL Retraining, Functional Mobility, Group Exercise/Act as Ind, UE Funct Exercise/Act, UE Neuromus Re-Ed/Coord, W/C Management Training Treatment Duration: Sep 28, 2022 Frequency: At least 5 of 7 days/Wk (IRF) Estimated Hrs Per Day: 1.5 hours per day Agreement: Yes Rehab Potential: Fair Time Start Time: 08:30 Stop Time: 09:30 DATE: Sep 13, 2022 Total Time Billed (hr/min): 60 Billed Treatment Time 1 visit-ADL 2 (30 min) NM 2 (30 min) co-treat with PT 60 min NICHO GU Sep 13, 2022 10:12
--- NOTE | 2022-09-13 10:54 | Speech Therapy Daily Note ---
Speech Daily Progress Note Subjective Date Seen by Provider: Sep 13, 2022 Time Seen by Provider: 09:35 Pt had just finished with OT/PT. Pt sitting up in wheelchair for first half of session. Pt pleasant and cooperative during session. Pain Numeric Pain Scale: 5-Moderate Pain Comment: R side, neck Objective Swallowing: Pt completes the follow swallowing exercises for strengthing and coordination: labial retraction: x20 labial protrusion: x20 lingual protrusion: x20 Alysia manuever: x2 Cheek puffs: x10 Pt requires models from speech therapist and redirections to stay on task as she was perseverating on numbers and would start counting instead of performing exercises this date. Pt completes trials of thin liquid water while sitting up in wheelchair and sitting up in bed. Pt completes 28 trials and demonstrates a delayed cough/throat clear after one trial. Pt is cleared to continue to have sips of thin water. Water did have ice in it to make it cold to potentially help with the swallow reflex. Language: Pt counts to 12 2x this date. The first time pt did so independently, with all numbers intelligible. The second time, pt gets off in her counting and the numbers are less intelligible. Pt says the alphabet with a visual this date. Pt is able to say 2/26 letters intelligibly. Pt says the days of week with 100% accuracy intelligibly. During basic conversation, pt is approximately 30% intelligible without context this date. Pt's intelligibility appears to decrease the further into the session, potentially due to fatigue. Assessment Assessment Current Status: Good Progress Tolerating sips of thins via cup. Treatment Plan Continue Plan of Care Cont with thin liquids, swallowing exercises, and language tasks. Speech Short Term Goals Short Term Goals Short Term Goals 1. The patient will participate in a modified barium swallow assessment to evaluate for the presence of aspiration and best guide therapeutic interventions. MET 09/03/2022 2. The patient will display 80% accuracy with oral motor exercises with mild clinician verbal and visual cueing. 3. The patient will display 80% accuracy with dysphagia exercises with mild clinician verbal and visual cueing. Language: 1. Pt will complete verbal imitation of basic one syllable words with 80% accuracy with min clinician verbal and visual cuing. 2. Pt will expressively and receptively identify common everyday objects with 80% accuracy with min clinician verbal and visual cuing. 3. Pt will follow basic 1 step and 2 step directions with 80% accuracy with min clinician verbal and visual cuing. Speech Playground Attendant Goals [facility] Goals 1. The patient will tolerate the least restrictive diet consistency without s/s of suspected aspiration. Language: 1. Pt will communicate basic wants/needs with staff or family members either verbally or with use of pictures in 4/5 opportunities. Time Frame: Three Weeks. Speech-Plan Patient/Family Goals Patient/Family Goals: Pt/family goal is for pt to go to a intermediate facility Treatment Plan Speech Therapy Treatment Plan: Continue Plan of Care Treatment Duration: Sep 14, 2022 Frequency: Modified Program (IRF) Estimated Hrs Per Day: .5 hour per day Rehab Potential: Fair Pt/Family Agrees to Plan: Yes Safety Risks/Education Teaching Recipient: Patient Teaching Methods: Discussion Response to Teaching: Verbalize Understanding, Reinforcement Needed Education Topics Provided: Pt educated on purpose of therapy tasks and safe swallow strategies. Pt also educated on importance of small sips and sitting up when taking sips of thin liquids. Pt receptive and verbalized understanding, but will likely need reinforcement. Time Speech Therapy Time In: 09:35 Speech Therapy Time Out: 10:40 DATE: Sep 13, 2022 Total Billed Time: 65 Billed Treatment Time 1 S/L TX, 1 DYS TX Kaleigh Nelson Speech Therapy Sep 13, 2022 10:54
--- NOTE | 2022-09-13 11:27 | Physical Therapy Daily Note ---
PT Daily Note-Current Subjective Pt reports she is doing well today and is agreeable to PT. Pt reported neck and R LE pain at 5-6/10 on the visual pain scale. Pain Numeric Pain Scale: 5-Moderate Pain Location: Right Location Body Site: Knee (LE) Section J - Health Conditions 1. Rarely or not at all 2. Occasionally 3. Frequently 4. Almost constantly 8. Unable to answer Pain Effect on Sleep: 2 Pain Interference with Therapy: 3 Pain Interference w/Day-to-Day: 2 Appearance Pt appears to have more energy on this date and be in a better mood. Transfers SCALE: Activities may be completed with or without assistive devices. 6-Lmgawuxpot-ougaomc completes the activity by him/herself with no assistance from a helper. 5-Set-up or Clean-up Assistance-helper sets up or cleans up; patient completes activity. [place] assists only prior to or following the activity. 4-Supervision or Touching Assistance-helper provides verbal cues and/or touching/steadying and/or contact guard assistance as patient completes activity. Assistance may be provided throughout the activity or intermittently. 3-Partial/Moderate Assistance-helper does LESS THAN HALF the effort. [place] lifts, holds or supports trunk or limbs, but provides less than half the effort. 2-Substantial/Maximal Assistance-helper does MORE THAN HALF the effort. [place] lifts or holds trunk or limbs and provides more than half the effort. 4-Uiijnjyza-laeyve does ALL the effort. Patient does none of the effort to complete the activity. Or, the assistance of 2 or more helpers is required for the patient to complete the activity. If activity was not attempted, code reason: 7-Patient Refused. 9-Not Applicable-not attempted and the patient did not perform the activity before the current illness, exacerbation or injury. 10-Not Attempted due to Environmental Limitations-(lack of equipment, weather restraints, etc.). 88-Not Attempted due to Medical Conditions or Safety Concerns. Roll Left & Right (QC): 3 Sit to Lying (QC): 3 Lying to Sitting/Side of Bed(Q: 3 Sit to Stand (QC): 2 Chair/Kdq-id-Bhagh Xfer(QC): 2 Weight Bearing Right Lower Extremity: Right Full Weight Bearing Left Lower Extremity: Left Full Weight Bearing Gait Training Does the Patient Walk?: No and Walking Goal IS indicated Wheelchair Training Does the Pt Use a Wheelchair?: Yes Treatments PT/OT co-tx from [id number]. Skills of 2 clinicians required to decrease fall risk, increase dynamic sitting/standing balance, working on R LE/UE to regain movement while completing wt bearing tasks. PT focusing on bed mobility, transfers, B LE strengthening, and standing, and OT focusing on ADLs, functional mobility, and B UE strengthening. Pt completed supine R LE AROM exercises x 10 reps each: QS, GS, and heel slides. Pt completed R rolling with CGA and L rolling with Min A. Pt completed supine > sit with Min/Mod A. Pt completed SPT with Mod/Max A x 2 from bed > w/c. Pt completed oral care at the sink, while seated in the w/c. Pt completed 4 sit to stand transfers in the // bars with Mod A x 2. Pt stood for 1' 15" with each stand. Pt stood with better erect posture and only required Min A for standing on this date. Pt working on R UE WB and R TKE, while standing. Pt agrees to sit up in w/c while completing ST. Left in care of SACK SEWER MACHINE. All needs met. Assessment Current Status: Fair Progress Pt tolerated PT well, with good effort on this date. Pt in much better mood. PT Fashion Photographer Goals Fdc Goals PT Fdc Goals Time Frame: Sep 13, 2022 Roll Left & Right (QC): 3 (Pt will complete bed mobility with Min A. ) Sit to Lying (QC): 3 (Pt will complete bed mobility with Min A. ) Lying-Sitting on Side/Bed(QC): 3 (Pt will complete bed mobility with Min A. ) Sit to Stand (QC): 3 (Pt will complete transfer with Min/Mod A. ) Chair/Bnb-it-Okxeq Xfer(QC): 3 (Pt will complete transfer with Min/Mod A. ) Toilet Transfer (QC): 3 (Pt will complete transfer with Min/Mod A. ) Car Transfer (QC): 3 (Pt will complete transfer with Min/Mod A. ) Does the Patient Walk: No and Walking Goal IS indicated Walk 10 feet (QC): 3 (Min/Mod A for walking with the chau-walker ) Walk 50ft with 2 Turns (QC): 3 (Min/Mod A for walking with the chau-walker ) Walk 150 ft (QC): 88 Walking 10ft on Uneven Surface: 88 1 Step (curb) (QC): 3 (Min/Mod A for a curb/step ) 4 Steps (QC): 88 12 Steps (QC): 88 Picking up an Object (QC): 3 (Min A with vending machine servicer ) Does the Pt use WC or Scooter?: Yes Wheel 50 feet with 2 turns (QC: 3 (Min A for w/c mobility ) Type: Manual Wheel 150 feet: 3 (Min A for w/c mobility ) Type: Manual PT Plan Problem List Problem List: Activity Tolerance, Functional Strength, Safety, Balance, Gait, Transfer, Bed Mobility, ROM Treatment/Plan Treatment Plan: Continue Plan of Care Treatment Plan: Bed Mobility, Concurrent Therapy, Education, Functional Activity Emil, Functional Strength, Group Therapy, Gait, Safety, Therapeutic Exercise, Transfers Treatment Duration: Sep 13, 2022 Frequency: At least 5 of 7 days/Wk (IRF) Estimated Hrs Per Day: 1.5 hours per day Patient and/or Family Agrees t: Yes Safety Risks/Education Patient Education: Transfer Techniques, Correct Positioning, W/C Management, Safety Issues Teaching Recipient: Patient Teaching Methods: Demonstration, Discussion Response to Teaching: Return Demonstration, Reinforcement Needed Discharge Recommendations Therapy Discharge Recommendati: 24 Hour Supervision Discharge Status/Home Program cont per POC Barriers to Progress R sided weakness Target Placement SNF vs Home with family (Family training tomorrow (09/14/22)) Time Time In: 830 Time Out: 930 DATE: Sep 13, 2022 Total Billed Treatment Time: 60 Total Billed Treatment 60 min co-tx from 1 visit FA x 4 KATELIN YAO PT Sep 13, 2022 11:27
[2022-09-13 14:44] VITALS: BP 150/67
[2022-09-13] MEDS ORDERED: RT-ALBUTEROL SULF 2.5 MG/3 ML PRE-MIX VIAL INH PRN (15:00)
[2022-09-13 19:50] VITALS: BP 145/67
[2022-09-14] MEDS: LEVOTHYROXINE 100 MCG (LEVOTHROID) TAB PO SCH (05:42)
[2022-09-14] MEDS: POTASSIUM BICARB 20 MEQ (EFFER-K) TABLET PO SCH (05:42)
[2022-09-14] MEDS: inSUlin ASPART (NovoLOG) 1 UNIT/0.01 ML (CHARGE PER UNIT) SC SCH ×4 (06:57→21:03)
[2022-09-14 07:21] VITALS: BP 174/79
[2022-09-14] MEDS: ASPIRIN 325 MG (5 GR) TABLET NG SCH (07:47)
[2022-09-14] MEDS: VITAMIN D3 125 MCG (5,000 UNITS) CAPSULE PO SCH (07:48)
[2022-09-14] MEDS: amLODIPine 5 MG (NORVASC) TAB NG SCH (07:48)
[2022-09-14] MEDS: SENNA W/DOCUSATE (SENOKOT S) TABLET NG SCH ×2 (07:48→21:02)
[2022-09-14] MEDS: PANTOPRAZOLE 40 MG (PROTONIX) TAB PO SCH (07:48)
[2022-09-14] MEDS: GABAPENTIN 100 MG (NEURONTIN) CAP PO SCH ×3 (07:48→21:02)
--- NOTE | 2022-09-14 08:11 | Speech Therapy Daily Note ---
Speech Daily Progress Note Subjective Date Seen by Provider: Sep 14, 2022 Time Seen by Provider: 07:40 Pt laying in bed groaning when THERAPEUTIC MENTOR enters room. Pt reports she is in a lot of pain. Nurse enters room to administer medications. Pain Numeric Pain Scale: 9 Comment: neck, R arm/leg Objective Pt takes pills crushed in applesauce followed by drinks of thin liquids via cup. Pt completes 4 trials. Pt demonstrates cough immediately following one trial. Pt to trial thin liquids via cup during lunch this date with THERAPEUTIC MENTOR supervision. Assessment Assessment Current Status: Fair Progress Treatment Plan Continue Plan of Care Speech Short Term Goals Short Term Goals Short Term Goals 1. The patient will participate in a modified barium swallow assessment to evaluate for the presence of aspiration and best guide therapeutic interventions. MET 09/03/2022 2. The patient will display 80% accuracy with oral motor exercises with mild clinician verbal and visual cueing. 3. The patient will display 80% accuracy with dysphagia exercises with mild clinician verbal and visual cueing. Language: 1. Pt will complete verbal imitation of basic one syllable words with 80% accuracy with min clinician verbal and visual cuing. 2. Pt will expressively and receptively identify common everyday objects with 80% accuracy with min clinician verbal and visual cuing. 3. Pt will follow basic 1 step and 2 step directions with 80% accuracy with min clinician verbal and visual cuing. Speech Halfway Goals Digital Production Operator Goals 1. The patient will tolerate the least restrictive diet consistency without s/s of suspected aspiration. Language: 1. Pt will communicate basic wants/needs with staff or family members either verbally or with use of pictures in 4/5 opportunities. Time Frame: Three Weeks. Speech-Plan Patient/Family Goals Patient/Family Goals: Family's goal is for pt to go to a SNF following d/c from IRU. Treatment Plan Speech Therapy Treatment Plan: Continue Plan of Care Treatment Duration: Sep 14, 2022 Frequency: Modified Program (IRF) Estimated Hrs Per Day: .5 hour per day Rehab Potential: Fair Pt/Family Agrees to Plan: Yes Safety Risks/Education Teaching Recipient: Patient Teaching Methods: Discussion Response to Teaching: Verbalize Understanding, Reinforcement Needed Education Topics Provided: Pt reminded of small sips when drinking thin liquids and plan to trial thin liquids during lunch this date. Pt receptive and verbalize understanding. Time Speech Therapy Time In: 07:40 Speech Therapy Time Out: 08:00 DATE: Sep 14, 2022 Total Billed Time: 20 Billed Treatment Time DYS TX Kaleigh Nelson Speech Therapy Sep 14, 2022 08:11
[2022-09-14] MEDS: NYSTATIN ORAL SUSP 5 ML UDC PO SCH ×4 (08:37→21:03)
[2022-09-14] MEDS: ENOXAPARIN 40 MG/0.4 ML (LOVENOX) SYR SC SCH (08:37)
[2022-09-14] MEDS: polyethylene glycoL POWDER 17 GM (MIRALAX) PACK NG SCH ×2 (08:37→21:03)
[2022-09-14] MEDS: DICLOFENAC 1% GEL 100 GM (VOLTAREN) TUBE TOP SCH ×4 (08:38→21:03)
[2022-09-14] MEDS: DOCUSATE SODIUM 10 MG/ML 10 ML UDC (COLACE) NG SCH ×2 (08:38→21:03)
[2022-09-14 09:10] VITALS: BP 165/72
[2022-09-14 09:45] VITALS: BP 119/66
--- NOTE | 2022-09-14 10:35 | Occupational Ther Daily Note ---
OT Current Status-Daily Note Subjective Pt sleepy though has eyes open and responds to PARK. Pt c/o pain on L side of head, neck and R UE, does not rate pain. PARK alerted nrsg. OT/PT co-treat ([id number]), skills of 2 clinicians required to decrease fall risk, increase dynamic sitting balance, working on R UE/LE to regain movement while completing R UE/LE movement/exercises. PT focusing on B LE strengthening and OT focusing on ADLs and B UE strengthening. Mental Status/Objective Patient Orientation: Person, Place, Non-Verbal/Aphasic, Time, Situation Attachments: Telemetry ADL-Treatment Pt requires increased motivation to participate in skilled therapy due to pain and fatigue. Nrsg aware of both. Pt agrees to bed bath, only bathes face assist for rest of body. Dependent for toileting and footwear. Max A for LBD. Mod A for UBD. Declines to complete oral care. Pt takes increased time to comp lete all tasks due to fatigue and pain. Therapy Code Descriptions/Definitions Functional [place] Measure: 0=Not Assessed/NA 4=Minimal Assistance 1=Total Assistance 5=Supervision or Setup 2=Maximal Assistance 6=Modified [place] 3=Moderate Assistance 7=Complete IndependenceSCALE: Activities may be completed with or without assistive devices. 9-Qrbropimxs-owvsfdv completes the activity by him/herself with no assistance from a helper. 5-Set-up or Clean-up Assistance-helper sets up or cleans up; patient completes activity. [place] assists only prior to or following the activity. 4-Supervision or Touching Assistance-helper provides verbal cues and/or touching/steadying and/or contact guard assistance as patient completes activity. Assistance may be provided throughout the activity or intermittently. 3-Partial/Moderate Assistance-helper does LESS THAN HALF the effort. [place] lifts, holds or supports trunk or limbs, but provides less than half the effort. 2-Substantial/Maximal Assistance-helper does MORE THAN HALF the effort. [place] lifts or holds trunk or limbs and provides more than half the effort. 9-Yubozlcyp-hytcuw does ALL the effort. Patient does none of the effort to complete the activity. Or, the assistance of 2 or more helpers is required for the patient to complete the activity. If activity was not attempted, code reason: 7-Patient Refused. 9-Not Applicable-not attempted and the patient did not perform the activity before the current illness, exacerbation or injury. 10-Not Attempted due to Environmental Limitations-(lack of equipment, weather restraints, etc.). 88-Not Attempted due to Medical Conditions or Safety Concerns. Oral Hygiene (QC): 7 Shower/Bathe Self (QC): 2 Upper Body Dressing (QC): 2 (mod A) Lower Body Dressing (QC): 2 On/Off Footwear: 2 Toileting Hygiene (QC): 1 Other Treatment Stretch and massage to R UE to decrease pain and encourage muscle activation. Pt demonstrated spontaneous movement with R bicep, tricep and shldr. Pt requires max encouragement to participate in therapy. PT working on R LE movement and exercises, pt closing eyes during and required verbal cues to continue. After session, pt lying in bed with call light/phone in reach. All needs met in room. OT Short Term Goals Short Term Goals Time Frame: Sep 14, 2022 Shower/bathe self: 2 Upper body dressin Lower body dressin Putting on/taking off footwear: 2 OT Cashier And Waiter/Waitress Goals Alf Goals Time Frame: Sep 28, 2022 Acute change in mental status: 1 Inattention: 1 Disorganized thinkin Altered level of consciousness: 0 Eating (QC): 5 (goal of set up assist if pt able to progress from tube fe edings.) Oral Hygiene (QC): 5 Toileting Hygiene (QC): 3 Shower/Bathe Self (QC): 3 Upper Body Dressing (QC): 4 Lower Body Dressing (QC): 3 On/Off Footwear (QC): 3 Additional Goals: 1-Demonstrate ADL Tasks, 2-Verbalize Understanding, 3- ImproveStrength/Emil 1=Demonstrate adherence to instructed precautions during ADL tasks. 2=Patient will verbalize/demonstrate understanding of assistive devices/modifications for ADL. 3=Patient will improve strength/tolerance for activity to enable patient to perform ADL's. OT Education/Plan Problem List/Assessment Assessment: Decreased Activ Tolerance, Decreased UE Strength, Dependent Transfers, Impaired Bed Mobility, Impaired Coordination, Impaired Funct Balance, Impaired I ADL's, Impaired Self-Care Skills, Restricted Funct UE ROM, Visual- Perceptual Deficit Discharge Recommendations Plan/Recommendations: Continue POC Treatment Plan/Plan of Care Patient would benefit from OT for education, treatment and training to promote independence in ADL's, mobility, safety and/or upper extremity function for ADL's. Plan of Care: ADL Retraining, Functional Mobility, Group Exercise/Act as Ind, UE Funct Exercise/Act, UE Neuromus Re-Ed/Coord, W/C Management Training Treatment Duration: Sep 28, 2022 Frequency: At least 5 of 7 days/Wk (IRF) Estimated Hrs Per Day: 1.5 hours per day Agreement: Yes Rehab Potential: Fair Time Start Time: 08:15 Stop Time: 10:00 DATE: Sep 14, 2022 Total Time Billed (hr/min): 105 Billed Treatment Time 1 visit-ADL 5 (75 min) FA 2 (30 min) co-treat with PT [id number], individual [id number] NICHO GU Sep 14, 2022 10:34
--- NOTE | 2022-09-14 11:30 | PM&R Progress Note ---
Subjective HPI/CC On Admission Date Seen by Provider: Sep 14, 2022 Time Seen by Provider: 12:00 Subjective/Events-last exam 09/14/2022: Patient doing about the same No falls Having good days and bad days Daughter at the bedside 09/13/2022: Talking a lot better No other concerns No pain currently Bowels are moving 09/12/2022: Still complaining of neck pain She had cervical spine surgery 20 years ago She reports the pain is similar but very difficult to ascertain 09/11/2022: Patient not doing as well today Patient coughing quite a bit and changed diet back to softer and less apt to aspirate Awaiting chest x-ray Dr. Sherman ordered 09/10/2022: No major issues Sensation of throat noted so change of diet is indicated No pain reported 09/09/2022: Patient doing well Has no specific new concerns Talking better Swallowing well 09/08/2022: Patient doing really well Talking more Tolerating eating mechanical soft diet 09/07/2022: Patient just had shower Daughter at the bedside No pain is reported currently Eating and drinking better No aspiration at this point Participation is good 09/06/2022: Patient doing much better Eating better Duration at this point Reviewed blood pressure trend 09/05/2022: Much improved Dysphagia is improved Slow recovery Participation is good 09/04/2022: Patient much improved Slowly eating meals by mouth since NG tube removed Cardiology consulted medication modified 09/03/2022: Patient much improved Barium swallow enables her to eat and so we will discontinue the NG tube Blood pressure labile Blood sugars reviewed 09/02/2022: About the same Talking more and more each day MBS tomorrow and maintained on NGT in place 09/01/2022: Patient doing well Added pain pill NG tube maintained No falls 08/31/2022: No major changes Ice chips are approved to consume slowly NGT is place No falls No pain Fall risk Severe deficits Sugars are good BP a bit elevated Review of Systems General: Fatigue, Malaise Objective Exam Vital Signs Vital Signs Date Time Temp Pulse Resp B/P (MAP) Pulse Ox O2 Delivery O2 Flow Rate FiO2 09/14/22 21:00 95 Room Air 09/14/22 20:31 36.8 78 16 163/72 (102) 09/13/22 14:44 21 Capillary Refill : General Appearance: No Apparent Distress, WD/WN, Chronically ill, Obese HEENT: PERRL/EOMI, Normal ENT Inspection, Pharynx Normal, Other Neck: Full Range of Motion, Normal Inspection, Non Tender, Supple, Carotid Bruit Respiratory: Chest Non Tender, Normal Breath Sounds, No Accessory Muscle Use, No Respiratory Distress, Crackles Cardiovascular: Regular Rate, Rhythm, No Edema, No Gallop, No JVD, No Murmur, Normal Peripheral Pulses Gastrointestinal: Normal Bowel Sounds, No Organomegaly, No Pulsatile Mass, Non Tender, Soft Back: Normal Inspection, No CVA Tenderness, No Vertebral Tenderness Extremity: Normal Capillary Refill, Normal Inspection, Normal Range of Motion, Non Tender, No Calf Tenderness, No Pedal Edema Neurologic/Psychiatric: Alert, Aphasia, Depressed Affect, Motor Weakness Skin: Normal Color, Warm/Dry Lymphatic: No Adenopathy Results/Procedures Lab Patient resulted labs reviewed. FIM Transfers Therapy Code Descriptions/Definitions Functional [place] Measure: 0=Not Assessed/NA 4=Minimal Assistance 1=Total Assistance 5=Supervision or Setup 2=Maximal Assistance 6=Modified [place] 3=Moderate Assistance 7=Complete IndependenceSCALE: Activities may be completed with or without assistive devices. 0-Pzmbnizfbe-fswhhwv completes the activity by him/herself with no assistance from a helper. 5-Set-up or Clean-up Assistance-helper sets up or cleans up; patient completes activity. [place] assists only prior to or following the activity. 4-Supervision or Touching Assistance-helper provides verbal cues and/or touching/steadying and/or contact guard assistance as patient completes activity. Assistance may be provided throughout the activity or intermittently. 3-Partial/Moderate Assistance-helper does LESS THAN HALF the effort. [place] lifts, holds or supports trunk or limbs, but provides less than half the effort. 2-Substantial/Maximal Assistance-helper does MORE THAN HALF the effort. [place] lifts or holds trunk or limbs and provides more than half the effort. 9-Xcdghflnd-itrznt does ALL the effort. Patient does none of the effort to complete the activity. Or, the assistance of 2 or more helpers is required for the patient to complete the activity. If activity was not attempted, code reason: 7-Patient Refused. 9-Not Applicable-not attempted and the patient did not perform the activity before the current illness, exacerbation or injury. 10-Not Attempted due to Environmental Limitations-(lack of equipment, weather restraints, etc.). 88-Not Attempted due to Medical Conditions or Safety Concerns. Roll Left to Right (QC): 3 Sit to Lying (QC): 3 Sit to Stand (QC): 2 Chair/Xsx-kp-Mpzjv Xfer(QC): 2 Car Transfer (QC): 88 Gait Training Does the Patient Walk?: No and Walking Goal IS indicated Walk 10 feet (QC): 88 Walk 50 ft with 2 Turns(QC): 88 Walk 150 ft (QC): 88 Walking 10ft/uneven surface-QC: 88 Wheelchair Training Does the Pt Use a Wheelchair?: Yes Distance: 5ft Wheel 50 ft with 2 turns (QC): 3 Wheel 150 ft (QC): 88 Type of Wheelchair: Manual Stair Training 1 Step (curb) (QC): 88 4 Steps (QC): 88 12 Steps (QC): 88 Balance Picking up an Object (QC): 88 ADL-Treatment Eating (QC): 5 Oral Hygiene (QC): 7 Shower/Bathe Self (QC): 2 Upper Body Dressing (QC): 2 (mod A) Lower Body Dressing (QC): 2 On/Off Footwear (QC): 2 Toileting Hygiene (QC): 1 Toilet Transfer (QC): 1 Assessment/Plan Assessment and Plan Assess & Plan/Chief Complaint Assessment: 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 Aspiration risk s/p modified barium swallow with speech therapy eval Diabetes insulin-dependent hemoglobin A1c 13 Obesity Hypertension Hyperlipidemia Suspected cardiac source of CVA DM insulin dependent since hga1c 13 Thrush treating empirically Cough suspicious for aspiration on 09/11/2022 checking chest x-ray ordered nebs Neck pain acute on chronic previous cervical spine surgery 20 years ago per patient Plan: Aggressive PT and OT Speech therapy May need a PEG tube Monitor closely 08/31/2022: Sugars reviewed Add BP med 09/01/2022: Supportive care Monitor closely 09/02/2022: MBS tomorrow Continue therapy 09/03/2022: Supportive care Advance diet Discontinue NG tube 09/04/2022: Advance diet 09/05/2022: Supportive care 09/06/2022: Supportive care Slow recovery 09/07/2022: Monitor sugar 09/08/2022: Supportive care 09/09/2022: Monitor aspiration risk 09/10/2022: Thrush treatment Change diet 09/11/2022: Change diet to less aspiration Check chest x-ray Nebulizers Incentive spirometer 09/12/2022: Monitor neck pain 09/13/2022: Continue heating pad for neck pain. 09/14/2022: Arrange for skilled care (1) CVA (cerebral vascular accident) BETHANY HERMOSILLO DO Sep 14, 2022 11:30
--- NOTE | 2022-09-14 13:30 | Speech Therapy Daily Note ---
Speech Daily Progress Note Subjective Date Seen by Provider: Sep 14, 2022 Time Seen by Provider: 12:05 Pt sitting up in bed with daughter present at bedside. [facility] came in middle of session to assess patient. Pt was pleasant and cooperative throughout session. Pain Numeric Pain Scale: 6 Location: Right Comment: leg/arm Objective Language: Pt's language is approximately 40% intelligible this date during conversation. There were a few instances when pt became frustrated that her daughter or the TURN DOWN WORKER couldn't understand her and would slow down and emphasize her speech. When she did this, her speech was clear. Pt continues to not demonstrate awareness of speech errors. Swallowing: Pt was observed by the TURN DOWN WORKER while she ate lunch. Pt continues to request minced and moist foods due to oral pain with chewing. Pt trialed thin liquids during lunch this date. Pt demonstrated one cough following a swallow during lunch. There were no other overt s/sx of aspiration throughout her lunch that was observed. Pt will continue with thin liquids with intermittent supervision by nursing staff. NO STRAWS WITH THIN LIQUIDS DUE TO ASPIRATION RISK. Assessment Assessment Current Status: Good Progress Transitioning to thin liquids Treatment Plan Continue Plan of Care Speech Short Term Goals Short Term Goals Short Term Goals 1. The patient will participate in a modified barium swallow assessment to evaluate for the presence of aspiration and best guide therapeutic interventions. MET 09/03/2022 2. The patient will display 80% accuracy with oral motor exercises with mild clinician verbal and visual cueing. 3. The patient will display 80% accuracy with dysphagia exercises with mild clinician verbal and visual cueing. Language: 1. Pt will complete verbal imitation of basic one syllable words with 80% accuracy with min clinician verbal and visual cuing. 2. Pt will expressively and receptively identify common everyday objects with 80% accuracy with min clinician verbal and visual cuing. 3. Pt will follow basic 1 step and 2 step directions with 80% accuracy with min clinician verbal and visual cuing. Speech Waste Water Treatment Plant Operator Goals Waste Water Treatment Plant Operator Goals 1. The patient will tolerate the least restrictive diet consistency without s/s of suspected aspiration. Language: 1. Pt will communicate basic wants/needs with staff or family members either verbally or with use of pictures in 4/5 opportunities. Time Frame: Three Weeks. Speech-Plan Patient/Family Goals Patient/Family Goals: Pt and family goal is for pt go to skilled care following IRU d/c Treatment Plan Speech Therapy Treatment Plan: Continue Plan of Care Treatment Duration: Sep 14, 2022 Frequency: Modified Program (IRF) Estimated Hrs Per Day: .5 hour per day Rehab Potential: Fair Safety Risks/Education Teaching Recipient: Patient Teaching Methods: Discussion Response to Teaching: Verbalize Understanding, Reinforcement Needed Education Topics Provided: Pt educated on purpose of therapy tasks and transition to thin liquids. Pt reminded no straws due to aspiration risk with thin liquids. Time Speech Therapy Time In: 12:05 Speech Therapy Time Out: 12:45 DATE: Sep 14, 2022 Total Billed Time: 40 Billed Treatment Time S/L TX, DYS TX Kaleigh Nelson Speech Therapy Sep 14, 2022 13:30
--- NOTE | 2022-09-14 15:10 | Physical Therapy Daily Note ---
PT Daily Note-Current Subjective Pt reports she is doing feeling well today and rated R sided pain at 8-9/10 on the visual pain scale. Pain Numeric Pain Scale: 8 Location: Right Location Body Site: Knee Section J - Health Conditions 1. Rarely or not at all 2. Occasionally 3. Frequently 4. Almost constantly 8. Unable to answer Pain Effect on Sleep: 2 Pain Interference with Therapy: 3 Pain Interference w/Day-to-Day: 2 Transfers SCALE: Activities may be completed with or without assistive devices. 9-Rkkxipjwup-ylmiocl completes the activity by him/herself with no assistance from a helper. 5-Set-up or Clean-up Assistance-helper sets up or cleans up; patient completes activity. [place] assists only prior to or following the activity. 4-Supervision or Touching Assistance-helper provides verbal cues and/or touching/steadying and/or contact guard assistance as patient completes activity. Assistance may be provided throughout the activity or intermittently. 3-Partial/Moderate Assistance-helper does LESS THAN HALF the effort. [place] lifts, holds or supports trunk or limbs, but provides less than half the effort. 2-Substantial/Maximal Assistance-helper does MORE THAN HALF the effort. [place] lifts or holds trunk or limbs and provides more than half the effort. 0-Jbiuxxmga-mtnuhw does ALL the effort. Patient does none of the effort to complete the activity. Or, the assistance of 2 or more helpers is required for the patient to complete the activity. If activity was not attempted, code reason: 7-Patient Refused. 9-Not Applicable-not attempted and the patient did not perform the activity before the current illness, exacerbation or injury. 10-Not Attempted due to Environmental Limitations-(lack of equipment, weather restraints, etc.). 88-Not Attempted due to Medical Conditions or Safety Concerns. Weight Bearing Right Lower Extremity: Right Full Weight Bearing Left Lower Extremity: Left Full Weight Bearing Treatments PT/OT co-tx ([id number]), skills of 2 clinicians required to decrease fall risk, increase dynamic sitting balance, working on R UE/LE to regain movement while completing R UE/LE movement/exercises. PT focusing on B LE strengthening and OT focusing on ADLs and B UE strengthening. Pt requires max encouragement to participate in therapy. Pt closed eyes during the entire session and required v/c to participate and cont. Pt completed 10 R QS and 10 R heel slides with Max encouragement. After session, pt lying in bed with call light/phone in reach. All needs met in room. Assessment Current Status: Fair Progress poor tolerance to PT/OT on this date; did not get OOB; did not sit EOB PT Assisted Goals Assisted Goals PT Eeg Technologist Goals Time Frame: Sep 13, 2022 Roll Left & Right (QC): 3 (Pt will complete bed mobility with Min A. ) Sit to Lying (QC): 3 (Pt will complete bed mobility with Min A. ) Lying-Sitting on Side/Bed(QC): 3 (Pt will complete bed mobility with Min A. ) Sit to Stand (QC): 3 (Pt will complete transfer with Min/Mod A. ) Chair/Qap-dk-Gozcz Xfer(QC): 3 (Pt will complete transfer with Min/Mod A. ) Toilet Transfer (QC): 3 (Pt will complete transfer with Min/Mod A. ) Car Transfer (QC): 3 (Pt will complete transfer with Min/Mod A. ) Does the Patient Walk: No and Walking Goal IS indicated Walk 10 feet (QC): 3 (Min/Mod A for walking with the chau-walker ) Walk 50ft with 2 Turns (QC): 3 (Min/Mod A for walking with the chau-walker ) Walk 150 ft (QC): 88 Walking 10ft on Uneven Surface: 88 1 Step (curb) (QC): 3 (Min/Mod A for a curb/step ) 4 Steps (QC): 88 12 Steps (QC): 88 Picking up an Object (QC): 3 (Min A with ship yard electrical person ) Does the Pt use WC or Scooter?: Yes Wheel 50 feet with 2 turns (QC: 3 (Min A for w/c mobility ) Type: Manual Wheel 150 feet: 3 (Min A for w/c mobility ) Type: Manual PT Plan Problem List Problem List: Activity Tolerance, Functional Strength, Safety, Balance, Gait, Transfer, Bed Mobility, ROM Treatment/Plan Treatment Plan: Continue Plan of Care Treatment Plan: Bed Mobility, Concurrent Therapy, Education, Functional Activity Emil, Functional Strength, Group Therapy, Gait, Safety, Therapeutic Exercise, Transfers Treatment Duration: Sep 13, 2022 Frequency: At least 5 of 7 days/Wk (IRF) Estimated Hrs Per Day: 1.5 hours per day Patient and/or Family Agrees t: Yes Safety Risks/Education Patient Education: Safety Issues Teaching Recipient: Patient Teaching Methods: Discussion Response to Teaching: Reinforcement Needed Discharge Recommendations Therapy Discharge Recommendati: 24 Hour Supervision Discharge Status/Home Program cont per POC Barriers to Progress R sided weakness; pain Target Placement SNF Time Time In: 930 Time Out: 1000 DATE: Sep 14, 2022 Total Billed Treatment Time: 30 Total Billed Treatment 30 min co-tx from [id number] 1 visit EX x 2 KATELIN YAO PT Sep 14, 2022 15:10
[2022-09-14 20:31] VITALS: BP 163/72
[2022-09-14] MEDS: ALPRAZolam 0.25 MG (XANAX) TAB NG PRN (21:02)
[2022-09-15] MEDS: inSUlin ASPART (NovoLOG) 1 UNIT/0.01 ML (CHARGE PER UNIT) SC SCH ×4 (05:44→20:48)
[2022-09-15] MEDS: POTASSIUM BICARB 20 MEQ (EFFER-K) TABLET PO SCH (06:01)
[2022-09-15] MEDS: LEVOTHYROXINE 100 MCG (LEVOTHROID) TAB PO SCH (06:02)
--- NOTE | 2022-09-15 06:55 | PM&R Progress Note ---
Subjective HPI/CC On Admission Date Seen by Provider: Sep 15, 2022 Time Seen by Provider: 11:00 Subjective/Events-last exam 09/15/2022: Improved overall Pain less today No falls Needs SNF 09/14/2022: Patient doing about the same No falls Having good days and bad days Daughter at the bedside 09/13/2022: Talking a lot better No other concerns No pain currently Bowels are moving 09/12/2022: Still complaining of neck pain She had cervical spine surgery 20 years ago She reports the pain is similar but very difficult to ascertain 09/11/2022: Patient not doing as well today Patient coughing quite a bit and changed diet back to softer and less apt to aspirate Awaiting chest x-ray Dr. Sherman ordered 09/10/2022: No major issues Sensation of throat noted so change of diet is indicated No pain reported 09/09/2022: Patient doing well Has no specific new concerns Talking better Swallowing well 09/08/2022: Patient doing really well Talking more Tolerating eating mechanical soft diet 09/07/2022: Patient just had shower Daughter at the bedside No pain is reported currently Eating and drinking better No aspiration at this point Participation is good 09/06/2022: Patient doing much better Eating better Duration at this point Reviewed blood pressure trend 09/05/2022: Much improved Dysphagia is improved Slow recovery Participation is good 09/04/2022: Patient much improved Slowly eating meals by mouth since NG tube removed Cardiology consulted medication modified 09/03/2022: Patient much improved Barium swallow enables her to eat and so we will discontinue the NG tube Blood pressure labile Blood sugars reviewed 09/02/2022: About the same Talking more and more each day MBS tomorrow and maintained on NGT in place 09/01/2022: Patient doing well Added pain pill NG tube maintained No falls 08/31/2022: No major changes Ice chips are approved to consume slowly NGT is place No falls No pain Fall risk Severe deficits Sugars are good BP a bit elevated Review of Systems General: Fatigue, Malaise Objective Exam Vital Signs Vital Signs Date Time Temp Pulse Resp B/P (MAP) Pulse Ox O2 Delivery O2 Flow Rate FiO2 09/15/22 12:44 86 09/15/22 08:44 Room Air 09/15/22 07:54 36.5 20 134/60 (84) 95 09/15/22 07:27 0.00 09/13/22 14:44 21 Capillary Refill : General Appearance: No Apparent Distress, WD/WN, Chronically ill, Obese HEENT: PERRL/EOMI, Normal ENT Inspection, Pharynx Normal, Other Neck: Full Range of Motion, Normal Inspection, Non Tender, Supple, Carotid Bruit Respiratory: Chest Non Tender, Normal Breath Sounds, No Accessory Muscle Use, No Respiratory Distress, Crackles Cardiovascular: Regular Rate, Rhythm, No Edema, No Gallop, No JVD, No Murmur, Normal Peripheral Pulses Gastrointestinal: Normal Bowel Sounds, No Organomegaly, No Pulsatile Mass, Non Tender, Soft Back: Normal Inspection, No CVA Tenderness, No Vertebral Tenderness Extremity: Normal Capillary Refill, Normal Inspection, Normal Range of Motion, Non Tender, No Calf Tenderness, No Pedal Edema Neurologic/Psychiatric: Alert, Aphasia, Depressed Affect, Motor Weakness Skin: Normal Color, Warm/Dry Lymphatic: No Adenopathy Results/Procedures Lab Patient resulted labs reviewed. FIM Transfers Therapy Code Descriptions/Definitions Functional [place] Measure: 0=Not Assessed/NA 4=Minimal Assistance 1=Total Assistance 5=Supervision or Setup 2=Maximal Assistance 6=Modified [place] 3=Moderate Assistance 7=Complete IndependenceSCALE: Activities may be completed with or without assistive devices. 5-Fvbvrvxqsl-ctkinmg completes the activity by him/herself with no assistance from a helper. 5-Set-up or Clean-up Assistance-helper sets up or cleans up; patient completes activity. [place] assists only prior to or following the activity. 4-Supervision or Touching Assistance-helper provides verbal cues and/or touching/steadying and/or contact guard assistance as patient completes activity. Assistance may be provided throughout the activity or intermittently. 3-Partial/Moderate Assistance-helper does LESS THAN HALF the effort. [place] lifts, holds or supports trunk or limbs, but provides less than half the effort. 2-Substantial/Maximal Assistance-helper does MORE THAN HALF the effort. [place] lifts or holds trunk or limbs and provides more than half the effort. 6-Bmgstsasg-vdehjg does ALL the effort. Patient does none of the effort to complete the activity. Or, the assistance of 2 or more helpers is required for the patient to complete the activity. If activity was not attempted, code reason: 7-Patient Refused. 9-Not Applicable-not attempted and the patient did not perform the activity before the current illness, exacerbation or injury. 10-Not Attempted due to Environmental Limitations-(lack of equipment, weather restraints, etc.). 88-Not Attempted due to Medical Conditions or Safety Concerns. Roll Left to Right (QC): 3 Sit to Lying (QC): 3 Sit to Stand (QC): 2 Chair/Ycx-xj-Huijj Xfer(QC): 2 Car Transfer (QC): 88 Gait Training Does the Patient Walk?: No and Walking Goal IS indicated Walk 10 feet (QC): 88 Walk 50 ft with 2 Turns(QC): 88 Walk 150 ft (QC): 88 Walking 10ft/uneven surface-QC: 88 Wheelchair Training Does the Pt Use a Wheelchair?: Yes Distance: 5ft Wheel 50 ft with 2 turns (QC): 3 Wheel 150 ft (QC): 88 Type of Wheelchair: Manual Stair Training 1 Step (curb) (QC): 88 4 Steps (QC): 88 12 Steps (QC): 88 Balance Picking up an Object (QC): 88 ADL-Treatment Eating (QC): 5 Oral Hygiene (QC): 7 Shower/Bathe Self (QC): 2 Upper Body Dressing (QC): 2 (mod A) Lower Body Dressing (QC): 2 On/Off Footwear (QC): 2 Toileting Hygiene (QC): 1 Toilet Transfer (QC): 1 Assessment/Plan Assessment and Plan Assess & Plan/Chief Complaint Assessment: 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 Aspiration risk s/p modified barium swallow with speech therapy eval Diabetes insulin-dependent hemoglobin A1c 13 Obesity Hypertension Hyperlipidemia Suspected cardiac source of CVA DM insulin dependent since hga1c 13 Thrush treating empirically Cough suspicious for aspiration on 09/11/2022 checking chest x-ray ordered nebs Neck pain acute on chronic previous cervical spine surgery 20 years ago per patient Plan: Aggressive PT and OT Speech therapy May need a PEG tube Monitor closely 08/31/2022: Sugars reviewed Add BP med 09/01/2022: Supportive care Monitor closely 09/02/2022: MBS tomorrow Continue therapy 09/03/2022: Supportive care Advance diet Discontinue NG tube 09/04/2022: Advance diet 09/05/2022: Supportive care 09/06/2022: Supportive care Slow recovery 09/07/2022: Monitor sugar 09/08/2022: Supportive care 09/09/2022: Monitor aspiration risk 09/10/2022: Thrush treatment Change diet 09/11/2022: Change diet to less aspiration Check chest x-ray Nebulizers Incentive spirometer 09/12/2022: Monitor neck pain 09/13/2022: Continue heating pad for neck pain. 09/14/2022: Arrange for skilled care 09/15/2022: Monitor for aspiration (1) CVA (cerebral vascular accident) BETHANY HERMOSILLO DO Sep 15, 2022 06:55
[2022-09-15 07:54] VITALS: BP 134/60
[2022-09-15] MEDS: VITAMIN D3 125 MCG (5,000 UNITS) CAPSULE PO SCH (08:16)
[2022-09-15] MEDS: ASPIRIN 325 MG (5 GR) TABLET NG SCH (08:17)
[2022-09-15] MEDS: GABAPENTIN 100 MG (NEURONTIN) CAP PO SCH ×3 (08:17→20:47)
[2022-09-15] MEDS: PANTOPRAZOLE 40 MG (PROTONIX) TAB PO SCH (08:17)
[2022-09-15] MEDS: NYSTATIN ORAL SUSP 5 ML UDC PO SCH ×4 (08:17→20:47)
[2022-09-15] MEDS: amLODIPine 5 MG (NORVASC) TAB NG SCH (08:17)
[2022-09-15] MEDS: ENOXAPARIN 40 MG/0.4 ML (LOVENOX) SYR SC SCH (08:17)
[2022-09-15] MEDS: polyethylene glycoL POWDER 17 GM (MIRALAX) PACK NG SCH ×2 (08:18→19:47)
[2022-09-15] MEDS: DICLOFENAC 1% GEL 100 GM (VOLTAREN) TUBE TOP SCH ×4 (08:18→20:48)
[2022-09-15] MEDS: DOCUSATE SODIUM 10 MG/ML 10 ML UDC (COLACE) NG SCH ×2 (08:31→19:47)
[2022-09-15] MEDS: SENNA W/DOCUSATE (SENOKOT S) TABLET NG SCH ×2 (08:31→19:47)
--- NOTE | 2022-09-15 09:14 | Occupational Ther Daily Note ---
OT Current Status-Daily Note Subjective Pt alert, lying in bed. Nrsg in room. Pt agrees to therapy. Pt does c/o R UE/shldr pain, nrsg aware and applied ointment. Mental Status/Objective Patient Orientation: Person, Place, Non-Verbal/Aphasic, Time, Situation Attachments: Telemetry ADL-Treatment Set up for oral care. Dependent footwear. Therapy Code Descriptions/Definitions Functional [place] Measure: 0=Not Assessed/NA 4=Minimal Assistance 1=Total Assistance 5=Supervision or Setup 2=Maximal Assistance 6=Modified [place] 3=Moderate Assistance 7=Complete IndependenceSCALE: Activities may be completed with or without assistive devices. 9-Qgkgfrkazn-lvqmnxu completes the activity by him/herself with no assistance from a helper. 5-Set-up or Clean-up Assistance-helper sets up or cleans up; patient completes activity. [place] assists only prior to or following the activity. 4-Supervision or Touching Assistance-helper provides verbal cues and/or touching/steadying and/or contact guard assistance as patient completes activity. Assistance may be provided throughout the activity or intermittently. 3-Partial/Moderate Assistance-helper does LESS THAN HALF the effort. [place] lifts, holds or supports trunk or limbs, but provides less than half the effort. 2-Substantial/Maximal Assistance-helper does MORE THAN HALF the effort. [place] lifts or holds trunk or limbs and provides more than half the effort. 8-Jebghuhyq-hsedoo does ALL the effort. Patient does none of the effort to complete the activity. Or, the assistance of 2 or more helpers is required for the patient to complete the activity. If activity was not attempted, code reason: 7-Patient Refused. 9-Not Applicable-not attempted and the patient did not perform the activity before the current illness, exacerbation or injury. 10-Not Attempted due to Environmental Limitations-(lack of equipment, weather restraints, etc.). 88-Not Attempted due to Medical Conditions or Safety Concerns. Oral Hygiene (QC): 5 On/Off Footwear: 1 Other Treatment Pt demonstrated slight movement throughout R UE. Pt able to complete 5 reps prior to fatigue. AAROM completed for all movements for strengthening and stretch. After session, pt lying in bed with call light/phone in reach. All needs met in room. OT Short Term Goals Short Term Goals Time Frame: Sep 14, 2022 Shower/bathe self: 2 Upper body dressin Lower body dressin Putting on/taking off footwear: 2 OT Aircraft Instrument Mechanic Goals Mcfp Goals Time Frame: Sep 28, 2022 Acute change in mental status: 1 Inattention: 1 Disorganized thinkin Altered level of consciousness: 0 Eating (QC): 5 (goal of set up assist if pt able to progress from tube feedings.) Oral Hygiene (QC): 5 Toileting Hygiene (QC): 3 Shower/Bathe Self (QC): 3 Upper Body Dressing (QC): 4 Lower Body Dressing (QC): 3 On/Off Footwear (QC): 3 Additional Goals: 1-Demonstrate ADL Tasks, 2-Verbalize Understanding, 3- ImproveStrength/Emil 1=Demonstrate adherence to instructed precautions during ADL tasks. 2=Patient will verbalize/demonstrate understanding of assistive devices/modifications for ADL. 3=Patient will improve strength/tolerance for activity to enable patient to perform ADL's. OT Education/Plan Problem List/Assessment Assessment: Decreased Activ Tolerance, Decreased UE Strength, Impaired Self- Care Skills, Restricted Funct UE ROM Discharge Recommendations Plan/Recommendations: Continue POC Treatment Plan/Plan of Care Patient would benefit from OT for education, treatment and training to promote independence in ADL's, mobility, safety and/or upper extremity function for ADL's. Plan of Care: ADL Retraining, Functional Mobility, Group Exercise/Act as Ind, UE Funct Exercise/Act, UE Neuromus Re-Ed/Coord, W/C Management Training Treatment Duration: Sep 28, 2022 Frequency: At least 5 of 7 days/Wk (IRF) Estimated Hrs Per Day: 1.5 hours per day Agreement: Yes Rehab Potential: Fair Time Start Time: 08:30 Stop Time: 09:05 DATE: Sep 15, 2022 Total Time Billed (hr/min): 35 Billed Treatment Time 1 visit-ADL 1 (15 min) NM 1 (20 min) NICHO GU Sep 15, 2022 09:14
--- NOTE | 2022-09-15 10:26 | Physical Therapy Daily Note ---
PT Daily Note-Current Subjective Pt in bed upon arrival and initially declines PT but then agrees to do some leg exercises. Pain Numeric Pain Scale: 10-Worst Possible Pain Section J - Health Conditions 1. Rarely or not at all 2. Occasionally 3. Frequently 4. Almost constantly 8. Unable to answer Pain Effect on Sleep: 2 Pain Interference with Therapy: 3 Pain Interference w/Day-to-Day: 2 Mental Status Patient Orientation: Person, Confused Transfers SCALE: Activities may be completed with or without assistive devices. 6-Yfzpqcwnel-vszqbha completes the activity by him/herself with no assistance from a helper. 5-Set-up or Clean-up Assistance-helper sets up or cleans up; patient completes activity. [place] assists only prior to or following the activity. 4-Supervision or Touching Assistance-helper provides verbal cues and/or touching/steadying and/or contact guard assistance as patient completes activity. Assistance may be provided throughout the activity or intermittently. 3-Partial/Moderate Assistance-helper does LESS THAN HALF the effort. [place] lifts, holds or supports trunk or limbs, but provides less than half the effort. 2-Substantial/Maximal Assistance-helper does MORE THAN HALF the effort. [place] lifts or holds trunk or limbs and provides more than half the effort. 0-Rwsurjhrc-owonac does ALL the effort. Patient does none of the effort to complete the activity. Or, the assistance of 2 or more helpers is required for the patient to complete the activity. If activity was not attempted, code reason: 7-Patient Refused. 9-Not Applicable-not attempted and the patient did not perform the activity before the current illness, exacerbation or injury. 10-Not Attempted due to Environmental Limitations-(lack of equipment, weather restraints, etc.). 88-Not Attempted due to Medical Conditions or Safety Concerns. Weight Bearing Right Lower Extremity: Right Full Weight Bearing Left Lower Extremity: Left Full Weight Bearing Exercises Supine Ex: Ankle pumps, Heel Slides, Hip abd/add Supine Reps: 10 Treatments After performing a few legs exercises patient moaning in pain and ask to be done w/ PT. All needs met and call light nearby as PT departs. Assessment Current Status: Fair Progress Pt in a lot of pain w/ LE movements today. Pt able to perform AROM on LLE and PROM/AAROM on RLE. PT Middleware Engineer Goals Middleware Engineer Goals PT Halfway Goals Time Frame: Sep 13, 2022 Roll Left & Right (QC): 3 (Pt will complete bed mobility with Min A. ) Sit to Lying (QC): 3 (Pt will complete bed mobility with Min A. ) Lying-Sitting on Side/Bed(QC): 3 (Pt will complete bed mobility with Min A. ) Sit to Stand (QC): 3 (Pt will complete transfer with Min/Mod A. ) Chair/Afi-cn-Ohrqf Xfer(QC): 3 (Pt will complete transfer with Min/Mod A. ) Toilet Transfer (QC): 3 (Pt will complete transfer with Min/Mod A. ) Car Transfer (QC): 3 (Pt will complete transfer with Min/Mod A. ) Does the Patient Walk: No and Walking Goal IS indicated Walk 10 feet (QC): 3 (Min/Mod A for walking with the chau-walker ) Walk 50ft with 2 Turns (QC): 3 (Min/Mod A for walking with the chau-walker ) Walk 150 ft (QC): 88 Walking 10ft on Uneven Surface: 88 1 Step (curb) (QC): 3 (Min/Mod A for a curb/step ) 4 Steps (QC): 88 12 Steps (QC): 88 Picking up an Object (QC): 3 (Min A with radiology rn ) Does the Pt use WC or Scooter?: Yes Wheel 50 feet with 2 turns (QC: 3 (Min A for w/c mobility ) Type: Manual Wheel 150 feet: 3 (Min A for w/c mobility ) Type: Manual PT Plan Problem List Problem List: Activity Tolerance, Functional Strength Treatment/Plan Treatment Plan: Continue Plan of Care Treatment Plan: Bed Mobility, Concurrent Therapy, Education, Functional Activity Emil, Functional Strength, Group Therapy, Gait, Safety, Therapeutic Exercise, Transfers Treatment Duration: Sep 13, 2022 Frequency: At least 5 of 7 days/Wk (IRF) Estimated Hrs Per Day: 1.5 hours per day Patient and/or Family Agrees t: Yes Safety Risks/Education Patient Education: Correct Positioning Teaching Recipient: Patient Teaching Methods: Discussion Response to Teaching: Return Demonstration, Reinforcement Needed Time Time In: 1010 Time Out: 1020 DATE: Sep 15, 2022 Total Billed Treatment Time: 10 Total Billed Treatment 1, EX LAUREN LOUIS CHECKER IN Sep 15, 2022 10:26
[2022-09-15 19:40] VITALS: BP 139/66
[2022-09-15] MEDS: ALPRAZolam 0.25 MG (XANAX) TAB NG PRN (20:47)
[2022-09-15] MEDS: ACETAMINOPHEN 325 MG TABLET NG PRN (20:47)
[2022-09-16] MEDS: LEVOTHYROXINE 100 MCG (LEVOTHROID) TAB PO SCH (05:44)
[2022-09-16] MEDS: inSUlin ASPART (NovoLOG) 1 UNIT/0.01 ML (CHARGE PER UNIT) SC SCH ×4 (05:44→21:47)
[2022-09-16] MEDS: POTASSIUM BICARB 20 MEQ (EFFER-K) TABLET PO SCH (05:45)
--- NOTE | 2022-09-16 07:50 | PM&R Progress Note ---
Subjective HPI/CC On Admission Date Seen by Provider: Sep 16, 2022 Time Seen by Provider: 15:00 Subjective/Events-last exam 09/16/2022: Patient doing really well Catastrophic CVA with deficits will require mcfp for slower recovery and may require long-term care Blood sugars are much improved 09/15/2022: Improved overall Pain less today No falls Needs SNF 09/14/2022: Patient doing about the same No falls Having good days and bad days Daughter at the bedside 09/13/2022: Talking a lot better No other concerns No pain currently Bowels are moving 09/12/2022: Still complaining of neck pain She had cervical spine surgery 20 years ago She reports the pain is similar but very difficult to ascertain 09/11/2022: Patient not doing as well today Patient coughing quite a bit and changed diet back to softer and less apt to aspirate Awaiting chest x-ray Dr. Sherman ordered 09/10/2022: No major issues Sensation of throat noted so change of diet is indicated No pain reported 09/09/2022: Patient doing well Has no specific new concerns Talking better Swallowing well 09/08/2022: Patient doing really well Talking more Tolerating eating mechanical soft diet 09/07/2022: Patient just had shower Daughter at the bedside No pain is reported currently Eating and drinking better No aspiration at this point Participation is good 09/06/2022: Patient doing much better Eating better Duration at this point Reviewed blood pressure trend 09/05/2022: Much improved Dysphagia is improved Slow recovery Participation is good 09/04/2022: Patient much improved Slowly eating meals by mouth since NG tube removed Cardiology consulted medication modified 09/03/2022: Patient much improved Barium swallow enables her to eat and so we will discontinue the NG tube Blood pressure labile Blood sugars reviewed 09/02/2022: About the same Talking more and more each day MBS tomorrow and maintained on NGT in place 09/01/2022: Patient doing well Added pain pill NG tube maintained No falls 08/31/2022: No major changes Ice chips are approved to consume slowly NGT is place No falls No pain Fall risk Severe deficits Sugars are good BP a bit elevated Review of Systems General: Fatigue, Malaise Objective Exam Vital Signs Vital Signs Date Time Temp Pulse Resp B/P (MAP) Pulse Ox O2 Delivery O2 Flow Rate FiO2 09/16/22 19:51 36.1 96 18 186/78 (114) 95 Room Air 09/16/22 19:16 0.00 09/13/22 14:44 21 Capillary Refill : General Appearance: No Apparent Distress, WD/WN, Chronically ill, Obese HEENT: PERRL/EOMI, Normal ENT Inspection, Pharynx Normal, Other Neck: Full Range of Motion, Normal Inspection, Non Tender, Supple, Carotid Bruit Respiratory: Chest Non Tender, Normal Breath Sounds, No Accessory Muscle Use, No Respiratory Distress, Crackles Cardiovascular: Regular Rate, Rhythm, No Edema, No Gallop, No JVD, No Murmur, Normal Peripheral Pulses Gastrointestinal: Normal Bowel Sounds, No Organomegaly, No Pulsatile Mass, Non Tender, Soft Back: Normal Inspection, No CVA Tenderness, No Vertebral Tenderness Extremity: Normal Capillary Refill, Normal Inspection, Normal Range of Motion, Non Tender, No Calf Tenderness, No Pedal Edema Neurologic/Psychiatric: Alert, Aphasia, Depressed Affect, Motor Weakness Skin: Normal Color, Warm/Dry Lymphatic: No Adenopathy Results/Procedures Lab Patient resulted labs reviewed. FIM Transfers Therapy Code Descriptions/Definitions Functional [place] Measure: 0=Not Assessed/NA 4=Minimal Assistance 1=Total Assistance 5=Supervision or Setup 2=Maximal Assistance 6=Modified [place] 3=Moderate Assistance 7=Complete IndependenceSCALE: Activities may be completed with or without assistive devices. 9-Ubhzepulll-agqlmln completes the activity by him/herself with no assistance from a helper. 5-Set-up or Clean-up Assistance-helper sets up or cleans up; patient completes activity. [place] assists only prior to or following the activity. 4-Supervision or Touching Assistance-helper provides verbal cues and/or touching/steadying and/or contact guard assistance as patient completes activity. Assistance may be provided throughout the activity or intermittently. 3-Partial/Moderate Assistance-helper does LESS THAN HALF the effort. [place] lifts, holds or supports trunk or limbs, but provides less than half the effort. 2-Substantial/Maximal Assistance-helper does MORE THAN HALF the effort. [place] lifts or holds trunk or limbs and provides more than half the effort. 8-Gpulttolg-nzqora does ALL the effort. Patient does none of the effort to complete the activity. Or, the assistance of 2 or more helpers is required for the patient to complete the activity. If activity was not attempted, code reason: 7-Patient Refused. 9-Not Applicable-not attempted and the patient did not perform the activity before the current illness, exacerbation or injury. 10-Not Attempted due to Environmental Limitations-(lack of equipment, weather restraints, etc.). 88-Not Attempted due to Medical Conditions or Safety Concerns. Roll Left to Right (QC): 3 Sit to Lying (QC): 3 Sit to Stand (QC): 2 Chair/Inc-sh-Wwibv Xfer(QC): 2 Car Transfer (QC): 88 Gait Training Does the Patient Walk?: No and Walking Goal IS indicated Walk 10 feet (QC): 88 Walk 50 ft with 2 Turns(QC): 88 Walk 150 ft (QC): 88 Walking 10ft/uneven surface-QC: 88 Wheelchair Training Does the Pt Use a Wheelchair?: Yes Distance: 5ft Wheel 50 ft with 2 turns (QC): 3 Wheel 150 ft (QC): 88 Type of Wheelchair: Manual Stair Training 1 Step (curb) (QC): 88 4 Steps (QC): 88 12 Steps (QC): 88 Balance Picking up an Object (QC): 88 ADL-Treatment Eating (QC): 5 Oral Hygiene (QC): 5 Shower/Bathe Self (QC): 2 Upper Body Dressing (QC): 2 (mod A) Lower Body Dressing (QC): 2 On/Off Footwear (QC): 1 Toileting Hygiene (QC): 1 Toilet Transfer (QC): 1 Assessment/Plan Assessment and Plan Assess & Plan/Chief Complaint Assessment: 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 Aspiration risk s/p modified barium swallow with speech therapy eval Diabetes insulin-dependent hemoglobin A1c 13 Obesity Hypertension Hyperlipidemia Suspected cardiac source of CVA DM insulin dependent since hga1c 13 Thrush treating empirically Cough suspicious for aspiration on 09/11/2022 checking chest x-ray ordered nebs Neck pain acute on chronic previous cervical spine surgery 20 years ago per patient Plan: Aggressive PT and OT Speech therapy May need a PEG tube Monitor closely 08/31/2022: Sugars reviewed Add BP med 09/01/2022: Supportive care Monitor closely 09/02/2022: MBS tomorrow Continue therapy 09/03/2022: Supportive care Advance diet Discontinue NG tube 09/04/2022: Advance diet 09/05/2022: Supportive care 09/06/2022: Supportive care Slow recovery 09/07/2022: Monitor sugar 09/08/2022: Supportive care 09/09/2022: Monitor aspiration risk 09/10/2022: Thrush treatment Change diet 09/11/2022: Change diet to less aspiration Check chest x-ray Nebulizers Incentive spirometer 09/12/2022: Monitor neck pain 09/13/2022: Continue heating pad for neck pain. 09/14/2022: Arrange for skilled care 09/15/2022: Monitor for aspiration 09/16/2022: Await skilled care (1) CVA (cerebral vascular accident) BETHANY HERMOSILLO DO Sep 16, 2022 07:50
[2022-09-16 07:51] VITALS: BP 139/65
[2022-09-16] MEDS: ASPIRIN 325 MG (5 GR) TABLET NG SCH (08:05)
[2022-09-16] MEDS: ENOXAPARIN 40 MG/0.4 ML (LOVENOX) SYR SC SCH (08:05)
[2022-09-16] MEDS: NYSTATIN ORAL SUSP 5 ML UDC PO SCH ×4 (08:05→21:47)
[2022-09-16] MEDS: DOCUSATE SODIUM 10 MG/ML 10 ML UDC (COLACE) NG SCH ×2 (08:05→21:46)
[2022-09-16] MEDS: SENNA W/DOCUSATE (SENOKOT S) TABLET NG SCH ×2 (08:05→21:50)
[2022-09-16] MEDS: GABAPENTIN 100 MG (NEURONTIN) CAP PO SCH ×3 (08:06→21:46)
[2022-09-16] MEDS: VITAMIN D3 125 MCG (5,000 UNITS) CAPSULE PO SCH (08:06)
[2022-09-16] MEDS: amLODIPine 5 MG (NORVASC) TAB NG SCH (08:06)
[2022-09-16] MEDS: DICLOFENAC 1% GEL 100 GM (VOLTAREN) TUBE TOP SCH ×4 (08:06→21:50)
[2022-09-16] MEDS: PANTOPRAZOLE 40 MG (PROTONIX) TAB PO SCH (08:06)
[2022-09-16] MEDS: polyethylene glycoL POWDER 17 GM (MIRALAX) PACK NG SCH ×2 (10:22→21:50)
[2022-09-16 16:06] VITALS: BP 139/65
[2022-09-16 19:51] VITALS: BP 186/78
[2022-09-16 21:35] VITALS: BP 134/64
[2022-09-16] MEDS: ALPRAZolam 0.25 MG (XANAX) TAB NG PRN (21:46)
[2022-09-17 05:31] LABS: BASOPHILS % (AUTO) 0 % (0-10); EOSINOPHILS # (AUTO) 0.3 10^3/uL (0.0-0.3); EOSINOPHILS % (AUTO) 4 % (0-10); HEMATOCRIT 39 % (35-52); HEMOGLOBIN 12.8 g/dL (11.5-16.0); LYMPHOCYTES # (AUTO) 1.8 10^3/uL (1.0-4.0); LYMPHOCYTES % (AUTO) 25 % (12-44); MEAN CORPUSCULAR HEMOGLOBIN 30 pg (25-34); MEAN CORPUSCULAR HGB CONC 33 g/dL (32-36); MEAN CORPUSCULAR VOLUME 90 fL (80-99); MEAN PLATELET VOLUME 9.2 fL (9.0-12.2); MONOCYTES # (AUTO) 0.7 10^3/uL (0.0-1.0); MONOCYTES % (AUTO) 9 % (0-12); NEUTROPHILS # (AUTO) 4.4 10^3/uL (1.8-7.8); NEUTROPHILS % (AUTO) 62 % (42-75); PLATELET COUNT 252 10^3/uL (130-400); WHITE BLOOD COUNT 7.1 10^3/uL (4.3-11.0)
[2022-09-17 05:48] LABS: ALBUMIN 3.3 GM/DL (3.2-4.5)
[2022-09-17 05:50] LABS: TOTAL PROTEIN 6.7 GM/DL (6.4-8.2)
[2022-09-17 05:52] LABS: BILIRUBIN,TOTAL 0.3 MG/DL (0.1-1.0)
[2022-09-17 05:54] LABS: CREATININE SERUM 0.88 MG/DL (0.60-1.30)
[2022-09-17] MEDS: LEVOTHYROXINE 100 MCG (LEVOTHROID) TAB PO SCH (06:18)
[2022-09-17] MEDS: POTASSIUM BICARB 20 MEQ (EFFER-K) TABLET PO SCH (06:19)
--- NOTE | 2022-09-17 06:30 | PM&R Progress Note ---
Subjective HPI/CC On Admission Date Seen by Provider: Sep 17, 2022 Time Seen by Provider: 09:00 Subjective/Events-last exam 09/17/2022: Patient doing about the same No falls Eating and drinking a little better Pain is improved 09/16/2022: Patient doing really well Catastrophic CVA with deficits will require mcfp for slower recovery and may require long-term care Blood sugars are much improved 09/15/2022: Improved overall Pain less today No falls Needs SNF 09/14/2022: Patient doing about the same No falls Having good days and bad days Daughter at the bedside 09/13/2022: Talking a lot better No other concerns No pain currently Bowels are moving 09/12/2022: Still complaining of neck pain She had cervical spine surgery 20 years ago She reports the pain is similar but very difficult to ascertain 09/11/2022: Patient not doing as well today Patient coughing quite a bit and changed diet back to softer and less apt to aspirate Awaiting chest x-ray Dr. Sherman ordered 09/10/2022: No major issues Sensation of throat noted so change of diet is indicated No pain reported 09/09/2022: Patient doing well Has no specific new concerns Talking better Swallowing well 09/08/2022: Patient doing really well Talking more Tolerating eating mechanical soft diet 09/07/2022: Patient just had shower Daughter at the bedside No pain is reported currently Eating and drinking better No aspiration at this point Participation is good 09/06/2022: Patient doing much better Eating better Duration at this point Reviewed blood pressure trend 09/05/2022: Much improved Dysphagia is improved Slow recovery Participation is good 09/04/2022: Patient much improved Slowly eating meals by mouth since NG tube removed Cardiology consulted medication modified 09/03/2022: Patient much improved Barium swallow enables her to eat and so we will discontinue the NG tube Blood pressure labile Blood sugars reviewed 09/02/2022: About the same Talking more and more each day MBS tomorrow and maintained on NGT in place 09/01/2022: Patient doing well Added pain pill NG tube maintained No falls 08/31/2022: No major changes Ice chips are approved to consume slowly NGT is place No falls No pain Fall risk Severe deficits Sugars are good BP a bit elevated Review of Systems General: Fatigue, Malaise Objective Exam Vital Signs Vital Signs Date Time Temp Pulse Resp B/P (MAP) Pulse Ox O2 Delivery O2 Flow Rate FiO2 09/17/22 20:57 Room Air 09/17/22 19:52 36.8 81 16 162/82 (108) 96 09/16/22 19:16 0.00 09/13/22 14:44 21 Capillary Refill : General Appearance: No Apparent Distress, WD/WN, Chronically ill, Obese HEENT: PERRL/EOMI, Normal ENT Inspection, Pharynx Normal, Other Neck: Full Range of Motion, Normal Inspection, Non Tender, Supple, Carotid Bruit Respiratory: Chest Non Tender, Normal Breath Sounds, No Accessory Muscle Use, No Respiratory Distress, Crackles Cardiovascular: Regular Rate, Rhythm, No Edema, No Gallop, No JVD, No Murmur, Normal Peripheral Pulses Gastrointestinal: Normal Bowel Sounds, No Organomegaly, No Pulsatile Mass, Non Tender, Soft Back: Normal Inspection, No CVA Tenderness, No Vertebral Tenderness Extremity: Normal Capillary Refill, Normal Inspection, Normal Range of Motion, Non Tender, No Calf Tenderness, No Pedal Edema Neurologic/Psychiatric: Alert, Aphasia, Depressed Affect, Motor Weakness Skin: Normal Color, Warm/Dry Lymphatic: No Adenopathy Results/Procedures Lab Laboratory Tests 09/17/22 05:21 Patient resulted labs reviewed. FIM Transfers Therapy Code Descriptions/Definitions Functional [place] Measure: 0=Not Assessed/NA 4=Minimal Assistance 1=Total Assistance 5=Supervision or Setup 2=Maximal Assistance 6=Modified [place] 3=Moderate Assistance 7=Complete IndependenceSCALE: Activities may be completed with or without assistive devices. 5-Nfdhynczcp-vazsofv completes the activity by him/herself with no assistance from a helper. 5-Set-up or Clean-up Assistance-helper sets up or cleans up; patient completes activity. [place] assists only prior to or following the activity. 4-Supervision or Touching Assistance-helper provides verbal cues and/or touching/steadying and/or contact guard assistance as patient completes ac tivity. Assistance may be provided throughout the activity or intermittently. 3-Partial/Moderate Assistance-helper does LESS THAN HALF the effort. [place] lifts, holds or supports trunk or limbs, but provides less than half the effort. 2-Substantial/Maximal Assistance-helper does MORE THAN HALF the effort. [place] lifts or holds trunk or limbs and provides more than half the effort. 0-Vuhylyiaz-lyjbfw does ALL the effort. Patient does none of the effort to complete the activity. Or, the assistance of 2 or more helpers is required for the patient to complete the activity. If activity was not attempted, code reason: 7-Patient Refused. 9-Not Applicable-not attempted and the patient did not perform the activity before the current illness, exacerbation or injury. 10-Not Attempted due to Environmental Limitations-(lack of equipment, weather restraints, etc.). 88-Not Attempted due to Medical Conditions or Safety Concerns. Roll Left to Right (QC): 3 Sit to Lying (QC): 3 Sit to Stand (QC): 2 Chair/Gan-dj-Exckr Xfer(QC): 2 Car Transfer (QC): 88 Gait Training Does the Patient Walk?: No and Walking Goal IS indicated Walk 10 feet (QC): 88 Walk 50 ft with 2 Turns(QC): 88 Walk 150 ft (QC): 88 Walking 10ft/uneven surface-QC: 88 Wheelchair Training Does the Pt Use a Wheelchair?: Yes Distance: 5ft Wheel 50 ft with 2 turns (QC): 3 Wheel 150 ft (QC): 88 Type of Wheelchair: Manual Stair Training 1 Step (curb) (QC): 88 4 Steps (QC): 88 12 Steps (QC): 88 Balance Picking up an Object (QC): 88 ADL-Treatment Eating (QC): 5 Oral Hygiene (QC): 5 Shower/Bathe Self (QC): 2 Upper Body Dressing (QC): 2 (mod A) Lower Body Dressing (QC): 2 On/Off Footwear (QC): 1 Toileting Hygiene (QC): 1 Toilet Transfer (QC): 1 Assessment/Plan Assessment and Plan Assess & Plan/Chief Complaint Assessment: 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 Aspiration risk s/p modified barium swallow with speech therapy eval Diabetes insulin-dependent hemoglobin A1c 13 Obesity Hypertension Hyperlipidemia Suspected cardiac source of CVA DM insulin dependent since hga1c 13 Thrush treating empirically Cough suspicious for aspiration on 09/11/2022 checking chest x-ray ordered nebs Neck pain acute on chronic previous cervical spine surgery 20 years ago per patient Plan: Aggressive PT and OT Speech therapy May need a PEG tube Monitor closely 08/31/2022: Sugars reviewed Add BP med 09/01/2022: Supportive care Monitor closely 09/02/2022: MBS tomorrow Continue therapy 09/03/2022: Supportive care Advance diet Discontinue NG tube 09/04/2022: Advance diet 09/05/2022: Supportive care 09/06/2022: Supportive care Slow recovery 09/07/2022: Monitor sugar 09/08/2022: Supportive care 09/09/2022: Monitor aspiration risk 09/10/2022: Thrush treatment Change diet 09/11/2022: Change diet to less aspiration Check chest x-ray Nebulizers Incentive spirometer 09/12/2022: Monitor neck pain 09/13/2022: Continue heating pad for neck pain. 09/14/2022: Arrange for skilled care 09/15/2022: Monitor for aspiration 09/16/2022: Await skilled care 09/17/2022: Monitor closely (1) CVA (cerebral vascular accident) BETHANY HERMOSILLO DO Sep 17, 2022 06:30
[2022-09-17] MEDS: inSUlin ASPART (NovoLOG) 1 UNIT/0.01 ML (CHARGE PER UNIT) SC SCH ×4 (06:31→21:08)
[2022-09-17 07:55] VITALS: BP 133/62
[2022-09-17] MEDS: GABAPENTIN 100 MG (NEURONTIN) CAP PO SCH ×3 (08:57→20:08)
[2022-09-17] MEDS: VITAMIN D3 125 MCG (5,000 UNITS) CAPSULE PO SCH (08:57)
[2022-09-17] MEDS: PANTOPRAZOLE 40 MG (PROTONIX) TAB PO SCH (08:58)
[2022-09-17] MEDS: ASPIRIN 325 MG (5 GR) TABLET NG SCH (08:58)
[2022-09-17] MEDS: amLODIPine 5 MG (NORVASC) TAB NG SCH (08:58)
[2022-09-17] MEDS: polyethylene glycoL POWDER 17 GM (MIRALAX) PACK NG SCH ×2 (08:58→19:54)
[2022-09-17] MEDS: SENNA W/DOCUSATE (SENOKOT S) TABLET NG SCH ×2 (08:58→20:08)
[2022-09-17] MEDS: ENOXAPARIN 40 MG/0.4 ML (LOVENOX) SYR SC SCH (08:59)
[2022-09-17] MEDS: cloNIDine 0.1 MG PATCH (CATAPRES TTS) TDSY TD SCH (09:00)
[2022-09-17] MEDS: NYSTATIN ORAL SUSP 5 ML UDC PO SCH ×4 (09:00→20:07)
[2022-09-17] MEDS: DOCUSATE SODIUM 10 MG/ML 10 ML UDC (COLACE) NG SCH ×2 (09:00→20:07)
[2022-09-17] MEDS: CLONIDINE PATCH REMOVAL TP SCH (09:01)
[2022-09-17] MEDS: DICLOFENAC 1% GEL 100 GM (VOLTAREN) TUBE TOP SCH ×5 (10:31→20:08)
--- NOTE | 2022-09-17 10:43 | Occupational Ther Daily Note ---
OT Current Status-Daily Note Subjective Pt alert, lying in bed. Nrsg in room. Pt agrees to therapy. OT/PT co-treat ([id number]), skills of 2 clinicians required to decrease fall risk, increase dynamic sitting balance, working on R UE/LE to regain movement while completing wt bearing tasks. PT focusing on transfers, B LE strengthening and OT focusing on ADLs, functional mobility and B UE strengthening. Mental Status/Objective Patient Orientation: Person, Place, Non-Verbal/Aphasic, Time, Situation Attachments: Telemetry ADL-Treatment Pt agrees to bed bath. Pt washes face, upper body and abdomen then PARK completed rest of bed bath. Pt assist with rolling side to side to bath and dress. Pt dependent on toileting and footwear. Max A for bathing, LBD and UBD. Therapy Code Descriptions/Definitions Functional [place] Measure: 0=Not Assessed/NA 4=Minimal Assistance 1=Total Assistance 5=Supervision or Setup 2=Maximal Assistance 6=Modified [place] 3=Moderate Assistance 7=Complete IndependenceSCALE: Activities may be completed with or without assistive devices. 9-Fzlvcbuudu-ywtvyxo completes the activity by him/herself with no assistance from a helper. 5-Set-up or Clean-up Assistance-helper sets up or cleans up; patient completes activity. [place] assists only prior to or following the activity. 4-Supervision or Touching Assistance-helper provides verbal cues and/or touching/steadying and/or contact guard assistance as patient completes activity. Assistance may be provided throughout the activity or intermittently. 3-Partial/Moderate Assistance-helper does LESS THAN HALF the effort. [place] lifts, holds or supports trunk or limbs, but provides less than half the effort. 2-Substantial/Maximal Assistance-helper does MORE THAN HALF the effort. [place] lifts or holds trunk or limbs and provides more than half the effort. 4-Mbsdtfdqq-mitmvq does ALL the effort. Patient does none of the effort to complete the activity. Or, the assistance of 2 or more helpers is required for the patient to complete the activity. If activity was not attempted, code reason: 7-Patient Refused. 9-Not Applicable-not attempted and the patient did not perform the activity before the current illness, exacerbation or injury. 10-Not Attempted due to Environmental Limitations-(lack of equipment, weather restraints, etc.). 88-Not Attempted due to Medical Conditions or Safety Concerns. Shower/Bathe Self (QC): 2 Upper Body Dressing (QC): 2 Lower Body Dressing (QC): 2 On/Off Footwear: 1 Toileting Hygiene (QC): 2 Other Treatment Pt fatigued quickly when working on standing at //bars. PAKR assisted with sit <--> stand and to facilitate R hip and knee extension during standing. See PT notes for progress and times of stands. After session, pt sitting in w/c with call light/phone in reach. Nrsg present in room. All needs met. OT Short Term Goals Short Term Goals Time Frame: Sep 14, 2022 Shower/bathe self: 2 Upper body dressin Lower body dressin Putting on/taking off footwear: 2 OT Safety And Security Manager Goals Safety And Security Manager Goals Time Frame: Sep 28, 2022 Acute change in mental status: 1 Inattention: 1 Disorganized thinkin Altered level of consciousness: 0 Eating (QC): 5 (goal of set up assist if pt able to progress from tube feedings.) Oral Hygiene (QC): 5 Toileting Hygiene (QC): 3 Shower/Bathe Self (QC): 3 Upper Body Dressing (QC): 4 Lower Body Dressing (QC): 3 On/Off Footwear (QC): 3 Additional Goals: 1-Demonstrate ADL Tasks, 2-Verbalize Understanding, 3- ImproveStrength/Emil 1=Demonstrate adherence to instructed precautions during ADL tasks. 2=Patient will verbalize/demonstrate understanding of assistive devices/modifications for ADL. 3=Patient will improve strength/tolerance for activity to enable patient to perform ADL's. OT Education/Plan Problem List/Assessment Assessment: Decreased Activ Tolerance, Decreased UE Strength, Dependent Transfers, Impaired Bed Mobility, Impaired Funct Balance, Impaired I ADL's, Impaired Self-Care Skills, Restricted Funct UE ROM, Visual-Perceptual Deficit Discharge Recommendations Plan/Recommendations: Continue POC Treatment Plan/Plan of Care Patient would benefit from OT for education, treatment and training to promote independence in ADL's, mobility, safety and/or upper extremity function for ADL's. Plan of Care: ADL Retraining, Functional Mobility, Group Exercise/Act as Ind, UE Funct Exercise/Act, UE Neuromus Re-Ed/Coord, W/C Management Training Treatment Duration: Sep 28, 2022 Frequency: At least 5 of 7 days/Wk (IRF) Estimated Hrs Per Day: 1.5 hours per day Agreement: Yes Rehab Potential: Fair Time Start Time: 09:00 Stop Time: 10:30 DATE: Sep 17, 2022 Total Time Billed (hr/min): 90 Billed Treatment Time 1 visit-ADL 2 (30 min) FA 2 (30 min) NM 2 (30 min) co-treat with PT [id number], individual [id number] NICHO GU Sep 17, 2022 10:43
--- NOTE | 2022-09-17 11:18 | Physical Therapy Daily Note ---
PT Daily Note-Current Subjective Pt is agreeable to tx. Pt reported neck pain at 6/10 on visual pain scale. Pain Numeric Pain Scale: 6 Location Body Site: Neck Section J - Health Conditions 1. Rarely or not at all 2. Occasionally 3. Frequently 4. Almost constantly 8. Unable to answer Pain Effect on Sleep: 2 Pain Interference with Therapy: 3 Pain Interference w/Day-to-Day: 3 Transfers SCALE: Activities may be completed with or without assistive devices. 8-Uetfhktknk-dwunrqj completes the activity by him/herself with no assistance from a helper. 5-Set-up or Clean-up Assistance-helper sets up or cleans up; patient completes activity. [place] assists only prior to or following the activity. 4-Supervision or Touching Assistance-helper provides verbal cues and/or touching/steadying and/or contact guard assistance as patient completes activity. Assistance may be provided throughout the activity or intermittently. 3-Partial/Moderate Assistance-helper does LESS THAN HALF the effort. [place] lifts, holds or supports trunk or limbs, but provides less than half the effort. 2-Substantial/Maximal Assistance-helper does MORE THAN HALF the effort. [place] lifts or holds trunk or limbs and provides more than half the effort. 7-Uvusgfryr-mflmkc does ALL the effort. Patient does none of the effort to complete the activity. Or, the assistance of 2 or more helpers is required for the patient to complete the activity. If activity was not attempted, code reason: 7-Patient Refused. 9-Not Applicable-not attempted and the patient did not perform the activity before the current illness, exacerbation or injury. 10-Not Attempted due to Environmental Limitations-(lack of equipment, weather restraints, etc.). 88-Not Attempted due to Medical Conditions or Safety Concerns. Sit to Stand (QC): 2 Chair/Axy-ba-Hpkbm Xfer(QC): 2 Weight Bearing Right Lower Extremity: Right Full Weight Bearing Left Lower Extremity: Left Full Weight Bearing Gait Training Does the Patient Walk?: No and Walking Goal NOT indicated Treatments PT/OT co-tx ([id number]), skills of 2 clinicians required to decrease fall risk, increase dynamic sitting balance, working on R UE/LE to regain movement while completing wt bearing tasks. PT focusing on transfers, B LE strengthening, and standing, and OT focusing on ADLs, functional mobility and B UE strengthening. Pt sitting EOB with PARK, upon arrival to room. SPT completed with Mod/Max A x 2. Pt completed 5 sit to stands in the // bars with Max A x 2 for each transfer on this date. Pt stood for 15", 30" 30", 50", and 50". Pt required Mod A to pick pulling machine operator the // bars with increased v/c and t/c for R TKE. Pt fatigued quickly when working on standing at //bars. PARK assisted with sit <--> stand and to facilitate R hip and knee extension during standing. After session, pt sitting in w/c with call light/phone in reach. Nrsg present in room. All needs met. Assessment Current Status: Fair Progress Pt tolerated PT fairly and became fatigued quickly on this date and was unable to stand for longer durations. Pt demo fair to good effort on this date. PT Guest Attendant Goals Guest Attendant Goals PT [facility] Goals Time Frame: Sep 13, 2022 Roll Left & Right (QC): 3 (Pt will complete bed mobility with Min A. ) Sit to Lying (QC): 3 (Pt will complete bed mobility with Min A. ) Lying-Sitting on Side/Bed(QC): 3 (Pt will complete bed mobility with Min A. ) Sit to Stand (QC): 3 (Pt will complete transfer with Min/Mod A. ) Chair/Aak-ga-Pqepm Xfer(QC): 3 (Pt will complete transfer with Min/Mod A. ) Toilet Transfer (QC): 3 (Pt will complete transfer with Min/Mod A. ) Car Transfer (QC): 3 (Pt will complete transfer with Min/Mod A. ) Does the Patient Walk: No and Walking Goal IS indicated Walk 10 feet (QC): 3 (Min/Mod A for walking with the chau-walker ) Walk 50ft with 2 Turns (QC): 3 (Min/Mod A for walking with the chau-walker ) Walk 150 ft (QC): 88 Walking 10ft on Uneven Surface: 88 1 Step (curb) (QC): 3 (Min/Mod A for a curb/step ) 4 Steps (QC): 88 12 Steps (QC): 88 Picking up an Object (QC): 3 (Min A with skin care consultant ) Does the Pt use WC or Scooter?: Yes Wheel 50 feet with 2 turns (QC: 3 (Min A for w/c mobility ) Type: Manual Wheel 150 feet: 3 (Min A for w/c mobility ) Type: Manual PT Plan Problem List Problem List: Activity Tolerance, Functional Strength, Safety, Balance, Gait, Transfer, Bed Mobility Treatment/Plan Treatment Plan: Continue Plan of Care Treatment Plan: Bed Mobility, Concurrent Therapy, Education, Functional Activity Emil, Functional Strength, Group Therapy, Gait, Safety, Therapeutic Exercise, Transfers Treatment Duration: Sep 13, 2022 Frequency: At least 5 of 7 days/Wk (IRF) Estimated Hrs Per Day: 1.5 hours per day Patient and/or Family Agrees t: Yes Safety Risks/Education Patient Education: Transfer Techniques, Correct Positioning, Safety Issues Teaching Recipient: Patient Teaching Methods: Demonstration, Discussion Response to Teaching: Reinforcement Needed Discharge Recommendations Therapy Discharge Recommendati: 24 Hour Supervision Discharge Status/Home Program Cont per POC Barriers to Progress R sided weakness Target Placement SNF Time Time In: 930 Time Out: 1030 DATE: Sep 17, 2022 Total Billed Treatment Time: 60 Total Billed Treatment 60 min co-tx from [id number] 1 visit FA x 4 KATELIN YAO PT Sep 17, 2022 11:17
--- NOTE | 2022-09-17 11:43 | Speech Therapy Daily Note ---
Speech Daily Progress Note Subjective Date Seen by Provider: Sep 17, 2022 Time Seen by Provider: 07:45 Pt sitting up in bed finished breakfast when N[employer] TR[employer] DRIVER enters room. Pt pleasant and cooperative throughout session. Pain Numeric Pain Scale: 6 Comment: L neck, R arm Objective Pt eats breakfast consisting of a minced and moist consistency and thin liquids via cup. Pt demonstrates no overt s/sx of aspiration. When asked if pt wants to advance diet consistency, pt says no due to her oral pain. Pt completes the following swallowing exercises following completion of breakfast: lingual protrusion x10 labial protrusion x10 labial retraction x10 effortful swallow x3 Assessment Assessment Current Status: Fair Progress Treatment Plan Continue Plan of Care Speech Short Term Goals Short Term Goals Short Term Goals 1. The patient will participate in a modified barium swallow assessment to eval uate for the presence of aspiration and best guide therapeutic interventions. MET 09/03/2022 2. The patient will display 80% accuracy with oral motor exercises with mild clinician verbal and visual cueing. 3. The patient will display 80% accuracy with dysphagia exercises with mild clinician verbal and visual cueing. Language: 1. Pt will complete verbal imitation of basic one syllable words with 80% accuracy with min clinician verbal and visual cuing. 2. Pt will expressively and receptively identify common everyday objects with 80% accuracy with min clinician verbal and visual cuing. 3. Pt will follow basic 1 step and 2 step directions with 80% accuracy with min clinician verbal and visual cuing. Speech Online Activist Goals Online Activist Goals 1. The patient will tolerate the least restrictive diet consistency without s/s of suspected aspiration. Language: 1. Pt will communicate basic wants/needs with staff or family members either verbally or with use of pictures in 4/5 opportunities. Time Frame: Three Weeks. Speech-Plan Patient/Family Goals Patient/Family Goals: Family's goal is for pt to go to a SNF following d/c from IRU Treatment Plan Speech Therapy Treatment Plan: Continue Plan of Care Treatment Duration: Sep 14, 2022 Frequency: Modified Program (IRF) Estimated Hrs Per Day: .5 hour per day Rehab Potential: Fair Safety Risks/Education Teaching Recipient: Patient Teaching Methods: Discussion Response to Teaching: Verbalize Understanding Education Topics Provided: Pt educated on purpose of therapy tasks. Pt receptive and verbalized understanding. Time Speech Therapy Time In: 07:45 Speech Therapy Time Out: 08:15 DATE: Sep 17, 2022 Total Billed Time: 30 Billed Treatment Time DYS TX Kaleigh Nelson Speech Therapy Sep 17, 2022 11:43
--- NOTE | 2022-09-17 11:48 | Speech Therapy Daily Note ---
Speech Daily Progress Note Subjective Date Seen by Provider: Sep 17, 2022 Time Seen by Provider: 11:00 Pt laying back in bed when SALES REVIEW CLERK enters room. Pt appears more fatigued at this time. Pt requests to sit up in bed. Pt pleasant and cooperative throughout therapy session. Pain Numeric Pain Scale: 5-Moderate Pain Comment: L neck, R leg Objective Pt counts to 10 this date. Pt requires verbal prompts and cuing when she makes a mistake. Pt attempts to count down from 10, but is unable to due to perseverating on the number 10. Pt then says days of the week with 71% accuracy, again requires verbal prompts when she does not say the correct day. Pt imitates the alphabet following the therapist with 63% accuracy. Pt continues to demon strate difficulty with sounds that require elevation of lingual tip. Pt is able to elevate lingual tip when asked this date, which is the first time she has been able to complete this movement when asked in therapy. Assessment Assessment Current Status: Fair Progress Treatment Plan Continue Plan of Care Speech Short Term Goals Short Term Goals Short Term Goals 1. The patient will participate in a modified barium swallow assessment to evaluate for the presence of aspiration and best guide therapeutic interventions. MET 09/03/2022 2. The patient will display 80% accuracy with oral motor exercises with mild clinician verbal and visual cueing. 3. The patient will display 80% accuracy with dysphagia exercises with mild clinician verbal and visual cueing. Language: 1. Pt will complete verbal imitation of basic one syllable words with 80% accuracy with min clinician verbal and visual cuing. 2. Pt will expressively and receptively identify common everyday objects with 80% accuracy with min clinician verbal and visual cuing. 3. Pt will follow basic 1 step and 2 step directions with 80% accuracy with min clinician verbal and visual cuing. Speech Account Resolution Specialist Goals Shelter Goals 1. The patient will tolerate the least restrictive diet consistency without s/s of suspected aspiration. Language: 1. Pt will communicate basic wants/needs with staff or family members either verbally or with use of pictures in 4/5 opportunities. Time Frame: Three Weeks. Speech-Plan Patient/Family Goals Patient/Family Goals: Family's goal is for pt to go to SNF follow d/c from IRU Treatment Plan Speech Therapy Treatment Plan: Continue Plan of Care Treatment Duration: Sep 14, 2022 Frequency: Modified Program (IRF) Estimated Hrs Per Day: .5 hour per day Rehab Potential: Fair Safety Risks/Education Teaching Recipient: Patient Teaching Methods: Discussion Response to Teaching: Verbalize Understanding Education Topics Provided: Pt educated on purpose of therapy tasks. Discharge Recommendations Post Acute ST for swallowing and language Time Speech Therapy Time In: 11:00 Speech Therapy Time Out: 11:30 DATE: Sep 17, 2022 Total Billed Time: 30 Billed Treatment Time S/L Kaleigh Monaco Speech Therapy Sep 17, 2022 11:48
[2022-09-17 19:52] VITALS: BP 162/82
[2022-09-17] MEDS: ALPRAZolam 0.25 MG (XANAX) TAB NG PRN (20:08)
[2022-09-18] MEDS: inSUlin ASPART (NovoLOG) 1 UNIT/0.01 ML (CHARGE PER UNIT) SC SCH ×4 (05:37→22:22)
[2022-09-18] MEDS: POTASSIUM BICARB 20 MEQ (EFFER-K) TABLET PO SCH (05:39)
[2022-09-18] MEDS: LEVOTHYROXINE 100 MCG (LEVOTHROID) TAB PO SCH (05:39)
[2022-09-18 07:42] VITALS: BP 131/63
--- NOTE | 2022-09-18 08:22 | Cardiology Progress Note ---
Subjective Date Seen by Provider: Sep 18, 2022 Time Seen by Provider: 08:30 Subjective/Events-last exam Patient is in bed, denies any chest pain. Continues to c/o throat and neck pain Objective-Cardiology Exam Last Set of Vital Signs Vital Signs 09/13/22 09/16/22 09/18/22 14:44 19:16 07:42 Temp 36.1 Pulse 89 Resp 16 B/P (MAP) 131/63 (85) Pulse Ox 93 O2 Delivery Room Air O2 Flow Rate 0.00 FiO2 21 I&O Intake and Output 09/18/22 00:00 Intake Total 820 ml Output Total 450 ml Balance 370 ml Intake Oral 820 ml Output Urine Total 450 ml # Urine Diapers 2 General: Alert, Cooperative HEENT: Atraumatic Neck: Supple, No JVD, No Thyromegaly Lungs: Clear to Auscultation, Normal Air Movement Heart: Regular Rate, Normal S1, Normal S2, No Murmurs Abdomen: Normal Bowel Sounds, Soft, No Tenderness, No Hepatosplenomegaly, No Masses Extremities: No Clubbing, No Cyanosis, No Edema, Normal Pulses, No Tenderness/Swelling Skin: No Rashes, No Breakdown, No Significant Lesion Neuro: Other (Aphasia and hemiaplasia) Psych/Mental Status: Mood NL A/P-Cardiology Admission Diagnosis CVA Left ICA/MCA occlusion HTN HLP DM Assessment/Plan Acute CVA with right sided weakness, aphasia, dysphagia. CTA showed occluded left ICA/MCA. Patient was transferred to [facility] where she underwent attempt at mechanical thrombectomy with no change. Currently maintained on ASA. Continue to monitor telemetry. 2D Echo done at [facility] on showed mild LVH, grade 2 diastolic dysfunction, mildly dilated LA. No PFO or ASD appreciated. Nonproductive cough, CXR done showing no acute process Sore throat and increased generalized fatigue and malaise. Management per medical services. Hypertension, controlled Maintained on clonidine patch, amlodipine, hydralazine 25mg TID. Will d/c hydralazine and continue to monitor. Continue to monitor Sinus node dysfunction, had few pauses (2-3 sec) last night while asleep. Qu estionable underlying ROBERT. Continue to monitor. Intolerance/allergy to angiotensin receptor vazquez Hyperlipidemia, maintained on statin, monitor lipids Diabetes mellitus, managed by primary care physician Hypothyroidism, managed by primary care physician. Obesity. Supervisory-Addendum Brief Supervisory Addendum Participated in pt care: history, MDM, physical Personally performed: exam, history, MDM Care discussed with: ATA Results interpretation: Verified all documentation Notes: Patient was seen and evaluated with Luiza, examination performed, management plan was discussed, agree with the current scribed note, I made few changes to the note using Italic font Patient was noted to have few episodes of 2:1 AV block It occurred mainly while she was asleep, asymptomatic I am concerned about having an underlying arrhythmia as a cause for her stroke with tachybradycardia episode I will proceed with loop monitor implantation Continue to monitor heart rate and blood pressure LUIZA AYALA Sep 18, 2022 08:22 VONDA TOMAS MD Sep 18, 2022 09:12
[2022-09-18] MEDS: GABAPENTIN 100 MG (NEURONTIN) CAP PO SCH ×3 (08:46→22:22)
[2022-09-18] MEDS: polyethylene glycoL POWDER 17 GM (MIRALAX) PACK NG SCH ×2 (08:46→22:24)
[2022-09-18] MEDS: SENNA W/DOCUSATE (SENOKOT S) TABLET NG SCH ×2 (08:46→22:23)
[2022-09-18] MEDS: VITAMIN D3 125 MCG (5,000 UNITS) CAPSULE PO SCH (08:47)
[2022-09-18] MEDS: NYSTATIN ORAL SUSP 5 ML UDC PO SCH ×4 (08:47→22:22)
[2022-09-18] MEDS: amLODIPine 5 MG (NORVASC) TAB NG SCH (08:47)
[2022-09-18] MEDS: ASPIRIN 325 MG (5 GR) TABLET NG SCH (08:47)
[2022-09-18] MEDS: PANTOPRAZOLE 40 MG (PROTONIX) TAB PO SCH (08:47)
[2022-09-18] MEDS: DICLOFENAC 1% GEL 100 GM (VOLTAREN) TUBE TOP SCH ×4 (08:48→22:23)
[2022-09-18] MEDS: DOCUSATE SODIUM 10 MG/ML 10 ML UDC (COLACE) NG SCH ×2 (08:48→22:24)
[2022-09-18] MEDS: ENOXAPARIN 40 MG/0.4 ML (LOVENOX) SYR SC SCH (08:49)
--- NOTE | 2022-09-18 10:14 | Speech Therapy Daily Note ---
Speech Daily Progress Note Subjective Date Seen by Provider: Sep 18, 2022 Time Seen by Provider: 07:55 Pt sitting up in bed eating breakfast when TRUCK DRIVER FLATBED enters room. Pt reports she didn't sleep well. Pain Numeric Pain Scale: 5-Moderate Pain Comment: L neck Objective Pt completes breakfast of minced and moist consistency with thin liquids via cup with no overt s/sx of aspiration. Pt completes the following exercises: labrial retraction x20 labial protrusion x20 effortful swallow x6 lingual protrusion x20 - tongue not deviating as far to the right Exercises are limited due to oral pain. Pt continues to request mince and moist diet consistency and does not want to advance. Assessment Assessment Current Status: Fair Progress Treatment Plan Continue Plan of Care Speech Short Term Goals Short Term Goals Short Term Goals 1. The patient will participate in a modified barium swallow assessment to evaluate for the presence of aspiration and best guide therapeutic interventions. MET 09/03/2022 2. The patient will display 80% accuracy with oral motor exercises with mild clinician verbal and visual cueing. 3. The patient will display 80% accuracy with dysphagia exercises with mild clinician verbal and visual cueing. Language: 1. Pt will complete verbal imitation of basic one syllable words with 80% accuracy with min clinician verbal and visual cuing. 2. Pt will expressively and receptively identify common everyday objects with 80% accuracy with min clinician verbal and visual cuing. 3. Pt will follow basic 1 step and 2 step directions with 80% accuracy with min clinician verbal and visual cuing. Speech Sealing Machine Operator Goals Retirement Goals 1. The patient will tolerate the least restrictive diet consistency without s/s of suspected aspiration. Language: 1. Pt will communicate basic wants/needs with staff or family members either verbally or with use of pictures in 4/5 opportunities. Time Frame: Three Weeks. Speech-Plan Patient/Family Goals Patient/Family Goals: Pt's goal is to go to a SNF following IRU d/c Treatment Plan Speech Therapy Treatment Plan: Continue Plan of Care Treatment Duration: Sep 14, 2022 Frequency: Modified Program (IRF) Estimated Hrs Per Day: .5 hour per day Rehab Potential: Fair Pt/Family Agrees to Plan: Yes Safety Risks/Education Teaching Recipient: Patient Teaching Methods: Discussion Response to Teaching: Verbalize Understanding, Reinforcement Needed Education Topics Provided: Pt educated on purpose of speech therapy tasks. Pt receptive, but continues to require reinforcement. Discharge Recommendations Post Acute ST Time Speech Therapy Time In: 07:55 Speech Therapy Time Out: 08:30 DATE: Sep 18, 2022 Total Billed Time: 35 Billed Treatment Time DYS Kaleigh Monaco Speech Therapy Sep 18, 2022 10:14
--- NOTE | 2022-09-18 10:21 | PM&R Progress Note ---
Subjective HPI/CC On Admission Date Seen by Provider: Sep 18, 2022 Time Seen by Provider: 10:15 Subjective/Events-last exam 09/18/2022: Patient doing really well Not much progress being made but she remained stable Speech is better every day Needs skilled care 09/17/2022: Patient doing about the same No falls Eating and drinking a little better Pain is improved 09/16/2022: Patient doing really well Catastrophic CVA with deficits will require senior living for slower recovery and may require long-term care Blood sugars are much improved 09/15/2022: Improved overall Pain less today No falls Needs SNF 09/14/2022: Patient doing about the same No falls Having good days and bad days Daughter at the bedside 09/13/2022: Talking a lot better No other concerns No pain currently Bowels are moving 09/12/2022: Still complaining of neck pain She had cervical spine surgery 20 years ago She reports the pain is similar but very difficult to ascertain 09/11/2022: Patient not doing as well today Patient coughing quite a bit and changed diet back to softer and less apt to aspirate Awaiting chest x-ray Dr. Sherman ordered 09/10/2022: No major issues Sensation of throat noted so change of diet is indicated No pain reported 09/09/2022: Patient doing well Has no specific new concerns Talking better Swallowing well 09/08/2022: Patient doing really well Talking more Tolerating eating mechanical soft diet 09/07/2022: Patient just had shower Daughter at the bedside No pain is reported currently Eating and drinking better No aspiration at this point Participation is good 09/06/2022: Patient doing much better Eating better Duration at this point Reviewed blood pressure trend 09/05/2022: Much improved Dysphagia is improved Slow recovery Participation is good 09/04/2022: Patient much improved Slowly eating meals by mouth since NG tube removed Cardiology consulted medication modified 09/03/2022: Patient much improved Barium swallow enables her to eat and so we will discontinue the NG tube Blood pressure labile Blood sugars reviewed 09/02/2022: About the same Talking more and more each day MBS tomorrow and maintained on NGT in place 09/01/2022: Patient doing well Added pain pill NG tube maintained No falls 08/31/2022: No major changes Ice chips are approved to consume slowly NGT is place No falls No pain Fall risk Severe deficits Sugars are good BP a bit elevated Review of Systems General: Fatigue, Malaise Objective Exam Vital Signs Vital Signs Date Time Temp Pulse Resp B/P (MAP) Pulse Ox O2 Delivery O2 Flow Rate FiO2 09/18/22 20:27 36.6 79 18 172/74 (106) 93 Room Air 09/16/22 19:16 0.00 09/13/22 14:44 21 Capillary Refill : General Appearance: No Apparent Distress, WD/WN, Chronically ill, Obese HEENT: PERRL/EOMI, Normal ENT Inspection, Pharynx Normal, Other Neck: Full Range of Motion, Normal Inspection, Non Tender, Supple, Carotid Bruit Respiratory: Chest Non Tender, Normal Breath Sounds, No Accessory Muscle Use, No Respiratory Distress, Crackles Cardiovascular: Regular Rate, Rhythm, No Edema, No Gallop, No JVD, No Murmur, Normal Peripheral Pulses Gastrointestinal: Normal Bowel Sounds, No Organomegaly, No Pulsatile Mass, Non Tender, Soft Back: Normal Inspection, No CVA Tenderness, No Vertebral Tenderness Extremity: Normal Capillary Refill, Normal Inspection, Normal Range of Motion, Non Tender, No Calf Tenderness, No Pedal Edema Neurologic/Psychiatric: Alert, Aphasia, Depressed Affect, Motor Weakness Skin: Normal Color, Warm/Dry Lymphatic: No Adenopathy Results/Procedures Lab Patient resulted labs reviewed. FIM Transfers Therapy Code Descriptions/Definitions Functional [place] Measure: 0=Not Assessed/NA 4=Minimal Assistance 1=Total Assistance 5=Supervision or Setup 2=Maximal Assistance 6=Modified [place] 3=Moderate Assistance 7=Complete IndependenceSCALE: Activities may be completed with or without assistive devices. 0-Busrpiaokq-ijqwfmw completes the activity by him/herself with no assistance from a helper. 5-Set-up or Clean-up Assistance-helper sets up or cleans up; patient completes activity. [place] assists only prior to or following the activity. 4-Supervision or Touching Assistance-helper provides verbal cues and/or touching/steadying and/or contact guard assistance as patient completes activity. Assistance may be provided throughout the activity or intermittently. 3-Partial/Moderate Assistance-helper does LESS THAN HALF the effort. [place] lifts, holds or supports trunk or limbs, but provides less than half the effort. 2-Substantial/Maximal Assistance-helper does MORE THAN HALF the effort. [place] lifts or holds trunk or limbs and provides more than half the effort. 5-Xevrvbdzq-vitjss does ALL the effort. Patient does none of the effort to complete the activity. Or, the assistance of 2 or more helpers is required for the patient to complete the activity. If activity was not attempted, code reason: 7-Patient Refused. 9-Not Applicable-not attempted and the patient did not perform the activity before the current illness, exacerbation or injury. 10-Not Attempted due to Environmental Limitations-(lack of equipment, weather restraints, etc.). 88-Not Attempted due to Medical Conditions or Safety Concerns. Roll Left to Right (QC): 3 Sit to Lying (QC): 3 Sit to Stand (QC): 2 Chair/Tef-ry-Siwns Xfer(QC): 2 Car Transfer (QC): 88 Gait Training Does the Patient Walk?: No and Walking Goal NOT indicated Walk 10 feet (QC): 88 Walk 50 ft with 2 Turns(QC): 88 Walk 150 ft (QC): 88 Walking 10ft/uneven surface-QC: 88 Wheelchair Training Does the Pt Use a Wheelchair?: Yes Distance: 5ft Wheel 50 ft with 2 turns (QC): 3 Wheel 150 ft (QC): 88 Type of Wheelchair: Manual Stair Training 1 Step (curb) (QC): 88 4 Steps (QC): 88 12 Steps (QC): 88 Balance Picking up an Object (QC): 88 ADL-Treatment Eating (QC): 5 Oral Hygiene (QC): 5 Shower/Bathe Self (QC): 2 Upper Body Dressing (QC): 2 Lower Body Dressing (QC): 2 On/Off Footwear (QC): 1 Toileting Hygiene (QC): 2 Toilet Transfer (QC): 1 Assessment/Plan Assessment and Plan Assess & Plan/Chief Complaint Assessment: 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 Aspiration risk s/p modified barium swallow with speech therapy eval Diabetes insulin-dependent hemoglobin A1c 13 Obesity Hypertension Hyperlipidemia Suspected cardiac source of CVA DM insulin dependent since hga1c 13 Thrush treating empirically Cough suspicious for aspiration on 09/11/2022 checking chest x-ray ordered nebs Neck pain acute on chronic previous cervical spine surgery 20 years ago per patient Plan: Aggressive PT and OT Speech therapy May need a PEG tube Monitor closely 08/31/2022: Sugars reviewed Add BP med 09/01/2022: Supportive care Monitor closely 09/02/2022: MBS tomorrow Continue therapy 09/03/2022: Supportive care Advance diet Discontinue NG tube 09/04/2022: Advance diet 09/05/2022: Supportive care 09/06/2022: Supportive care Slow recovery 09/07/2022: Monitor sugar 09/08/2022: Supportive care 09/09/2022: Monitor aspiration risk 09/10/2022: Thrush treatment Change diet 09/11/2022: Change diet to less aspiration Check chest x-ray Nebulizers Incentive spirometer 09/12/2022: Monitor neck pain 09/13/2022: Continue heating pad for neck pain. 09/14/2022: Arrange for skilled care 09/15/2022: Monitor for aspiration 09/16/2022: Await skilled care 09/17/2022: Monitor closely 09/18/2022: Supportive care (1) CVA (cerebral vascular accident) BETHANY HERMOSILLO DO Sep 18, 2022 10:21
--- NOTE | 2022-09-18 11:05 | Speech Therapy Daily Note ---
Speech Daily Progress Note Subjective Date Seen by Provider: Sep 18, 2022 Time Seen by Provider: 10:30 Pt just finished with occupational and physical therapies. Pt appears exhausted and had a hard time staying awake during the session. Pt was pleasant and cooperative. Pain Numeric Pain Scale: 4 Comment: L neck, R leg Objective Pt counts to 10 with 70% accuracy with min cues. Pt says days of the week with 100% accuracy. Pt imitates letters of the alphabet with 80% accuracy. Pt says the letter "h" this date getting the /ch/ on the end. The /ch/ sound requires elevation of the tip of the tongue. This is the first sound the GENERAL ADJUSTER has heard the pt make that requires elevation of the tip of the tongue. Pt continues to demonstrate d ifficulty with bilabial productions. Assessment Assessment Current Status: Fair Progress Treatment Plan Continue Plan of Care Speech Short Term Goals Short Term Goals Short Term Goals 1. The patient will participate in a modified barium swallow assessment to evaluate for the presence of aspiration and best guide therapeutic interventions. MET 09/03/2022 2. The patient will display 80% accuracy with oral motor exercises with mild clinician verbal and visual cueing. 3. The patient will display 80% accuracy with dysphagia exercises with mild clinician verbal and visual cueing. Language: 1. Pt will complete verbal imitation of basic one syllable words with 80% a ccuracy with min clinician verbal and visual cuing. 2. Pt will expressively and receptively identify common everyday objects with 80% accuracy with min clinician verbal and visual cuing. 3. Pt will follow basic 1 step and 2 step directions with 80% accuracy with min clinician verbal and visual cuing. Speech Radiologic Electronic Specialist Goals Radiologic Electronic Specialist Goals 1. The patient will tolerate the least restrictive diet consistency without s/s of suspected aspiration. Language: 1. Pt will communicate basic wants/needs with staff or family members either verbally or with use of pictures in 4/5 opportunities. Time Frame: Three Weeks. Speech-Plan Patient/Family Goals Patient/Family Goals: Family's goal is for pt to go to a SNF following IRU d/c Treatment Plan Speech Therapy Treatment Plan: Continue Plan of Care Treatment Duration: Sep 14, 2022 Frequency: Modified Program (IRF) Estimated Hrs Per Day: .5 hour per day Rehab Potential: Fair Safety Risks/Education Teaching Recipient: Patient Teaching Methods: Discussion Response to Teaching: Verbalize Understanding, Reinforcement Needed Education Topics Provided: Pt educated on purpose of speech therapy tasks but will likely require reinforcement. Time Speech Therapy Time In: 10:30 Speech Therapy Time Out: 10:55 DATE: Sep 18, 2022 Total Billed Time: 25 Billed Treatment Time S/L Kaleigh Monaco Speech Therapy Sep 18, 2022 11:05
--- NOTE | 2022-09-18 11:10 | Physical Therapy Daily Note ---
PT Daily Note-Current Subjective Pt is agreeable to treatment, but did not want to stand and wanted to work on sitting EOM/balance/core strength. Pt reported pain all over at 5-6/10. Pain Numeric Pain Scale: 5-Moderate Pain Location: Right Location Body Site: Knee Section J - Health Conditions 1. Rarely or not at all 2. Occasionally 3. Frequently 4. Almost constantly 8. Unable to answer Pain Effect on Sleep: 2 Pain Interference with Therapy: 3 Pain Interference w/Day-to-Day: 3 Transfers SCALE: Activities may be completed with or without assistive devices. 1-Kofzeorojh-asrdzyu completes the activity by him/herself with no assistance from a helper. 5-Set-up or Clean-up Assistance-helper sets up or cleans up; patient completes activity. [place] assists only prior to or following the activity. 4-Supervision or Touching Assistance-helper provides verbal cues and/or touching/steadying and/or contact guard assistance as patient completes activity. Assistance may be provided throughout the activity or intermittently. 3-Partial/Moderate Assistance-helper does LESS THAN HALF the effort. [place] lifts, holds or supports trunk or limbs, but provides less than half the effort. 2-Substantial/Maximal Assistance-helper does MORE THAN HALF the effort. [place] lifts or holds trunk or limbs and provides more than half the effort. 0-Bdzbxouaj-insrwc does ALL the effort. Patient does none of the effort to complete the activity. Or, the assistance of 2 or more helpers is required for the patient to complete the activity. If activity was not attempted, code reason: 7-Patient Refused. 9-Not Applicable-not attempted and the patient did not perform the activity before the current illness, exacerbation or injury. 10-Not Attempted due to Environmental Limitations-(lack of equipment, weather restraints, etc.). 88-Not Attempted due to Medical Conditions or Safety Concerns. Roll Left & Right (QC): 4 Sit to Lying (QC): 3 Lying to Sitting/Side of Bed(Q: 3 Chair/Uig-ux-Zbqvt Xfer(QC): 2 Weight Bearing Right Lower Extremity: Right Full Weight Bearing Left Lower Extremity: Left Full Weight Bearing Gait Training Does the Patient Walk?: No and Walking Goal NOT indicated Treatments PT/OT co-tx ([id number]), skills of 2 clinicians required to decrease fall risk, increase dynamic sitting balance, working on R UE/LE to regain movement while completing wt bearing tasks. PT focusing on transfers, B LE strengthening, and sitting balance/core strength, and OT focusing on ADLs, functional mobility and B UE strengthening. Pt supine in bed upon arrival with PARK present. Pt completed supine R LE Ther Ex x 10 reps each with Mod encouragement to complete exercises. Pt completed SPT 4 bed <> w/c and w/c <> mat with Max A x 2. Pt sat EOB with support from PARK for ~ 15 min working on R UE WB, core strength, posture, R UE activation, R LE activation, and balance. Pt required Mod/Max encouragement to participate with PT/OT and cont to report she can't and everything was painful. Pt supine in bed upon completion of treatment with call light in reach, all needs met, and ST present. Assessment Current Status: Fair Progress Pts tolerance to treatment was fair, and pt also gave fair effort on this date. PT Half-Way Goals Putty Glazer Goals PT Half-Way Goals Time Frame: Sep 13, 2022 Roll Left & Right (QC): 3 (Pt will complete bed mobility with Min A. ) Sit to Lying (QC): 3 (Pt will complete bed mobility with Min A. ) Lying-Sitting on Side/Bed(QC): 3 (Pt will complete bed mobility with Min A. ) Sit to Stand (QC): 3 (Pt will complete transfer with Min/Mod A. ) Chair/Vrx-hc-Wculy Xfer(QC): 3 (Pt will complete transfer with Min/Mod A. ) Toilet Transfer (QC): 3 (Pt will complete transfer with Min/Mod A. ) Car Transfer (QC): 3 (Pt will complete transfer with Min/Mod A. ) Does the Patient Walk: No and Walking Goal IS indicated Walk 10 feet (QC): 3 (Min/Mod A for walking with the chau-walker ) Walk 50ft with 2 Turns (QC): 3 (Min/Mod A for walking with the chau-walker ) Walk 150 ft (QC): 88 Walking 10ft on Uneven Surface: 88 1 Step (curb) (QC): 3 (Min/Mod A for a curb/step ) 4 Steps (QC): 88 12 Steps (QC): 88 Picking up an Object (QC): 3 (Min A with ophthalmic medical technician ) Does the Pt use WC or Scooter?: Yes Wheel 50 feet with 2 turns (QC: 3 (Min A for w/c mobility ) Type: Manual Wheel 150 feet: 3 (Min A for w/c mobility ) Type: Manual PT Plan Problem List Problem List: Activity Tolerance, Functional Strength, Safety, Balance, Gait, Transfer, Bed Mobility Treatment/Plan Treatment Plan: Continue Plan of Care Treatment Plan: Bed Mobility, Concurrent Therapy, Education, Functional Activity Emil, Functional Strength, Group Therapy, Gait, Safety, Therapeutic Exercise, Transfers Treatment Duration: Sep 13, 2022 Frequency: At least 5 of 7 days/Wk (IRF) Estimated Hrs Per Day: 1.5 hours per day Patient and/or Family Agrees t: Yes Safety Risks/Education Patient Education: Transfer Techniques, Correct Positioning, Safety Issues Teaching Recipient: Patient Teaching Methods: Demonstration, Discussion Response to Teaching: Reinforcement Needed Discharge Recommendations Therapy Discharge Recommendati: 24 Hour Supervision Discharge Status/Home Program cont per POC Barriers to Progress R sided weakness; lack of pt motivation Target Placement SNF Time Time In: 930 Time Out: 1030 DATE: Sep 18, 2022 Total Billed Treatment Time: 60 Total Billed Treatment 60 min co-tx from [id number] 1 visit FA x 4 KATELIN YAO PT Sep 18, 2022 11:10
--- NOTE | 2022-09-18 12:43 | Occupational Ther Daily Note ---
OT Current Status-Daily Note Subjective Pt agrees to therapy. OT/PT co-treat ([id number]), skills of 2 clinicians required to decrease fall risk, increase dynamic sitting balance, working on R UE/LE to regain movement while completing wt bearing tasks. PT focusing on transfers, B LE strengthening and OT focusing on ADLs, functional mobility and B UE strengthening. Mental Status/Objective Patient Orientation: Person, Place, Non-Verbal/Aphasic, Time, Situation Attachments: Telemetry ADL-Treatment Pt assist with rolling side to side to bath and dress. Pt dependent on toileting, max A footwear. Max A for bathing, LBD and mod A UBD. Therapy Code Descriptions/Definitions Functional [place] Measure: 0=Not Assessed/NA 4=Minimal Assistance 1=Total Assistance 5=Supervision or Setup 2=Maximal Assistance 6=Modified [place] 3=Moderate Assistance 7=Complete IndependenceSCALE: Activities may be completed with or without assistive devices. 9-Ziskwwlwli-nqxrbzm completes the activity by him/herself with no assistance from a helper. 5-Set-up or Clean-up Assistance-helper sets up or cleans up; patient completes activity. [place] assists only prior to or following the activity. 4-Supervision or Touching Assistance-helper provides verbal cues and/or touching/steadying and/or contact guard assistance as patient completes activity. Assistance may be provided throughout the activity or intermittently. 3-Partial/Moderate Assistance-helper does LESS THAN HALF the effort. [place] lifts, holds or supports trunk or limbs, but provides less than half the effort. 2-Substantial/Maximal Assistance-helper does MORE THAN HALF the effort. [place] lifts or holds trunk or limbs and provides more than half the effort. 0-Cvzmihqfp-ceadcf does ALL the effort. Patient does none of the effort to complete the activity. Or, the assistance of 2 or more helpers is required for the patient to complete the activity. If activity was not attempted, code reason: 7-Patient Refused. 9-Not Applicable-not attempted and the patient did not perform the activity before the current illness, exacerbation or injury. 10-Not Attempted due to Environmental Limitations-(lack of equipment, weather restraints, etc.). 88-Not Attempted due to Medical Conditions or Safety Concerns. Eating (QC): 5 Oral Hygiene (QC): 5 Upper Body Dressing (QC): 3 (mod A) Lower Body Dressing (QC): 2 On/Off Footwear: 2 Toileting Hygiene (QC): 1 Other Treatment Pt completed SPT 4 bed <> w/c and w/c <> mat with Max A x 2. Pt sat EOB with support from PARK for ~ 15 min working on R UE WB, core strength, posture, R UE activation, R LE activation, and balance. Pt required Mod/Max encouragement to participate with PT/OT and cont to report she can't and everything was painful. Pt supine in bed upon completion of treatment with call light in reach, all needs met, and ST present. OT Short Term Goals Short Term Goals Time Frame: Sep 14, 2022 Shower/bathe self: 2 Upper body dressin Lower body dressin Putting on/taking off footwear: 2 OT Skilled Nursing Goals Skilled Nursing Goals Time Frame: Sep 28, 2022 Acute change in mental status: 1 Inattention: 1 Disorganized thinkin Altered level of consciousness: 0 Eating (QC): 5 (goal of set up assist if pt able to progress from tube feedings.) Oral Hygiene (QC): 5 Toileting Hygiene (QC): 3 Shower/Bathe Self (QC): 3 Upper Body Dressing (QC): 4 Lower Body Dressing (QC): 3 On/Off Footwear (QC): 3 Additional Goals: 1-Demonstrate ADL Tasks, 2-Verbalize Understanding, 3- ImproveStrength/Emil 1=Demonstrate adherence to instructed precautions during ADL tasks. 2=Patient will verbalize/demonstrate understanding of assistive devices/modifications for ADL. 3=Patient will improve strength/tolerance for activity to enable patient to perform ADL's. OT Education/Plan Problem List/Assessment Assessment: Decreased Activ Tolerance, Decreased UE Strength, Dependent Transfers, Impaired Bed Mobility, Impaired Funct Balance, Impaired I ADL's, Impaired Self-Care Skills, Restricted Funct UE ROM, Visual-Perceptual Deficit Discharge Recommendations Plan/Recommendations: Continue POC Treatment Plan/Plan of Care Patient would benefit from OT for education, treatment and training to promote independence in ADL's, mobility, safety and/or upper extremity function for ADL's. Plan of Care: ADL Retraining, Functional Mobility, Group Exercise/Act as Ind, UE Funct Exercise/Act, UE Neuromus Re-Ed/Coord, W/C Management Training Treatment Duration: Sep 28, 2022 Frequency: At least 5 of 7 days/Wk (IRF) Estimated Hrs Per Day: 1.5 hours per day Agreement: Yes Rehab Potential: Fair Time Start Time: 09:00 Stop Time: 10:30 DATE: Sep 18, 2022 Total Time Billed (hr/min): 90 Billed Treatment Time 1 visit-ADL 4 (60 min) NM 2 (30 min) co-treat with PT [id number], individual [id number] NICHO GU Sep 18, 2022 12:43
[2022-09-18 20:27] VITALS: BP 172/74
[2022-09-19] MEDS: ACETAMINOPHEN 325 MG TABLET NG PRN ×2 (04:19→22:57)
[2022-09-19] MEDS: LEVOTHYROXINE 100 MCG (LEVOTHROID) TAB PO SCH (06:15)
[2022-09-19] MEDS: inSUlin ASPART (NovoLOG) 1 UNIT/0.01 ML (CHARGE PER UNIT) SC SCH ×4 (06:15→20:41)
[2022-09-19] MEDS: POTASSIUM BICARB 20 MEQ (EFFER-K) TABLET PO SCH (06:15)
[2022-09-19 08:00] VITALS: BP 154/67
[2022-09-19] MEDS: polyethylene glycoL POWDER 17 GM (MIRALAX) PACK NG SCH ×2 (08:25→20:41)
[2022-09-19] MEDS: NYSTATIN ORAL SUSP 5 ML UDC PO SCH ×4 (08:25→20:41)
[2022-09-19] MEDS: ENOXAPARIN 40 MG/0.4 ML (LOVENOX) SYR SC SCH (08:25)
[2022-09-19] MEDS: GABAPENTIN 100 MG (NEURONTIN) CAP PO SCH ×3 (08:25→20:41)
[2022-09-19] MEDS: amLODIPine 5 MG (NORVASC) TAB NG SCH (08:26)
[2022-09-19] MEDS: PANTOPRAZOLE 40 MG (PROTONIX) TAB PO SCH (08:26)
[2022-09-19] MEDS: VITAMIN D3 125 MCG (5,000 UNITS) CAPSULE PO SCH (08:26)
[2022-09-19] MEDS: ASPIRIN 325 MG (5 GR) TABLET NG SCH (08:26)
[2022-09-19] MEDS: SENNA W/DOCUSATE (SENOKOT S) TABLET NG SCH ×2 (08:26→20:41)
[2022-09-19] MEDS: DOCUSATE SODIUM 10 MG/ML 10 ML UDC (COLACE) NG SCH ×2 (08:30→20:42)
[2022-09-19] MEDS: DICLOFENAC 1% GEL 100 GM (VOLTAREN) TUBE TOP SCH ×4 (08:31→20:42)
--- NOTE | 2022-09-19 09:28 | Cardiology Progress Note ---
Subjective Date Seen by Provider: Sep 19, 2022 Time Seen by Provider: 08:15 Subjective/Events-last exam Patient is sitting up in bed, eating breakfast. Denies any chest pain or dy spnea. Objective-Cardiology Exam Last Set of Vital Signs Vital Signs 09/13/22 09/16/22 09/19/22 14:44 19:16 08:00 Temp 36.0 Pulse 61 Resp 18 B/P (MAP) 154/67 (96) Pulse Ox 94 O2 Delivery Room Air O2 Flow Rate 0.00 FiO2 21 I&O Intake and Output0 09/19/22 00:00 Intake Total 800 ml Output Total 575 ml Balance 225 ml Intake Oral 800 ml Output Urine Total 575 ml # Urine Diapers 1 General: Alert, Cooperative HEENT: Atraumatic Neck: Supple, No JVD, No Thyromegaly Lungs: Clear to Auscultation, Normal Air Movement Heart: Regular Rate, Normal S1, Normal S2, No Murmurs Abdomen: Normal Bowel Sounds, Soft, No Tenderness, No Hepatosplenomegaly, No Masses Extremities: No Clubbing, No Cyanosis, No Edema, Normal Pulses, No Tenderness/Swelling Skin: No Rashes, No Breakdown, No Significant Lesion Neuro: Other (Aphasia and hemiaplasia) Psych/Mental Status: Mood NL A/P-Cardiology Admission Diagnosis CVA Left ICA/MCA occlusion HTN HLP DM Assessment/Plan Acute CVA with right sided weakness, aphasia, dysphagia. CTA showed occluded left ICA/MCA. Patient was transferred to [facility] where she underwent attempt at mechanical thrombectomy with no change. Currently maintained on ASA. Planning for LINq implantation later today 2D Echo done at [facility] on showed mild LVH, grade 2 diastolic dysfunction, mildly dilated LA. No PFO or ASD appreciated. Nonproductive cough, CXR done showing no acute process Sore throat and increased generalized fatigue and malaise. Management per medical services. Hypertension, controlled Maintained on clonidine patch, amlodipine, hydralazine 25mg TID. Will d/c hydralazine and continue to monitor. Continue to monitor Sinus node dysfunction, had transient 2:1 AV block while asleep. Continue to monitor. Planning for LINq implantation for further monitoring Intolerance/allergy to angiotensin receptor vazquez Hyperlipidemia, maintained on statin, monitor lipids Diabetes mellitus, managed by primary care physician Hypothyroidism, managed by primary care physician. Obesity. Supervisory-Addendum Brief Supervisory Addendum Participated in pt care: history, MDM, physical Personally performed: exam, history, MDM Care discussed with: ATA Results interpretation: Verified all documentation Notes: Patient was seen and evaluated with Luiza, examination performed, management plan was discussed, agree with the current scribed note, I made few changes to the note using Italic font Patient was seen at bedside, laying down comfortably, feeling better Still having slurred speech and weakness Discussed the need for loop monitor implantation which was placed without complication Continue to monitor blood pressure, no other changes recommended LUIZA AYALA Sep 19, 2022 09:28 VONDA TOMAS MD Sep 19, 2022 11:07
--- NOTE | 2022-09-19 10:34 | Occupational Ther Daily Note ---
OT Current Status-Daily Note Subjective Pt alert, lying in bed. Pt agrees to therapy. OT/PT co-treat ([id number]), skills of 2 clinicians required to decrease fall risk, increase dynamic sitting balance, working on R UE/LE to regain movement while completing wt bearing tasks. PT focusing on transfers, B LE strengthening and OT focusing on ADLs, functional mobility and B UE strengthening. Mental Status/Objective Patient Orientation: Person, Place, Time, Situation Attachments: Telemetry ADL-Treatment Pt agrees to bed bath. Pt washes face, upper body and abdomen then PARK completed rest of bed bath. Pt assist with rolling side to side to bath and vernell ss. Pt dependent on toileting and footwear. Max A for bathing, LBD and mod A for UBD. Set up for eating and oral care. Therapy Code Descriptions/Definitions Functional [place] Measure: 0=Not Assessed/NA 4=Minimal Assistance 1=Total Assistance 5=Supervision or Setup 2=Maximal Assistance 6=Modified [place] 3=Moderate Assistance 7=Complete IndependenceSCALE: Activities may be completed with or without assistive devices. 4-Qpwfhvjkwv-kcilbbm completes the activity by him/herself with no assistance from a helper. 5-Set-up or Clean-up Assistance-helper sets up or cleans up; patient completes activity. [place] assists only prior to or following the activity. 4-Supervision or Touching Assistance-helper provides verbal cues and/or touching/steadying and/or contact guard assistance as patient completes activity. Assistance may be provided throughout the activity or intermittently. 3-Partial/Moderate Assistance-helper does LESS THAN HALF the effort. [place] lifts, holds or supports trunk or limbs, but provides less than half the effort. 2-Substantial/Maximal Assistance-helper does MORE THAN HALF the effort. [place] lifts or holds trunk or limbs and provides more than half the effort. 1-Lvriqlzyx-ucwdna does ALL the effort. Patient does none of the effort to complete the activity. Or, the assistance of 2 or more helpers is required for the patient to complete the activity. If activity was not attempted, code reason: 7-Patient Refused. 9-Not Applicable-not attempted and the patient did not perform the activity before the current illness, exacerbation or injury. 10-Not Attempted due to Environmental Limitations-(lack of equipment, weather restraints, etc.). 88-Not Attempted due to Medical Conditions or Safety Concerns. Eating (QC): 5 Oral Hygiene (QC): 5 Bathing Location: Chest, Abdomen Shower/Bathe Self (QC): 2 Upper Body Dressing (QC): 3 (mod A) Lower Body Dressing (QC): 2 On/Off Footwear: 1 Toileting Hygiene (QC): 1 Other Treatment PARK assisted with sit <--> stand, pt maintained standing at //bars for 2 min with assist only from PT. See PT notes for progress. After session, pt left in care of PT. All needs met. BIMS CAM BIMS Expression of Ideas and Wants: Difficulty Understanding Verbal Content: Understands Brief Interview/Mental Status: Yes IRF INES BIMS: IRF INES BIMS Response (Comments) Value Repitition of Three Words Three 3 Recalls Socks Yes, No Cue Required 2 Recalls Blue Yes, No Cue Required 2 Recalls Bed Yes, No Cue Required 2 Year Correct 3 Month Accurate Within 5 Days 2 Day Correct 1 Total 15 Patient Normally Able to Recal: Current Session, Location of own room, Staff Names and faces, That he/she in a hsp Should Staff Asses. Mental St.: No CAM Mental Status Change/Baseline: 0 Inattention: 0 Disorganized thinkin Altered level of consciousness: 0 OT Short Term Goals Short Term Goals Time Frame: Sep 14, 2022 Shower/bathe self: 2 Upper body dressin Lower body dressin Putting on/taking off footwear: 2 OT Skilled Nursing Goals Skilled Nursing Goals Time Frame: Sep 28, 2022 Acute change in mental status: 1 Inattention: 1 Disorganized thinkin Altered level of consciousness: 0 Eating (QC): 5 (goal of set up assist if pt able to progress from tube feedings.) Oral Hygiene (QC): 5 (met) Toileting Hygiene (QC): 3 (notmet) Shower/Bathe Self (QC): 3 (not met) Upper Body Dressing (QC): 4 (not met) Lower Body Dressing (QC): 3 (notmet) On/Off Footwear (QC): 3 (notmet) Additional Goals: 1-Demonstrate ADL Tasks, 2-Verbalize Understanding, 3- ImproveStrength/Emil 1=Demonstrate adherence to instructed precautions during ADL tasks. 2=Patient will verbalize/demonstrate understanding of assistive devices/modifications for ADL. 3=Patient will improve strength/tolerance for activity to enable patient to perform ADL's. OT Education/Plan Problem List/Assessment Assessment: Decreased Activ Tolerance, Decreased Safety Aware, Decreased UE Strength, Impaired Bed Mobility, Impaired Funct Balance, Impaired Self-Care Skills, Restricted Funct UE ROM, Visual-Perceptual Deficit Discharge Recommendations Plan/Recommendations: Continue POC Treatment Plan/Plan of Care Patient would benefit from OT for education, treatment and training to promote independence in ADL's, mobility, safety and/or upper extremity function for ADL's. Plan of Care: ADL Retraining, Functional Mobility, Group Exercise/Act as Ind, UE Funct Exercise/Act, UE Neuromus Re-Ed/Coord, W/C Management Training Treatment Duration: Sep 28, 2022 Frequency: At least 5 of 7 days/Wk (IRF) Estimated Hrs Per Day: 1.5 hours per day Agreement: Yes Rehab Potential: Fair Time Start Time: 08:45 Stop Time: 10:00 DATE: Sep 19, 2022 Total Time Billed (hr/min): 75 Billed Treatment Time 1 visit-ADL 4 (60 min) NM 1(15 min) cotreat for [id number], individual for [id number] NICHO GU Sep 19, 2022 10:34
--- NOTE | 2022-09-19 10:55 | Physical Therapy Daily Note ---
PT Daily Note-Current Subjective Pt reports she is doing well today and is agreeable to tx. Pt reports she wanted to stand on this date. Pt did not report pain. Pain Section J - Health Conditions 1. Rarely or not at all 2. Occasionally 3. Frequently 4. Almost constantly 8. Unable to answer Pain Effect on Sleep: 2 Pain Interference with Therapy: 2 Pain Interference w/Day-to-Day: 2 Transfers SCALE: Activities may be completed with or without assistive devices. 7-Xyllupeyez-lahzqhg completes the activity by him/herself with no assistance from a helper. 5-Set-up or Clean-up Assistance-helper sets up or cleans up; patient completes activity. [place] assists only prior to or following the activity. 4-Supervision or Touching Assistance-helper provides verbal cues and/or touching/steadying and/or contact guard assistance as patient completes activity. Assistance may be provided throughout the activity or intermittently. 3-Partial/Moderate Assistance-helper does LESS THAN HALF the effort. [place] lifts, holds or supports trunk or limbs, but provides less than half the effort. 2-Substantial/Maximal Assistance-helper does MORE THAN HALF the effort. [place] lifts or holds trunk or limbs and provides more than half the effort. 5-Cxzovvumx-ilwyae does ALL the effort. Patient does none of the effort to complete the activity. Or, the assistance of 2 or more helpers is required for the patient to complete the activity. If activity was not attempted, code reason: 7-Patient Refused. 9-Not Applicable-not attempted and the patient did not perform the activity before the current illness, exacerbation or injury. 10-Not Attempted due to Environmental Limitations-(lack of equipment, weather restraints, etc.). 88-Not Attempted due to Medical Conditions or Safety Concerns. Roll Left & Right (QC): 3 (R rolling - CGAL rolling - Mod A) Sit to Lying (QC): 3 (Mod A) Lying to Sitting/Side of Bed(Q: 3 (Mod A) Sit to Stand (QC): 2 (Max A) Chair/[place] Xfer(QC): 2 (Max A) Toilet Transfer (QC): 88 Car Transfer (QC): 88 Weight Bearing Right Lower Extremity: Right Full Weight Bearing Left Lower Extremity: Left Full Weight Bearing Gait Training Does the Patient Walk?: No and Walking Goal NOT indicated Walk 10 feet (QC): 88 Walk 50 ft with 2 Turns(QC): 88 Walk 150 ft (QC): 88 Walking 10ft/uneven surface-QC: 88 Wheelchair Training Does the Pt Use a Wheelchair?: Yes Wheel 50 ft with 2 turns (QC): 3 (Mod A) Wheel 150 ft (QC): 3 (Mod A) Type of Wheelchair: Manual Stair Training 1 Step (curb) (QC): 88 4 Steps (QC): 88 12 Steps (QC): 88 Balance Picking up an Object (QC): 88 Special Test Comments [facility] standing balance scale = 1+/5 Treatments PT/OT co-tx ([id number]), skills of 2 clinicians required to decrease fall risk, increase dynamic sitting balance, working on R UE/LE to regain movement while completing wt bearing tasks. PT focusing on transfers, B LE strengthening, and sitting balance/core strength, and OT focusing on ADLs, functional mobility and B UE strengthening. Pt supine in bed upon arrival with PARK present. Pt completed R rolling with CGA/Min A. Pt completed supine > sit with Mod A. Pt completed SPT bed > w/c with Max A. Pt completed sit to edger liner the // bars with Max A. Pt stood for approx 2 min with Min A and improved posture. Pt required Mod v/c for posture and R TKE. Pt completed seated R LAQ x 10 reps with pillowcase under foot. Pt self-propelled the w/c approx 150ft with Mod A. Pt was then taken for loop recorder procedure at 1010 and PT session stopped at that time. Assessment Current Status: Fair Progress Pt tolerated PT well and showed improved effort on this date. PT Half-Way Goals Half-Way Goals PT Half-Way Goals Time Frame: Sep 13, 2022 Roll Left & Right (QC): 3 (Pt will complete bed mobility with Min A. ) Sit to Lying (QC): 3 (Pt will complete bed mobility with Min A. ) Lying-Sitting on Side/Bed(QC): 3 (Pt will complete bed mobility with Min A. ) Sit to Stand (QC): 3 (Pt will complete transfer with Min/Mod A. ) Chair/Hwf-hb-Bduyj Xfer(QC): 3 (Pt will complete transfer with Min/Mod A. ) Toilet Transfer (QC): 3 (Pt will complete transfer with Min/Mod A. ) Car Transfer (QC): 3 (Pt will complete transfer with Min/Mod A. ) Does the Patient Walk: No and Walking Goal IS indicated Walk 10 feet (QC): 3 (Min/Mod A for walking with the chau-walker ) Walk 50ft with 2 Turns (QC): 3 (Min/Mod A for walking with the chau-walker ) Walk 150 ft (QC): 88 Walking 10ft on Uneven Surface: 88 1 Step (curb) (QC): 3 (Min/Mod A for a curb/step ) 4 Steps (QC): 88 12 Steps (QC): 88 Picking up an Object (QC): 3 (Min A with junior media buyer ) Does the Pt use WC or Scooter?: Yes Wheel 50 feet with 2 turns (QC: 3 (Min A for w/c mobility ) Type: Manual Wheel 150 feet: 3 (Min A for w/c mobility ) Type: Manual PT Plan Problem List Problem List: Activity Tolerance, Functional Strength, Safety, Balance, Gait, Transfer, Bed Mobility, ROM Treatment/Plan Treatment Plan: Continue Plan of Care Treatment Plan: Bed Mobility, Concurrent Therapy, Education, Functional Activity Emil, Functional Strength, Group Therapy, Gait, Safety, Therapeutic Exercise, Transfers Treatment Duration: Sep 13, 2022 Frequency: At least 5 of 7 days/Wk (IRF) Estimated Hrs Per Day: 1.5 hours per day Patient and/or Family Agrees t: Yes Safety Risks/Education Patient Education: Transfer Techniques, W/C Management, Safety Issues Teaching Recipient: Patient Teaching Methods: Demonstration, Discussion Response to Teaching: Verbalize Understanding, Return Demonstration, Reinforcement Needed Discharge Recommendations Therapy Discharge Recommendati: 24 Hour Supervision Discharge Status/Home Program Cont per POC Pt plans to d/c to SNF tomorrow (09/20/2022) Barriers to Progress R sided weakness Target Placement SNF Time Time In: 930 Time Out: 1010 DATE: Sep 19, 2022 Total Billed Treatment Time: 40 Total Billed Treatment 40 min ([id number]) 1 visit 30 min co-tx from [id number] FA x 2 10 min individual tx from [id number] EX x 1 KATELIN YAO PT Sep 19, 2022 10:55
--- NOTE | 2022-09-19 11:06 | Implantation of Loop Monitor ---
Implant of Loop Monitior IMPLANTATION OF LOOP MONITOR REPORT DATE OF PROCEDURE: 09/19/22 PREOP DIAGNOSIS: Cryptogenic stroke POSTOP DIAGNOSIS: Cryptogenic stroke PROCEDURE DETAILS: The patient is a 77 female with cryptogenic stroke requiring long-term surveillance. Therefore implantable loop recorder was discussed and agreed with the patient. Informed consent was taken. All risks and complications were discussed at length. The patient was draped and prepped in the usual sterile fashion. Local anesthesia was lidocaine, which was given in the substernal area close to the 4th intercostal space. Loop monitor [employer] with serial number [id number] was implanted according to the protocol. Steri-Strips were placed at the end of the procedure. There were no complications and the patient tolerated the procedure well. ANESTHESIA: Local anesthesia with lidocaine. COMPLICATIONS: None CONTRAST/FLUOROSCOPY: None CONCLUSION: Successful implantation of loop monitor with no complication FINAL DIAGNOSIS: Cryptogenic stroke Hypertension VONDA TOMAS MD Sep 19, 2022 11:06
--- NOTE | 2022-09-19 11:06 | PM&R Progress Note ---
Subjective HPI/CC On Admission Date Seen by Provider: Sep 19, 2022 Time Seen by Provider: 11:15 Subjective/Events-last exam 09/19/2022: Patient doing a lot better Needs to go to skilled care tomorrow Pain is controlled 09/18/2022: Patient doing really well Not much progress being made but she remained stable Speech is better every day Needs skilled care 09/17/2022: Patient doing about the same No falls Eating and drinking a little better Pain is improved 09/16/2022: Patient doing really well Catastrophic CVA with deficits will require shelter for slower recovery and may require long-term care Blood sugars are much improved 09/15/2022: Improved overall Pain less today No falls Needs SNF 09/14/2022: Patient doing about the same No falls Having good days and bad days Daughter at the bedside 09/13/2022: Talking a lot better No other concerns No pain currently Bowels are moving 09/12/2022: Still complaining of neck pain She had cervical spine surgery 20 years ago She reports the pain is similar but very difficult to ascertain 09/11/2022: Patient not doing as well today Patient coughing quite a bit and changed diet back to softer and less apt to aspirate Awaiting chest x-ray Dr. Sherman ordered 09/10/2022: No major issues Sensation of throat noted so change of diet is indicated No pain reported 09/09/2022: Patient doing well Has no specific new concerns Talking better Swallowing well 09/08/2022: Patient doing really well Talking more Tolerating eating mechanical soft diet 09/07/2022: Patient just had shower Daughter at the bedside No pain is reported currently Eating and drinking better No aspiration at this point Participation is good 09/06/2022: Patient doing much better Eating better Duration at this point Reviewed blood pressure trend 09/05/2022: Much improved Dysphagia is improved Slow recovery Participation is good 09/04/2022: Patient much improved Slowly eating meals by mouth since NG tube removed Cardiology consulted medication modified 09/03/2022: Patient much improved Barium swallow enables her to eat and so we will discontinue the NG tube Blood pressure labile Blood sugars reviewed 09/02/2022: About the same Talking more and more each day MBS tomorrow and maintained on NGT in place 09/01/2022: Patient doing well Added pain pill NG tube maintained No falls 08/31/2022: No major changes Ice chips are approved to consume slowly NGT is place No falls No pain Fall risk Severe deficits Sugars are good BP a bit elevated Review of Systems General: Fatigue, Malaise Objective Exam Vital Signs Vital Signs Date Time Temp Pulse Resp B/P (MAP) Pulse Ox O2 Delivery O2 Flow Rate FiO2 09/19/22 19:58 36.2 95 18 184/79 (114) 77 Room Air 09/16/22 19:16 0.00 09/13/22 14:44 21 Capillary Refill : General Appearance: No Apparent Distress, WD/WN, Chronically ill, Obese HEENT: PERRL/EOMI, Normal ENT Inspection, Pharynx Normal, Other Neck: Full Range of Motion, Normal Inspection, Non Tender, Supple, Carotid Bruit Respiratory: Chest Non Tender, Normal Breath Sounds, No Accessory Muscle Use, No Respiratory Distress, Crackles Cardiovascular: Regular Rate, Rhythm, No Edema, No Gallop, No JVD, No Murmur, Normal Peripheral Pulses Gastrointestinal: Normal Bowel Sounds, No Organomegaly, No Pulsatile Mass, Non Tender, Soft Back: Normal Inspection, No CVA Tenderness, No Vertebral Tenderness Extremity: Normal Capillary Refill, Normal Inspection, Normal Range of Motion, Non Tender, No Calf Tenderness, No Pedal Edema Neurologic/Psychiatric: Alert, Aphasia, Depressed Affect, Motor Weakness Skin: Normal Color, Warm/Dry Lymphatic: No Adenopathy Results/Procedures Lab Patient resulted labs reviewed. FIM Transfers Therapy Code Descriptions/Definitions Functional [place] Measure: 0=Not Assessed/NA 4=Minimal Assistance 1=Total Assistance 5=Supervision or Setup 2=Maximal Assistance 6=Modified [place] 3=Moderate Assistance 7=Complete IndependenceSCALE: Activities may be completed with or without assistive devices. 7-Ierdvwenxt-mggdmyw completes the activity by him/herself with no assistance from a helper. 5-Set-up or Clean-up Assistance-helper sets up or cleans up; patient completes activity. [place] assists only prior to or following the activity. 4-Supervision or Touching Assistance-helper provides verbal cues and/or touching/steadying and/or contact guard assistance as patient completes activ ity. Assistance may be provided throughout the activity or intermittently. 3-Partial/Moderate Assistance-helper does LESS THAN HALF the effort. [place] lifts, holds or supports trunk or limbs, but provides less than half the effort. 2-Substantial/Maximal Assistance-helper does MORE THAN HALF the effort. [place] lifts or holds trunk or limbs and provides more than half the effort. 9-Gvniscdqf-xaygdv does ALL the effort. Patient does none of the effort to complete the activity. Or, the assistance of 2 or more helpers is required for the patient to complete the activity. If activity was not attempted, code reason: 7-Patient Refused. 9-Not Applicable-not attempted and the patient did not perform the activity before the current illness, exacerbation or injury. 10-Not Attempted due to Environmental Limitations-(lack of equipment, weather restraints, etc.). 88-Not Attempted due to Medical Conditions or Safety Concerns. Roll Left to Right (QC): 3 (R rolling - CGAL rolling - Mod A) Sit to Lying (QC): 3 (Mod A) Sit to Stand (QC): 2 (Max A) Chair/Dvg-sj-Qvdsk Xfer(QC): 2 (Max A) Car Transfer (QC): 88 Gait Training Does the Patient Walk?: No and Walking Goal NOT indicated Walk 10 feet (QC): 88 Walk 50 ft with 2 Turns(QC): 88 Walk 150 ft (QC): 88 Walking 10ft/uneven surface-QC: 88 Wheelchair Training Does the Pt Use a Wheelchair?: Yes Distance: 5ft Wheel 50 ft with 2 turns (QC): 3 (Mod A) Wheel 150 ft (QC): 3 (Mod A) Type of Wheelchair: Manual Stair Training 1 Step (curb) (QC): 88 4 Steps (QC): 88 12 Steps (QC): 88 Balance Picking up an Object (QC): 88 ADL-Treatment Eating (QC): 5 Oral Hygiene (QC): 5 Bathing Location: Chest, Abdomen Shower/Bathe Self (QC): 2 Upper Body Dressing (QC): 3 (mod A) Lower Body Dressing (QC): 2 On/Off Footwear (QC): 1 Toileting Hygiene (QC): 1 Toilet Transfer (QC): 1 Assessment/Plan Assessment and Plan Assess & Plan/Chief Complaint Assessment: 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 Aspiration risk s/p modified barium swallow with speech therapy eval Diabetes insulin-dependent hemoglobin A1c 13 Obesity Hypertension Hyperlipidemia Suspected cardiac source of CVA DM insulin dependent since hga1c 13 Thrush treating empirically Cough suspicious for aspiration on 09/11/2022 checking chest x-ray ordered nebs Neck pain acute on chronic previous cervical spine surgery 20 years ago per patient Plan: Aggressive PT and OT Speech therapy May need a PEG tube Monitor closely 08/31/2022: Sugars reviewed Add BP med 09/01/2022: Supportive care Monitor closely 09/02/2022: MBS tomorrow Continue therapy 09/03/2022: Supportive care Advance diet Discontinue NG tube 09/04/2022: Advance diet 09/05/2022: Supportive care 09/06/2022: Supportive care Slow recovery 09/07/2022: Monitor sugar 09/08/2022: Supportive care 09/09/2022: Monitor aspiration risk 09/10/2022: Thrush treatment Change diet 09/11/2022: Change diet to less aspiration Check chest x-ray Nebulizers Incentive spirometer 09/12/2022: Monitor neck pain 09/13/2022: Continue heating pad for neck pain. 09/14/2022: Arrange for skilled care 09/15/2022: Monitor for aspiration 09/16/2022: Await skilled care 09/17/2022: Monitor closely 09/18/2022: Supportive care 09/19/2022: Supportive care (1) CVA (cerebral vascular accident) BETHANY HERMOSILLO 21, 2023 11:06
--- NOTE | 2022-09-19 13:06 | Speech Therapy Daily Note ---
Speech Daily Progress Note Subjective Date Seen by Provider: Sep 19, 2022 Time Seen by Provider: 12:00 The patient was seated upright in her bed, awake and alert, upon entrance to her room by the clinician. The patient greeted the clinician appropriately and was agreeable to participation in the speech, language, and dysphagia skilled treatment session. Objective As the patient is scheduled to discharge on the subsequent date, the clinician reviewed and discussed safe swallowing strategies and precautions, swallowing recommendations, intelligibility strategies and oral motor exercises. The patient independently sips water via edge of cup throughout the treatment session and no s/s of suspected aspiration were present. The RN provided medications crushed and in applesauce. Again, no s/s of suspected aspiration were demonstrated and the patient independently completed assessment of possible oral pocketing with a lingual sweep and a subsequent sip of thin liquid via cup edge. The patient's lunch arrived throughout the treatment session. The patient consumed minced and moist chicken, sweet potatoes, and carrots. Additionally, the patient had thin liquid via cup edge (iced tea, milk, and water). The patient self-fed with her left hand and did not demonstrate s/s of suspected aspiration. Anomia frustration was present throughout the treatment. Due to this, word- finding strategies were discussed and practiced. The patient displays the highest efficiency when allowed additional time to reduce frustration and re-try her message. Assessment Assessment Current Status: Good Progress Treatment Plan Continue Plan of Care Speech Short Term Goals Short Term Goals Short Term Goals 1. The patient will participate in a modified barium swallow assessment to evaluate for the presence of aspiration and best guide therapeutic interventions. MET 09/03/2022 2. The patient will display 80% accuracy with oral motor exercises with mild clinician verbal and visual cueing. 3. The patient will display 80% accuracy with dysphagia exercises with mild clinician verbal and visual cueing. Language: 1. Pt will complete verbal imitation of basic one syllable words with 80% accuracy with min clinician verbal and visual cuing. 2. Pt will expressively and receptively identify common everyday objects with 80% accuracy with min clinician verbal and visual cuing. 3. Pt will follow basic 1 step and 2 step directions with 80% accuracy with min clinician verbal and visual cuing. Speech Database Engineer Goals Database Engineer Goals 1. The patient will tolerate the least restrictive diet consistency without s/s of suspected aspiration. Language: 1. Pt will communicate basic wants/needs with staff or family members either verbally or with use of pictures in 4/5 opportunities. Time Frame: Three Weeks. Speech-Plan Treatment Plan Speech Therapy Treatment Plan: Continue Plan of Care Treatment Duration: Sep 14, 2022 Frequency: Modified Program (IRF) Estimated Hrs Per Day: .5 hour per day Rehab Potential: Fair Pt/Family Agrees to Plan: Yes Safety Risks/Education Teaching Recipient: Patient Teaching Methods: Discussion Response to Teaching: Return Demonstration, Reinforcement Needed Education Topics Provided: Safe Swallowing Strategies, Oral Motor Exercises, Recommendations, Intelligibility Strategies Time Speech Therapy Time In: 12:00 Speech Therapy Time Out: 12:30 DATE: Sep 19, 2022 Total Billed Time: 30 Billed Treatment Time 1, RAULITO GALINDO [facility] Sep 19, 2022 13:06
--- NOTE | 2022-09-19 16:11 | Physical Therapy Daily Note ---
PT Daily Note-Current Subjective Pt is agreeable to PT; reported R LE pain at 5/10 Pain Numeric Pain Scale: 5-Moderate Pain Location: Right Location Body Site: Knee Section J - Health Conditions 1. Rarely or not at all 2. Occasionally 3. Frequently 4. Almost constantly 8. Unable to answer Pain Effect on Sleep: 2 Pain Interference with Therapy: 2 Pain Interference w/Day-to-Day: 2 Transfers SCALE: Activities may be completed with or without assistive devices. 7-[id number] completes the activity by him/herself with no assistance from a helper. 5-Set-up or Clean-up Assistance-helper sets up or cleans up; patient completes activity. [place] assists only prior to or following the activity. 4-Supervision or Touching Assistance-helper provides verbal cues and/or touching/steadying and/or contact guard assistance as patient completes activity. Assistance may be provided throughout the activity or intermittently. 3-Partial/Moderate Assistance-helper does LESS THAN HALF the effort. [place] lifts, holds or supports trunk or limbs, but provides less than half the effort. 2-Substantial/Maximal Assistance-helper does MORE THAN HALF the effort. [place] lifts or holds trunk or limbs and provides more than half the effort. 3-Tefjxygip-ydwllh does ALL the effort. Patient does none of the effort to complete the activity. Or, the assistance of 2 or more helpers is required for the patient to complete the activity. If activity was not attempted, code reason: 7-Patient Refused. 9-Not Applicable-not attempted and the patient did not perform the activity before the current illness, exacerbation or injury. 10-Not Attempted due to Environmental Limitations-(lack of equipment, weather restraints, etc.). 88-Not Attempted due to Medical Conditions or Safety Concerns. Weight Bearing Right Lower Extremity: Right Full Weight Bearing Left Lower Extremity: Left Full Weight Bearing Treatments Pt completed B LE Ther Ex x 15 reps each Assessment Current Status: Fair Progress Pt tolerated PT well, with good effort PT Jail Goals Jail Goals PT Jail Goals Time Frame: Sep 13, 2022 Roll Left & Right (QC): 3 (Pt will complete bed mobility with Min A. ) Sit to Lying (QC): 3 (Pt will complete bed mobility with Min A. ) Lying-Sitting on Side/Bed(QC): 3 (Pt will complete bed mobility with Min A. ) Sit to Stand (QC): 3 (Pt will complete transfer with Min/Mod A. ) Chair/Ndg-ae-[place] Xfer(QC): 3 (Pt will complete transfer with Min/Mod A. ) Toilet Transfer (QC): 3 (Pt will complete transfer with Min/Mod A. ) Car Transfer (QC): 3 (Pt will complete transfer with Min/Mod A. ) Does the Patient Walk: No and Walking Goal IS indicated Walk 10 feet (QC): 3 (Min/Mod A for walking with the chau-walker ) Walk 50ft with 2 Turns (QC): 3 (Min/Mod A for walking with the chau-walker ) Walk 150 ft (QC): 88 Walking 10ft on Uneven Surface: 88 1 Step (curb) (QC): 3 (Min/Mod A for a curb/step ) 4 Steps (QC): 88 12 Steps (QC): 88 Picking up an Object (QC): 3 (Min A with senior electrical controls engineer ) Does the Pt use WC or Scooter?: Yes Wheel 50 feet with 2 turns (QC: 3 (Min A for w/c mobility ) Type: Manual Wheel 150 feet: 3 (Min A for w/c mobility ) Type: Manual PT Plan Problem List Problem List: Activity Tolerance, Functional Strength, Safety, Balance, Gait, Transfer, Bed Mobility, ROM Treatment/Plan Treatment Plan: Continue Plan of Care Treatment Plan: Bed Mobility, Concurrent Therapy, Education, Functional Activity Emil, Functional Strength, Group Therapy, Gait, Safety, Therapeutic Exercise, Transfers Treatment Duration: Sep 13, 2022 Frequency: At least 5 of 7 days/Wk (IRF) Estimated Hrs Per Day: 1.5 hours per day Patient and/or Family Agrees t: Yes Safety Risks/Education Patient Education: Issued Written HEP Teaching Recipient: Patient Teaching Methods: Demonstration, Discussion Response to Teaching: Reinforcement Needed Discharge Recommendations Therapy Discharge Recommendati: 24 Hour Supervision Discharge Status/Home Program Cont per POC Barriers to Progress R sided weakness Target Placement SNF tomorrow (09/20/2022) Time Time In: 1545 Time Out: 1620 DATE: Sep 19, 2022 Total Billed Treatment Time: 35 Total Billed Treatment 35 min 1 visit EX x 2 KATELIN YAO PT Sep 19, 2022 16:11
[2022-09-19 19:58] VITALS: BP 184/79
[2022-09-19] MEDS ORDERED: NYST1000 PO (20:35)
[2022-09-19] MEDS ORDERED: TIZA-186 PO (20:35)
[2022-09-19] MEDS ORDERED: LEVO100T PO (20:35)
[2022-09-19] MEDS ORDERED: SENN-271 NG (20:35)
[2022-09-19] MEDS ORDERED: POTA20TA28 PO (20:35)
[2022-09-19] MEDS ORDERED: INSU100V16 SC (20:35)
[2022-09-19] MEDS ORDERED: ACET325T49 NG (20:35)
[2022-09-19] MEDS ORDERED: ALPR0.5T7 PO (20:35)
[2022-09-19] MEDS ORDERED: CLON1PAT33 TD (20:35)
[2022-09-19] MEDS ORDERED: OXC5T PO (20:35)
[2022-09-19] MEDS ORDERED: INSU100V5 SQ (20:35)
[2022-09-19] MEDS ORDERED: GABA-486 PO (20:35)
[2022-09-19] MEDS ORDERED: AMLO-250 NG (20:35)
[2022-09-19] MEDS ORDERED: FLUO20CA48 PO (20:35)
[2022-09-19] MEDS ORDERED: CHOL500050 PO (20:35)
[2022-09-19] MEDS ORDERED: PANT40TA52 PO (20:35)
[2022-09-19] MEDS ORDERED: DICL100G13 TOP (20:35)
[2022-09-19] MEDS ORDERED: ASPI-808 NG (20:35)
[2022-09-19] MEDS ORDERED: ONDA4TAB11 SL (20:35)
[2022-09-19] MEDS ORDERED: ATOR40TA PO (20:35)
[2022-09-19] MEDS ORDERED: ENOX40DI8 SC (20:35)
--- NOTE | 2022-09-19 20:37 | Discharge Inst-Skilled Nursing ---
Discharge Inst-Skilled NF Reconcile Patient Problems Problems Reviewed?: Yes Patient Instructions Patient Problems: CVA Consult/Follow Up/Orders Follow Up Appt.: PCP [place] rounds Skilled NF Admit to: [facility] ([facility]) I certify that SNF services are required to be given on an inpatient basis because of the above named patient's need for prison care on a continuing basis for the conditions(s) for which he/she was receiving inpatient hospital services prior to his/her transfer to the SNF. [facility] Facility Order: Nursing Services, [place] Supervisor-Evaluate & Treat, Physical Therapy-Evaluate & Treat, Speech Language-Evaluate & Treat Oxygen Delivery Method: Room Air Discharge Diet: Semi-Solid Diet, ADA Diet Resuscitation Status: Do Not Resuscitate New & Resume Previous Orders New Medications: Acetaminophen (Acetaminophen) 325 Mg Tablet 650 MG NG Q6H PRN for PAIN-MILD (1-4), #30 TAB Amlodipine Besylate (Amlodipine Besylate) 5 Mg Tablet 5 MG NG DAILY, #30 TAB Aspirin (Aspirin) 325 Mg Tablet 325 MG NG DAILY, #30 TAB Atorvastatin Calcium (Lipitor) 40 Mg Tablet 40 MG PO HS, #30 TAB Clonidine (Clonidine TTS 1 Patch) 0.1 Mg/24 Hour Patch.tdwk 0.1 MG TD Q7D, #4 PATCH Diclofenac Sodium (Diclofenac Sodium) 1 % Gel..gram. 4 GM TOP QID, #1 TUBE Enoxaparin Sodium (Enoxaparin Sodium) 40 Mg/0.4 Ml Syringe 40 MG SC Q24H, #30 SYRINGE Gabapentin (Gabapentin) 100 Mg Capsule 100 MG PO TID, #90 CAP Insulin Aspart (Novolog) 100 Unit/Ml Susp 4 UNIT SC ACHS, #10 ML Insulin Determir (Levemir) 100 Unit/Ml Soln 10 UNIT SQ BID, #10 EA Levothyroxine Sodium (Synthroid) 100 Mcg Tablet 100 MCG PO DAILY@0630, #30 TAB Nystatin (Nystatin) 100,000 Unit/Ml Oral.susp 5 ML PO QID, #60 ML Ondansetron (Ondansetron Odt) 4 Mg Tab.rapdis 4 MG SL Q6H PRN for NAUSEA/VOMITING-1ST LINE, #10 TAB Oxycodone Hcl (Oxyir Tablet) 5 Mg Tab 5 MG PO Q6H PRN for PAIN-SEVERE (8-10), #30 TAB Pantoprazole Sodium (Pantoprazole Sodium) 40 Mg Tablet.dr 40 MG PO DAILY, #30 TAB Potassium Bicarbonate/Cit AC (Effer-K 20 Meq Tablet Eff) 20 Meq Tablet.eff 10 MEQ PO DAILY@0700, #30 TAB Sennosides/Docusate Sodium (Stool Softener-Laxative Tablet) 8.6 Mg-50 Mg Tablet 1 EA NG BID, #60 TAB Tizanidine HCl (Tizanidine HCl) 4 Mg Tablet 4 MG PO Q6H PRN for SPASMS, #30 TAB Continued Medications: Alprazolam (Alprazolam) 0.5 Mg Tablet 0.5 MG PO TID PRN for ANXIETY, #30 TAB (This prescription has been renewed) Cholecalciferol (Vitamin D3) (Vitamin D3) 125 Mcg (5000 Unit) Capsule 125 MCG PO DAILY, #30 CAP (This prescription has been renewed) Fluoxetine HCl (Fluoxetine HCl) 20 Mg Capsule 40 MG PO DAILY, #60 CAP (This prescription has been renewed) TAKES 2 (20MG) CAPS Discontinued Medications: Butalbital/Acetaminophen (Acetaminophn-Butalbital 325-50) 50 Mg-325 Mg Tablet 1 EA PO DAILY PRN for HEADACHE, CAP Diltiazem HCl (Diltiazem ER) 180 Mg Capsule.er 180 MG PO DAILY, CAP Levothyroxine Sodium (Levothyroxine Sodium) 125 Mcg Tablet 125 MCG PO DAILY, TAB Meloxicam (Meloxicam) 15 Mg Tablet 15 MG PO DAILY, TAB Oxybutynin Chloride (Oxybutynin Chloride ER) 5 Mg Tab.er.24 10 MG PO DAILY, TAB TAKES 2 (5MG) TABS Propranolol HCl (Propranolol HCl) 40 Mg Tablet 40 MG PO QID, TAB Valsartan/Hydrochlorothiazide (Valsartan-Hctz 320-12.5 mg Tab) 320 Mg-12.5 Mg Tablet 1 EA PO DAILY, TAB Addie Goddard Sep 19, 2022 20:36 ADDIE GODDARD DO Sep 19, 2022 20:37
[2022-09-20] MEDS: ALPRAZolam 0.25 MG (XANAX) TAB NG PRN (03:09)
[2022-09-20] MEDS: LEVOTHYROXINE 100 MCG (LEVOTHROID) TAB PO SCH (05:31)
[2022-09-20] MEDS: inSUlin ASPART (NovoLOG) 1 UNIT/0.01 ML (CHARGE PER UNIT) SC SCH (05:31)
--- NOTE | 2022-09-20 05:36 | Discharge Summary ---
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 Aspiration risk s/p modified barium swallow with speech therapy eval Diabetes insulin-dependent hemoglobin A1c 13 Obesity Hypertension Hyperlipidemia Suspected cardiac source of CVA DM insulin dependent since hga1c 13 Thrush treating empirically Cough suspicious for aspiration on 09/11/2022 checking chest x-ray ordered nebs Neck pain acute on chronic previous cervical spine surgery 20 years ago per patient Plan: Aggressive PT and OT Speech therapy May need a PEG tube Monitor closely 08/31/2022: Sugars reviewed Add BP med 09/01/2022: Supportive care Monitor closely 09/02/2022: MBS tomorrow Continue therapy 09/03/2022: Supportive care Advance diet Discontinue NG tube 09/04/2022: Advance diet 09/05/2022: Supportive care 09/06/2022: Supportive care Slow recovery 09/07/2022: Monitor sugar 09/08/2022: Supportive care 09/09/2022: Monitor aspiration risk 09/10/2022: Thrush treatment Change diet 09/11/2022: Change diet to less aspiration Check chest x-ray Nebulizers Incentive spirometer 09/12/2022: Monitor neck pain 09/13/2022: Continue heating pad for neck pain. 09/14/2022: Arrange for skilled care 09/15/2022: Monitor for aspiration 09/16/2022: Await skilled care 09/17/2022: Monitor closely 09/18/2022: Supportive care 09/19/2022: Supportive care (1) CVA (cerebral vascular accident) Discharge Summary Discharge Physical Examination Allergies: Coded Allergies: codeine (Verified Allergy, Unknown, 08/30/22) erythromycin base (Verified Allergy, Unknown, 08/30/22) gentamicin (Verified Allergy, Unknown, 08/30/22) latex (Verified Allergy, Unknown, 08/30/22) paroxetine (Verified Allergy, Unknown, 08/30/22) telmisartan (Verified Allergy, Unknown, 08/30/22) Vitals & I&Os Vital Signs Date Time Temp Pulse Resp B/P (MAP) Pulse Ox O2 Delivery O2 Flow Rate FiO2 09/20/22 09:45 36.4 62 16 163/74 93 Room Air 0.00 General Appearance: Alert, Oriented X3, Cooperative Respiratory: Clear to Auscultation Cardiovascular: Regular Rate Psych/Mental Status: Mental Status NL Hospital Course Was the Problem List Reviewed?: Yes Hospital course: Patient had a lengthy hospital course. She was admitted following a catastrophic CVA with dysphagia and aspiration risk so speech therapy saw her regularly and changed diet several times with multiple barium swallows. She had no decompensation during hospital course. Blood pressure was much better after modifications from cardiology. Overall she was able to regain some function but severe residual GERD requiring longterm placement. Insulin will be maintained for good blood sugar control. Labs (last 24 hrs) Laboratory Tests 08/30/22 15:31: Glucometer 184H 08/30/22 21:09: Glucometer 167H 08/31/22 00:06: Glucometer 180H 08/31/22 04:47: Glucometer 141H 08/31/22 05:39: White Blood Count 10.6, Red Blood Count 4.54, Hemoglobin 13.3, Hematocrit 40, Mean Corpuscular Volume 88, Mean Corpuscular Hemoglobin 29, Mean Corpuscular He moglobin Concent 33, Red Cell Distribution Width 14.1, Platelet Count 281, Mean Platelet Volume 9.3, Immature Granulocyte % (Auto) 0, Neutrophils (%) (Auto) 72, Lymphocytes (%) (Auto) 16, Monocytes (%) (Auto) 9, Eosinophils (%) (Auto) 2, Basophils (%) (Auto) 0, Neutrophils # (Auto) 7.6, Lymphocytes # (Auto) 1.7, Monocytes # (Auto) 1.0, Eosinophils # (Auto) 0.3, Basophils # (Auto) 0.0, Immature Granulocyte # (Auto) 0.0, Sodium Level 136, Potassium Level 3.4L, Chloride Level 102, Carbon Dioxide Level 26, Anion Gap 8, Blood Urea Nitrogen 30H, Creatinine 0.84, Estimat Glomerular Filtration Rate 71, BUN/Creatinine Ratio 36, Glucose Level 164H, Calcium Level 9.6, Corrected Calcium 10.0, Total Bilirubin 0.4, Aspartate Amino Transf (AST/SGOT) 49H, Alanine Aminotransferase (ALT/SGPT) 36, Alkaline Phosphatase 95, Total Protein 7.0, Albumin 3.5 08/31/22 07:21: Glucometer 155H 08/31/22 12:29: Glucometer 155H 08/31/22 15:20: Glucometer 151H 08/31/22 20:08: Glucometer 116H 09/01/22 00:39: Glucometer 190H 09/01/22 03:56: Glucometer 126H 09/01/22 07:42: Glucometer 158H 09/01/22 08:19: Glucometer 169H 09/01/22 11:51: Glucometer 131H 09/01/22 15:29: Glucometer 133H 09/01/22 20:18: Glucometer 133H 09/01/22 23:58: Glucometer 151H 09/02/22 04:13: Glucometer 160H 09/02/22 08:24: Glucometer 171H 09/02/22 12:17: Glucometer 129H 09/02/22 15:43: Glucometer 147H 09/02/22 20:21: Glucometer 146H 09/03/22 00:23: Glucometer 162H 09/03/22 03:48: Glucometer 137H 09/03/22 06:40: White Blood Count 8.8, Red Blood Count 4.16, Hemoglobin 12.4, Hematocrit 38, Mean Corpuscular Volume 92, Mean Corpuscular Hemoglobin 30, Mean Corpuscular Hemoglobin Concent 33, Red Cell Distribution Width 14.3, Platelet Count 266, Mean Platelet Volume 9.1, Immature Granulocyte % (Auto) 1, Neutrophils (%) (Auto) 67, Lymphocytes (%) (Auto) 18, Monocytes (%) (Auto) 10, Eosinophils (%) (Auto) 4, Basophils (%) (Auto) 1, Neutrophils # (Auto) 5.9, Lymphocytes # (Auto) 1.6, Monocytes # (Auto) 0.9, Eosinophils # (Auto) 0.3, Basophils # (Auto) 0.0, Immature Granulocyte # (Auto) 0.1, Sodium Level 139, Potassium Level 4.3, Chloride Level 100, Carbon Dioxide Level 29, Anion Gap 10, Blood Urea Nitrogen 31H, Creatinine 0.91, Estimat Glomerular Filtration Rate 64, BUN/Creatinine Ratio 34, Glucose Level 148H, Calcium Level 9.7, Corrected Calcium 10.2H, Total Bilirubin 0.3, Aspartate Amino Transf (AST/SGOT) 24, Alanine Aminotransferase (ALT/SGPT) 27, Alkaline Phosphatase 107, Total Protein 6.8, Albumin 3.4 09/03/22 08:28: Glucometer 184H 09/03/22 11:26: Glucometer 129H 09/03/22 17:13: Glucometer 176H 09/03/22 20:54: Glucometer 141H 09/04/22 00:16: Glucometer 118H 09/04/22 04:23: Glucometer 129H 09/04/22 11:50: Glucometer 163H 09/04/22 15:47: Glucometer 103 09/04/22 20:45: Glucometer 182H 09/04/22 23:27: Glucometer 105 09/05/22 04:56: Glucometer 121H 09/05/22 07:48: Glucometer 140H 09/05/22 11:22: Glucometer 189H 09/05/22 15:22: Glucometer 123H 09/05/22 20:05: Glucometer 169H 09/06/22 05:02: Glucometer 132H 09/06/22 10:53: Glucometer 150H 09/06/22 15:04: Glucometer 148H 09/06/22 20:01: Glucometer 127H 09/07/22 04:58: Glucometer 132H 09/07/22 11:38: Glucometer 203H 09/07/22 15:06: Glucometer 94 09/07/22 20:10: Glucometer 157H 09/08/22 05:33: Glucometer 114H 09/08/22 11:20: Glucometer 149H 09/08/22 15:21: Glucometer 137H 09/08/22 20:23: Glucometer 131H 09/09/22 05:36: Glucometer 142H 09/09/22 09:50: Glucometer 143H 09/09/22 12:15: Glucometer 153H 09/09/22 16:55: Glucometer 118H 09/09/22 20:01: Glucometer 194H 09/10/22 06:00: White Blood Count 9.0, Red Blood Count 4.30, Hemoglobin 12.8, Hematocrit 39, Mean Corpuscular Volume 90, Mean Corpuscular Hemoglobin 30, Mean Corpuscular Hemoglobin Concent 33, Red Cell Distribution Width 13.9, Platelet Count 302, Mean Platelet Volume 9.1, Immature Granulocyte % (Auto) 0, Neutrophils (%) (Auto) 64, Lymphocytes (%) (Auto) 24, Monocytes (%) (Auto) 8, Eosinophils (%) (Auto) 3, Basophils (%) (Auto) 0, Neutrophils # (Auto) 5.7, Lymphocytes # (Auto) 2.2, Monocytes # (Auto) 0.8, Eosinophils # (Auto) 0.3, Basophils # (Auto) 0.0, Immature Granulocyte # (Auto) 0.0, Sodium Level 137, Potassium Level 4.2, Chloride Level 105, Carbon Dioxide Level 25, Anion Gap 7, Blood Urea Nitrogen 35H, Creatinine 1.07, Estimat Glomerular Filtration Rate 53, BUN/Creatinine Ratio 33, Glucose Level 131H, Calcium Level 9.9, Corrected Calcium 10.3H, Total Bilirubin 0.5, Aspartate Amino Transf (AST/SGOT) 21, Alanine Aminotransferase (ALT/SGPT) 18, Alkaline Phosphatase 93, Total Protein 7.0, Albumin 3.5 09/10/22 10:55: Glucometer 148H 09/10/22 15:09: Glucometer 106 09/10/22 20:16: Glucometer 138H 09/11/22 06:17: Glucometer 127H 09/11/22 10:45: Glucometer 192H 09/11/22 16:29: Glucometer 133H 09/11/22 20:23: Glucometer 146H 09/12/22 06:42: Glucometer 142H 09/12/22 15:26: Glucometer 108 09/12/22 19:54: Glucometer 135H 09/13/22 04:54: Glucometer 120H 09/13/22 11:08: Glucometer 140H 09/13/22 15:21: Glucometer 147H 09/13/22 20:05: Glucometer 106 09/14/22 05:36: Glucometer 143H 09/14/22 10:52: Glucometer 134H 09/14/22 15:14: Glucometer 127H 09/14/22 20:27: Glucometer 147H 09/15/22 05:43: Glucometer 122H 09/15/22 10:36: Glucometer 141H 09/15/22 15:53: Glucometer 138H 09/15/22 20:24: Glucometer 158H 09/16/22 05:40: Glucometer 113H 09/16/22 10:47: Glucometer 140H 09/16/22 15:13: Glucometer 133H 09/16/22 20:12: Glucometer 164H 09/17/22 05:21: White Blood Count 7.1, Red Blood Count 4.32, Hemoglobin 12.8, Hematocrit 39, Mean Corpuscular Volume 90, Mean Corpuscular Hemoglobin 30, Mean Corpuscular Hemoglobin Concent 33, Red Cell Distribution Width 13.7, Platelet Count 252, Mean Platelet Volume 9.2, Immature Granulocyte % (Auto) 0, Neutrophils (%) (Auto) 62, Lymphocytes (%) (Auto) 25, Monocytes (%) (Auto) 9, Eosinophils (%) (Auto) 4, Basophils (%) (Auto) 0, Neutrophils # (Auto) 4.4, Lymphocytes # (Auto) 1.8, Monocytes # (Auto) 0.7, Eosinophils # (Auto) 0.3, Basophils # (Auto) 0.0, Immature Granulocyte # (Auto) 0.0, Sodium Level 137, Potassium Level 4.0, Chloride Level 104, Carbon Dioxide Level 27, Anion Gap 6, Blood Urea Nitrogen 30H, Creatinine 0.88, Estimat Glomerular Filtration Rate 67, BUN/Creatinine Ratio 34, Glucose Level 126H, Calcium Level 10.0, Corrected Calcium 10.6H, Total Bilirubin 0.3, Aspartate Amino Transf (AST/SGOT) 22, Alanine Aminotransferase (ALT/SGPT) 20, Alkaline Phosphatase 93, Total Protein 6.7, Albumin 3.3 09/17/22 11:06: Glucometer 184H 09/17/22 15:40: Glucometer 129H 09/17/22 20:33: Glucometer 158H 09/18/22 11:05: Glucometer 198H 09/18/22 16:18: Glucometer 130H 09/18/22 22:13: Glucometer 185H 09/19/22 06:08: Glucometer 118H 09/19/22 11:12: Glucometer 141H 09/19/22 15:34: Glucometer 148H 09/19/22 19:56: Glucometer 151H 09/20/22 05:06: Glucometer 147H Pending Labs Laboratory Tests 08/30/22 15:31: Glucometer 184 08/30/22 21:09: Glucometer 167 08/31/22 00:06: Glucometer 180 08/31/22 04:47: Glucometer 141 08/31/22 05:39: White Blood Count 10.6, Red Blood Count 4.54, Hemoglobin 13.3, Hematocrit 40, Mean Corpuscular Volume 88, Mean Corpuscular Hemoglobin 29, Mean Corpuscular Hemoglobin Concent 33, Red Cell Distribution Width 14.1, Platelet Count 281, Mean Platelet Volume 9.3, Immature Granulocyte % (Auto) 0, Neutrophils (%) (Auto) 72, Lymphocytes (%) (Auto) 16, Monocytes (%) (Auto) 9, Eosinophils (%) (Auto) 2, Basophils (%) (Auto) 0, Neutrophils # (Auto) 7.6, Lymphocytes # (Auto) 1.7, Monocytes # (Auto) 1.0, Eosinophils # (Auto) 0.3, Basophils # (Auto) 0.0, Immature Granulocyte # (Auto) 0.0, Sodium Level 136, Potassium Level 3.4, Chloride Level 102, Carbon Dioxide Level 26, Anion Gap 8, Blood Urea Nitrogen 30, Creatinine 0.84, Estimat Glomerular Filtration Rate 71, BUN/Creatinine Ratio 36, Glucose Level 164, Calcium Level 9.6, Corrected Calcium 10.0, Total Bilirubin 0.4, Aspartate Amino Transf (AST/SGOT) 49, Alanine Aminotransferase (ALT/SGPT) 36, Alkaline Phosphatase 95, Total Protein 7.0, Albumin 3.5 08/31/22 07:21: Glucometer 155 08/31/22 12:29: Glucometer 155 08/31/22 15:20: Glucometer 151 08/31/22 20:08: Glucometer 116 09/01/22 00:39: Glucometer 190 09/01/22 03:56: Glucometer 126 09/01/22 07:42: Glucometer 158 09/01/22 08:19: Glucometer 169 09/01/22 11:51: Glucometer 131 09/01/22 15:29: Glucometer 133 09/01/22 20:18: Glucometer 133 09/01/22 23:58: Glucometer 151 09/02/22 04:13: Glucometer 160 09/02/22 08:24: Glucometer 171 09/02/22 12:17: Glucometer 129 09/02/22 15:43: Glucometer 147 09/02/22 20:21: Glucometer 146 09/03/22 00:23: Glucometer 162 09/03/22 03:48: Glucometer 137 09/03/22 06:40: White Blood Count 8.8, Red Blood Count 4.16, Hemoglobin 12.4, Hematocrit 38, Mean Corpuscular Volume 92, Mean Corpuscular Hemoglobin 30, Mean Corpuscular Hemoglobin Concent 33, Red Cell Distribution Width 14.3, Platelet Count 266, Mean Platelet Volume 9.1, Immature Granulocyte % (Auto) 1, Neutrophils (%) (Auto) 67, Lymphocytes (%) (Auto) 18, Monocytes (%) (Auto) 10, Eosinophils (%) (Auto) 4, Basophils (%) (Auto) 1, Neutrophils # (Auto) 5.9, Lymphocytes # (Auto) 1.6, Monocytes # (Auto) 0.9, Eosinophils # (Auto) 0.3, Basophils # (Auto) 0.0, Immature Granulocyte # (Auto) 0.1, Sodium Level 139, Potassium Level 4.3, Chloride Level 100, Carbon Dioxide Level 29, Anion Gap 10, Blood Urea Nitrogen 31, Creatinine 0.91, Estimat Glomerular Filtration Rate 64, BUN/Creatinine Ratio 34, Glucose Level 148, Calcium Level 9.7, Corrected Calcium 10.2, Total Bilirubin 0.3, Aspartate Amino Transf (AST/SGOT) 24, Alanine Aminotransferase (ALT/SGPT) 27, Alkaline Phosphatase 107, Total Protein 6.8, Albumin 3.4 09/03/22 08:28: Glucometer 184 09/03/22 11:26: Glucometer 129 09/03/22 17:13: Glucometer 176 09/03/22 20:54: Glucometer 141 09/04/22 00:16: Glucometer 118 09/04/22 04:23: Glucometer 129 09/04/22 11:50: Glucometer 163 09/04/22 15:47: Glucometer 103 09/04/22 20:45: Glucometer 182 09/04/22 23:27: Glucometer 105 09/05/22 04:56: Glucometer 121 09/05/22 07:48: Glucometer 140 09/05/22 11:22: Glucometer 189 09/05/22 15:22: Glucometer 123 09/05/22 20:05: Glucometer 169 09/06/22 05:02: Glucometer 132 09/06/22 10:53: Glucometer 150 09/06/22 15:04: Glucometer 148 09/06/22 20:01: Glucometer 127 09/07/22 04:58: Glucometer 132 09/07/22 11:38: Glucometer 203 09/07/22 15:06: Glucometer 94 09/07/22 20:10: Glucometer 157 09/08/22 05:33: Glucometer 114 09/08/22 11:20: Glucometer 149 09/08/22 15:21: Glucometer 137 09/08/22 20:23: Glucometer 131 09/09/22 05:36: Glucometer 142 09/09/22 09:50: Glucometer 143 09/09/22 12:15: Glucometer 153 09/09/22 16:55: Glucometer 118 09/09/22 20:01: Glucometer 194 09/10/22 06:00: White Blood Count 9.0, Red Blood Count 4.30, Hemoglobin 12.8, Hematocrit 39, Mean Corpuscular Volume 90, Mean Corpuscular Hemoglobin 30, Mean Corpuscular Hemoglobin Concent 33, Red Cell Distribution Width 13.9, Platelet Count 302, Mean Platelet Volume 9.1, Immature Granulocyte % (Auto) 0, Neutrophils (%) ( Auto) 64, Lymphocytes (%) (Auto) 24, Monocytes (%) (Auto) 8, Eosinophils (%) (Auto) 3, Basophils (%) (Auto) 0, Neutrophils # (Auto) 5.7, Lymphocytes # (Auto) 2.2, Monocytes # (Auto) 0.8, Eosinophils # (Auto) 0.3, Basophils # (Auto) 0.0, Immature Granulocyte # (Auto) 0.0, Sodium Level 137, Potassium Level 4.2, Chloride Level 105, Carbon Dioxide Level 25, Anion Gap 7, Blood Urea Nitrogen 35, Creatinine 1.07, Estimat Glomerular Filtration Rate 53, BUN/Creatinine Ratio 33, Glucose Level 131, Calcium Level 9.9, Corrected Calcium 10.3, Total Bilirubin 0.5, Aspartate Amino Transf (AST/SGOT) 21, Alanine Aminotransferase (ALT/SGPT) 18, Alkaline Phosphatase 93, Total Protein 7.0, Albumin 3.5 09/10/22 10:55: Glucometer 148 09/10/22 15:09: Glucometer 106 09/10/22 20:16: Glucometer 138 09/11/22 06:17: Glucometer 127 09/11/22 10:45: Glucometer 192 09/11/22 16:29: Glucometer 133 09/11/22 20:23: Glucometer 146 09/12/22 06:42: Glucometer 142 09/12/22 15:26: Glucometer 108 09/12/22 19:54: Glucometer 135 09/13/22 04:54: Glucometer 120 09/13/22 11:08: Glucometer 140 09/13/22 15:21: Glucometer 147 09/13/22 20:05: Glucometer 106 09/14/22 05:36: Glucometer 143 09/14/22 10:52: Glucometer 134 09/14/22 15:14: Glucometer 127 09/14/22 20:27: Glucometer 147 09/15/22 05:43: Glucometer 122 09/15/22 10:36: Glucometer 141 09/15/22 15:53: Glucometer 138 09/15/22 20:24: Glucometer 158 09/16/22 05:40: Glucometer 113 09/16/22 10:47: Glucometer 140 09/16/22 15:13: Glucometer 133 09/16/22 20:12: Glucometer 164 09/17/22 05:21: White Blood Count 7.1, Red Blood Count 4.32, Hemoglobin 12.8, Hematocrit 39, Mean Corpuscular Volume 90, Mean Corpuscular Hemoglobin 30, Mean Corpuscular Hemoglobin Concent 33, Red Cell Distribution Width 13.7, Platelet Count 252, Mean Platelet Volume 9.2, Immature Granulocyte % (Auto) 0, Neutrophils (%) (Auto) 62, Lymphocytes (%) (Auto) 25, Monocytes (%) (Auto) 9, Eosinophils (%) (Auto) 4, Basophils (%) (Auto) 0, Neutrophils # (Auto) 4.4, Lymphocytes # (Auto) 1.8, Monocytes # (Auto) 0.7, Eosinophils # (Auto) 0.3, Basophils # (Auto) 0.0, Immature Granulocyte # (Auto) 0.0, Sodium Level 137, Potassium Level 4.0, Chloride Level 104, Carbon Dioxide Level 27, Anion Gap 6, Blood Urea Nitrogen 30, Creatinine 0.88, Estimat Glomerular Filtration Rate 67, BUN/Creatinine Ratio 34, Glucose Level 126, Calcium Level 10.0, Corrected Calcium 10.6, Total Bilirubin 0.3, Aspartate Amino Transf (AST/SGOT) 22, Alanine Aminotransferase (ALT/SGPT) 20, Alkaline Phosphatase 93, Total Protein 6.7, Albumin 3.3 09/17/22 11:06: Glucometer 184 09/17/22 15:40: Glucometer 129 09/17/22 20:33: Glucometer 158 09/18/22 11:05: Glucometer 198 09/18/22 16:18: Glucometer 130 09/18/22 22:13: Glucometer 185 09/19/22 06:08: Glucometer 118 09/19/22 11:12: Glucometer 141 09/19/22 15:34: Glucometer 148 09/19/22 19:56: Glucometer 151 09/20/22 05:06: Glucometer 147 Discharge Home Medications: Active Scripts Active Synthroid (Levothyroxine Sodium) 100 Mcg Tablet 100 Mcg PO DAILY@0630 Levemir (Insulin Determir) 100 Unit/Ml Soln 10 Unit SQ BID Novolog (Insulin Aspart) 100 Unit/Ml Susp 4 Unit SC ACHS Pantoprazole Sodium 40 Mg Tablet.dr 40 Mg PO DAILY Ondansetron Odt (Ondansetron) 4 Mg Tab.rapdis 4 Mg SL Q6H PRN Stool Softener-Laxative Tablet (Sennosides/Docusate Sodium) 8.6 Mg-50 Mg Tablet 1 Ea NG BID Effer-K 20 Meq Tablet Eff (Potassium Bicarbonate/Cit AC) 20 Meq Tablet.eff 10 Meq PO DAILY@0700 Gabapentin 100 Mg Capsule 100 Mg PO TID Acetaminophen 325 Mg Tablet 650 Mg NG Q6H PRN Oxyir Tablet (Oxycodone HCl) 5 Mg Tab 5 Mg PO Q6H PRN Diclofenac Sodium 1 % Gel..gram. 4 Gm TOP QID Aspirin 325 Mg Tablet 325 Mg NG DAILY Amlodipine Besylate 5 Mg Tablet 5 Mg NG DAILY Clonidine TTS 1 Patch (Clonidine) 0.1 Mg/24 Hour Patch.tdwk 0.1 Mg TD Q7D Lipitor (Atorvastatin Calcium) 40 Mg Tablet 40 Mg PO HS Enoxaparin Sodium 40 Mg/0.4 Ml Syringe 40 Mg SC Q24H Tizanidine HCl 4 Mg Tablet 4 Mg PO Q6H PRN Nystatin 100,000 Unit/Ml Oral.susp 5 Ml PO QID Fluoxetine HCl 20 Mg Capsule 40 Mg PO DAILY TAKES 2 (20MG) CAPS Alprazolam 0.5 Mg Tablet 0.5 Mg PO TID PRN Vitamin D3 (Cholecalciferol (Vitamin D3)) 125 Mcg (5000 Unit) Capsule 125 Mcg PO DAILY Instructions to patient/family Please see electronic discharge instructions given to patient. Diagnosis/Problems Diagnosis/Problems (1) CVA (cerebral vascular accident) BETHANY HERMOSILLO DO Sep 20, 2022 05:36
[2022-09-20] MEDS: POTASSIUM BICARB 20 MEQ (EFFER-K) TABLET PO SCH (06:30)
[2022-09-20 08:00] VITALS: BP 163/74
--- NOTE | 2022-09-20 08:26 | Cardiology Progress Note ---
Subjective Date Seen by Provider: Sep 20, 2022 Time Seen by Provider: 08:25 Subjective/Events-last exam Patient is sitting up in bed, eating breakfast. Denies any chest pain. Linq implantation site with C/D/I dressing Objective-Cardiology Exam Last Set of Vital Signs Vital Signs 09/16/22 09/19/22 09/19/22 19:16 19:58 20:30 Temp 36.2 Pulse 95 Resp 18 B/P (MAP) 184/79 (114) Pulse Ox 95 O2 Delivery Room Air O2 Flow Rate 0.00 I&O Intake and Output 09/20/22 00:00 Intake Total 1230 ml Output Total 775 ml Balance 455 ml Intake Oral 1230 ml Output Urine Total 775 ml # Urine Diapers 3 General: Alert, Cooperative HEENT: Atraumatic Neck: Supple, No JVD, No Thyromegaly Lungs: Clear to Auscultation, Normal Air Movement Heart: Regular Rate, Normal S1, Normal S2, No Murmurs Abdomen: Normal Bowel Sounds, Soft, No Tenderness, No Hepatosplenomegaly, No Masses Extremities: No Clubbing, No Cyanosis, No Edema, Normal Pulses, No Tenderness/Swelling Skin: No Rashes, No Breakdown, No Significant Lesion Neuro: Other (Aphasia and hemiaplasia) Psych/Mental Status: Mood NL A/P-Cardiology Admission Diagnosis CVA Left ICA/MCA occlusion HTN HLP DM Assessment/Plan Acute CVA with right sided weakness, aphasia, dysphagia. CTA showed occluded left ICA/MCA. Patient was transferred to [facility] where she underwent attempt at mechanical thrombectomy with no change. Currently maintained on ASA. s/p LINq implantation on September 19, 2022. Dressing is C/D/I 2D echo done at [facility] on showed mild LVH, grade 2 diastolic dysfunct ion, mildly dilated LA. No PFO or ASD appreciated. Nonproductive cough, CXR done showing no acute process, reporting improvement. Sore throat and increased generalized fatigue and malaise. Management per medical services. Hypertension, poor control Maintained on clonidine patch, amlodipine I will increase amlodipine to 10 mg daily Hydralazine was discontinued Continue to monitor as an outpatient Sinus node dysfunction, had transient 2:1 AV block while asleep. Continue to monitor. Intolerance/allergy to angiotensin receptor vazquez Hyperlipidemia, maintained on statin, monitor lipids Diabetes mellitus, managed by primary care physician Hypothyroidism, managed by primary care physician. Obesity. Supervisory-Addendum Brief Supervisory Addendum Participated in pt care: history, MDM, physical Personally performed: exam, history, MDM Care discussed with: ATA Results interpretation: Verified all documentation Notes: Patient was seen and evaluated with Luiza, examination performed, management plan was discussed, agree with the current scribed note, I made few changes to the note using Italic font Patient was seen at bedside, laying down comfortably Loop monitor site is healing well. Continue to monitor, arrange for follow-up as an outpatient in 1 to 2 weeks Increase amlodipine to 10 mg daily LUIZA AYALA Sep 20, 2022 08:26 VONDA TOMAS MD Sep 20, 2022 08:33
[2022-09-20] MEDS ORDERED: amLODIPine 10 MG (NORVASC) TAB PO SCH (09:00)
[2022-09-20] MEDS: ASPIRIN 325 MG (5 GR) TABLET NG SCH (09:17)
[2022-09-20] MEDS: SENNA W/DOCUSATE (SENOKOT S) TABLET NG SCH (09:17)
[2022-09-20] MEDS: ENOXAPARIN 40 MG/0.4 ML (LOVENOX) SYR SC SCH (09:17)
[2022-09-20] MEDS: DOCUSATE SODIUM 10 MG/ML 10 ML UDC (COLACE) NG SCH (09:17)
[2022-09-20] MEDS: PANTOPRAZOLE 40 MG (PROTONIX) TAB PO SCH (09:17)
[2022-09-20] MEDS: NYSTATIN ORAL SUSP 5 ML UDC PO SCH (09:17)
[2022-09-20] MEDS: GABAPENTIN 100 MG (NEURONTIN) CAP PO SCH (09:17)
[2022-09-20] MEDS: ACETAMINOPHEN 325 MG TABLET NG PRN (09:26)
[2022-09-20 09:45] VITALS: BP 163/74
--- NOTE | 2022-09-20 15:25 | Therapy Team Discharge Summary ---
Therapy Discharge Summary Discharge Recommendations Date of Discharge Sep 20, 2022 at 09:45 Physical Therapy Roll Left to Right (QC): 3 (R rolling - CGAL rolling - Mod A) Sit to Lying (QC): 3 (Mod A) Lying to Sitting/Side of Bed(Q: 3 (Mod A) Sit to Stand (QC): 2 (Max A) Chair/Rla-pn-Mxpvd Xfer(QC): 2 (Max A) Toilet Transfer (QC): 88 Car Transfer (QC): 88 Does the Patient Walk: No and Walking Goal NOT indicated Mode of Locomotion: Both Anticipated Mode of Locomotion: Wheelchair Walk 10 feet (QC): 88 Walk 50 ft with 2 Turns(QC): 88 Walk 150 ft (QC): 88 Walking 10ft on uneven surface: 88 Does the Pt Use a Wheelchair: Yes Wheelchair Distance: 5ft Wheel 50 ft with 2 turns (QC): 3 (Mod A) Wheel 150 ft (QC): 3 (Mod A) Type of Wheelchair: Manual 1 Step (curb) (QC): 88 4 Steps (QC): 88 12 Steps (QC): 88 Balance Sitting Static: Fair Balance Sitting Dynamic: Fair Balance-Standing Static: Poor Picking up an Object (QC): 88 Occupational Therapy EMS to [facility] 08/25/22 with slurred speech and R side weakness. Transfer to [facility] same day with L MCA CVA and for possible endovascular intervention. 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 08/27/22 c/o abdominal pain. 08/28/22 found to have GB sludge with (+) Monteiro's sign. Pt transferred to [facility] 08/30/22 LUE WFL, shoulder flexion to approx 150 degrees. RUE paresis, WFL PRO. Trace movement noted at shoulder and elbow with increased effort and concentration from pt. OT interventio at [facility] consisted of UE ROM/strength, dressing sequences, balance, safety GMC/FMC. Patient did not goals. Patient to DC to [facility] Decreased Activ Tolerance, Decreased Safety Aware, Decreased UE Strength, Impaired Bed Mobility, Impaired Funct Balance, Impaired Self-Care Skills, Restricted Funct UE ROM, Visual-Perceptual Deficit Eating (QC): 5 Oral Hygiene (QC): 5 Shower/Bathe Self (QC): 2 Upper Body Dressing (QC): 3 (mod A) Lower Body Dressing (QC): 2 On/Off Footwear (QC): 1 Toileting Hygiene (QC): 1 PT Animal Cruelty Investigation Supervisor Goals Animal Cruelty Investigation Supervisor Goals PT Residential Goals Time Frame: Sep 13, 2022 Roll Left to Right (QC): 3 (Pt will complete bed mobility with Min A. ) Sit to Lying (QC): 3 (Pt will complete bed mobility with Min A. ) Lying-Sitting on Side/Bed(QC): 3 (Pt will complete bed mobility with Min A. ) Sit to Stand (QC): 3 (Pt will complete transfer with Min/Mod A. ) Chair/Lim-ho-Thusq Xfer(QC): 3 (Pt will complete transfer with Min/Mod A. ) Toilet/Commode Transfer (QC): 3 (Pt will complete transfer with Min/Mod A. ) Car Transfer (QC): 3 (Pt will complete transfer with Min/Mod A. ) Does the Patient Walk: No and Walking Goal IS indicated Walk 10 feet (QC): 3 (Min/Mod A for walking with the chau-walker ) Walk 10ft-Uneven Surface(QC): 88 Walk 50ft with 2 Turns (QC): 3 (Min/Mod A for walking with the chau-walker ) Walk 150 ft (QC): 88 Does the Pt use WC or Scooter?: Yes Wheel 50 feet with 2 turns (QC: 3 (Min A for w/c mobility ) Type: Manual Wheel 150 feet: 3 (Min A for w/c mobility ) Type: Manual 1 Step (curb) (QC): 3 (Min/Mod A for a curb/step ) 4 Steps (QC): 88 12 Steps (QC): 88 Picking up an Object (QC): 3 (Min A with wallcovering texturer ) OT Residential Goals Residential Goals Time Frame: Sep 28, 2022 Acute change in mental status: 0 Inattention: 0 Disorganized thinkin Altered level of consciousness: 0 Eating (QC): 5 (goal of set up assist if pt able to progress from tube feedings.) Oral Hygiene (QC): 5 (met) Toileting Hygiene (QC): 3 (notmet) Shower/Bathe Self (QC): 3 (not met) Upper Body Dressing (QC): 4 (not met) Lower Body Dressing (QC): 3 (notmet) On/Off Footwear (QC): 3 (notmet) Additional Goals: 1-Demonstrate ADL Tasks, 2-Verbalize Understanding, 3- ImproveStrength/Emil 1=Demonstrate adherence to instructed precautions during ADL tasks. 2=Patient will verbalize/demonstrate understanding of assistive devices/modifications for ADL. 3=Patient will improve strength/tolerance for activity to enable patient to perform ADL's. Speech Animal Cruelty Investigation Supervisor Goals Residential Goals 1. The patient will tolerate the least restrictive diet consistency without s/s of suspected aspiration. Language: 1. Pt will communicate basic wants/needs with staff or family members either verbally or with use of pictures in 4/5 opportunities. Time Frame: Three Weeks. JOYA RIOS OT Sep 20, 2022 15:25
--- NOTE | 2022-09-20 15:49 | Therapy Team Discharge Summary ---
Therapy Discharge Summary Discharge Recommendations Date of Discharge Sep 20, 2022 at 09:45 Physical Therapy EMS to [facility] 08/25/22 with slurred speech and R side weakness. Transf er to [facility] same day with L MCA CVA and for possible endovascular intervention. 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 08/27/22 c/o abdominal pain. 08/28/22 found to have GB sludge with (+) Monteiro's sign. Pt transferred to [facility] 08/30/22. Pt was Ind with ADLs and functional mobility at [facility]. Pt used a FWW within the house and SPC in community. Upon initial PT eval, pt was Max A x 2 for bed mobility and functional transfers (Dep). Pt did progress some with PT, and met some goals. Pts lack of progress was attributed to lack of progression with active movement of the R LE/UE. D/C to SNF on 09/20/22. D/C from PT Roll Left to Right (QC): 3 (R rolling - CGA; L rolling - Mod A) Sit to Lying (QC): 3 (Mod A) Lying to Sitting/Side of Bed(Q: 3 (Mod A) Sit to Stand (QC): 2 (Max A) Chair/Pgd-wm-Ehbjh Xfer(QC): 2 (Max A) Toilet Transfer (QC): 88 Car Transfer (QC): 88 Does the Patient Walk: No and Walking Goal NOT indicated Mode of Locomotion: Wheelchair Anticipated Mode of Locomotion: Wheelchair Walk 10 feet (QC): 88 Walk 50 ft with 2 Turns(QC): 88 Walk 150 ft (QC): 88 Walking 10ft on uneven surface: 88 Does the Pt Use a Wheelchair: Yes Wheel 50 ft with 2 turns (QC): 3 (Mod A) Wheel 150 ft (QC): 3 (Mod A) Type of Wheelchair: Manual 1 Step (curb) (QC): 88 4 Steps (QC): 88 12 Steps (QC): 88 Balance Sitting Static: Fair Balance Sitting Dynamic: Fair Balance-Standing Static: Poor Picking up an Object (QC): 88 Occupational Therapy Decreased Activ Tolerance, Decreased Safety Aware, Decreased UE Strength, Impaired Bed Mobility, Impaired Funct Balance, Impaired Self-Care Skills, Restricted Funct UE ROM, Visual-Perceptual Deficit Eating (QC): 5 Oral Hygiene (QC): 5 Shower/Bathe Self (QC): 2 Upper Body Dressing (QC): 3 (mod A) Lower Body Dressing (QC): 2 On/Off Footwear (QC): 1 Toileting Hygiene (QC): 1 PT Prison Goals Prison Goals PT Prison Goals Time Frame: Sep 13, 2022 Roll Left to Right (QC): 3 (Pt will complete bed mobility with Min A. ) Sit to Lying (QC): 3 (Pt will complete bed mobility with Min A. ) Lying-Sitting on Side/Bed(QC): 3 (Pt will complete bed mobility with Min A. ) Sit to Stand (QC): 3 (Pt will complete transfer with Min/Mod A. ) Chair/Hto-cu-Yfeww Xfer(QC): 3 (Pt will complete transfer with Min/Mod A. ) Toilet/Commode Transfer (QC): 3 (Pt will complete transfer with Min/Mod A. ) Car Transfer (QC): 3 (Pt will complete transfer with Min/Mod A. ) Does the Patient Walk: No and Walking Goal IS indicated Walk 10 feet (QC): 3 (Min/Mod A for walking with the chau-walker ) Walk 10ft-Uneven Surface(QC): 88 Walk 50ft with 2 Turns (QC): 3 (Min/Mod A for walking with the chau-walker ) Walk 150 ft (QC): 88 Does the Pt use WC or Scooter?: Yes Wheel 50 feet with 2 turns (QC: 3 (Min A for w/c mobility ) Type: Manual Wheel 150 feet: 3 (Min A for w/c mobility ) Type: Manual 1 Step (curb) (QC): 3 (Min/Mod A for a curb/step ) 4 Steps (QC): 88 12 Steps (QC): 88 Picking up an Object (QC): 3 (Min A with [employer] scout ) OT Computer Patternmaker Goals Prison Goals Time Frame: Sep 28, 2022 Acute change in mental status: 0 Inattention: 0 Disorganized thinkin Altered level of consciousness: 0 Eating (QC): 5 (goal of set up assist if pt able to progress from tube feedings.) Oral Hygiene (QC): 5 (met) Toileting Hygiene (QC): 3 (notmet) Shower/Bathe Self (QC): 3 (not met) Upper Body Dressing (QC): 4 (not met) Lower Body Dressing (QC): 3 (notmet) On/Off Footwear (QC): 3 (notmet) Additional Goals: 1-Demonstrate ADL Tasks, 2-Verbalize Understanding, 3- ImproveStrength/Emil 1=Demonstrate adherence to instructed precautions during ADL tasks. 2=Patient will verbalize/demonstrate understanding of assistive devices/modifications for ADL. 3=Patient will improve strength/tolerance for activity to enable patient to perform ADL's. Speech Computer Patternmaker Goals Prison Goals 1. The patient will tolerate the least restrictive diet consistency without s/s of suspected aspiration. Language: 1. Pt will communicate basic wants/needs with staff or family members either verbally or with use of pictures in 4/5 opportunities. Time Frame: Three Weeks. KATELIN YAO PT Sep 20, 2022 15:49
--- NOTE | 2022-09-21 12:37 | Therapy Team Discharge Summary ---
Therapy Discharge Summary Discharge Recommendations Date of Discharge Sep 20, 2022 at 09:45 Physical Therapy Roll Left to Right (QC): 3 (R rolling - CGA; L rolling - Mod A) Sit to Lying (QC): 3 (Mod A) Lying to Sitting/Side of Bed(Q: 3 (Mod A) Sit to Stand (QC): 2 (Max A) Chair/Cwp-jl-Wrmtl Xfer(QC): 2 (Max A) Toilet Transfer (QC): 88 Car Transfer (QC): 88 Does the Patient Walk: No and Walking Goal NOT indicated Mode of Locomotion: Wheelchair Anticipated Mode of Locomotion: Wheelchair Walk 10 feet (QC): 88 Walk 50 ft with 2 Turns(QC): 88 Walk 150 ft (QC): 88 Walking 10ft on uneven surface: 88 Does the Pt Use a Wheelchair: Yes Wheel 50 ft with 2 turns (QC): 3 (Mod A) Wheel 150 ft (QC): 3 (Mod A) Type of Wheelchair: Manual 1 Step (curb) (QC): 88 4 Steps (QC): 88 12 Steps (QC): 88 Balance Sitting Static: Fair Balance Sitting Dynamic: Fair Balance-Standing Static: Poor Picking up an Object (QC): 88 Occupational Therapy Decreased Activ Tolerance, Decreased Safety Aware, Decreased UE Strength, Impaired Bed Mobility, Impaired Funct Balance, Impaired Self-Care Skills, Restricted Funct UE ROM, Visual-Perceptual Deficit Eating (QC): 5 Oral Hygiene (QC): 5 Shower/Bathe Self (QC): 2 Upper Body Dressing (QC): 3 (mod A) Lower Body Dressing (QC): 2 On/Off Footwear (QC): 1 Toileting Hygiene (QC): 1 PT Public Health Dentist Goals Longterm Goals PT Longterm Goals Time Frame: Sep 13, 2022 Roll Left to Right (QC): 3 (Pt will complete bed mobility with Min A. ) Sit to Lying (QC): 3 (Pt will complete bed mobility with Min A. ) Lying-Sitting on Side/Bed(QC): 3 (Pt will complete bed mobility with Min A. ) Sit to Stand (QC): 3 (Pt will complete transfer with Min/Mod A. ) Chair/Nbv-qu-Rlrok Xfer(QC): 3 (Pt will complete transfer with Min/Mod A. ) Toilet/Commode Transfer (QC): 3 (Pt will complete transfer with Min/Mod A. ) Car Transfer (QC): 3 (Pt will complete transfer with Min/Mod A. ) Does the Patient Walk: No and Walking Goal IS indicated Walk 10 feet (QC): 3 (Min/Mod A for walking with the chau-walker ) Walk 10ft-Uneven Surface(QC): 88 Walk 50ft with 2 Turns (QC): 3 (Min/Mod A for walking with the chau-walker ) Walk 150 ft (QC): 88 Does the Pt use WC or Scooter?: Yes Wheel 50 feet with 2 turns (QC: 3 (Min A for w/c mobility ) Type: Manual Wheel 150 feet: 3 (Min A for w/c mobility ) Type: Manual 1 Step (curb) (QC): 3 (Min/Mod A for a curb/step ) 4 Steps (QC): 88 12 Steps (QC): 88 Picking up an Object (QC): 3 (Min A with transcribing machine operator ) OT Public Health Dentist Goals Longterm Goals Time Frame: Sep 28, 2022 Acute change in mental status: 0 Inattention: 0 Disorganized thinkin Altered level of consciousness: 0 Eating (QC): 5 (goal of set up assist if pt able to progress from tube feedings.) Oral Hygiene (QC): 5 (met) Toileting Hygiene (QC): 3 (notmet) Shower/Bathe Self (QC): 3 (not met) Upper Body Dressing (QC): 4 (not met) Lower Body Dressing (QC): 3 (notmet) On/Off Footwear (QC): 3 (notmet) Additional Goals: 1-Demonstrate ADL Tasks, 2-Verbalize Understanding, 3- ImproveStrength/Emil 1=Demonstrate adherence to instructed precautions during ADL tasks. 2=Patient will verbalize/demonstrate understanding of assistive devices/modifi cations for ADL. 3=Patient will improve strength/tolerance for activity to enable patient to perform ADL's. Speech Public Health Dentist Goals Public Health Dentist Goals 1. The patient will tolerate the least restrictive diet consistency without s/s of suspected aspiration. MET Language: 1. Pt will communicate basic wants/needs with staff or family members either verbally or with use of pictures in 4/5 opportunities. MET Time Frame: Three Weeks. DELL PLATA Sep 21, 2022 12:37
== END 2022-09-20 09:45 | DRG 57 ==
LOC: EDBD
PROVIDERS: ADMIT Internal Medicine; ATTEND Internal Medicine
DX: I69.351 Hemiplegia and hemiparesis following cerebral infarction affecting right dominant side (principal); B37.0 Candidal stomatitis; I69.392 Facial weakness following cerebral infarction; I69.391 Dysphagia following cerebral infarction; I69.320 Aphasia following cerebral infarction; R13.10 Dysphagia, unspecified; I10 Essential (primary) hypertension; I48.0 Paroxysmal atrial fibrillation; E78.00 Pure hypercholesterolemia, unspecified; Z66 Do not resuscitate; E11.9 Type 2 diabetes mellitus without complications; E66.9 Obesity, unspecified; E03.9 Hypothyroidism, unspecified; I49.5 Sick sinus syndrome; I44.1 Atrioventricular block, second degree; R05.9 Cough, unspecified; M54.2 Cervicalgia; Z68.37 Body mass index [BMI] 37.0-37.9, adult; Z79.4 Long term (current) use of insulin; Z79.82 Long term (current) use of aspirin; Z79.899 Other long term (current) drug therapy; Z88.1 Allergy status to other antibiotic agents; Z88.5 Allergy status to narcotic agent; Z91.09 Other allergy status, other than to drugs and biological substances
CPT/HCPCS: 36415; 71046; 74230; 80053; 82947; 85025; 94640; 94760

== ENCOUNTER 2023-02-13 11:35 | Outpatient (CLI) | payer MEDICARE ==
[~2023-02-13 11:35] MED LIST: ACET325O6 PO; ACET325T49 NG; ALPR0.5T7 PO; AMLO-250 NG; ASPI-808 NG; ASPI325T32 NG; ATOR40TA PO; ATOR40TA70 PO; BUTA1TAB52 PO; CHOL500050 PO; CLON1PAT33 TD; CLON1PAT42 TD; DICL100G60 TOP; DILT180C71 PO; ENOX40DI8 SC; FLUO20CA48 PO; GABA-486 PO; INSU100V SQ; INSU100V16 SC; INSU100V5 SQ; LANSOPRAZOLE PO; LEVO100T PO; LEVO100T7 PO; LEVO125T6 PO; MELO15TA39 PO; NYST1000 PO; ONDA4TAB11 SL; OXC5T PO; OXYB-52 PO; PANT40TA52 PO; POTA20TA28 PO; PROP40TA5 PO; SENN-271 NG; TIZA-186 NG; TIZA-186 PO; VALS1TAB79 PO
== END 2023-02-13 11:55 ==
LOC: SLEEP 11:35
PROVIDERS: ATTEND Internal Medicine Cardiovascular Disease
DX: G47.33 Obstructive sleep apnea (adult) (pediatric) (principal)
CPT/HCPCS: G0399